=== PATIENT | female | born 1945 ===

== ENCOUNTER 2020-05-14 09:07 | Outpatient (REF) | payer MEDICARE, SELFPAY ==
[2020-05-14 10:53] LABS: Alanine Aminotransferase 14 U/L (0-31); Alkaline Phosphatase 116 U/L (39-117); Anion Gap 12 (12-20); Aspartate Amino Transferase 17 U/L (5-31); Bilirubin Total 0.4 mg/dL (0.0-1.0); Blood Urea Nitrogen 10 mg/dL (9-16); Calcium 8.3 mg/dL (8.4-10.2); Carbon Dioxide 29 mmol/L (22-29); Chloride 104 mmol/L (96-108); Cholesterol 207 mg/dL; Estimated Glomerular Filt Rate > 60; Glucose Fasting 106 mg/dL (60-99); HDL Cholesterol 37 mg/dL; LDL Cholesterol Calculated 133 mg/dl; Potassium 4.2 mmol/l (3.3-5.1); Sodium 141 mmol/L (135-145); Total Protein 6.7 g/dL (6.5-8.0); Triglycerides 185 mg/dL
[2020-05-14 11:14] LABS: Vitamin D 25-OH Total 38.9 ng/mL (>30)
== END 2020-05-14 09:08 | disposition home or self-care (01) ==
LOC: HO.10HDL 09:07
PROVIDERS: Visit Provider Internal Medicine
DX: E78.00 Pure hypercholesterolemia, unspecified (principal); E55.9 Vitamin D deficiency, unspecified
CPT/HCPCS: 80053; 80061; 82306

== ENCOUNTER 2020-08-12 08:17 | Outpatient (REF) | payer MEDICARE, MEDICAID, OTHER, SELFPAY ==
--- NOTE | 2020-08-12 08:40 | ECG_ITS ---
Test Reason : HYPERLIPIDEMIA Blood Pressure : / mmHG Vent. Rate : 069 BPM Atrial Rate : 069 BPM P-R Int : 144 ms QRS Dur : 070 ms QT Int : 394 ms P-R-T Axes : 046 038 056 degrees QTc Int : 422 ms Sinus rhythm with Premature atrial complexes Otherwise normal ECG When compared with ECG of 22-MAR-2020 04:28, Premature atrial complexes are now Present Referred By: Angi Bartlett Electronically Signed By:RIDGE MOYA
[2020-08-12 08:54] LABS: MANUAL DIFF FLAG NO
[2020-08-12 08:59] LABS: Basophils Absolute Auto 0.1 X10*3/uL (0.0-0.2); Eosinophils Absolute Auto 0.1 X10*3/uL (0.0-0.4); Eosinophils Percent Auto 1.8 % (0-4); Hematocrit 42.9 % (37-47); Hemoglobin 14.3 g/dl (12.0-16.0); Imm Gran Abs Auto 0.01 X10*3/uL (0.00-0.03); Imm Gran Pct Auto 0.2 % (0.0-0.4); Lymphocytes Absolute Auto 1.9 X10*3/uL (1.2-4.9); Lymphocytes Percent Auto 30.8 % (20-40); Mean Corpuscular HGB Conc 33.3 g/dl (31.0-35.0); Mean Corpuscular Hemoglobin 30.6 pg (27.0-33.0); Mean Corpuscular Volume 91.9 fL (80-98); Mean Platelet Volume 11.8 fL (9.4-12.3); Monocytes Absolute Auto 0.4 X10*3/uL (0.1-1.2); Monocytes Percent Auto 7.1 % (2-11); Neutrophils Absolute Auto 3.6 X10*3/uL (2.0-8.3); Neutrophils Percent Auto 59.1 % (45-73); Platelet Count 261 X10*3/uL (160-400); Red Blood Count 4.67 X10*6/uL (4.20-5.50); Red Cell Distribution Width 13.2 % (11.0-16.0); White Blood Count 6.1 X10*3/uL (4.8-10.8)
[2020-08-12 09:19] LABS: Alanine Aminotransferase 12 U/L (0-31); Albumin Level 4.2 g/dL (3.5-5.0); Alkaline Phosphatase 124 U/L (39-117); Anion Gap 10 (12-20); Aspartate Amino Transferase 14 U/L (5-31); Bilirubin Total 0.7 mg/dL (0.0-1.0); Blood Urea Nitrogen 13 mg/dL (9-16); Calcium 9.2 mg/dL (8.4-10.2); Carbon Dioxide 30 mmol/L (22-29); Chloride 104 mmol/L (96-108); Cholesterol 225 mg/dL; Estimated Glomerular Filt Rate 58; Glucose Fasting 107 mg/dL (60-99); HDL Cholesterol 40 mg/dL; LDL Cholesterol Calculated 156 mg/dl; Potassium 4.4 mmol/L (3.3-5.1); Sodium 140 mmol/L (135-145); Total Protein 7.2 g/dL (6.5-8.0); Triglycerides 148 mg/dL
[2020-08-12 09:39] LABS: TSH reflex Free T4 4.28 uIU/mL (0.32-4.0)
[2020-08-12 10:47] LABS: Folate 9.8 ng/mL (> or = 4.0); Vitamin B12 157 pg/mL (200-900)
[2020-08-12 10:50] LABS: Free T4 (Free Thyroxine) 0.93 ng/dL (0.71-1.85)
[2020-08-16 15:02] LABS: Vitamin D 25-OH, D2 9 ng/mL; Vitamin D 25-OH, D3 39 ng/mL; Vitamin D 25-OH, Total 48 ng/mL (30-100)
== END 2020-08-12 08:18 | disposition home or self-care (01) ==
LOC: HO.LAB 08:17
PROVIDERS: Visit Provider Internal Medicine
DX: E78.5 Hyperlipidemia, unspecified (principal); E03.9 Hypothyroidism, unspecified; R53.82 Chronic fatigue, unspecified
CPT/HCPCS: 36415; 80053; 80061; 82306; 82607; 82746; 84439; 84443; 85025; 93005

== ENCOUNTER 2020-09-04 14:47 | Emergency (ER) | payer MEDICARE, OTHER, SELFPAY ==
--- NOTE | ~2020-09-04 | US_ITS ---
EXAMINATION: US VENOUS ULTRASOUND WITH DOPPLER LOWER EXTREMITY, LEFT CLINICAL INFORMATION: Pain COMPARISON: None TECHNIQUE: Ultrasound of the deep veins is performed from the hip to the calf with compression sonography and color and pulse Doppler assessment. Spectral analysis with color-flow imaging is performed. FINDINGS: There is normal venous compression and respiratory variation and augmented flow. The visualized common femoral vein, superficial femoral vein, profunda femoral vein, popliteal vein, and the trifurcation region shows no evidence of deep venous thrombosis. There is no significant popliteal fossa cyst. There is a small joint effusion evident along the posterior joint line. If the patient's symptoms persist, followup ultrasound in 5 days 7 days might be of value to exclude proximal propagation from a non-visualized calf vein. US/US venous duplex LE LT IMPRESSION: No DVT demonstrated in the left lower extremity. Knee joint effusion suspected.
--- NOTE | ~2020-09-04 | XR_ITS ---
EXAMINATION: XR KNEE, LEFT CLINICAL INFORMATION: Pain COMPARISON: 08/31/2017 TECHNIQUE: Four views of the left knee. FINDINGS: No acute fracture or dislocation. Small marginal osteophytes along the patellofemoral joint. Joint spaces and articular surfaces are otherwise maintained. Moderate joint effusion. XR/XR knee LT 3V IMPRESSION: No acute fracture or dislocation. Moderate joint effusion.
[2020-09-04 15:06] VITALS: BP 138/64; PULSE 69; RESP 18; TEMP 36.5; O2SAT 96; BMI 22.3
[2020-09-04 17:21] VITALS: BP 141/62; PULSE 66; RESP 18; TEMP 36.8; O2SAT 98
--- NOTE | 2020-09-04 18:06 | ED_ITS ---
HPI - Extremity Injury (Lower) General Chief Complaint: Extremity Injury, Lower Stated Complaint: leg, knee, neck pain Time Seen by Provider: 09/04/20 16:22 History of Present Illness HPI Narrative: Patient complains of pain in the left knee and the left posterior thigh and left posterior knee over the last several days without injury, she denies any redness, denies swelling denies numbness weakness or tingling, no fever no chills, pain is moderate Related Data Home Medications Medication Instructions Recorded Confirmed ezetimibe 10 mg tablet 10 mg PO DAILY 05/03/20 07/19/20 pantoprazole 40 mg tablet,delayed 40 mg PO BEDTIME 05/03/20 07/19/20 release Previous Rx's Medication Instructions Recorded acetaminophen 650 mg 650 mg PO Q12H PRN 15 Days #30 tab 06/07/20 tablet,extended release amitriptyline 10 mg tablet 10 mg PO BEDTIME 30 Days #30 tab 07/19/20 cane #1 ea 09/04/20 Allergies Allergy/AdvReac Type Severity Reaction Status Date / Time ibuprofen Allergy Mild anaphylaxis, Verified 09/04/20 15:05 hives metronidazole Allergy Mild rash Verified 09/04/20 15:05 naproxen [Aleve] Allergy Mild anaphylaxis, Verified 09/04/20 15:05 hives pravastatin Allergy Mild anaphylaxis Verified 09/04/20 15:05 simvastatin Allergy Mild cramps Verified 09/04/20 15:05 oxycodone [OXYCODONE] AdvReac Mild GI UPSET Verified 09/04/20 15:05 aspirin Allergy Mild swelling Uncoded 09/04/20 15:05 Review of Systems Review of Systems: Positive for left knee pain and posterior leg pain Negatives are no fever no chills no dizziness no weakness no other joints hurting no chest pain no shortness of breath no rash no numbness weakness or tin gling Yes all other systems are reviewed and are negative PMFSH Past Medical History Source: nursing notes reviewed Medical History Chronic fatigue Dyslipidemia GERD (gastroesophageal reflux disease) Insomnia Neck pain on right side Ophthalmoplegic migraine headache Sore throat, chronic Surgical History History of laparoscopic cholecystectomy History of total abdominal hysterectomy and bilateral salpingo-oophorectomy Family History Family History (Updated 05/03/20 @ 16:50 by TOBY Corral) Mother CVD (cardiovascular disease) Father Lung cancer Son Cancer Sister Lung cancer Brother Colon cancer Social History Social History Smoking Status: Never smoker Smoked in Last 30 Days: No Use of substances other than those prescribed or required for medical reasons: No Advance Directives: No Advance Directives Information Provided: No Physical Exam Vital Signs: Vital Signs: Last Vital Signs Temp 98.3 F 09/04/20 17:21 Pulse 66 09/04/20 17:21 Resp 18 09/04/20 17:21 BP 141/62 H 09/04/20 17: Pulse Ox 98 09/04/20 17:21 Body Mass Index 22.3 General appearance is no acute distress, cooperative and O x3 Head is normocephalic atraumatic Neck is supple The chest is clear to auscultation bilaterally The abdomen is soft nontender The extremities the left knee has anterior tenderness no obvious swelling or effusion, it extends to 180 and flexes past 90, she can bear weight with a limp, there is also tenderness in the posterior knee and the posterior thigh, skin is normal in appearance with no rash no redness no warmth Neuro no focal deficit Course Course Course Narrative: X-ray of the knee showed a small effusion, as well as some evidence of osteoarthritis Ultrasound was negative for blood clot and patient was discharged and ambulated comfortably without assistance with a minor limp and will follow with orthopedi st Discharge Plan Discharge Clinical Impression: Osteoarthritis of left knee, Effusion of left knee Patient Disposition: Home, Self-Care Additional Instructions: Ultrasound of her leg did not show any blood clot X-ray did show some arthritis and some fluid on the knee which usually gets absorbed on its own in a few days Follow with orthopedist for further evaluation if pain continues Return to ER any time any worse condition or concerns You could use extra-strength Tylenol as needed for pain Prescriptions: New (DME) cane Device See Rx Instructions .ROUTE .MEDSUPPLY Qty: 1 RF: 0 No Action amitriptyline 10 mg tablet 10 mg PO BEDTIME 30 Days Qty: 30 RF: 0 acetaminophen [Arthritis Pain Relief (acetam)] 650 mg tablet extended release 650 mg PO Q12H PRN (Reason: pain) 15 Days Qty: 30 RF: 0 ezetimibe 10 mg tablet 10 mg PO DAILY RF: 0 pantoprazole 40 mg tablet,delayed release (DR/EC) 40 mg PO BEDTIME RF: 0 Referrals: Leyda Gibson MD [Physician] - 1 week (Left knee pain, osteoarthritis and effusion) Interventions: ED Discharge Assessment Last Done: 09/04/20 18:55 Discharge Date/Time: 09/04/20 18:20
== END 2020-09-04 18:20 | disposition home or self-care (01) ==
PROVIDERS: Emergency Provider Emergency Medicine Emergency Medical Services; PCP Internal Medicine
DX: M17.12 Unilateral primary osteoarthritis, left knee (principal); M25.462 Effusion, left knee; M79.605 Pain in left leg
CPT/HCPCS: 73562; 93971; 99284

== ENCOUNTER 2020-09-14 10:23 | Emergency (ER) | payer MEDICARE, OTHER, SELFPAY ==
--- NOTE | ~2020-09-14 | US_ITS ---
EXAMINATION: US VENOUS ULTRASOUND WITH DOPPLER LOWER EXTREMITY, LEFT CLINICAL INFORMATION: Left leg pain. COMPARISON: None TECHNIQUE: Ultrasound of the deep veins is performed from the hip to the calf with compression sonography and color and pulse Doppler assessment. Spectral analysis with color-flow imaging is performed. FINDINGS: There is normal venous compression and respiratory variation and augmented flow. The visualized common femoral vein, superficial femoral vein, profunda femoral vein, popliteal vein, and the trifurcation region shows no evidence of deep venous thrombosis. There is a small popliteal fossa cyst. US/US venous duplex LE LT IMPRESSION: No DVT demonstrated in the left lower extremity.
[2020-09-14 10:41] VITALS: BP 155/51; PULSE 66; RESP 16; TEMP 36.7; O2SAT 97; BMI 23.1
--- NOTE | 2020-09-14 10:46 | ED.LOWEXIN ---
HPI - Extremity Injury (Lower) General Chief Complaint: Extremity Injury, Lower Stated Complaint: lt knee pain, swelling Time Seen by Provider: 09/14/20 10:46 History of Present Illness HPI Narrative: Patient complains of left knee pain and swelling as well as left posterior leg pain for several weeks, patient was seen before 10 days ago but has not yet diagnosed orthopedic appointment, she had ultrasound which was negative and an x-ray which showed some arthritis in the knee with a small effusion, as she has no chest pain or shortness of breath no calf swelling no leg swelling Related Data Home Medications Medication Instructions Recorded Confirmed ezetimibe 10 mg tablet 10 mg PO DAILY 05/03/20 09/07/20 pantoprazole 40 mg tablet,delayed 40 mg PO BEDTIME 05/03/20 09/07/20 release Previous Rx's Medication Instructions Recorded amitriptyline 10 mg tablet 10 mg PO BEDTIME 30 Days #30 tab 07/19/20 acetaminophen 650 mg 650 mg PO Q12H PRN 30 Days #60 tab 09/06/20 tablet,extended release cyanocobalamin (vitamin B-12) 1,000 mcg IM .once a month 30 Days 09/07/20 1,000 mcg/mL injection solution #1 ml syringe with needle, safety 3 mL #1 ea 09/07/20 gauge x 1 07/10 acetaminophen 300 mg-codeine 15 mg 1 tab PO BID PRN 7 Days #14 tab 09/08/20 tablet cane #1 ea 09/14/20 walker #1 ea 09/15/20 Allergies Allergy/AdvReac Type Severity Reaction Status Date / Time ibuprofen Allergy Mild anaphylaxis, Verified 09/17/20 10:16 hives metronidazole Allergy Mild rash Verified 09/17/20 10:16 naproxen [Aleve] Allergy Mild anaphylaxis, Verified 09/17/20 10:16 hives pravastatin Allergy Mild anaphylaxis Verified 09/17/20 10:16 simvastatin Allergy Mild cramps Verified 09/17/20 10:16 oxycodone [OXYCODONE] AdvReac Mild GI UPSET Verified 09/17/20 10:16 aspirin Allergy Mild swelling Uncoded 09/07/20 14:50 Review of Systems Review of Systems: Positive for left leg and knee pain, negatives are fever chills dizziness weakness confusion no shortness of breath no chest pain no pain with deep breath, no nausea no vomiting no leg swelling no calf pain or swelling no rash no numbness or weakness PMFSH Past Medical History Source: nursing notes reviewed Medical History B12 deficiency Chronic fatigue Dyslipidemia Effusion, left knee GERD (gastroesophageal reflux disease) Insomnia Neck pain on right side Ophthalmoplegic migraine headache Sore throat, chronic Surgical History History of laparoscopic cholecystectomy History of total abdominal hysterectomy and bilateral salpingo-oophorectomy Family History Family History Mother CVD (cardiovascular disease) Father Lung cancer Son Cancer Sister Lung cancer Brother Colon cancer Social History Social History Smoking Status: Never smoker Physical Exam Vital Signs: Vital Signs: Last Vital Signs Temp 98.0 F 09/14/20 10:41 Pulse 66 09/14/20 10:41 Resp 16 09/14/20 10:41 BP 155/51 H 09/14/20 10:41 Pulse Ox 97 09/14/20 10:41 Body Mass Index 23.1 General appearance no acute distress, cooperative come in O x3 The head is normocephalic atraumatic The neck is supple The chest is clear to auscultation bilaterally, no pain with a deep breath Abdomen soft nontender extremities the left knee has some tenderness extends to 180, it is not obvious swollen there is no obvious a flu effusion there is no ligamentous laxity, skin color is normal there is no rash There is also some tenderness to the posterior thigh and the posterior knee, there is no calf swelling or calf tenderness Skin no rash Neuro no focal deficits, no focal weakness, sensation is intact and symmetrical Course Course Course Narrative: Patient said she has had trouble making a follow-up orthopedic appointment, the called the office and say there is many appointments available and if she calls she will get an appointment, and the patient says if she is confused about the call she can ask her niece to make the call Ultrasound was negative and did not show any clot or any acute pathology Discharge Plan Discharge Clinical Impression: Arthralgia of left knee Patient Disposition: Home, Self-Care Additional Instructions: Ultrasound did not show any blood clot X-ray from previous visits showed some arthritis and water on the knee You may benefit from a steroid shot from the orthopedist so make an appointment for the orthopedist who will evaluate best possible treatment Return any concerns Prescriptions: No Action acetaminophen [Arthritis Pain Relief (acetam)] 650 mg tablet extended release 650 mg PO Q12H PRN (Reason: pain) 30 Days Qty: 60 RF: 3 acetaminophen-codeine 300-15 mg tablet 1 tab PO BID PRN (Reason: pain) 7 Days Qty: 14 RF: 0 (DME) cane Device See Rx Instructions .ROUTE .MEDSUPPLY Qty: 1 RF: 0 (DME) walker Misc See Rx Instructions .ROUTE .MEDSUPPLY Qty: 1 RF: 0 amitriptyline 10 mg tablet 10 mg PO BEDTIME 30 Days Qty: 30 RF: 0 cyanocobalamin (vitamin B-12) 1,000 mcg/mL solution 1,000 mcg IM .once a month 30 Days Qty: 1 RF: 2 (DME) Easy Touch SheathLock Syrg-Ndl 3 mL 21 gauge x 1 1/2 syringe See Rx Instructions .ROUTE .MEDSUPPLY Qty: 1 RF: 2 ezetimibe 10 mg tablet 10 mg PO DAILY RF: 0 pantoprazole 40 mg tablet,delayed release (DR/EC) 40 mg PO BEDTIME RF: 0 Referrals: Casper Jauregui MD [Physician] - 2 days (Knee pain possible candidate for steroid injection) Interventions: ED Discharge Assessment Last Done: 09/14/20 12:45 Discharge Date/Time: 09/14/20 12:35
== END 2020-09-14 12:35 | disposition home or self-care (01) ==
PROVIDERS: Emergency Provider Emergency Medicine Emergency Medical Services; PCP Internal Medicine
DX: M25.562 Pain in left knee (principal); M79.605 Pain in left leg
CPT/HCPCS: 93971; 99283; 99284

== ENCOUNTER 2020-09-17 07:35 | Outpatient (REF) | payer MEDICARE, MEDICAID, SELFPAY ==
--- NOTE | ~2020-09-17 | XR_ITS ---
EXAMINATION: XR KNEE, LEFT XR KNEE STANDING, BILATERAL CLINICAL INFORMATION: Diffuse left knee. COMPARISON: X-ray of the left knee 09/04/2020 TECHNIQUE: AP upright of both knees and patellar view of left knee. FINDINGS: Left knee: Small marginal osteophytes about the medial compartment and patellofemoral compartment without joint space narrowing indicative of mild osteoarthritis. Lateral compartment normal. Right knee limited AP upright: The medial and lateral compartments are normal. The surrounding bone and soft tissues are normal. XR/XR knee LT 2V IMPRESSION: Mild osteoarthritis of the left knee. Limited right knee: Normal.
--- NOTE | ~2020-09-17 | XR_ITS ---
EXAMINATION: XR KNEE, LEFT XR KNEE STANDING, BILATERAL CLINICAL INFORMATION: Diffuse left knee. COMPARISON: X-ray of the left knee 09/04/2020 TECHNIQUE: AP upright of both knees and patellar view of left knee. FINDINGS: Left knee: Small marginal osteophytes about the medial compartment and patellofemoral compartment without joint space narrowing indicative of mild osteoarthritis. Lateral compartment normal. Right knee limited AP upright: The medial and lateral compartments are normal. The surrounding bone and soft tissues are normal. XR/XR knee standing BI IMPRESSION: Mild osteoarthritis of the left knee. Limited right knee: Normal.
== END 2020-09-17 07:36 | disposition home or self-care (01) ==
LOC: HO.HOSX 07:35
PROVIDERS: Visit Provider Physician Assistant
DX: M17.12 Unilateral primary osteoarthritis, left knee (principal)
CPT/HCPCS: 20610; 73560; 73565; 99202; J1040

== ENCOUNTER → 2020-12-03 11:02 | Outpatient (BNVA) | payer MEDICARE, MEDICAID, OTHER, SELFPAY | PROVIDERS: PCP Internal Medicine; Visit Provider Physician Assistant | DX: M17.12 Unilateral primary osteoarthritis, left knee (principal) | CPT/HCPCS: 99212 ==

== ENCOUNTER → 2020-12-29 08:55 | Outpatient (BNVA) | payer MEDICARE, OTHER, SELFPAY | PROVIDERS: PCP Internal Medicine; Visit Provider Physician Assistant | DX: M17.12 Unilateral primary osteoarthritis, left knee (principal) | CPT/HCPCS: 20610; 99212; J1040 ==

== ENCOUNTER 2021-02-10 20:32 | Emergency (ER) | payer MEDICARE, OTHER, SELFPAY ==
[2021-02-10 21:02] VITALS: BP 156/57; PULSE 72; RESP 18; TEMP 36.8; O2SAT 97; BMI 22.3
[2021-02-10 21:30] LABS: IDNOW Serial# 9DD0AD1C; Strep A Nucleic Acid Negative (Negative)
[2021-02-10 22:02] LABS: Influenza A PCR NEGATIVE (Negative); Influenza B PCR NEGATIVE (Negative); Resp Syncy Virus RNA Qual PCR NEGATIVE (Negative); SARS COV2 PCR INHOUSE NEGATIVE (Negative)
--- NOTE | 2021-02-10 22:23 | ED.GENADULT ---
HPI - General Adult General Chief complaint: General Medical Stated complaint: sore throat Time Seen by Provider: 02/10/21 22:20 Source: patient Mode of arrival: ambulatory Limitations: no limitations History of Present Illness HPI narrative: This is a 75 years old of female who presented to the ED with a chief complaint of a sore throat cough dry, denies any fever chills vomiting Onset (ago): day(s) (2) Severity: moderate Exacerbating factors: none Treatments prior to arrival: none Related Data Home Medications Medication Instructions Recorded Confirmed ezetimibe 10 mg tablet 10 mg PO DAILY 05/03/20 09/07/20 pantoprazole 40 mg tablet,delayed 40 mg PO BEDTIME 05/03/20 09/07/20 release Previous Rx's Medication Instructions Recorded amitriptyline 10 mg tablet 10 mg PO BEDTIME 30 Days #30 tab 07/19/20 syringe with needle, safety 3 mL #1 ea 09/07/20 21 gauge x 1 1/2 (Easy Touch SheathLock Syringe with Needle) cane #1 ea 09/14/20 acetaminophen 650 mg 650 mg PO Q12H PRN 30 Days #60 tab 10/01/20 tablet,extended release (Arthritis Pain Relief (acetaminophen) ER) walker #1 ea 10/20/20 cyanocobalamin (vitamin B-12) 1,000 mcg IM .once a month 30 Days 11/27/20 1,000 mcg/mL injection solution #1 ml acetaminophen 300 mg-codeine 15 mg 1 tab PO Q8H PRN 30 Days #90 tab 12/14/20 tablet doxycycline monohydrate 100 mg 100 mg PO BID #14 cap 02/10/21 capsule Allergies Allergy/AdvReac Type Severity Reaction Status Date / Time ibuprofen Allergy Mild anaphylaxis, Verified 02/10/21 21:02 hives metronidazole Allergy Mild rash Verified 02/10/21 21:02 naproxen [Aleve] Allergy Mild anaphylaxis, Verified 02/10/21 21:02 hives pravastatin Allergy Mild anaphylaxis Verified 02/10/21 21:02 simvastatin Allergy Mild cramps Verified 02/10/21 21:02 oxycodone [OXYCODONE] AdvReac Mild GI UPSET Verified 02/10/21 21:02 aspirin Allergy Mild swelling Uncoded 09/07/20 14:50 Review of Systems Review of Systems: Yes all other systems are reviewed and are negative Constitutional: Constitutional: Reports no additional constitutional complaints ENT: Comments: Sore throat Respiratory: Comments: Dry cough no productive PMFSH Past Medical History Attestation statement: The following information was validated with the patient. Medical History B12 deficiency Chronic fatigue Dyslipidemia Effusion, left knee GERD (gastroesophageal reflux disease) Insomnia Neck pain on right side Ophthalmoplegic migraine headache Sore throat, chronic Surgical History History of laparoscopic cholecystectomy History of total abdominal hysterectomy and bilateral salpingo-oophorectomy Family History Family History Mother CVD (cardiovascular disease) Father Lung cancer Son Cancer Sister Lung cancer Brother Colon cancer Social History Social History Advance Directives: No Advance Directives Information Provided: No Physical Exam Vital Signs: Vital Signs: Last Vital Signs Temp 98.2 F 02/10/21 21:02 Pulse 72 02/10/21 21:02 Resp 18 02/10/21 21:02 BP 156/57 H 02/10/21 21:02 Pulse Ox 97 02/10/21 21:02 Body Mass Index 22.3 Const: Other: She looks well she is not toxic she is sitting in the chair in not acute distress HENMT: Other: Examination the head and eyes nose mouth throat showed redness of the pharynx without exudates reyes General nose exam: Normal external nose present Neck: Other: Neck is supple Chest: Chest palpation & inspection: normal inspection of the chest Resp: Other: Lungs exam shows clear lung esposito Cardio: Jugular venous distension: no JVD Rate: regular rate GI: Inspection: Yes normal to inspection Skin: General skin exam: no rashes or lesions noted, elasticity normal and turgor normal Neuro: Other: Patient is awake alert oriented x3 no focal deficit Medical Decision Making Lab Data Lab results reviewed: Yes I reviewed the patient's lab results. Labs: Lab Results 02/10/21 02/10/21 Range/Units 21:13 21:13 Coronavirus (PCR) NEGATIVE (Negative) Influenza Type A (PCR) NEGATIVE (Negative) Influenza Type B (PCR) NEGATIVE (Negative) RSV RNA Qual (PCR) NEGATIVE (Negative) S. pyogenes GrpA MADHURI Negative (Negative) Discharge Plan Discharge Clinical Impression: Pharyngitis, Bronchitis Patient Disposition: Home, Self-Care Instructions: Pharyngitis (ED), Acute Bronchitis (ED) Prescriptions: New doxycycline monohydrate 100 mg capsule 100 mg PO BID Qty: 14 RF: 0 No Action (DME) cane Device See Rx Instructions .ROUTE .MEDSUPPLY Qty: 1 RF: 0 acetaminophen [Arthritis Pain Relief (acetam)] 650 mg tablet extended release 650 mg PO Q12H PRN (Reason: pain) 30 Days Qty: 60 RF: 3 (DME) walker Misc See Rx Instructions .ROUTE .MEDSUPPLY Qty: 1 RF: 0 cyanocobalamin (vitamin B-12) 1,000 mcg/mL solution 1,000 mcg IM .once a month 30 Days Qty: 1 RF: 6 acetaminophen-codeine 300-15 mg tablet 1 tab PO Q8H PRN (Reason: pain) 30 Days Qty: 90 RF: 0 amitriptyline 10 mg tablet 10 mg PO BEDTIME 30 Days Qty: 30 RF: 0 (DME) Easy Touch SheathLock Syrg-Ndl 3 mL 21 gauge x 1 1/2 syringe See Rx Instructions .ROUTE .MEDSUPPLY Qty: 1 RF: 2 ezetimibe 10 mg tablet 10 mg PO DAILY RF: 0 pantoprazole 40 mg tablet,delayed release (DR/EC) 40 mg PO BEDTIME RF: 0 Interventions: ED Discharge Assessment Last Done: 02/10/21 22:34 Discharge Date/Time: 02/10/21 22:37
== END 2021-02-10 22:37 | disposition home or self-care (01) ==
PROVIDERS: Emergency Provider Emergency Medicine; PCP Internal Medicine
DX: J02.9 Acute pharyngitis, unspecified (principal); J40 Bronchitis, not specified as acute or chronic; Z20.822 Contact with and (suspected) exposure to COVID-19; Z79.899 Other long term (current) drug therapy
CPT/HCPCS: 0241U; 36415; 87651; 99283

== ENCOUNTER → 2021-02-11 10:48 | Outpatient (BNVA) | payer MEDICARE, OTHER, SELFPAY | PROVIDERS: Visit Provider Physician Assistant | DX: M17.12 Unilateral primary osteoarthritis, left knee (principal) | CPT/HCPCS: 99212 ==

== ENCOUNTER 2021-02-15 13:41 | Outpatient (REF) | payer MEDICARE, OTHER, SELFPAY ==
--- NOTE | ~2021-02-15 | MR_ITS ---
EXAMINATION: MR KNEE WITHOUT CONTRAST, LEFT CLINICAL INFORMATION: Unilateral primary osteoarthritis. COMPARISON: 09/17/2020 TECHNIQUE: MRI of the knee without contrast was performed using routine sequences on a high-field scanner. FINDINGS: MENISCI: Medial Meniscus: There is a flap tear of the posterior horn with a 1.3 cm fragment which is displaced anteriorly/laterally toward the medial tibial spine. There is decreased meniscal tissue at the posterior horn. A small horizontal components of the tear is present at the junction of the posterior horn and body. Lateral Meniscus: Intact LIGAMENTS: Cruciate: Intact Collateral: Intact EXTENSOR MECHANISM: Mild enthesopathic spurring at the quadriceps tendon insertion and patellar tendon origin. No tendon tears or tendinosis. ARTICULAR CARTILAGE/BONE: Patellofemoral Compartment: There is mild nonuniform chondral thinning in the trochlea. Tiny marginal osteophytes are present at the patella. Trochlear morphology is normal. Medial Compartment: There is mild nonuniform chondral thinning in the medial femoral condyle and medial tibial plateau with small marginal osteophytes. No significant subchondral marrow signal abnormalities. Lateral Compartment: Normal JOINT FLUID AND BURSAE: Trace joint effusion. No Mena's cyst. MR/MR knee LT wo con IMPRESSION: 1. A displaced flap tear at the posterior horn of the medial meniscus. 2. Mild medial and minimal patellofemoral compartment osteoarthritis. 3. Trace joint effusion
== END 2021-02-15 13:42 | disposition home or self-care (01) ==
LOC: HO.MRI 13:41
PROVIDERS: Visit Provider Physician Assistant
DX: M17.12 Unilateral primary osteoarthritis, left knee (principal)
CPT/HCPCS: 73721

== ENCOUNTER 2021-02-18 07:25 | Outpatient (REF) | payer MEDICARE, OTHER, SELFPAY ==
[2021-02-18 08:35] LABS: MANUAL DIFF FLAG NO
[2021-02-18 08:43] LABS: Basophils Percent Auto 0.8 % (0-2); Eosinophils Absolute Auto 0.1 X10*3/uL (0.0-0.4); Eosinophils Percent Auto 1.5 % (0-4); Hematocrit 42.9 % (37-47); Hemoglobin 14.2 g/dl (12.0-16.0); Imm Gran Abs Auto 0.02 X10*3/uL (0.00-0.03); Imm Gran Pct Auto 0.4 % (0.0-0.4); Lymphocytes Absolute Auto 1.5 X10*3/uL (1.2-4.9); Lymphocytes Percent Auto 28.8 % (20-40); Mean Corpuscular HGB Conc 33.1 g/dl (31.0-35.0); Mean Corpuscular Hemoglobin 30.8 pg (27.0-33.0); Mean Corpuscular Volume 93.1 fL (80-98); Mean Platelet Volume 12.5 fL (9.4-12.3); Monocytes Absolute Auto 0.4 X10*3/uL (0.1-1.2); Monocytes Percent Auto 7.4 % (2-11); Neutrophils Absolute Auto 3.2 X10*3/uL (2.0-8.3); Neutrophils Percent Auto 61.1 % (45-73); Platelet Count 230 X10*3/uL (160-400); Red Blood Count 4.61 X10*6/uL (4.20-5.50); Red Cell Distribution Width 13.2 % (11.0-16.0); White Blood Count 5.3 X10*3/uL (4.8-10.8)
[2021-02-18 09:14] LABS: Alanine Aminotransferase 12 U/L (0-31); Albumin Level 4.2 g/dL (3.5-5.0); Alkaline Phosphatase 122 U/L (39-117); Anion Gap 13 (12-20); Aspartate Amino Transferase 14 U/L (5-31); Bilirubin Total 0.6 mg/dL (0.0-1.0); Blood Urea Nitrogen 11 mg/dL (9-16); Calcium 9.3 mg/dL (8.4-10.2); Carbon Dioxide 26 mmol/L (22-29); Chloride 108 mmol/L (96-108); Cholesterol 237 mg/dL; Estimated Glomerular Filt Rate 59; Glucose Fasting 112 mg/dL (60-99); HDL Cholesterol 41 mg/dL; LDL Cholesterol Calculated 168 mg/dl; Sodium 143 mmol/L (135-145); Triglycerides 141 mg/dL
[2021-02-18 09:39] LABS: Free T4 (Free Thyroxine) 0.95 ng/dL (0.71-1.85); Thyroid Stimulating Hormone 1.85 uIU/mL (0.32-4.0)
[2021-02-19 14:53] LABS: Folate 17.7 ng/mL (> or = 4.0); Vitamin B12 240 pg/mL (200-900)
[2021-02-21 17:57] LABS: Thyroglobulin Antibodies <1 IU/mL (< or = 1); Thyroid Peroxidase Antibodies 1 IU/mL (<9)
[2021-02-22 21:12] LABS: Intrinsic Factor Antibodies Negative (Negative)
[2021-02-23 16:01] LABS: Vitamin D 25-OH, D2 7 ng/mL; Vitamin D 25-OH, D3 31 ng/mL; Vitamin D 25-OH, Total 38 ng/mL (30-100)
== END 2021-02-18 07:26 | disposition home or self-care (01) ==
LOC: HO.LAB 07:25
PROVIDERS: PCP Internal Medicine; Visit Provider Internal Medicine
DX: E53.8 Deficiency of other specified B group vitamins (principal); E55.9 Vitamin D deficiency, unspecified; D64.9 Anemia, unspecified; J31.2 Chronic pharyngitis; R53.82 Chronic fatigue, unspecified; E78.5 Hyperlipidemia, unspecified
CPT/HCPCS: 36415; 80053; 80061; 82306; 82607; 82746; 83516; 84439; 84443; 85025; 86340; 86376; 86800

== ENCOUNTER → 2021-07-13 13:37 | Outpatient (BNVA) | payer MEDICARE, OTHER, SELFPAY | PROVIDERS: PCP Internal Medicine; Visit Provider Physician Assistant | DX: S83.242D Other tear of medial meniscus, current injury, left knee, subsequent encounter (principal) | CPT/HCPCS: 99212 ==

== ENCOUNTER 2021-07-26 08:09 | Outpatient (REF) | payer MEDICARE, OTHER, SELFPAY ==
--- NOTE | ~2021-07-26 | FL_ITS ---
EXAMINATION: FL UPPER GI AND SMALL BOWEL FOLLOW-THROUGH CLINICAL INFORMATION: Dysphagia. COMPARISON: None TECHNIQUE: Barium swallow and upper GI were performed using thin and thick barium and effervescent granules. Barium tablet was also administered. Fluoroscopy time 1.3 minutes. DAP 7.2 Gonzalez per centimeter squared. 42 images. FINDINGS: The swallowing mechanism is normal. No aspiration or penetration is seen. Esophageal motility is normal. No mass, stricture or evidence of esophagitis is seen. There is a small sliding-type hiatal hernia with Schatzki ring. There is gastroesophageal reflux. The barium tablet passed freely into the stomach. The stomach and duodenum are normal-appearing. No fold thickening, mass, ulcer, or stricture is seen. FL/FL upper GI w Ba Swallow IMPRESSION: Small sliding-type hiatal hernia with Schatzki ring and gastroesophageal reflux.
== END 2021-07-26 08:10 | disposition home or self-care (01) ==
LOC: HO.XRAY 08:09
PROVIDERS: PCP Internal Medicine; Visit Provider Nurse Practitioner Family
DX: R13.10 Dysphagia, unspecified (principal)
CPT/HCPCS: 74240

== ENCOUNTER → 2021-08-08 14:10 | Outpatient (BNVA) | payer MEDICARE, OTHER, SELFPAY | PROVIDERS: PCP Internal Medicine; Visit Provider Orthopaedic Surgery | DX: S83.242A Other tear of medial meniscus, current injury, left knee, initial encounter (principal); M17.12 Unilateral primary osteoarthritis, left knee | CPT/HCPCS: 99212 ==

== ENCOUNTER 2021-08-11 08:34 | Emergency (ER) | payer MEDICARE, OTHER, SELFPAY ==
--- NOTE | ~2021-08-11 | CT_ITS ---
EXAMINATION: CT ABDOMEN AND PELVIS WITHOUT CONTRAST CLINICAL INFORMATION: Lower abdominal pain. COMPARISON: Upper GI/barium swallow. TECHNIQUE: Multidetector volumetric imaging was performed from the superior aspect of the liver through the pubic symphysis. Sagittal and coronal reformatted images were obtained on the technologist's workstation. This CT examination was performed using dose optimization techniques as appropriate, variously including the following: *Automated exposure control *Adjustment of mA and/or kV according to patient size (this includes techniques or standardized protocols for targeted exams where dose is matched to indication/reason for exam; i.e. extremities or head) *Use of iterative reconstruction technique DLP: 449 mGy-cm FINDINGS: LUNG BASES: There is bibasilar platelike atelectasis. Heart size is normal. LIVER, GALLBLADDER, AND BILIARY TREE: The liver is normal in size, shape, and attenuation. No focal hepatic lesion or biliary ductal dilatation is present. The gallbladder has been surgically removed. PANCREAS: Unremarkable. SPLEEN: The spleen is unremarkable. There is a wandering staple along inferior tip of spleen. ADRENAL GLANDS: Unremarkable. KIDNEYS AND URETERS: The kidneys are normal in size, shape, and attenuation. There is a 7 mm radiopaque calculi upper pole calyx right kidney.. There is large 9.3 cm cyst lower pole right kidney. There are 2 partially exophytic cyst measuring 1.6 cm midpole left kidney. No caliectasis or hydronephrosis seen. BLADDER: Unremarkable. GASTROINTESTINAL TRACT: There is scattered stool and gas seen throughout the colon without any significant distention. There is residual barium with within the diverticular ascending and sigmoid colon. Few scattered diverticula are seen throughout the colon. Mild mural thickening involving the sigmoid colon with mild pericolic fat stranding is seen. There is retained barium seen within the descending colon. No bowel obstruction, free air or free fluid ABDOMINAL WALL: A small umbilical hernia containing fat is noted. LYMPH NODES: Normal. VASCULAR: Unremarkable. PELVIC VISCERA: Unremarkable. OSSEOUS STRUCTURES: Unremarkable. CT/CT abdomen pelvis wo con IMPRESSION: Bibasilar platelike atelectasis. Gallbladder has been surgically removed. There are bilateral renal cysts and nonobstructive radiopaque calculi upper pole right kidney. There is diffuse scattered colonic sclerosis with retained barium in diverticula of ascending colon. There is nonspecific mild mural thickening of sigmoid colon with retained barium within and mild fat stranding. QUESTION EARLY DIVERTICULITIS. Fleischner guidelines were followed.
[2021-08-11 08:46] VITALS: BP 131/55; PULSE 80; RESP 16; TEMP 36.8; O2SAT 99; BMI 22.3
--- NOTE | 2021-08-11 08:55 | ED_ITS ---
HPI - Abdominal Pain General Chief Complaint: Abdominal Pain Stated Complaint: Lower abd pain Time Seen by Provider: 08/11/21 08:52 Source: patient and vp public relations Mode of arrival: ambulatory Limitations: no limitations History of Present Illness MD elicited complaint: abdominal pain Pertinent past history: diverticulitis Onset (ago): day(s) (2) Pain Consistency: constant Location: RLQ and suprapubic Severity: moderate Quality: aching Radiation: none Migration to: no migration Exacerbating factors: movement Relieving factors: nothing Associated symptoms: nausea and chills Related Data Previous Rx's Medication Instructions Recorded syringe with needle, safety 3 mL #1 ea 09/07/20 21 gauge x 1 /2 (Easy Touch SheathLock Syringe with Needle) cane #1 ea 09/14/20 walker #1 ea 10/20/20 cyanocobalamin (vitamin B-12) 1,000 mcg IM .once a month 30 11/27/20 Days 1,000 mcg/mL injection solution #1 ml ezetimibe 10 mg tablet 10 mg PO DAILY 90 Days #90 tab 02/16/21 pantoprazole 40 mg tablet,delayed 40 mg PO BEDTIME 90 Days #90 tab 02/16/21 release hyaluronate sodium, stabilized 60 60 mg (3 mL) INTRA-ARTICULAR ONCE 03/01/21 mg/3 mL intra-articular syringe 1 Days #3 ml (Durolane) amitriptyline 10 mg tablet 10 mg PO BEDTIME 30 Days #30 tab 04/20/21 acetaminophen 650 mg 650 mg PO Q8H 30 Days #90 tab 06/17/21 tablet,extended release (Tylenol Arthritis Pain) lidocaine 4 % topical spray 2 spray TOPICAL QID PRN #113 g 06/17/21 (Aspercreme (lidocaine)) acetaminophen 300 mg-codeine 30 mg 1 tab PO Q8H PRN 30 Days #90 tab 06/20/21 tablet amoxicillin 875 mg-potassium 1 tab PO BID #14 tab 08/11/21 clavulanate 125 mg tablet (Augmentin) morphine 15 mg immediate release 15 mg PO Q6H PRN 3 Days #12 tab 08/11/21 tablet ondansetron 4 mg disintegrating 4 mg PO Q8H PRN #20 tab 08/11/21 tablet Allergies Allergy/AdvReac Type Severity Reaction Status Date / Time ibuprofen Allergy Mild anaphylaxis, Verified 08/08/21 14:42 hives metronidazole Allergy Mild rash Verified 08/08/21 14:42 naproxen [Aleve] Allergy Mild anaphylaxis, Verified 08/08/21 14:42 hives pravastatin Allergy Mild anaphylaxis Verified 08/08/21 14:42 simvastatin Allergy Mild cramps Verified 08/08/21 14:42 oxycodone [OXYCODONE] AdvReac Mild GI UPSET Verified 08/08/21 14:42 aspirin Allergy Mild swelling Uncoded 06/17/21 11:59 Review of Systems Review of Systems Constitutional : No Weight loss, No Fever, pos Chills ENT/Mouth : No sore throat, No Rhinorrhea Eyes: No Swelling, No Redness Cardiovascular : No Chest Pain, No SOB, NoEdema Respiratory : No Cough, No Sputum, No Wheezing Gastrointestinal : Positive Nausea, no Vomiting, no Diarrhea, positive abdominal Pain, No Hematochezia, No Melena Genitourinary : No Dysuria, No Urinary Frequency, No Hematuria, No Urgency Musculoskeletal : No joint pain, No Myalgias, No Joint Swelling Skin : No Skin Lesions, No rash Neuro : No Weakness, No Numbness, No Dizziness, No Headache Psych : No Anxiety/Panic, No Depression Heme/Lymph: No Bruising, No Lymphadenopathy Endocrine : No Polyuria, No Polydipsia All other systems reviewed and are negative. Physical Exam Verdana 4l Vital Signs: Verdana 4d Verdana 4d Vital Signs: Verdana 4d Verdana 4Bd Last Vital Signs Verdana 4d Telephoner New 4d Telephoner New 4d Temp 98.3 F 08/11/21 08:46 Telephoner New 4d Pulse 68 08/11/21 11:57 Telephoner New 4d Resp 16 08/11/21 11:57 BP 133/48 L 08/11/21 11:57 Pulse Ox 97 08/11/21 11:57 BMI result Body Mass Index 22.3 Appearance: Alert. Oriented X3. No acute distress. Eyes: Pupils equal, round and reactive to light. ENT: Pharynx normal. Neck: Normal inspection. Neck supple. CVS: Normal heart rate and rhythm. Pulses normal. Respiratory: No respiratory distress. Breath sounds normal. Abdomen: Soft and moderate lower abdominal ttp suprapubic and RLQ no rebound no gurading Skin: Skin warm and dry. Normal skin color. Normal skin turgor. Extremities: No lower extremity edema. No calf ttp Neuro: Oriented X 3. No motor deficit. No sensory deficit. Course Course Course Narrative: VS stable, mild elevation in WBC count, negative lactic acid, elevated CRP, no abscess, can tolerate PO, CT scan mild early diverticulitis will start on PO pain medications at home and augmentin, appropriate for outpatient therapy, first dose of antibiotics here MDM - Abdominal Pain MDM Narrative Medical decision making narrative: 76 yo female with PMH of HLD, migraines, diverticulitis here with c/o 2 days of lower abdominal pain reports chills at this time will obtain labs, COVID swab, UA, CT scan for diverticulitis, IV morphine for pain, dispo per results and findings. Differential Diagnosis Differential diagnosis: Likely abdominal pain, constipation, diverticulitis, renal colic and small bowel obstruction Lab Data Result diagrams: 08/11/21 09:14 08/11/21 09:14 Labs: Lab Results 08/11/21 08/11/21 08/11/21 Range/Units 08:50 09:14 09:14 WBC 11.8 H (4.8-10.8) X10*3/uL RBC 4.79 (4.20-5.50) X10*6/uL Hgb 14.6 (12.0-16.0) g/dl Hct 43.6 (37.0-47.0) % MCV 91.0 (80.0-98.0) fL MCH 30.5 (27.0-33.0) pg MCHC 33.5 (31.0-35.0) g/dl RDW 13.2 (11.0-16.0) % Plt Count 231 (160-400) X10*3/uL MPV 12.5 H (9.4-12.3) fL Immature Gran % (Auto) 0.3 (0.0-0.4) % Neut % (Auto) 78.7 H (45-73) % Lymph % (Auto) 12.6 L (20-40) % [place] % (Auto) 8.0 (2-11) % Eos % (Auto) 0.1 (0-4) % Baso % (Auto) 0.3 (0-2) % Lymph # (Auto) 1.5 (1.2-4.9) X10*3/uL [place] # (Auto) 0.9 (0.1-1.2) X10*3/uL Eos # (Auto) 0.0 (0.0-0.4) X10*3/uL Baso # (Auto) 0.0 (0.0-0.2) X10*3/uL Abs Immat Gran (auto) 0.03 (0.00-0.03) X10*3/uL Absolute Neuts (auto) 9.3 H (2.0-8.3) x10*3/uL Absolute Nucleated RBC 0.000 (0.0-0.012) X10*3/uL Nucleated RBC % (auto) 0.0 (0.0-0.2) /100WBC Sodium 141 (135-145) mmol/L Potassium 3.9 (3.3-5.1) mmol/L Chloride 104 (96-108) mmol/L Carbon Dioxide 28 (22-29) mmol/L Anion Gap 13 (12-20) BUN 8 L (9-16) mg/dL Creatinine 0.89 (0.5-1.4) mg/dL Estim Creat Clear Calc 47.1 Estimated GFR > 60 Random Glucose 105 (60-115) mg/dL Lactic Acid (0.5-2.0) mmol/L Calcium 9.6 (8.4-10.2) mg/dL Magnesium 2.2 (1.6-2.6) mg/dL Total Bilirubin 1.8 H (0.0-1.0) mg/dL Direct Bilirubin 0.6 H (0.0-0.5) mg/dL AST 25 D (5-31) U/L ALT 20 (0-31) U/L Alkaline Phosphatase 120 H (39-117) U/L C-Reactive Protein 12.66 H (< or = 0.50) mg/dL Total Protein 7.3 (6.5-8.0) g/dL Albumin 4.2 (3.5-5.0) g/dL Lipase 6 L (8-78) U/L Urine Color Urine Appearance Urine pH (5.0-8.0) Ur Specific Warren (1.005-1.025) Urine Protein (NEG-TRACE) MG/DL Urine Glucose (UA) (NEG) MG/DL Urine Ketones (NEG) MG/DL Urine Blood (NEG) Urine Nitrite (NEG) Ur Leukocyte Esterase (NEG) Urine RBC (0) /HPF Urine WBC (0-4) /HPF Ur Squamous Epith Cells /LPF Urine Bacteria /LPF Urine Mucus /LPF COVID-19 (ANDRA) Negative (Negative) COVID-19 Clin Com See Note 08/11/21 08/11/21 Range/Units 09:14 09:24 WBC (4.8-10.8) X10*3/uL RBC (4.20-5.50) X10*6/uL Hgb (12.0-16.0) g/dl Hct (37.0-47.0) % MCV (80.0-98.0) fL MCH (27.0-33.0) pg MCHC (31.0-35.0) g/dl RDW (11.0-16.0) % Plt Count (160-400) X10*3/uL MPV (9.4-12.3) fL Immature Gran % (Auto) (0.0-0.4) % Neut % (Auto) (45-73) % Lymph % (Auto) (20-40) % [place] % (Auto) (2-11) % Eos % (Auto) (0-4) % Baso % (Auto) (0-2) % Lymph # (Auto) (1.2-4.9) X10*3/uL [place] # (Auto) (0.1-1.2) X10*3/uL Eos # (Auto) (0.0-0.4) X10*3/uL Baso # (Auto) (0.0-0.2) X10*3/uL Abs Immat Gran (auto) (0.00-0.03) X10*3/uL Absolute Neuts (auto) (2.0-8.3) x10*3/uL Absolute Nucleated RBC (0.0-0.012) X10*3/uL Nucleated RBC % (auto) (0.0-0.2) /100WBC Sodium (135-145) mmol/L Potassium (3.3-5.1) mmol/L Chloride (96-108) mmol/L Carbon Dioxide (22-29) mmol/L Anion Gap (12-20) BUN (9-16) mg/dL Creatinine (0.5-1.4) mg/dL Estim Creat Clear Calc Estimated GFR Random Glucose (60-115) mg/dL Lactic Acid 0.8 (0.5-2.0) mmol/L Calcium (8.4-10.2) mg/dL Magnesium (1.6-2.6) mg/dL Total Bilirubin (0.0-1.0) mg/dL Direct Bilirubin (0.0-0.5) mg/dL AST (5-31) U/L ALT (0-31) U/L Alkaline Phosphatase (39-117) U/L C-Reactive Protein (< or = 0.50) mg/dL Total Protein (6.5-8.0) g/dL Albumin (3.5-5.0) g/dL Lipase (8-78) U/L Urine Color YELLOW Urine Appearance CLEAR Urine pH 6.0 (5.0-8.0) Ur Specific [place] 1.015 (1.005-1.025) Urine Protein NEG (NEG-TRACE) MG/DL Urine Glucose (UA) NEG (NEG) MG/DL Urine Ketones 15 (NEG) MG/DL Urine Blood TRACE (NEG) Urine Nitrite NEG (NEG) Ur Leukocyte Esterase 1+ H (NEG) Urine RBC 1-4 (0) /HPF Urine WBC 5-9 H (0-4) /HPF Ur Squamous Epith Cells 4+ /LPF Urine Bacteria TRACE /LPF Urine Mucus TRACE /LPF COVID-19 (ANDRA) (Negative) COVID-19 Clin Com ECG Data Attestation: I personally reviewed and interpreted this ECG as follows: ECG interpretation date: 08/11/21 ECG interpretation time: 09:11 Interpretation: Rate: 76 Rhythm: NSR Mohawk: normal Normal P waves. Normal LILLIAN. Normal QRS complex. ST T wave : no VEENA, nonspecific, artifact noted qTC: normal prior studies: no acute ischemia The study has been interpreted contemporaneously by me. . Discharge Plan Discharge Clinical Impression: Diverticulitis Abdominal pain Qualifiers: Abdominal location: lower abdomen, unspecified Qualified Code(s): R10.30 - Lower abdominal pain, unspecified Patient Disposition: Home, Self-Care Instructions: Diverticulitis (ED), Abdominal Pain (ED) Additional Instructions: return to ED for any worsening symptoms or concerns Prescriptions: New morphine 15 mg tablet 15 mg PO Q6H PRN (Reason: pain) 3 Days Qty: 12 0RF ondansetron 4 mg tablet,disintegrating 4 mg PO Q8H PRN (Reason: nausea and vomiting) Qty: 20 0RF amoxicillin-pot clavulanate [Augmentin] 875-125 mg tablet 1 tab PO BID Qty: 14 0RF No Action (DME) cane Device See Rx Instructions .ROUTE .MEDSUPPLY Qty: 1 0RF Rx Instructions: As directed (DME) joselito Newellc See Rx Instructions .ROUTE .MEDSUPPLY Qty: 1 0RF Rx Instructions: As directed cyanocobalamin (vitamin B-12) 1,000 mcg/mL solution 1,000 mcg IM .once a month 30 Days Qty: 1 6RF Durolane 60 mg/3 mL syringe 60 mg intra-articular ONCE 1 Days Qty: 3 0RF Rx Instructions: Inject 1 Durolane 60mg/3ml syringe into left knee once acetaminophen [Tylenol Arthritis Pain] 650 mg tablet extended release 650 mg PO Q8H 30 Days Qty: 90 0RF acetaminophen-codeine 300-30 mg tablet 1 tab PO Q8H PRN (Reason: pain) 30 Days Qty: 90 0RF (DME) Easy Touch SheathLock Syrg-Ndl 3 mL 21 gauge x 1 1/2 syringe See Rx Instructions .ROUTE .MEDSUPPLY Qty: 1 2RF Rx Instructions: As directed pantoprazole 40 mg tablet,delayed release (DR/EC) 40 mg PO BEDTIME 90 Days Qty: 90 1RF ezetimibe 10 mg tablet 10 mg PO DAILY 90 Days Qty: 90 1RF amitriptyline 10 mg tablet 10 mg PO BEDTIME 30 Days Qty: 30 2RF Aspercreme (lidocaine) 4 % aerosol,spray 2 spray topical QID PRN (Reason: pain) Qty: 113 1RF Referrals: Angi Velazquez MD [Primary Care Provider] - 08/15/21 Print Language: Bengali [facility] Past Medical History Attestation statement: The following information was validated with the patient. Medical History B12 deficiency Chronic fatigue Dyslipidemia Effusion, left knee GERD (gastroesophageal reflux disease) HLA B27 (HLA B27 positive) Insomnia Mild major depression, single episode Neck pain on right side Ophthalmoplegic migraine headache Sore throat, chronic Surgical History History of laparoscopic cholecystectomy History of total abdominal hysterectomy and bilateral salpingo-oophorectomy Family History Family History Mother CVD (cardiovascular disease) Father Lung cancer Son Cancer Sister Lung cancer Brother Colon cancer Social History Social History Housing: Apartment Alcohol intake: never Patient Tobacco Use Status: Never used Tobacco Smoked in Last 30 Days: No e-Cigarette/Vaping Use: Never Used Second Hand Smoke Exposure: No Use of substances other than those prescribed or required for medical reasons: No Advance Directives: No Advance Directives Information Provided: No service: No Current occupational status: retired Current occupation: rt handed
--- NOTE | 2021-08-11 09:01 | ECG_ITS ---
Test Reason : ABD PAIN Blood Pressure : / mmHG Vent. Rate : 076 BPM Atrial Rate : 076 BPM P-R Int : 142 ms QRS Dur : 066 ms QT Int : 354 ms P-R-T Axes : 047 010 047 degrees QTc Int : 398 ms Artifact in tracing Normal sinus rhythm Nonspecific ST and T wave abnormality Abnormal ECG When compared with ECG of 12-AUG-2020 08:47, Premature atrial complexes are no longer Present Referred By: Flora Nunes Electronically Signed By:RIDGE MOYA
[2021-08-11 09:09] LABS: COVID-19 Test Negative (Negative)
[2021-08-11 09:23] LABS: MANUAL DIFF FLAG NO
[2021-08-11 09:25] LABS: Basophils Percent Auto 0.3 % (0-2); Eosinophils Percent Auto 0.1 % (0-4); Hematocrit 43.6 % (37.0-47.0); Hemoglobin 14.6 g/dl (12.0-16.0); Imm Gran Abs Auto 0.03 X10*3/uL (0.00-0.03); Imm Gran Pct Auto 0.3 % (0.0-0.4); Lymphocytes Absolute Auto 1.5 X10*3/uL (1.2-4.9); Lymphocytes Percent Auto 12.6 % (20-40); Mean Corpuscular HGB Conc 33.5 g/dl (31.0-35.0); Mean Corpuscular Hemoglobin 30.5 pg (27.0-33.0); Mean Platelet Volume 12.5 fL (9.4-12.3); Monocytes Absolute Auto 0.9 X10*3/uL (0.1-1.2); Neutrophils Absolute Auto 9.3 x10*3/uL (2.0-8.3); Neutrophils Percent Auto 78.7 % (45-73); Platelet Count 231 X10*3/uL (160-400); Red Blood Count 4.79 X10*6/uL (4.20-5.50); Red Cell Distribution Width 13.2 % (11.0-16.0); White Blood Count 11.8 X10*3/uL (4.8-10.8)
[2021-08-11 09:31] LABS: Appearance Urine CLEAR; Color Urine YELLOW; Glucose Urine UA NEG (NEG); Leukocyte Esterase Urine 1+ (NEG); Nitrite Urine NEG (NEG); Specific Gravity - Urine 1.015 (1.005-1.025); UACC Culture Trigger YES; Urine Blood TRACE (NEG); Urine Ketones 15 MG/DL (NEG); Urine Protein NEG (NEG-TRACE)
[2021-08-11] MEDS: ondansetron HCL 4 MG/2 ML VIAL IVPUSH (09:31)
[2021-08-11] MEDS: 0.9 % Sodium Chloride 1,000 ML 999 ML IVCONT (09:31)
[2021-08-11] MEDS: Morphine Sulfate 2 MG/ML CARTRIDGE IVPUSH (09:32)
[2021-08-11 09:34] VITALS: BP 139/44; PULSE 74; RESP 18; O2SAT 95
[2021-08-11 09:35] LABS: Lactic Acid 0.8 mmol/L (0.5-2.0)
[2021-08-11 09:45] LABS: Bacteria Urine TRACE /LPF; Mucus Urine TRACE /LPF; Squamous Epithelial Cell Urine 4+ /LPF
[2021-08-11 09:45] LABS: Alanine Aminotransferase 20 U/L (0-31); Albumin Level 4.2 g/dL (3.5-5.0); Alkaline Phosphatase 120 U/L (39-117); Anion Gap 13 (12-20); Aspartate Amino Transferase 25 U/L (5-31); Bilirubin Direct 0.6 mg/dL (0.0-0.5); Bilirubin Total 1.8 mg/dL (0.0-1.0); Blood Urea Nitrogen 8 mg/dL (9-16); C Reactive Protein 12.66 mg/dL (< or = 0.50); Calcium 9.6 mg/dL (8.4-10.2); Carbon Dioxide 28 mmol/L (22-29); Chloride 104 mmol/L (96-108); Creatinine Clr Calc Pharmacy 47.1; Estimated Glomerular Filt Rate > 60; Glucose Random 105 mg/dL (60-115); Lipase 6 U/L (8-78); Magnesium 2.2 mg/dL (1.6-2.6); Potassium 3.9 mmol/L (3.3-5.1); Sodium 141 mmol/L (135-145); Total Protein 7.3 g/dL (6.5-8.0)
[2021-08-11] MEDS: HYDROmorphone HCl 0.5 MG/0.5 ML SYRINGE IVPUSH (11:42)
[2021-08-11 11:44] VITALS: BP 115/30; PULSE 71; RESP 18; O2SAT 96
[2021-08-11 11:57] VITALS: BP 133/48; PULSE 68; RESP 16; O2SAT 97
[2021-08-11] MEDS: Piperacillin Sodium/Tazobactam 3.375 GM in 0.9 % Sodium Chloride 50 ML IV (13:19)
--- NOTE | 2021-08-11 13:30 | PC.NURSE ---
Tolerating PO at this time, granddaughter updated on plan
== END 2021-08-11 13:39 | disposition home or self-care (01) ==
PROVIDERS: Emergency Provider Emergency Medicine; PCP Internal Medicine
DX: K57.92 Diverticulitis of intestine, part unspecified, without perforation or abscess without bleeding (principal); R10.30 Lower abdominal pain, unspecified; Z20.822 Contact with and (suspected) exposure to COVID-19
CPT/HCPCS: 36415; 74176; 80048; 80076; 81001; 83605; 83690; 83735; 85025; 86140; 87040; 87086; 87635; 93005; 96361; 96365; 96375; 99284; 99285; J1170; J2270; J2405; J2543

== ENCOUNTER 2021-12-02 09:57 | Day surgery (SDC) | payer MEDICARE, OTHER, SELFPAY ==
--- NOTE | 2021-12-02 09:42 | HO.ANESPROP2 ---
[facility] Active Problems Active Problems: All Active Problems (Updated 11/28/21 @ 16:27 by Yoli Salvador RN) Depression (Acute) Osteoarthritis of left knee (Acute) Osteoarthritis of left knee (Acute) Muscle cramps (Acute) Leg edema (Acute) Difficulty swallowing (Acute) Acute medial meniscus tear of left knee (Acute) Screening for hypothyroidism (Acute) Schatzki's ring (Acute) Constipation (Acute) Diverticulitis (Acute) Mild major depression, single episode (Acute) HLA B27 (HLA B27 positive) (Acute) Effusion, left knee (Acute) B12 deficiency (Acute) Chronic fatigue (Acute) Sore throat, chronic (Acute) Dyslipidemia (Acute) Ophthalmoplegic migraine headache (Acute) Neck pain on right side (Acute) Insomnia (Acute) GERD (gastroesophageal reflux disease) (Acute) Past Medical History Medical History B12 deficiency Chronic fatigue Depression Dyslipidemia Effusion, left knee GERD (gastroesophageal reflux disease) HLA B27 (HLA B27 positive) Insomnia Mild major depression, single episode Neck pain on right side Ophthalmoplegic migraine headache Sore throat, chronic Uterine cancer Family History Family History Mother CVD (cardiovascular disease) Father Lung cancer Son Cancer Sister Lung cancer Brother Colon cancer Surgical History Surgical History History of laparoscopic cholecystectomy History of total abdominal hysterectomy and bilateral salpingo-oophorectomy History of Problems with Anesthesia: No Social History Social History Housing: Apartment Alcohol intake: never Patient Tobacco Use Status: Never used Tobacco e-Cigarette/Vaping Use: Never Used Second Hand Smoke Exposure: No Are you DNR?: No Advance Directives: No Advance Directives Information Provided: Yes service: No Current occupational status: retired Current occupation: rt handed Meds Allergies Allergy/AdvReac Type Severity Reaction Status Date / Time ibuprofen Allergy Mild anaphylaxis, Verified 11/28/21 14:30 hives metronidazole Allergy Mild rash Verified 11/28/21 14:30 naproxen [Aleve] Allergy Mild anaphylaxis, Verified 11/28/21 14:30 hives pravastatin Allergy Mild anaphylaxis Verified 11/28/21 14:30 simvastatin Allergy Mild cramps Verified 11/28/21 14:30 oxycodone [OXYCODONE] AdvReac Mild GI UPSET Verified 11/28/21 14:30 aspirin Allergy Mild swelling Uncoded 11/28/21 14:30 Active Medications: Current Medications Lactated Ringer's (Lr) 1,000 mls @ 50 mls/hr IVCONT .Q20H YANG Home Medications Medication Instructions Recorded Confirmed Last Taken Type cholecalciferol (vitamin D3) 50 50 mcg PO DAILY 11/28/21 11/28/21 Unknown History mcg (2,000 unit) capsule (Vitamin D3) thiamine HCl (vitamin B1) 100 mg 1 tab PO DAILY 11/28/21 11/28/21 Unknown History tablet Exam Exam Date and Time: December 02, 2021 0942 Airway Mallampati Class: II TM Dist: >3cm Neck ROM: Full Loose/Missing/Broken Teeth: No Heart: RRR Lungs: CTA Assessment and Plan Assessment Anesthesia Assessment: Anesthesia Plan Discussed and Chart Reviewed Final Anesthetic Review History of Problems with Anesthesia: No NPO: Yes ASA Class: II Final Preanesthetic Review: Meds/Allgs Chart Reviewed and Anes Risks/Benef Reviewed Patient Risk: Low Procedure Risk: Intermediate Anesthetic Plan Anesthetic Plan: MAC: Disposition: Standard PACU
[2021-12-02 09:59] VITALS: BMI 21.4
[2021-12-02 10:14] VITALS: BP 157/63; PULSE 81; RESP 17; TEMP 36.8; O2SAT 96
--- NOTE | 2021-12-02 10:25 | P.CONAN_ITS ---
[facility] Active Problems Active Problems: All Active Problems (Updated 11/28/21 @ 16:27 by Yoli Salvador RN) Depression (Acute) Osteoarthritis of left knee (Acute) Osteoarthritis of left knee (Acute) Muscle cramps (Acute) Leg edema (Acute) Difficulty swallowing (Acute) Acute medial meniscus tear of left knee (Acute) Screening for hypothyroidism (Acute) Schatzki's ring (Acute) Constipation (Acute) Diverticulitis (Acute) Mild major depression, single episode (Acute) HLA B27 (HLA B27 positive) (Acute) Effusion, left knee (Acute) B12 deficiency (Acute) Chronic fatigue (Acute) Sore throat, chronic (Acute) Dyslipidemia (Acute) Ophthalmoplegic migraine headache (Acute) Neck pain on right side (Acute) Insomnia (Acute) GERD (gastroesophageal reflux disease) (Acute) Past Medical History Medical History B12 deficiency Chronic fatigue Depression Dyslipidemia Effusion, left knee GERD (gastroesophageal reflux disease) HLA B27 (HLA B27 positive) Insomnia Mild major depression, single episode Neck pain on right side Ophthalmoplegic migraine headache Sore throat, chronic Uterine cancer Family History Family History Mother CVD (cardiovascular disease) Father Lung cancer Son Cancer Sister Lung cancer Brother Colon cancer Surgical History Surgical History History of laparoscopic cholecystectomy History of total abdominal hysterectomy and bilateral salpingo-oophorectomy History of Problems with Anesthesia: No Social History Social History Housing: Apartment Alcohol intake: never Patient Tobacco Use Status: Never used Tobacco e-Cigarette/Vaping Use: Never Used Second Hand Smoke Exposure: No Are you DNR?: No Advance Directives: No Advance Directives Information Provided: Yes service: No Current occupational status: retired Current occupation: rt handed Meds Allergies Allergy/AdvReac Type Severity Reaction Status Date / Time ibuprofen Allergy Mild anaphylaxis, Verified 11/28/21 14:30 hives metronidazole Allergy Mild rash Verified 11/28/21 14:30 naproxen [Aleve] Allergy Mild anaphylaxis, Verified 11/28/21 14:30 hives pravastatin Allergy Mild anaphylaxis Verified 11/28/21 14:30 simvastatin Allergy Mild cramps Verified 11/28/21 14:30 oxycodone [OXYCODONE] AdvReac Mild GI UPSET Verified 11/28/21 14:30 aspirin Allergy Mild swelling Uncoded 11/28/21 14:30 Active Medications: Current Medications Lactated Ringer's (Lr) 1,000 mls @ 50 mls/hr IVCONT .Q20H YANG Home Medications Medication Instructions Recorded Confirmed Last Taken Type cholecalciferol (vitamin D3) 50 50 mcg PO DAILY 11/28/21 11/28/21 Unknown History mcg (2,000 unit) capsule (Vitamin D3) thiamine HCl (vitamin B1) 100 mg 1 tab PO DAILY 11/28/21 11/28/21 Unknown His tory tablet Exam Exam Date and Time: December 02, 2021 1025 Height,Weight and Vital Signs: Height 5 ft 4 in Weight 56.699 kg Last Vital Signs Temp 98.3 F 12/02/21 10:14 Pulse 81 12/02/21 10:14 Resp 17 12/02/21 10:14 BP 157/63 H 12/02/21 10:14 Pulse Ox 96 12/02/21 10:14 Airway Mallampati Class: II TM Dist: >3cm Neck ROM: Full Loose/Missing/Broken Teeth: No Heart: RRR Lungs: CTA Assessment and Plan Assessment Anesthesia Assessment: Anesthesia Plan Discussed Final Anesthetic Review History of Problems with Anesthesia: No ASA Class: II Final Preanesthetic Review: Meds/Allgs Chart Reviewed, Consent Obtained/Reviewed and Anes Risks/Benef Reviewed Patient Risk: Low Procedure Risk: Intermediate Anesthetic Plan Anesthetic Plan: MAC: Disposition: Standard PACU
[2021-12-02] MEDS: Lactated Ringers 1,000 ML 50 ML IVCONT (10:26)
--- NOTE | 2021-12-02 11:14 | P.BOP_ITS ---
Brief Operative Note Date of Service: 12/02/21 Pre-op diagnosis: gerd, diverticulitis Post-op diagnosis: same Procedure: egd colon Surgeon: Liang Avelar Anesthesia: MAC Was an Rehabilitation Counsellor used for this Procedure?: No Estimated blood loss (mL): 2 Pathology: other (antral bxs, egj bxs, sigmoid bxs)
--- NOTE | 2021-12-02 11:16 | MHC.SHP ---
Pre-Procedural Eval Section A Date of Service: 12/02/21 The patient is an INPATIENT: No Changes since office visit: No Cold of Flu in the past 2 weeks, No New Medical Problems, No Changes in Medication and No Patient answered all questions The History & Physical has been completed within 30 days and I have reviewed it.: Yes Section B Chief Complaint: Diverticulitis of large intestine,reflux disease Allergies: Allergies Allergy/AdvReac Type Severity Reaction Status Date / Time ibuprofen Allergy Mild anaphylaxis, Verified 11/28/21 14:30 hives metronidazole Allergy Mild rash Verified 11/28/21 14:30 naproxen [Aleve] Allergy Mild anaphylaxis, Verified 11/28/21 14:30 hives pravastatin Allergy Mild anaphylaxis Verified 11/28/21 14:30 simvastatin Allergy Mild cramps Verified 11/28/21 14:30 oxycodone [OXYCODONE] AdvReac Mild GI UPSET Verified 11/28/21 14:30 aspirin Allergy Mild swelling Uncoded 11/28/21 14:30 Plan I have reviewed the history and physical and performed a pertinent physical examination on my patient. No changes have occurred unless specified.
[2021-12-02 11:18] VITALS: BP 109/84; PULSE 72; RESP 12; TEMP 36.3; O2SAT 99
[2021-12-02 11:33] VITALS: BP 120/68; PULSE 74; RESP 17; TEMP 36.1; O2SAT 98
--- NOTE | 2021-12-02 21:14 | OP_ITS ---
SURGEON: Liang Avelar MD INDICATIONS: 1. Gastroesophageal reflux disease. 2. Diverticulitis. PREOPERATIVE DIAGNOSIS: POSTOPERATIVE DIAGNOSIS: PROCEDURE PERFORMED: ESTIMATED BLOOD LOSS: COMPLICATIONS: ANESTHESIA: ASSISTANTS: SPECIMENS: PROCEDURE: Upper endoscopy with biopsy, colonoscopy to the terminal ileum with biopsy. MEDICATIONS: Monitored anesthesia care. DESCRIPTION OF PROCEDURE: History and physical performed. The risks and benefits of the procedure were explained to the patient. Informed consent was obtained. The patient was placed in the left lateral decubitus position. The Olympus video gastroscope was introduced into the esophagus, stomach, and duodenum. Examination was performed. The scope was removed. She was repositioned for colonoscopy. Digital rectal exam was performed and was found to be normal. The Olympus pediatric video colonoscope was introduced into the rectum and advanced to the cecum without difficulty. The cecum was identified by transillumination, palpation, and identification of ileocecal valve. Examination was performed. The scope was removed. She tolerated both procedures well, returned to recovery area in stable condition. FINDINGS: Upper endoscopy: 1. Esophagus: The esophagus was normal. Biopsies were obtained from the EG junction. There was no esophagitis. 2. Stomach: The stomach showed no evidence of masses, ulcers, or polyps. Antral biopsies were obtained to rule out Helicobacter pylori. 3. Duodenum: The bulb and second portion were normal. COLONOSCOPY: The terminal ileum was normal. There was moderate sigmoid diverticulosis with some narrowing of the sigmoid. There was no evidence of diverticulitis. No polyps were seen. The quality of the prep was good. Retroflexed examination was normal. Biopsies were obtained from the sigmoid. IMPRESSION: 1. Gastroesophageal reflux disease. 2. Diverticulosis. RECOMMENDATIONS: 1. Follow up the biopsy results. 2. Further screening colonoscopy is not recommended based on age. MD MEENU Mcgill/VINCENZOL / [id number]
== END 2021-12-02 11:57 | disposition home or self-care (01) ==
PROVIDERS: PCP Internal Medicine; Visit Provider Internal Medicine Gastroenterology
PROC: (CPT 45380; principal; 2021-12-02 11:00)
DX: K57.30 Diverticulosis of large intestine without perforation or abscess without bleeding (principal); Z80.0 Family history of malignant neoplasm of digestive organs; K21.9 Gastro-esophageal reflux disease without esophagitis; K29.50 Unspecified chronic gastritis without bleeding; E78.00 Pure hypercholesterolemia, unspecified; E53.8 Deficiency of other specified B group vitamins; F32.A Depression, unspecified; Z79.1 Long term (current) use of non-steroidal anti-inflammatories (NSAID); Z79.82 Long term (current) use of aspirin; Z88.8 Allergy status to other drugs, medicaments and biological substances; Z79.899 Other long term (current) drug therapy; Z85.42 Personal history of malignant neoplasm of other parts of uterus; Z90.49 Acquired absence of other specified parts of digestive tract
CPT/HCPCS: 45380; 43239; 88305; 88342; J3010

== ENCOUNTER 2022-09-29 10:40 | Outpatient (REF) | payer OTHER, SELFPAY ==
--- NOTE | ~2022-09-29 | XR_ITS ---
EXAMINATION: XR SINUSES CLINICAL INFORMATION: Chronic sinusitis COMPARISON: None available. TECHNIQUE: 3 views of the sinuses were obtained. FINDINGS: Paranasal sinuses appear clear without air-fluid levels. No fractures are identified. No radiodense foreign bodies. XR/XR sinus min 3V IMPRESSION: Unremarkable sinus examination.
[2022-09-29 10:58] LABS: MANUAL DIFF FLAG NO
[2022-09-29 11:48] LABS: Basophils Percent Auto 0.7 % (0-2); Eosinophils Absolute Auto 0.1 X10*3/uL (0.0-0.4); Eosinophils Percent Auto 1.8 % (0-4); Hematocrit 43.1 % (37.0-47.0); Hemoglobin 14.2 g/dl (12.0-16.0); Imm Gran Abs Auto 0.02 X10*3/uL (0.00-0.03); Imm Gran Pct Auto 0.4 % (0.0-0.4); Lymphocytes Absolute Auto 1.8 X10*3/uL (1.2-4.9); Lymphocytes Percent Auto 32.3 % (20-40); Mean Corpuscular HGB Conc 32.9 g/dl (31.0-35.0); Mean Corpuscular Hemoglobin 30.5 pg (27.0-33.0); Mean Corpuscular Volume 92.7 fL (80.0-98.0); Mean Platelet Volume 12.8 fL (9.4-12.3); Monocytes Absolute Auto 0.4 X10*3/uL (0.1-1.2); Monocytes Percent Auto 6.9 % (2-11); Neutrophils Absolute Auto 3.2 x10*3/uL (2.0-8.3); Neutrophils Percent Auto 57.9 % (45-73); Platelet Count 226 X10*3/uL (160-400); Red Blood Count 4.65 X10*6/uL (4.20-5.50); Red Cell Distribution Width 13.2 % (11.0-16.0); White Blood Count 5.5 X10*3/uL (4.8-10.8)
[2022-09-29 12:24] LABS: Alanine Aminotransferase 7 U/L (0-31); Albumin Level 3.9 g/dL (3.5-5.0); Alkaline Phosphatase 119 U/L (39-117); Anion Gap 9 (12-20); Aspartate Amino Transferase 13 U/L (5-31); Blood Urea Nitrogen 9 mg/dL (9-16); Calcium 8.8 mg/dL (8.4-10.2); Carbon Dioxide 32 mmol/L (22-29); Chloride 107 mmol/L (96-108); Cholesterol 215 mg/dL; Estimated Glomerular Filt Rate > 60; Glucose Fasting 87 mg/dL (60-99); Glucose Random 87 mg/dL (60-115); HDL Cholesterol 39 mg/dL; Iron 70 mcg/dL (30-160); LDL Cholesterol Calculated 155 mg/dl; Percent Iron Saturation 30 % (15-50); Sodium 144 mmol/L (135-145); Total Iron Binding Capacity 233 mcg/dL (228-428); Total Protein 6.3 g/dL (6.5-8.0); Triglycerides 109 mg/dL; Unsaturated Iron Binding 163 ug/dL
[2022-09-29 12:38] LABS: Folate 16.3 ng/mL (> or = 4.0); Thyroid Stimulating Hormone 0.85 uIU/mL (0.32-4.0); Vitamin B12 208 pg/mL (200-900); Vitamin D 25-OH Total 34.5 ng/mL (>30)
[2022-09-30 03:38] LABS: Ferritin 128 ng/mL (10-250); Free T4 (Free Thyroxine) 0.88 ng/dL (0.71-1.85)
[2022-09-30 07:30] LABS: Estimated Average Glucose 108 mg/dL; Hemoglobin A1C 125.3871 umol/L; Hemoglobin A1c % 5.4 %
[2022-10-05 06:08] LABS: Vitamin B1 16 nmol/L (8-30)
== END 2022-09-29 10:41 | disposition home or self-care (01) ==
LOC: HO.LAB 10:40
PROVIDERS: Internal Medicine; PCP Internal Medicine; Visit Provider Internal Medicine
DX: E53.8 Deficiency of other specified B group vitamins (principal); D64.9 Anemia, unspecified; R53.82 Chronic fatigue, unspecified; E51.9 Thiamine deficiency, unspecified; E55.9 Vitamin D deficiency, unspecified; E78.5 Hyperlipidemia, unspecified; N20.0 Calculus of kidney
CPT/HCPCS: 36415; 70220; 80053; 80061; 82306; 82607; 82728; 82746; 83036; 83540; 84425; 84439; 84443; 85025

== ENCOUNTER 2022-10-02 15:06 | Emergency (ER) | payer OTHER, SELFPAY ==
[2022-10-02 15:26] VITALS: BP 151/53; PULSE 64; RESP 18; TEMP 36.8; O2SAT 96
--- NOTE | 2022-10-02 15:34 | ED.GENADULT ---
HPI - General Adult General Chief complaint: Upper Respiratory Symptoms <LATASHA Gonzalez - Last Filed: 10/15/22 12:06> Stated complaint: nasal congestion <LATASHA Gonzalez - Last Filed: 10/15/22 12:06> Time Seen by Provider: 10/02/22 16:17 <LATASHA Gonzalez - Last Filed: 10/15/22 12:06> Source: patient, family (daughter) and life science technical officer <LATASHA Sanchez - Last Filed: 10/02/22 18:22> Mode of arrival: ambulatory <LATASHA Sanchez - Last Filed: 10/02/22 18:22> Limitations: language barrier <LATASHA Sanchez Last Filed: 10/02/22 18:22> History of Present Illness HPI narrative: Patient is a 77 year old assigned female at with a history of chronic sinusitis presenting to the emergency department today with worsening nasal congestion. Patient states that she has chronic congestion and she sees a [facility] ENT but hasn't in awhile. Patient and her daughter state that they would like something to do about the congestion now as it has been going on for 3 months. Patient denies any dizziness, lightheadedness, abdominal pain, nausea, vomiting, fever, chills, blurry vision, double vision, loss of vision, chest pain, difficulty breathing, shortness of breath, back pain, night sweats, pain with urination, increased urinary frequency, increased urinary urgency, blood in her urine or stool, syncope or a near syncopal episode, recent trauma or falls, bowel incontinence, bladder incontinence, bowel retention, bladder retention, or any other complaints at this time. <LATASHA Sanchez - Last Filed: 10/02/22 18:22> Onset (ago): month(s) (3) <LATASHA Sanchez - Last Filed: 10/02/22 18:22> Severity: mild <LATASHA Sanchez Last Filed: 10/02/22 18:22> Severity scale (1-10): 3 <LATASHA Sanchez Last Filed: 10/02/22 18:22> Relieving factors: none <LATASHA Sanchez Last Filed: 10/02/22 18:22> Exacerbating factors: none <LATASHA Sanchez - Last Filed: 10/02/22 18:22> Associated symptoms: denies other symptoms <LATASHA Sanchez - Last Filed: 10/02/22 18:22> Treatments prior to arrival: none <LATASHA Sanchez - Last Filed: 10/02/22 18:22> Related Data Home medications: Home Medications Medication Instructions Recorded Confirmed cholecalciferol (vitamin D3) 50 50 mcg PO DAILY 11/28/21 09/28/22 mcg (2,000 unit) capsule (Vitamin D3) thiamine HCl (vitamin B1) 100 mg 1 tab PO DAILY 11/28/21 09/28/22 tablet Previous Rx's Medication Instructions Recorded syringe with needle, safety 3 mL #1 ea 09/07/20 21 gauge x 1 1/2 (Easy Touch SheathLock Syringe with Needle) cane #1 ea 09/14/20 walker #1 ea 10/20/20 cyanocobalamin (vitamin B-12) 1,000 mcg IM .once a month 30 days 11/27/20 1,000 mcg/mL injection solution #1 mL ezetimibe 10 mg tablet 10 mg PO DAILY 90 days #90 tabs 02/16/21 acetaminophen 650 mg 650 mg PO Q8H pain 30 days #90 tabs 06/17/21 tablet,extended release (Tylenol Arthritis Pain) lidocaine 4 % topical spray 2 spray topical QID PRN pain #113 06/17/21 (Aspercreme (lidocaine)) grams docusate sodium 100 mg capsule 100 mg PO BID PRN constipation #20 08/16/21 (Colace) caps ondansetron 4 mg disintegrating 4 mg PO Q8H PRN nausea and 08/16/21 tablet vomiting #20 tabs ENSURE Drink 1 can a day #30 ea 12/20/21 doxycycline hyclate 100 mg tablet 100 mg PO BID 5 days #10 tabs 09/28/22 fluticasone propionate 50 1 spray intranasal DAILY 30 days 10/02/22 mcg/actuation nasal #16 grams spray,suspension (Flonase Allergy Relief) mirtazapine 15 mg tablet 15 mg PO BEDTIME 90 days #90 tabs 10/02/22 <LATASHA Gonzalez - Last Filed: 10/15/22 12:06> Allergies/adverse reactions: Allergies Allergy/AdvReac Type Severity Reaction Status Date / Time ibuprofen Allergy Mild anaphylaxis, Verified 09/28/22 13:57 hives metronidazole Allergy Mild rash Verified 09/28/22 13:57 naproxen [Aleve] Allergy Mild anaphylaxis, Verified 09/28/22 13:57 hives pravastatin Allergy Mild anaphylaxis Verified 09/28/22 13:57 simvastatin Allergy Mild cramps Verified 09/28/22 13:57 oxycodone [OXYCODONE] AdvReac Mild GI UPSET Verified 09/28/22 13:57 aspirin Allergy Mild swelling Uncoded 09/28/22 13:57 <LATASHA Gonzalez - Last Filed: 10/15/22 12:06> Review of Systems Constitutional: Constitutional: Reports no additional constitutional complaints, Denies chills, Denies fever(s) and Denies night sweats <LATASHA Sanchez Last Filed: 10/02/22 18:22> Eyes: Eyes: Reports no additional eye complaints, Denies blurry vision, Denies change in vision, Denies diplopia, Denies eye discharge, Denies loss of vision and Denies eye pain <LATASHA Sanchez Last Filed: 10/02/22 18:22> ENT: Denies dizziness and Reports nasal congestion <LATASHA Sanchez Last Filed: 10/02/22 18:22> Cardiovascular: Cardiovascular: Reports no additional cardiovascular complaints, Denies chest pain, Denies lightheadedness, Denies Loss of Consciousness and Denies dyspnea <LATASHA Sanchez Last Filed: 10/02/22 18:22> Respiratory: Respiratory: Reports no additional respiratory complaints and Denies dyspnea <LATASHA Sanchez Last Filed: 10/02/22 18:22> Gastrointestinal: Gastrointestinal: Reports no additional gastrointestinal complaints, Denies abdominal pain, Denies melena, Denies hematochezia, Denies change in bowel habits and Denies change in stool character <LATASHA Sanchez Last Filed: 10/02/22 18:22> Genitourinary: Genitourinary: Denies hematuria, Denies urinary frequency, Denies dysuria, Denies urinary incontinence, Denies urinary hesitancy and Denies urinary urgency <LATASHA Sanchez Last Filed: 10/02/22 18:22> Musculoskeletal: Musculoskeletal: Reports no additional musculoskeletal complaints, Denies numbness and Denies tingling <LATASHA Sanchez - Last Filed: 10/02/22 18:22> Neurologic: Denies dizziness, Denies loss of vision, Denies numbness and Denies tingling <LATASHA Sanchez - Last Filed: 10/02/22 18:22> Psychiatric: Psychiatric: Reports no additional psychiatric complaints <LATASHA Sanchez - Last Filed: 10/02/22 18:22> Endocrine: Endocrine: Reports no additional endocrine complaints <LATASHA Sanchez - Last Filed: 10/02/22 18:22> Hematologic/Lymphatic: Hematologic/Lymphatic: Reports no additional hematologic/lymphatic complaints <LATASHA Sanchez - Last Filed: 10/02/22 18:22> Allergic/Immunologic: Allergic/Immunologic: Reports no additional allergic/immunologic complaints <LATASHA Sanchez - Last Filed: 10/02/22 18:22> [facility] Past Medical History Attestation statement: The following information was validated with the patient. <LATASHA Sanchez - Last Filed: 10/02/22 18:22> Source: old records reviewed and nursing notes reviewed <LATASHA Sanchez - Last Filed: 10/02/22 18:22> Medical History: Medical History B12 deficiency Chronic fatigue Depression Dyslipidemia Effusion, left knee GERD (gastroesophageal reflux disease) HLA B27 (HLA B27 positive) Insomnia Mild major depression, single episode Neck pain on right side Ophthalmoplegic migraine headache Sore throat, chronic Uterine cancer <LATASHA Gonzalez - Last Filed: 10/15/22 12:06> Surgical History: Surgical History History of laparoscopic cholecystectomy History of total abdominal hysterectomy and bilateral salpingo-oophorectomy <LATASHA Gonzalez - Last Filed: 10/15/22 12:06> Family History Family History: Family History Mother CVD (cardiovascular disease) Father Lung cancer Son Cancer Sister Lung cancer Brother Colon cancer <LATASHA Gonzalez - Last Filed: 10/15/22 12:06> Social History Social History: Social History Housing: Apartment Alcohol intake: never Patient Tobacco Use Status: Never used Tobacco e-Cigarette/Vaping Use: Never Used Second Hand Smoke Exposure: No Advance Directives: No Advance Directives Information Provided: No service: No Current occupational status: retired Current occupation: rt handed Cognitive needs: No Hearing needs: No Vision needs: Yes <LATASHA Gonzalez - Last Filed: 10/15/22 12:06> Physical Exam ED Vital Signs: Vital Signs - 24 hr 10/02/22 15:26 Temperature 98.3 F Pulse Rate 64 Respiratory Rate 18 Blood Pressure 151/53 H Pulse Oximetry 96 Oxygen Delivery Method Room Air BMI result Body Mass Index 20.0 <LATASHA Gonzalez - Last Filed: 10/15/22 12:06> Vital Signs - 24 hr 10/02/22 15:26 Temperature 98.3 F Pulse Rate 64 Respiratory Rate 18 Blood Pressure 151/53 H Pulse Oximetry 96 Oxygen Delivery Method Room Air BMI result Body Mass Index 20.0 <LATASHA Sanchez - Last Filed: 10/02/22 18:22> Const General: cooperative, no acute distress, alert and awake <LATASHA Sanchez - Last Filed: 10/02/22 18:22> Nutritional Appearance: well nourished <LATASHA Sanchez - Last Filed: 10/02/22 18:22> Orientation/consciousness: patient oriented x3 <LATASHA Sanchez - Last Filed: 10/02/22 18:22> Limitations: no limitations <LATASHA Sanchez - Last Filed: 10/02/22 18:22> HENMT Head: Yes normal to inspection and Yes atraumatic <LATASHA Sanchez - Last Filed: 10/02/22 18:22> Ears: hearing grossly normal bilaterally and external ears normal <LATASHA Sanchez - Last Filed: 10/02/22 18:22> General nose exam: Normal external nose present, no nasal discharge noted and no epistaxis <LATASHA Sanchez - Last Filed: 10/02/22 18:22> Face and sinus: Yes normal facial exam, No abrasion and No laceration <Bambimelly Howemecca CO - Last Filed: 10/02/22 18:22> Mouth: Normal oral and palatal mucosa present, no drooling and no muffled voice <Bambi Howemecca CO - Last Filed: 10/02/22 18:22> Eyes General: appearance normal, both eyes and all related structures <Bambimelly Howemecca CO - Last Filed: 10/02/22 18:22> Periorbital: periorbital findings normal <Bambi Howemecca CO - Last Filed: 10/02/22 18:22> Eyelids: Yes eyelids normal <Bambimelly Howemecca CO - Last Filed: 10/02/22 18:22> Conjunctivae: conjunctivae normal <Bambimelly Howemecca CO - Last Filed: 10/02/22 18:22> Pupils: Equal, round and reactive pupils present <Bambimelly Howemecca CO - Last Filed: 10/02/22 18:22> EOM: EOMs intact bilaterally <Bambi Jeramy CO - Last Filed: 10/02/22 18:22> Neck Neck: Yes normal visual inspection, Yes full ROM and Yes no lymphadenopathy <Bambimelly Howemecca CO - Last Filed: 10/02/22 18:22> Chest Chest palpation & inspection: normal inspection of the chest <Bambi Jeramy CO - Last Filed: 10/02/22 18:22> Resp Effort & Inspection: normal respiratory effort and able to speak in complete sentences <Bambi Deshpande CO - Last Filed: 10/02/22 18:22> Auscultation: clear to auscultation bilaterally <Bambimelly Howemecca CO - Last Filed: 10/02/22 18:22> Cardio Rate: regular rate <Bambi Deshpande CO - Last Filed: 10/02/22 18:22> Rhythm: regular rhythm <Bambi Jeramy CO - Last Filed: 10/02/22 18:22> GI Inspection: Yes normal to inspection <Bambi Jeramy CO - Last Filed: 10/02/22 18:22> Neuro General: patient oriented x3 and moves all extremities <Bambi Deshpande CO - Last Filed: 10/02/22 18:22> Cranial nerves: Yes Equal, round and reactive pupils present <Bambi DeshpandeLATASHA - Last Filed: 10/02/22 18:22> Cognition (Neuro): normal cognition <Bambi DeshpandeLATASHA - Last Filed: 10/02/22 18:22> Motor exam (neuro): 5/5 motor strength present throughout <Bambi DeshpandeLATASHA - Last Filed: 10/02/22 18:22> Sensory Exam: Normal double simultaneous stimulation for sensation <Bambi DeshpandeLATASHA - Last Filed: 10/02/22 18:22> Coordination: [id number] test normal <Bambi DeshpandeLATASHA - Last Filed: 10/02/22 18:22> Extrem General: Yes normal to inspection, Yes full ROM and Yes capillary refill normal <Bambi DeshpandeLATASHA - Last Filed: 10/02/22 18:22> Psych Appearance: grossly normal <Bambi DeshpandeLATASHA - Last Filed: 10/02/22 18:22> Mental Status: mental status grossly normal <Bambi DeshpandeLATASHA - Last Filed: 10/02/22 18:22> Affect: normal affect <Bambi DeshpandeLATASHA - Last Filed: 10/02/22 18:22> Attitude: cooperative <Bambi DeshpandeLATASHA - Last Filed: 10/02/22 18:22> Thought process: Normal thought process present <Bambi DeshpandeLATASHA - Last Filed: 10/02/22 18:22> Thought content: Normal thought content present <Bambi DeshpandeLATASHA - Last Filed: 10/02/22 18:22> Insight: Good insight present (Psych) <Bambi DeshpandeLATASHA - Last Filed: 10/02/22 18:22> Course Course Course Narrative: RME: 77-year-old female brought to the ED for evaluation for chronic nasal congestion and recurrent nasal bleed as being followed by her primary care provider. Daughter states this has been occurring for months. Last episode of nasal bleed was this morning and resolve on his own. Patient denies any bleeding from the gums, swelling of joints, easy bruising of skin, abdominal pain, rectal bleeding. Physical exam negative for any active bleeding from nares. Patient had imaging done by PCP that will be read by radiologist here. Patient had normal hemoglobin, platelet, and liver enzymes that were done on 09/29 <LATASHA Gonzalez - Last Filed: 10/15/22 12:06> Medical Decision Making Medical Decision Making MDM Narrative: Patient is a 77 year old assigned female at with a history of chronic congestion presenting to the emergency department today with continued chronic congestion. Patient's physical exam was unremarkable. I explained my physical exam findings to the patient and the patient's daughter. I answered all questions asked by the patient and the patient's daughter. I stressed the importance of the patient continuing to take the Doxycycline prescribed last . I stressed the importance of the patient taking her medication as prescribed. I stressed the importance of the patient following up with her primary care provider and an ENT specialist. I stressed the importance of the patient returning to the emergency department immediately if her symptoms were to worsen or if she were to develop any dizziness, shortness of breath, difficulty breathing, chest pain, blurry vision, loss of vision, nausea, vomiting, abdominal pain, fever, chills, back pain, or any other complaints. Patient and the patient's daughter verbalized agreement and understanding with this treatment plan and discharge. <LATASHA Sanchez - Last Filed: 10/02/22 18:22> Differential Diagnosis Differential Diagnoses: The differential diagnosis associated with the presentation includes <LATASHA Sanchez - Last Filed: 10/02/22 18:22> Chronic sinusitis <LATASHA Sanchez - Last Filed: 10/02/22 18:22> Independent Historian Clinical information obtained from an independent historian. History obtained from or confirmed by: Other (patient's daughter) <LATASHA Sanchez - Last Filed: 10/02/22 18:22> Discharge Plan Discharge Clinical Impression: Chronic sinusitis <LATASHA Gonzalez Last Filed: 10/15/22 12:06> Patient Disposition: Home, Self-Care <LATASHA Gonzalez Last Filed: 10/15/22 12:06> Instructions: Sinusitis (ED) <LATASHA Gonzalez Last Filed: 10/15/22 12:06> Additional Instructions: Continue taking your Doxycycline as prescribed. Follow up with your primary care provider and your ENT. Return to the emergency department immediately if your symptoms worsen or if you develop any dizziness, shortness of breath, difficulty breathing, chest pain, blurry vision, loss of vision, nausea, vomiting, abdominal pain, fever, chills, back pain, or any other complaints. Contin?e tomando brown doxiciclina seg?n lo prescrito. Quinn un seguimiento con brown proveedor de atenci?n primaria y brown otorrinolaring?logo. Regrese al departamento de emergencias de inmediato si ricardo s?ntomas empeoran o si presenta mareos, falta de aire, dificultad para respirar, dolor de pecho, visi?n borrosa, p?rdida de la visi?n, n?useas, v?mitos, dolor abdominal, fiebre, escalofr?os, dolor de espalda o cualquier otras quejas. <LATASHA Gonzalez - Last Filed: 10/15/22 12:06> Prescriptions: No Action (DME) cane Device See Rx Instructions .ROUTE .MEDSUPPLY Qty: 1 0RF Rx Instructions: As directed (DME) joselito [facility] [place] See Rx Instructions .ROUTE .MEDSUPPLY Qty: 1 0RF Rx Instructions: As directed cyanocobalamin (vitamin B-12) 1,000 mcg/mL solution 1,000 mcg IM .once a month 30 Days Qty: 1 6RF acetaminophen [Tylenol Arthritis Pain] 650 mg tablet extended release 650 mg PO Q8H 30 Days Qty: 90 0RF ondansetron 4 mg tablet,disintegrating 4 mg PO Q8H PRN (Reason: nausea and vomiting) Qty: 20 0RF fluticasone propionate [Flonase Allergy Relief] 50 mcg/actuation spray,suspension 1 spray intranasal DAILY 30 Days Qty: 16 0RF Rx Instructions: administer into each nostril mirtazapine 15 mg tablet 15 mg PO BEDTIME 90 Days Qty: 90 0RF thiamine HCl (vitamin B1) 100 mg tablet 1 tab PO DAILY cholecalciferol (vitamin D3) [Vitamin D3] 50 mcg (2,000 unit) Capsule 50 mcg PO DAILY (DME) Easy Touch SheathLock Syrg-Ndl 3 mL 21 gauge x 1 1/2 syringe See Rx Instructions .ROUTE .MEDSUPPLY Qty: 1 2RF Rx Instructions: As directed ezetimibe 10 mg tablet 10 mg PO DAILY 90 Days Qty: 90 1RF (DME) ENSURE Drink 1 can a day See Rx Instructions .Route .MEDSUPPLY Qty: 30 5RF Rx Instructions: As directed Aspercreme (lidocaine) 4 % aerosol,spray 2 spray topical QID PRN (Reason: pain) Qty: 113 1RF docusate sodium [Colace] 100 mg capsule 100 mg PO BID PRN (Reason: constipation) Qty: 20 0RF doxycycline hyclate 100 mg tablet 100 mg PO BID 5 Days Qty: 10 0RF <LATASHA Gonzalez - Last Filed: 10/15/22 12:06> Referrals: Angi Velazquez MD [Primary Care Provider] - <LATASHA Gonzalez - Last Filed: 10/15/22 12:06> Interventions: ED Discharge Assessment Last Done: 10/02/22 16:33 <LATASHA Gonzalez - Last Filed: 10/15/22 12:06> Discharge Date/Time: 10/02/22 16:43 <LATASHA Gonzalez - Last Filed: 10/15/22 12:06> Print Language: Colombian <LATASHA Gonzalez - Last Filed: 10/15/22 12:06>
== END 2022-10-02 16:43 | disposition home or self-care (01) ==
LOC: HO.ED 16:43
PROVIDERS: Emergency Provider Emergency Medicine; PCP Internal Medicine
DX: J32.9 Chronic sinusitis, unspecified (principal); Z79.899 Other long term (current) drug therapy
CPT/HCPCS: 99282

== ENCOUNTER 2022-12-17 07:30 | Emergency (ER) | payer OTHER, SELFPAY ==
[2022-12-17 07:31] VITALS: BP 125/52; PULSE 80; RESP 18; TEMP 36.8; O2SAT 99; BMI 19.7
[2022-12-17 07:50] LABS: MANUAL DIFF FLAG NO
[2022-12-17 07:53] LABS: Basophils Percent Auto 0.5 % (0-2); Eosinophils Percent Auto 0.6 % (0-4); Hematocrit 44.5 % (37.0-47.0); Hemoglobin 14.7 g/dl (12.0-16.0); Imm Gran Abs Auto 0.11 X10*3/uL (0.00-0.03); Imm Gran Pct Auto 1.7 % (0.0-0.4); Lymphocytes Absolute Auto 1.3 X10*3/uL (1.2-4.9); Lymphocytes Percent Auto 20.6 % (20-40); Mean Corpuscular Hemoglobin 30.1 pg (27.0-33.0); Mean Corpuscular Volume 91.2 fL (80.0-98.0); Mean Platelet Volume 11.7 fL (9.4-12.3); Monocytes Absolute Auto 0.5 X10*3/uL (0.1-1.2); Monocytes Percent Auto 7.7 % (2-11); Neutrophils Absolute Auto 4.5 x10*3/uL (2.0-8.3); Neutrophils Percent Auto 68.9 % (45-73); Platelet Count 183 X10*3/uL (160-400); Red Blood Count 4.88 X10*6/uL (4.20-5.50); Red Cell Distribution Width 13.5 % (11.0-16.0); White Blood Count 6.5 X10*3/uL (4.8-10.8)
[2022-12-17 08:03] LABS: Alanine Aminotransferase 41 U/L (0-31); Albumin Level 4.2 g/dL (3.5-5.0); Alkaline Phosphatase 139 U/L (39-117); Anion Gap 15 (12-20); Aspartate Amino Transferase 38 U/L (5-31); Bilirubin Total 0.6 mg/dL (0.0-1.0); Blood Urea Nitrogen 13 mg/dL (9-16); Carbon Dioxide 29 mmol/L (22-29); Chloride 104 mmol/L (96-108); Creatinine Clr Calc Pharmacy 46.8; Estimated Glomerular Filt Rate > 60; Glucose Random 110 mg/dL (60-115); Potassium 4.5 mmol/L (3.3-5.1); Sodium 143 mmol/L (135-145); Total Protein 7.1 g/dL (6.5-8.0)
[2022-12-17 08:24] VITALS: BP 128/47; PULSE 74; RESP 16; TEMP 36.7; O2SAT 97
--- NOTE | 2022-12-17 08:30 | PC.NURSE ---
alert and oriented, resp even and unlabored. family at bedside. pt complaining of increased pain s/p biopsy last week. call das within reach.
--- NOTE | 2022-12-17 09:08 | ED_ITS ---
HPI - General Adult General Chief complaint: General Medical Stated complaint: l side pain ca pt Time Seen by Provider: 12/17/22 08:13 Source: patient and family (Daughter) Mode of arrival: ambulatory History of Present Illness HPI narrative: 77-year-old female who most recently was diagnosed with metastatic melanoma and had a recent biopsy of the left hip on , all care is being done through [facility]. Two weeks ago patient was prescribed Percocet, but she states that when she tried to use it after the biopsy she has had significant nausea and vomiting from the medication and is requesting Tylenol 3 at this time. Otherwise, she has no acute complaints. Related Data Home Medications Medication Instructions Recorded Confirmed cholecalciferol (vitamin D3) 50 50 mcg PO DAILY 11/28/21 09/28/22 mcg (2,000 unit) capsule (Vitamin D3) thiamine HCl (vitamin B1) 100 mg 1 tab PO DAILY 11/28/21 09/28/22 tablet Previous Rx's Medication Instructions Recorded syringe with needle, safety 3 mL #1 ea 09/07/20 21 gauge x 1 1/2 (Easy Touch SheathLock Syringe with Needle) cane #1 ea 09/14/20 walker #1 ea 10/20/20 cyanocobalamin (vitamin B-12) 1,000 mcg IM .once a month 30 days 11/27/20 1,000 mcg/mL injection solution #1 mL ezetimibe 10 mg tablet 10 mg PO DAILY 90 days #90 tabs 02/16/21 acetaminophen 650 mg 650 mg PO Q8H pain 30 days #90 tabs 06/17/21 tablet,extended release (Tylenol Arthritis Pain) lidocaine 4 % topical spray 2 spray topical QID PRN pain #113 06/17/21 (Aspercreme (lidocaine)) grams docusate sodium 100 mg capsule 100 mg PO BID PRN constipation #20 08/16/21 (Colace) caps ondansetron 4 mg disintegrating 4 mg PO Q8H PRN nausea and 08/16/21 tablet vomiting #20 tabs ENSURE Drink 1 can a day #30 ea 12/20/21 doxycycline hyclate 100 mg tablet 100 mg PO BID 5 days #10 tabs 09/28/22 fluticasone propionate 50 1 spray intranasal DAILY 30 days 10/02/22 mcg/actuation nasal #16 grams spray,suspension (Flonase Allergy Relief) mirtazapine 15 mg tablet 15 mg PO BEDTIME 90 days #90 tabs 10/02/22 benzonatate 100 mg capsule 100 mg PO BID PRN cough 5 days #10 12/11/22 caps acetaminophen 300 mg-codeine 15 mg 1 tab PO Q8H PRN severe pain 12/17/22 tablet (scale score 7-10) #10 tabs ondansetron HCl 4 mg tablet 4 mg PO Q6H PRN nausea and 12/17/22 vomiting #14 tabs Allergies Allergy/AdvReac Type Severity Reaction Status Date / Time ibuprofen Allergy Mild anaphylaxis, Verified 09/28/22 13:57 hives metronidazole Allergy Mild rash Verified 09/28/22 13:57 naproxen [Aleve] Allergy Mild anaphylaxis, Verified 09/28/22 13:57 hives pravastatin Allergy Mild anaphylaxis Verified 09/28/22 13:57 simvastatin Allergy Mild cramps Verified 09/28/22 13:57 oxycodone [OXYCODONE] AdvReac Mild GI UPSET Verified 09/28/22 13:57 aspirin Allergy Mild swelling Uncoded 09/28/22 13:57 Review of Systems Review of Systems: Pertinent positives and negatives as stated in HPI [facility] Past Medical History Source: nursing notes reviewed Medical History B12 deficiency Chronic fatigue Depression Dyslipidemia Effusion, left knee GERD (gastroesophageal reflux disease) HLA B27 (HLA B27 positive) Insomnia Mild major depression, single episode Neck pain on right side Ophthalmoplegic migraine headache Sore throat, chronic Uterine cancer Surgical History History of laparoscopic cholecystectomy History of total abdominal hysterectomy and bilateral salpingo-oophorectomy Family History Family History Mother CVD (cardiovascular disease) Father Lung cancer Son Cancer Sister Lung cancer Brother Colon cancer Social History Social History Housing: Apartment Alcohol intake: never Patient Tobacco Use Status: Never used Tobacco Smoked in Last 30 Days: No e-Cigarette/Vaping Use: Never Used Second Hand Smoke Exposure: No Use of substances other than those prescribed or required for medical reasons: No Advance Directives: No service: No Current occupational status: retired Current occupation: rt handed Cognitive needs: No Hearing needs: No Vision needs: Yes Physical Exam ED Vital Signs: Vital Signs - 24 hr 12/17/22 07:31 12/17/22 08:24 12/17/22 10:06 Temperature 98.3 F 98.0 F 98.5 F Pulse Rate 80 74 74 Respiratory Rate 18 16 16 Blood Pressure 125/52 L 128/47 L 105/54 L Pulse Oximetry 99 97 93 Oxygen Delivery Method Room Air Room Air Room Air BMI result Body Mass Index 19.7 VITAL SIGNS: Reviewed. GENERAL: Well developed, well nourished, in no acute distress. HEAD: Normocephalic/atraumatic EYES: PERRLA, EOMI LUNGS: Normal breath sounds. No adventitious sounds or accessory muscle use. SpO2<97> CARDIOVASCULAR: Regular rate and rhythm without noted murmurs, no JVD or lower extremity edema. ABDOMEN: Soft, non-tender, non-distended with bowel sounds. Buttocks: I quickly evaluated patient's injection site at the left hip and there is no evidence of erythema/induration/fluctuance MUSCULOSKELETAL: No tenderness, deformities, or effusions noted on gross inspection. EXTREMITIES: No cyanosis, clubbing or edema. SKIN: Inspection of the skin reveals no rashes NEUROLOGIC: Alert and oriented x 4. Strength and sensation to light touch were grossly intact x 4. Medications Administered Discontinued Medications Generic Name Dose Route Start Last Admin Trade Name Freq PRN Reason Stop Dose Admin Acetaminophen/Codeine Phosphate 1 tab 12/17/22 09:01 12/17/22 09:17 Acetaminophen With Codeine # 3 Tablet PO 12/17/22 09:02 1 tab ONCE ONE Administration Ondansetron HCl 4 mg 12/17/22 09:01 12/17/22 09:17 Ondansetron Odt 4 Mg Tab.Rapdis TRANSLINGU 12/17/22 09:02 4 mg ONCE ONE Administration Medical Decision Making Medical Decision Making MDM Narrative: 77-year-old female who is here for pain control, will provide her with Zofran as well as a Tylenol 3 and re-evaluate. I reviewed all investigations and my interpretation is that patient has pain associated with biopsy site, I do notice a small bump in transaminases but there is no evidence to suggest a cholecystitis and patient was sent out with follow- up with her primary care provider. In addition, case management is putting out a referral for additional help at home. Patient also states that her pain is now well controlled. Differential Diagnosis Please see the discussion above Lab Data Please see the discussion above 12/17/22 07:45 12/17/22 07:45 Labs: Lab Results 12/17/22 12/17/22 12/17/22 Range/Units 07:45 07:45 10:18 WBC 6.5 (4.8-10.8) X10*3/uL RBC 4.88 (4.20-5.50) X10*6/uL Hgb 14.7 (12.0-16.0) g/dl Hct 44.5 (37.0-47.0) % MCV 91.2 (80.0-98.0) fL MCH 30.1 (27.0-33.0) pg MCHC 33.0 (31.0-35.0) g/dl RDW 13.5 (11.0-16.0) % Plt Count 183 (160-400) X10*3/uL MPV 11.7 (9.4-12.3) fL Immature Gran % (Auto) 1.7 H (0.0-0.4) % Neut % (Auto) 68.9 (45-73) % Lymph % (Auto) 20.6 (20-40) % [place] % (Auto) 7.7 (2-11) % Eos % (Auto) 0.6 (0-4) % Baso % (Auto) 0.5 (0-2) % Lymph # (Auto) 1.3 (1.2-4.9) X10*3/uL [place] # (Auto) 0.5 (0.1-1.2) X10*3/uL Eos # (Auto) 0.0 (0.0-0.4) X10*3/uL Baso # (Auto) 0.0 (0.0-0.2) X10*3/uL Abs Immat Gran (auto) 0.11 H (0.00-0.03) X10*3/uL Absolute Neuts (auto) 4.5 (2.0-8.3) x10*3/uL Absolute Nucleated RBC 0.000 (0.0-0.012) X10*3/uL Nucleated RBC % (auto) 0.0 (0.0-0.2) /100WBC Sodium 143 (135-145) mmol/L Potassium 4.5 (3.3-5.1) mmol/L Chloride 104 (96-108) mmol/L Carbon Dioxide 29 (22-29) mmol/L Anion Gap 15 (12-20) BUN 13 (9-16) mg/dL Creatinine 0.84 (0.5-1.4) mg/dL Estim Creat Clear Calc 46.8 Estimated GFR > 60 Random Glucose 110 (60-115) mg/dL Calcium 10.0 D (8.4-10.2) mg/dL Total Bilirubin 0.6 (0.0-1.0) mg/dL AST 38 H (5-31) U/L ALT 41 H (0-31) U/L Alkaline Phosphatase 139 H (39-117) U/L Total Protein 7.1 (6.5-8.0) g/dL Albumin 4.2 (3.5-5.0) g/dL Urine Color Yellow Urine Appearance Clear Urine pH 6.0 (5.0-9.0) Ur Specific [place] 1.015 (1.005-1.025) Urine Protein Negative (Neg-Trace) mg/dL Urine Glucose (UA) Negative (Negative) mg/dL Urine Ketones Negative (Negative) mg/dL Urine Blood Negative (Negative) Urine Nitrite Negative (Negative) Ur Leukocyte Esterase Small (1+) H (Negative) Urine RBC 0-2 (0-2) /HPF Urine WBC 0-5 (0-5) /HPF Ur Squamous Epith Cells 0-2 (0-2) /HPF Urine Bacteria None Seen (None Seen) Hyaline Casts 0-2 (0-2) /LPF External Record Review External record reviewed: Prior outpatient labs Discharge Plan Discharge Clinical Impression: Hip pain, left Patient Disposition: Home, Self-Care Instructions: Hip Pain (ED) Additional Instructions: 1. Reanudar todos los medicamentos caseros seg?n lo prescrito. 2. He cambiado brown medicamento a Tylenol 3 a petici?n suya, tambi?n recibir? ashtyn receta para medicamentos contra las n?useas. 3. Quinn un seguimiento con brown proveedor de atenci?n primaria y con brown onc?logo lo antes posible. Regrese a la angelika de emergencias si los s?ntomas empeoran. 1. Resume all home medications as prescribed. 2. I have changed her medication to Tylenol 3 at your request, he will also receive a prescription for antinausea medication. 3. Please follow-up with your primary care provider as well as your oncologist at your earliest convenience. Return to the ER for any worsening symptoms. Prescriptions: New ondansetron HCl 4 mg tablet 4 mg PO Q6H PRN (Reason: nausea and vomiting) Qty: 14 0RF acetaminophen-codeine 300-15 mg tablet 1 tab PO Q8H PRN (Reason: severe pain (scale score 7-10)) Qty: 10 0RF No Action (DME) cane Device See Rx Instructions .ROUTE .MEDSUPPLY Qty: 1 0RF Rx Instructions: As directed (DME) joselito Swartz See Rx Instructions .ROUTE .MEDSUPPLY Qty: 1 0RF Rx Instructions: As directed cyanocobalamin (vitamin B-12) 1,000 mcg/mL solution 1,000 mcg IM .once a month 30 Days Qty: 1 6RF acetaminophen [Tylenol Arthritis Pain] 650 mg tablet extended release 650 mg PO Q8H 30 Days Qty: 90 0RF ondansetron 4 mg tablet,disintegrating 4 mg PO Q8H PRN (Reason: nausea and vomiting) Qty: 20 0RF fluticasone propionate [Flonase Allergy Relief] 50 mcg/actuation spray,suspension 1 spray intranasal DAILY 30 Days Qty: 16 0RF Rx Instructions: administer into each nostril mirtazapine 15 mg tablet 15 mg PO BEDTIME 90 Days Qty: 90 0RF benzonatate 100 mg capsule 100 mg PO BID PRN (Reason: cough) 5 Days Qty: 10 0RF thiamine HCl (vitamin B1) 100 mg tablet 1 tab PO DAILY cholecalciferol (vitamin D3) [Vitamin D3] 50 mcg (2,000 unit) Capsule 50 mcg PO DAILY (DME) Easy Touch SheathLock Syrg-Ndl 3 mL 21 gauge x 1 1/2 syringe See Rx Instructions .ROUTE .MEDSUPPLY Qty: 1 2RF Rx Instructions: As directed ezetimibe 10 mg tablet 10 mg PO DAILY 90 Days Qty: 90 1RF (DME) ENSURE Drink 1 can a day See Rx Instructions .Route .MEDSUPPLY Qty: 30 5RF Rx Instructions: As directed Aspercreme (lidocaine) 4 % aerosol,spray 2 spray topical QID PRN (Reason: pain) Qty: 113 1RF docusate sodium [Colace] 100 mg capsule 100 mg PO BID PRN (Reason: constipation) Qty: 20 0RF doxycycline hyclate 100 mg tablet 100 mg PO BID 5 Days Qty: 10 0RF Referrals: [facility] [Outside] - 1 week (A REFERRAL IS BEING PLACED TO THE ABOVE AGENCY ON YOUR BEHALF. IF YOU DO NOT HEAR FROM THEM WITHIN ONE WEEK, PLEASE CALL THE NUMBER LISTED ABOVE) Print Language: Ukrainian
[2022-12-17] MEDS: Ondansetron ODT 4 MG TAB.RAPDIS TRANSLINGU (09:17)
[2022-12-17 10:06] VITALS: BP 105/54; PULSE 74; RESP 16; TEMP 36.9; O2SAT 93
[2022-12-17 10:40] LABS: Appearance Urine Clear; Color Urine Yellow; Glucose Urine UA Negative (Negative); Leukocyte Esterase Urine Small (1+) (Negative); Nitrite Urine Negative (Negative); Specific Gravity - Urine 1.015 (1.005-1.025); UMIC TRIGGER UACC YES; Urine Blood Negative (Negative); Urine Ketones Negative (Negative); Urine Protein Negative (Neg-Trace)
[2022-12-17 10:55] LABS: Bacteria Urine None Seen (None Seen); Hyaline Casts Urine 0-2 /LPF (0-2); RBC Urine 0-2 /HPF (0-2); Squamous Epithelial Cell Urine 0-2 /HPF (0-2); UACC Culture Trigger YES; WBC Urine 0-5 /HPF (0-5)
--- NOTE | 2022-12-17 11:53 | MHC.CM.PN ---
THIS AUDIT SPECIALIST MET WITH PATIENT AND GRAND DAUGHTER REFERRAL TO BE PLACED TO [facility] FOR ASSESSMENT OF SERVICES IN THE HOME. RN AWARE
== END 2022-12-17 12:26 | disposition home or self-care (01) ==
PROVIDERS: Emergency Provider Student in an Organized Health Care Education/Training Program; PCP Internal Medicine
DX: M25.552 Pain in left hip (principal); Z79.899 Other long term (current) drug therapy
CPT/HCPCS: 36415; 80053; 81001; 85025; 87086; 99283; 99284

== ENCOUNTER 2022-12-21 22:37 | Emergency (ER) | payer OTHER, SELFPAY ==
--- NOTE | ~2022-12-21 | CT_ITS ---
EXAMINATION: CT ABDOMEN AND PELVIS WITHOUT CONTRAST CLINICAL INFORMATION: Left lower quadrant pain. History of diverticulitis. COMPARISON: 08/11/2021 TECHNIQUE: Multidetector volumetric imaging was performed from the superior aspect of the liver through the pubic symphysis. Sagittal and coronal reformatted images were obtained on the technologist's workstation. This CT examination was performed using dose optimization techniques as appropriate, variously including the following: *Automated exposure control *Adjustment of mA and/or kV according to patient size (this includes techniques or standardized protocols for targeted exams where dose is matched to indication/reason for exam; i.e. extremities or head) *Use of iterative reconstruction technique DLP: 338 mGy-cm FINDINGS: LUNG BASES: The visualized lung bases are unremarkable. LIVER, GALLBLADDER, AND BILIARY TREE: The liver is normal in size, shape, and attenuation. No focal hepatic lesion or biliary ductal dilatation is present. Cholecystectomy. PANCREAS: Unremarkable. SPLEEN: Unremarkable. ADRENAL GLANDS: Unremarkable. KIDNEYS AND URETERS: The kidneys are normal in size, shape, and attenuation. No hydronephrosis or hydroureter. Bilateral simple renal cysts redemonstrated. No follow-up imaging recommended. Nonobstructive 4 mm calculus redemonstrated in the upper pole of the right kidney. No perinephric stranding. BLADDER: Unremarkable. GASTROINTESTINAL TRACT: Left colonic diverticulosis. There is short segment wall thickening and pericolic fat stranding centered around an inflamed diverticulum in the distal sigmoid colon. No pericolic fluid collection to suggest abscess formation. Normal appendix. Small sliding-type hiatal hernia. Stomach and small bowel otherwise unremarkable. ABDOMINAL WALL: No significant hernia is appreciated. LYMPH NODES: Normal. VASCULAR: Aorta is atherosclerotic but normal caliber. PELVIC VISCERA: Hysterectomy. No adnexal abnormalities. OSSEOUS STRUCTURES: No acute or suspicious osseous abnormalities. CT/CT abdomen pelvis wo IV con IMPRESSION: Acute uncomplicated sigmoid diverticulitis. While the focally thickened appearance of the distal sigmoid colon is likely related to the inflammation/peristalsis, an underlying mass cannot be excluded. Follow-up CT imaging or colonoscopy is recommended after treatment for the patient's presumptive diverticulitis. Fleischner guidelines were followed.
[2022-12-21 22:39] VITALS: BP 130/59; PULSE 93; RESP 18; TEMP 36.2; O2SAT 100; BMI 24.0
[2022-12-21 23:04] LABS: Basophils Percent Auto 0.3 % (0-2); Eosinophils Percent Auto 0.3 % (0-4); Hematocrit 39.8 % (37.0-47.0); Hemoglobin 13.4 g/dl (12.0-16.0); Imm Gran Abs Auto 0.14 X10*3/uL (0.00-0.03); Imm Gran Pct Auto 1.4 % (0.0-0.4); Lymphocytes Absolute Auto 1.9 X10*3/uL (1.2-4.9); Lymphocytes Percent Auto 19.4 % (20-40); MANUAL DIFF FLAG NO; Mean Corpuscular HGB Conc 33.7 g/dl (31.0-35.0); Mean Corpuscular Hemoglobin 30.3 pg (27.0-33.0); Mean Platelet Volume 11.3 fL (9.4-12.3); Monocytes Absolute Auto 0.9 X10*3/uL (0.1-1.2); Monocytes Percent Auto 8.8 % (2-11); Neutrophils Absolute Auto 6.8 x10*3/uL (2.0-8.3); Neutrophils Percent Auto 69.8 % (45-73); Platelet Count 184 X10*3/uL (160-400); Red Blood Count 4.42 X10*6/uL (4.20-5.50); Red Cell Distribution Width 13.3 % (11.0-16.0); White Blood Count 9.7 X10*3/uL (4.8-10.8)
[2022-12-21 23:19] LABS: Alanine Aminotransferase 230 U/L (0-31); Albumin Level 3.9 g/dL (3.5-5.0); Alkaline Phosphatase 223 U/L (39-117); Anion Gap 16 (12-20); Aspartate Amino Transferase 50 U/L (5-31); Bilirubin Direct 0.2 mg/dL (0.0-0.5); Bilirubin Total 0.9 mg/dL (0.0-1.0); Blood Urea Nitrogen 13 mg/dL (9-16); Calcium 10.3 mg/dL (8.4-10.2); Carbon Dioxide 27 mmol/L (22-29); Chloride 98 mmol/L (96-108); Creatinine Clr Calc Pharmacy 44.9; Estimated Glomerular Filt Rate 59; Glucose Random 90 mg/dL (60-115); Lipase 23 U/L (8-78); Sodium 137 mmol/L (135-145); Total Protein 7.3 g/dL (6.5-8.0)
--- NOTE | 2022-12-21 23:29 | ED.ABDPAIN ---
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 patient does not feel hungry has loose bowel no blood in the stool no abdominal distension no urinary symptoms Related Data Home Medications Medication Instructions Recorded Confirmed cholecalciferol (vitamin D3) 50 50 mcg PO DAILY 11/28/21 09/28/22 mcg (2,000 unit) capsule (Vitamin D3) thiamine HCl (vitamin B1) 100 mg 1 tab PO DAILY 11/28/21 09/28/22 tablet Previous Rx's Medication Instructions Recorded syringe with needle, safety 3 mL #1 ea 09/07/20 21 gauge x 1 1/2 (Easy Touch SheathLock Syringe with Needle) cane #1 ea 09/14/20 walker #1 ea 10/20/20 cyanocobalamin (vitamin B-12) 1,000 mcg IM .once a month 30 days 11/27/20 1,000 mcg/mL injection solution #1 mL ezetimibe 10 mg tablet 10 mg PO DAILY 90 days #90 tabs 02/16/21 acetaminophen 650 mg 650 mg PO Q8H pain 30 days #90 tabs 06/17/21 tablet,extended release (Tylenol Arthritis Pain) lidocaine 4 % topical spray 2 spray topical QID PRN pain #113 06/17/21 (Aspercreme (lidocaine)) grams docusate sodium 100 mg capsule 100 mg PO BID PRN constipation #20 08/16/21 (Colace) caps ondansetron 4 mg disintegrating 4 mg PO Q8H PRN nausea and 08/16/21 tablet vomiting #20 tabs ENSURE Drink 1 can a day #30 ea 12/20/21 doxycycline hyclate 100 mg tablet 100 mg PO BID 5 days #10 tabs 09/28/22 fluticasone propionate 50 1 spray intranasal DAILY 30 days 10/02/22 mcg/actuation nasal #16 grams spray,suspension (Flonase Allergy Relief) mirtazapine 15 mg tablet 15 mg PO BEDTIME 90 days #90 tabs 10/02/22 benzonatate 100 mg capsule 100 mg PO BID PRN cough 5 days #10 12/11/22 caps acetaminophen 300 mg-codeine 15 mg 1 tab PO Q8H PRN severe pain 12/17/22 tablet (scale score 7-10) #10 tabs ondansetron HCl 4 mg tablet 4 mg PO Q6H PRN nausea and 12/17/22 vomiting #14 tabs amoxicillin 875 mg-potassium 1 tab PO BID #20 tabs 12/22/22 clavulanate 125 mg tablet tramadol 50 mg tablet 50 mg PO Q6H PRN pain #20 tabs 12/22/22 Allergies Allergy/AdvReac Type Severity Reaction Status Date / Time ibuprofen Allergy Mild anaphylaxis, Verified 09/28/22 13:57 hives metronidazole Allergy Mild rash Verified 09/28/22 13:57 naproxen [Aleve] Allergy Mild anaphylaxis, Verified 09/28/22 13:57 hives pravastatin Allergy Mild anaphylaxis Verified 09/28/22 13:57 simvastatin Allergy Mild cramps Verified 09/28/22 13:57 oxycodone [OXYCODONE] AdvReac Mild GI UPSET Verified 09/28/22 13:57 aspirin Allergy Mild swelling Uncoded 09/28/22 13:57 Review of Systems Review of Systems Yes all other systems are reviewed and are negative PMFSH Past Medical History Medical History B12 deficiency Chronic fatigue Depression Dyslipidemia Effusion, left knee GERD (gastroesophageal reflux disease) HLA B27 (HLA B27 positive) Insomnia Mild major depression, single episode Neck pain on right side Ophthalmoplegic migraine headache Sore throat, chronic Uterine cancer Surgical History History of laparoscopic cholecystectomy History of total abdominal hysterectomy and bilateral salpingo-oophorectomy Family History Family History Mother CVD (cardiovascular disease) Father Lung cancer Son Cancer Sister Lung cancer Brother Colon cancer Social History Social History Housing: Apartment Alcohol intake: never Patient Tobacco Use Status: Never used Tobacco Smoked in Last 30 Days: No e-Cigarette/Vaping Use: Never Used Second Hand Smoke Exposure: No Use of substances other than those prescribed or required for medical reasons: No Advance Directives: No Advance Directives Information Provided: No service: No Current occupational status: retired Current occupation: rt handed Cognitive needs: No Hearing needs: No Vision needs: Yes Physical Exam ED Vital Signs: Vital Signs - 24 hr 12/21/22 22:39 12/22/22 00:38 12/22/22 01:38 Temperature 97.2 F Pulse Rate 93 94 Respiratory Rate 18 18 14 Blood Pressure 130/59 L 115/45 L Pulse Oximetry 100 94 Oxygen Delivery Method Room Air Room Air 12/22/22 02:03 12/22/22 02:04 Temperature 98.4 F 98.4 F Pulse Rate 77 80 Respiratory Rate 18 18 Blood Pressure 133/80 135/80 Pulse Oximetry 99 Oxygen Delivery Method Room Air BMI result Body Mass Index 24.0 Appearance: Alert. Oriented X3. Mild distress Eyes: No pallor or icterus ENT: Pharynx normal. Oral Mucosa moist Neck: Normal inspection. Neck supple. CVS: Normal heart rate and rhythm. Pulses normal. Respiratory: No respiratory distress. Equal air entry bilateral, no wheezing/rales/rhonchi Abdomen: Soft, tenderness bilateral lower quadrant with guarding no rebound tenderness ,. Bowel sounds are present, no mass palpable, no CVA tenderness Skin: Skin warm and dry. Normal skin color. Normal skin turgor. Extremities: No lower extremity edema. No calf tenderness Neuro: Oriented X 3. No motor deficit. Medical Decision Making Medical Decision Making MDM Narrative: Patient with uncomplicated diverticulitis normal CBC count was given dose of Zosyn in the ER discharge patient home on a patient feeling much better Lab Data [facility] Lab Attestation statement: I reviewed the patient's lab results. 12/21/22 22:58 12/21/22 22:58 Labs: Lab Results 12/21/22 12/21/22 12/22/22 Range/Units 22:58 22:58 01:01 WBC 9.7 (4.8-10.8) X10*3/uL RBC 4.42 (4.20-5.50) X10*6/uL Hgb 13.4 (12.0-16.0) g/dl Hct 39.8 (37.0-47.0) % MCV 90.0 (80.0-98.0) fL MCH 30.3 (27.0-33.0) pg MCHC 33.7 (31.0-35.0) g/dl RDW 13.3 (11.0-16.0) % Plt Count 184 (160-400) X10*3/uL MPV 11.3 (9.4-12.3) fL Immature Gran % (Auto) 1.4 H (0.0-0.4) % Neut % (Auto) 69.8 (45-73) % Lymph % (Auto) 19.4 L (20-40) % [place] % (Auto) 8.8 (2-11) % Eos % (Auto) 0.3 (0-4) % Baso % (Auto) 0.3 (0-2) % Lymph # (Auto) 1.9 (1.2-4.9) X10*3/uL [place] # (Auto) 0.9 (0.1-1.2) X10*3/uL Eos # (Auto) 0.0 (0.0-0.4) X10*3/uL Baso # (Auto) 0.0 (0.0-0.2) X10*3/uL Abs Immat Gran (auto) 0.14 H (0.00-0.03) X10*3/uL Absolute Neuts (auto) 6.8 (2.0-8.3) x10*3/uL Absolute Nucleated RBC 0.000 (0.0-0.012) X10*3/uL Nucleated RBC % (auto) 0.0 (0.0-0.2) /100WBC Sodium 137 (135-145) mmol/L Potassium 4.0 (3.3-5.1) mmol/L Chloride 98 (96-108) mmol/L Carbon Dioxide 27 (22-29) mmol/L Anion Gap 16 (12-20) BUN 13 (9-16) mg/dL Creatinine 0.92 (0.5-1.4) mg/dL Estim Creat Clear Calc 44.9 Estimated GFR 59 Random Glucose 90 (60-115) mg/dL Lactic Acid (0.5-2.0) mmol/L Calcium 10.3 H (8.4-10.2) mg/dL Total Bilirubin 0.9 (0.0-1.0) mg/dL Direct Bilirubin 0.2 (0.0-0.5) mg/dL AST 50 H (5-31) U/L ALT 230 H (0-31) U/L Alkaline Phosphatase 223 H (39-117) U/L Total Protein 7.3 (6.5-8.0) g/dL Albumin 3.9 (3.5-5.0) g/dL Lipase 23 (8-78) U/L Urine Color Yellow Urine Appearance Clear Urine pH 6.0 (5.0-9.0) Ur Specific [place] <= 1.005 (1.005-1.025) Urine Protein Negative (Neg-Trace) mg/dL Urine Glucose (UA) Negative (Negative) mg/dL Urine Ketones Negative (Negative) mg/dL Urine Blood Negative (Negative) Urine Nitrite Negative (Negative) Ur Leukocyte Esterase Small (1+) H (Negative) Urine RBC 0-2 (0-2) /HPF Urine WBC 0-5 (0-5) /HPF Ur Squamous Epith Cells 3-5 (0-2) /HPF Urine Bacteria None Seen (None Seen) Hyaline Casts 0-2 (0-2) /LPF 12/22/22 Range/Units 01:13 WBC (4.8-10.8) X10*3/uL RBC (4.20-5.50) X10*6/uL Hgb (12.0-16.0) g/dl Hct (37.0-47.0) % MCV (80.0-98.0) fL MCH (27.0-33.0) pg MCHC (31.0-35.0) g/dl RDW (11.0-16.0) % Plt Count (160-400) X10*3/uL MPV (9.4-12.3) fL Immature Gran % (Auto) (0.0-0.4) % Neut % (Auto) (45-73) % Lymph % (Auto) (20-40) % [place] % (Auto) (2-11) % Eos % (Auto) (0-4) % Baso % (Auto) (0-2) % Lymph # (Auto) (1.2-4.9) X10*3/uL [place] # (Auto) (0.1-1.2) X10*3/uL Eos # (Auto) (0.0-0.4) X10*3/uL Baso # (Auto) (0.0-0.2) X10*3/uL Abs Immat Gran (auto) (0.00-0.03) X10*3/uL Absolute Neuts (auto) (2.0-8.3) x10*3/uL Absolute Nucleated RBC (0.0-0.012) X10*3/uL Nucleated RBC % (auto) (0.0-0.2) /100WBC Sodium (135-145) mmol/L Potassium (3.3-5.1) mmol/L Chloride (96-108) mmol/L Carbon Dioxide (22-29) mmol/L Anion Gap (12-20) BUN (9-16) mg/dL Creatinine (0.5-1.4) mg/dL Estim Creat Clear Calc Estimated GFR Random Glucose (60-115) mg/dL Lactic Acid 0.7 (0.5-2.0) mmol/L Calcium (8.4-10.2) mg/dL Total Bilirubin (0.0-1.0) mg/dL Direct Bilirubin (0.0-0.5) mg/dL AST (5-31) U/L ALT (0-31) U/L Alkaline Phosphatase (39-117) U/L Total Protein (6.5-8.0) g/dL Albumin (3.5-5.0) g/dL Lipase (8-78) U/L Urine Color Urine Appearance Urine pH (5.0-9.0) Ur Specific [place] (1.005-1.025) Urine Protein (Neg-Trace) mg/dL Urine Glucose (UA) (Negative) mg/dL Urine Ketones (Negative) mg/dL Urine Blood (Negative) Urine Nitrite (Negative) Ur Leukocyte Esterase (Negative) Urine RBC (0-2) /HPF Urine WBC (0-5) /HPF Ur Squamous Epith Cells (0-2) /HPF Urine Bacteria (None Seen) Hyaline Casts (0-2) /LPF Medications Administered Discontinued Medications Generic Name Dose Route Start Last Admin Trade Name Freq PRN Reason Stop Dose Admin Sodium Chloride 1,000 mls @ 999 mls/hr 12/21/22 23:54 12/22/22 02:13 Ns IV 12/22/22 00:54 Infused .Q1H1M ONE Infusion Piperacillin Sod/Tazobactam 50 mls @ 100 mls/hr 12/22/22 04:36 12/22/22 05:27 Sod 3.375 gm/ Sodium Chloride IV 12/22/22 05:05 Infused ONCE ONE Infusion Morphine Sulfate 4 mg 12/21/22 23:54 12/22/22 00:38 Morphine Sulfate 4 Mg/Ml Cartridge IVPUSH 12/21/22 23:55 4 mg ONCE ONE Administration Protocol Ondansetron HCl 4 mg 12/21/22 23:54 12/22/22 00:39 Ondansetron Hcl 4 Mg/2 Ml Vial IVPUSH 12/21/22 23:55 4 mg ONCE ONE Administration Discharge Plan Discharge Clinical Impression: Diverticulitis Patient Disposition: Home, Self-Care Instructions: Diverticulitis (ED) Additional Instructions: Your CT scan showed mild diverticulitis which can be managed by oral antibiotics Clear liquids advanced slowly to regular food Report to ER if worsening of pain/fever/vomiting Follow-up with the PCP Valenzuela tomograf?a computarizada mostr? diverticulitis leve que puede tratarse con antibi?ticos orales L?quidos anant avanzaron lentamente a la comida regular Informar a urgencias si empeora el dolor/fiebre/v?mitos Seguimiento con el PCP Prescriptions: New tramadol 50 mg tablet 50 mg PO Q6H PRN (Reason: pain) Qty: 20 0RF amoxicillin-pot clavulanate 875-125 mg tablet 1 tab PO BID Qty: 20 0RF No Action (DME) cane Device See Rx Instructions .ROUTE .MEDSUPPLY Qty: 1 0RF Rx Instructions: As directed (DME) joselito Misc See Rx Instructions .ROUTE .MEDSUPPLY Qty: 1 0RF Rx Instructions: As directed cyanocobalamin (vitamin B-12) 1,000 mcg/mL solution 1,000 mcg IM .once a month 30 Days Qty: 1 6RF acetaminophen [Tylenol Arthritis Pain] 650 mg tablet extended release 650 mg PO Q8H 30 Days Qty: 90 0RF ondansetron 4 mg tablet,disintegrating 4 mg PO Q8H PRN (Reason: nausea and vomiting) Qty: 20 0RF fluticasone propionate [Flonase Allergy Relief] 50 mcg/actuation spray,suspension 1 spray intranasal DAILY 30 Days Qty: 16 0RF Rx Instructions: administer into each nostril mirtazapine 15 mg tablet 15 mg PO BEDTIME 90 Days Qty: 90 0RF benzonatate 100 mg capsule 100 mg PO BID PRN (Reason: cough) 5 Days Qty: 10 0RF thiamine HCl (vitamin B1) 100 mg tablet 1 tab PO DAILY cholecalciferol (vitamin D3) [Vitamin D3] 50 mcg (2,000 unit) Capsule 50 mcg PO DAILY ondansetron HCl 4 mg tablet 4 mg PO Q6H PRN (Reason: nausea and vomiting) Qty: 14 0RF acetaminophen-codeine 300-15 mg tablet 1 tab PO Q8H PRN (Reason: severe pain (scale score 7-10)) Qty: 10 0RF (DME) Easy Touch SheathLock Syrg-Ndl 3 mL 21 gauge x 1 1/2 syringe See Rx Instructions .ROUTE .MEDSUPPLY Qty: 1 2RF Rx Instructions: As directed ezetimibe 10 mg tablet 10 mg PO DAILY 90 Days Qty: 90 1RF (DME) ENSURE Drink 1 can a day See Rx Instructions .Route .MEDSUPPLY Qty: 30 5RF Rx Instructions: As directed Aspercreme (lidocaine) 4 % aerosol,spray 2 spray topical QID PRN (Reason: pain) Qty: 113 1RF docusate sodium [Colace] 100 mg capsule 100 mg PO BID PRN (Reason: constipation) Qty: 20 0RF doxycycline hyclate 100 mg tablet 100 mg PO BID 5 Days Qty: 10 0RF
[2022-12-22 00:38] VITALS: RESP 18
[2022-12-22] MEDS: Morphine Sulfate 4 MG/ML CARTRIDGE IVPUSH (00:38)
[2022-12-22] MEDS: ondansetron HCL 4 MG/2 ML VIAL IVPUSH (00:39)
[2022-12-22] MEDS: 0.9 % Sodium Chloride 1,000 ML 999 ML IV (00:40)
[2022-12-22 01:07] LABS: Appearance Urine Clear; Color Urine Yellow; Glucose Urine UA Negative (Negative); Leukocyte Esterase Urine Small (1+) (Negative); Nitrite Urine Negative (Negative); Specific Gravity - Urine <= 1.005 (1.005-1.025); UMIC TRIGGER UACC YES; Urine Blood Negative (Negative); Urine Ketones Negative (Negative); Urine Protein Negative (Neg-Trace)
[2022-12-22 01:18] LABS: Bacteria Urine None Seen (None Seen); Hyaline Casts Urine 0-2 /LPF (0-2); RBC Urine 0-2 /HPF (0-2); UACC Culture Trigger YES; WBC Urine 0-5 /HPF (0-5)
[2022-12-22 01:34] LABS: Lactic Acid 0.7 mmol/L (0.5-2.0)
[2022-12-22 01:38] VITALS: BP 115/45; PULSE 94; RESP 14; O2SAT 94
[2022-12-22 02:03] VITALS: BP 133/80; PULSE 77; RESP 18; TEMP 36.9
[2022-12-22 02:04] VITALS: BP 135/80; PULSE 80; RESP 18; TEMP 36.9; O2SAT 99
--- NOTE | 2022-12-22 02:11 | PC.NURSE ---
patient in bed with eyes closed patient showing no distress at this time patient received all medications and all labs were drawn with no issues patient vitals are stable at this time patient family at the bedside patient will continue to be monitored for safety
--- NOTE | 2022-12-22 03:08 | PC.NURSE ---
patient in the bed with no distress at this time patient stated she is in no pain at this time patient will continue to be monitored for safety
[2022-12-22] MEDS: Piperacillin Sodium/Tazobactam 3.375 GM in 0.9 % Sodium Chloride 50 ML IV (04:47)
--- NOTE | 2022-12-22 05:27 | PC.NURSE ---
patient in the process of being discharged patient was able to tolerate and receive all IV antibiotics saline lock was discarded
[2022-12-22 05:32] VITALS: BP 140/74; PULSE 88; RESP 16; TEMP 37.1; O2SAT 99
== END 2022-12-22 06:03 | disposition home or self-care (01) ==
PROVIDERS: Emergency Provider Internal Medicine; PCP Internal Medicine
DX: K57.32 Diverticulitis of large intestine without perforation or abscess without bleeding (principal); R50.9 Fever, unspecified; R10.2 Pelvic and perineal pain; Z79.899 Other long term (current) drug therapy
CPT/HCPCS: 36415; 74176; 80048; 80076; 81001; 83605; 83690; 85025; 87040; 87086; 96361; 96365; 96375; 99284; 99285; J2270; J2405; J2543

== ENCOUNTER 2023-01-21 00:46 | Emergency (ER) | payer MEDICARE, OTHER, SELFPAY ==
[2023-01-21 00:49] VITALS: BP 137/54; PULSE 72; RESP 18; TEMP 36.4; O2SAT 96; BMI 20.7
[2023-01-21 01:17] VITALS: BP 138/82; PULSE 72; RESP 20; TEMP 37.2; O2SAT 98
--- NOTE | 2023-01-21 01:23 | PC.NURSE ---
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 04/17 lower back pain undergoing tx in [place]. Reporting waiting for [place] providers to prescribe for duncan but came due to no changes or medications from [place] team yet.
--- NOTE | 2023-01-21 02:09 | ED_ITS ---
HPI - General Adult General Chief complaint: Back Pain/Injury Stated complaint: Back/Leg Pain Time Seen by Provider: 01/21/23 01:56 Source: patient and family Mode of arrival: wheelchair Limitations: no limitations History of Present Illness HPI narrative: Patient comes to the emergency room complaining of severe pain in the left side of the hip and leg. Patient comes accompanied by her daughter. 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 The patient's daughter states that the patient has history of severe depression, and the family decided that they would be best if the patient does not find out all at once about her prognosis and the metastasis. Patient is aware that she has a mucosal melanoma but is not aware of a metastasis. Patient has an appointment at the beginning of February 2023, and in her next appointment they will disclose more information to the patient about her condition. Patient and daughter deny any history of recent trauma Related Data Home Medications Medication Instructions Recorded Confirmed cholecalciferol (vitamin D3) 50 50 mcg PO DAILY 11/28/21 09/28/22 mcg (2,000 unit) capsule (Vitamin D3) thiamine HCl (vitamin B1) 100 mg 1 tab PO DAILY 11/28/21 09/28/22 tablet Previous Rx's Medication Instructions Recorded syringe with needle, safety 3 mL #1 ea 09/07/20 21 gauge x 1 1/2 (Easy Touch SheathLock Syringe with Needle) cane #1 ea 09/14/20 walker #1 ea 10/20/20 cyanocobalamin (vitamin B-12) 1,000 mcg IM .once a month 30 days 11/27/20 1,000 mcg/mL injection solution #1 mL ezetimibe 10 mg tablet 10 mg PO DAILY 90 days #90 tabs 02/16/21 acetaminophen 650 mg 650 mg PO Q8H pain 30 days #90 tabs 06/17/21 tablet,extended release (Tylenol Arthritis Pain) lidocaine 4 % topical spray 2 spray topical QID PRN pain #113 06/17/21 (Aspercreme (lidocaine)) grams docusate sodium 100 mg capsule 100 mg PO BID PRN constipation #20 08/16/21 (Colace) caps ondansetron 4 mg disintegrating 4 mg PO Q8H PRN nausea and 08/16/21 tablet vomiting #20 tabs ENSURE Drink 1 can a day #30 ea 12/20/21 doxycycline hyclate 100 mg tablet 100 mg PO BID 5 days #10 tabs 09/28/22 fluticasone propionate 50 1 spray intranasal DAILY 30 days 10/02/22 mcg/actuation nasal #16 grams spray,suspension (Flonase Allergy Relief) mirtazapine 15 mg tablet 15 mg PO BEDTIME 90 days #90 tabs 10/02/22 benzonatate 100 mg capsule 100 mg PO BID PRN cough 5 days #10 12/11/22 caps acetaminophen 300 mg-codeine 15 mg 1 tab PO Q8H PRN severe pain 12/17/22 tablet (scale score 7-10) #10 tabs ondansetron HCl 4 mg tablet 4 mg PO Q6H PRN nausea and 12/17/22 vomiting #14 tabs amoxicillin 875 mg-potassium 1 tab PO BID #20 tabs 12/22/22 clavulanate 125 mg tablet tramadol 50 mg tablet 50 mg PO Q6H PRN pain #20 tabs 12/22/22 oxycodone 10 mg tablet,crush 10 mg PO BID #20 tabs 01/21/23 resistant,extended release 12 hr (OxyContin) Allergies Allergy/AdvReac Type Severity Reaction Status Date / Time ibuprofen Allergy Mild anaphylaxis, Verified 01/21/23 01:01 hives metronidazole Allergy Mild rash Verified 01/21/23 01:01 naproxen [Aleve] Allergy Mild anaphylaxis, Verified 01/21/23 01:01 hives pravastatin Allergy Mild anaphylaxis Verified 01/21/23 01:01 simvastatin Allergy Mild cramps Verified 01/21/23 01:01 oxycodone [OXYCODONE] AdvReac Mild GI UPSET Verified 01/21/23 01:01 aspirin Allergy Mild swelling Uncoded 01/21/23 01:01 Review of Systems Review of Systems: Constitutional : No Weight loss, No Fever, No Chills, No Night Sweats, No Fatigue, No Malaise ENT/Mouth : No Hearing loss, No Ear Pain, No Nasal Congestion, No Sinus Pain, No Hoarseness, No sore throat, No Rhinorrhea, No Swallowing Difficulty Eyes: No Eye Pain, No Swelling, No Redness, No Foreign Body, No Discharge, No Vision Changes Cardiovascular : No Chest Pain, No SOB, No Dyspnea on Exertion, No Orthopnea, No Edema, No Palpitations Respiratory : No Cough, No Sputum, No Wheezing, No Smoke Exposure, No Dyspnea Gastrointestinal : No Nausea, No Vomiting, No Diarrhea, No Constipation, No abdominal Pain, No Hematochezia, No Melena Genitourinary : no irregular bleeding, No Dysuria, No Urinary Frequency, No Hematuria, No Urinary Incontinence, No Urgency, No Flank Pain, No Urinary Flow Changes, No Hesitancy Musculoskeletal : Complaining of left hip and left leg pain, No Myalgias, No Joint Swelling Skin : No Skin Lesions, No rash Neuro : No Weakness, No Numbness, No Paresthesias, No Loss of Consciousness, No Dizziness, No Headache Psych : No Anxiety/Panic, No Depression, No SI/HI/AH/VH, No Social Issues, Heme/Lymph: No Bruising, No Bleeding,No Lymphadenopathy Endocrine : No Polyuria, No Polydipsia, No Temperature Intolerance [facility] Past Medical History Medical History (Updated 01/21/23 @ 04:43 by Yina Tang MD) B12 deficiency Chronic fatigue Depression Dyslipidemia Effusion, left knee GERD (gastroesophageal reflux disease) HLA B27 (HLA B27 positive) Insomnia 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 depression, single episode Neck pain on right side Ophthalmoplegic migraine headache Sore throat, chronic Uterine cancer Surgical History History of laparoscopic cholecystectomy History of total abdominal hysterectomy and bilateral salpingo-oophorectomy Family History Family History Mother CVD (cardiovascular disease) Father Lung cancer Son Cancer Sister Lung cancer Brother Colon cancer Social History Social History Housing: Apartment Alcohol intake: never Patient Tobacco Use Status: Never used Tobacco e-Cigarette/Vaping Use: Never Used Second Hand Smoke Exposure: No Advance Directives: No Advance Directives Information Provided: Yes service: No Current occupational status: retired Current occupation: rt handed Cognitive needs: No Hearing needs: No Vision needs: Yes Physical Exam ED Vital Signs: Vital Signs - 24 hr 01/21/23 00:49 01/21/23 01:17 Temperature 97.6 F 99.0 F Pulse Rate 72 72 Respiratory Rate 18 20 Blood Pressure 137/54 L 138/82 Pulse Oximetry 96 98 Oxygen Delivery Method Room Air Room Air BMI result Body Mass Index 20.7 Const Other: Appearance: Alert. Oriented X3. No acute distress. Eyes: Pupils equal, round and reactive to light. ENT: Pharynx normal. Neck: Normal inspection. Neck supple. No lymph nodes noted. No crepitus CVS: Normal heart rate and rhythm. Pulses normal. Normal S1 and S2 Respiratory: No respiratory distress. Breath sounds normal. No Wheezing. No rales Abdomen: Soft and nontender. No rigidity. No distention. Skin: Skin warm and dry. Normal skin color. Normal skin turgor. Extremities: No lower extremity edema. No Lacerations. No Rash. Patient able to move the right leg. Patient unable to move the left leg due to pain. Neuro: Oriented X 3. No motor deficit. No sensory deficit. Moving all extremities. No slurred speech. CN 2 through 12 grossly intact Psych: calm, cooperative, normal affect Medications Administered Discontinued Medications Generic Name Dose Route Start Last Admin Trade Name Taryn PRN Reason Stop Dose Admin Morphine Sulfate 4 mg 01/21/23 02:07 01/21/23 02:16 Morphine Sulfate 4 Mg/Ml Cartridge IVPUSH 01/21/23 02:08 4 mg ONCE ONE Administration Protocol Medical Decision Making Medical Decision Making MDM Narrative: -it is known that patient has melanoma with metastasis to bone. At this time, patient is here for pain control, no further labs to be done at this time. Patient has an appointment pending in a few days in [place] with her specialists. Patient receiving IV morphine. -admission is being considered for pain control -patient overall feeling better but still having significant pain. Patient given p.o. OxyContin. Patient has been using Percocet at home, has used morphine in the past. Patient does have tolerance to narcotics given her recent medications for pain control. -patient has an appointment pending with her specialist in [place] -patient declined admission, declined PT/case management. Patient would like to be discharged home. Differential Diagnosis Differential Diagnoses: The differential diagnosis associated with the presentation includes (Musculoskeletal pain, bone metastasis) Admission/Observation Consideration of admission/observation: Escalation of care including admission/observation considered Discharge Plan Discharge Clinical Impression: Bone pain Patient Disposition: Home, Self-Care Instructions: Musculoskeletal Pain (ED) Additional Instructions: Please follow-up with your primary care physician tomorrow. If you have any worsening or new symptoms, please return to the emergency room or call 911 Prescriptions: New oxycodone [OxyContin] 10 mg tablet,oral only,ext.rel.12 hr 10 mg PO BID Qty: 20 0RF Rx Instructions: Partial Fill upon patient request. No Action (DME) cane Device See Rx Instructions .ROUTE .MEDSUPPLY Qty: 1 0RF Rx Instructions: As directed (DME) joselito Swartz See Rx Instructions .ROUTE .MEDSUPPLY Qty: 1 0RF Rx Instructions: As directed cyanocobalamin (vitamin B-12) 1,000 mcg/mL solution 1,000 mcg IM .once a month 30 Days Qty: 1 6RF acetaminophen [Tylenol Arthritis Pain] 650 mg tablet extended release 650 mg PO Q8H 30 Days Qty: 90 0RF ondansetron 4 mg tablet,disintegrating 4 mg PO Q8H PRN (Reason: nausea and vomiting) Qty: 20 0RF fluticasone propionate [Flonase Allergy Relief] 50 mcg/actuation spray,suspension 1 spray intranasal DAILY 30 Days Qty: 16 0RF Rx Instructions: administer into each nostril mirtazapine 15 mg tablet 15 mg PO BEDTIME 90 Days Qty: 90 0RF benzonatate 100 mg capsule 100 mg PO BID PRN (Reason: cough) 5 Days Qty: 10 0RF thiamine HCl (vitamin B1) 100 mg tablet 1 tab PO DAILY cholecalciferol (vitamin D3) [Vitamin D3] 50 mcg (2,000 unit) Capsule 50 mcg PO DAILY ondansetron HCl 4 mg tablet 4 mg PO Q6H PRN (Reason: nausea and vomiting) Qty: 14 0RF acetaminophen-codeine 300-15 mg tablet 1 tab PO Q8H PRN (Reason: severe pain (scale score 7-10)) Qty: 10 0RF tramadol 50 mg tablet 50 mg PO Q6H PRN (Reason: pain) Qty: 20 0RF amoxicillin-pot clavulanate 875-125 mg tablet 1 tab PO BID Qty: 20 0RF (DME) Easy Touch SheathLock Syrg-Ndl 3 mL 21 gauge x 1 1/2 syringe See Rx Instructions .ROUTE .MEDSUPPLY Qty: 1 2RF Rx Instructions: As directed ezetimibe 10 mg tablet 10 mg PO DAILY 90 Days Qty: 90 1RF (DME) ENSURE Drink 1 can a day See Rx Instructions .Route .MEDSUPPLY Qty: 30 5RF Rx Instructions: As directed Aspercreme (lidocaine) 4 % aerosol,spray 2 spray topical QID PRN (Reason: pain) Qty: 113 1RF docusate sodium [Colace] 100 mg capsule 100 mg PO BID PRN (Reason: constipation) Qty: 20 0RF doxycycline hyclate 100 mg tablet 100 mg PO BID 5 Days Qty: 10 0RF
[2023-01-21] MEDS: Morphine Sulfate 4 MG/ML CARTRIDGE IVPUSH (02:16)
[2023-01-21] MEDS: oxyCODONE HCl ER 10 MG TAB.ER.12H PO (04:56)
[2023-01-21 04:57] VITALS: BP 131/46; PULSE 75; RESP 18; O2SAT 97
== END 2023-01-21 05:03 | disposition home or self-care (01) ==
PROVIDERS: Emergency Provider Emergency Medicine; PCP Internal Medicine
DX: M89.8X8 Other specified disorders of bone, other site (principal); C55 Malignant neoplasm of uterus, part unspecified; C79.51 Secondary malignant neoplasm of bone
CPT/HCPCS: J2270

== ENCOUNTER 2023-01-21 19:50 | Emergency (ER) | payer OTHER, SELFPAY ==
[2023-01-21 20:16] VITALS: BP 120/60; PULSE 84; RESP 18; TEMP 36.9; O2SAT 94; BMI 20.1
--- NOTE | 2023-01-21 20:16 | ED_ITS ---
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 Daughter also offered to pay for the medication out a pocket although the pharmacist apparently told her that this was not an available option. Patient is in severe pain. The patient's daughter states that the patient has history of severe depression, and the family decided that they would be best if the patient does not find out all at once about her prognosis and the metastasis.? Patient is aware that she has a mucosal melanoma but is not aware of a metastasis.? Patient has an appointment at the beginning of February 2023, and in her next appointment they will disclose more information to the patient about her condition.? Patient and daughter deny any history of recent trauma Related Data Home Medications Medication Instructions Recorded Confirmed cholecalciferol (vitamin D3) 50 50 mcg PO DAILY 11/28/21 09/28/22 mcg (2,000 unit) capsule (Vitamin D3) thiamine HCl (vitamin B1) 100 mg 1 tab PO DAILY 11/28/21 09/28/22 tablet Previous Rx's Medication Instructions Recorded syringe with needle, safety 3 mL #1 ea 09/07/20 21 gauge x 1 1/2 (Easy Touch SheathLock Syringe with Needle) cane #1 ea 09/14/20 walker #1 ea 10/20/20 cyanocobalamin (vitamin B-12) 1,000 mcg IM .once a month 30 days 11/27/20 1,000 mcg/mL injection solution #1 mL ezetimibe 10 mg tablet 10 mg PO DAILY 90 days #90 tabs 02/16/21 acetaminophen 650 mg 650 mg PO Q8H pain 30 days #90 tabs 06/17/21 tablet,extended release (Tylenol Arthritis Pain) lidocaine 4 % topical spray 2 spray topical QID PRN pain #113 06/17/21 (Aspercreme (lidocaine)) grams docusate sodium 100 mg capsule 100 mg PO BID PRN constipation #20 08/16/21 (Colace) caps ondansetron 4 mg disintegrating 4 mg PO Q8H PRN nausea and 08/16/21 tablet vomiting #20 tabs ENSURE Drink 1 can a day #30 ea 12/20/21 doxycycline hyclate 100 mg tablet 100 mg PO BID 5 days #10 tabs 09/28/22 fluticasone propionate 50 1 spray intranasal DAILY 30 days 10/02/22 mcg/actuation nasal #16 grams spray,suspension (Flonase Allergy Relief) mirtazapine 15 mg tablet 15 mg PO BEDTIME 90 days #90 tabs 10/02/22 benzonatate 100 mg capsule 100 mg PO BID PRN cough 5 days #10 12/11/22 caps acetaminophen 300 mg-codeine 15 mg 1 tab PO Q8H PRN severe pain 12/17/22 tablet (scale score 7-10) #10 tabs ondansetron HCl 4 mg tablet 4 mg PO Q6H PRN nausea and 12/17/22 vomiting #14 tabs amoxicillin 875 mg-potassium 1 tab PO BID #20 tabs 12/22/22 clavulanate 125 mg tablet tramadol 50 mg tablet 50 mg PO Q6H PRN pain #20 tabs 12/22/22 morphine 15 mg immediate release 15 mg PO BID PRN pain #20 tabs 01/21/23 tablet ondansetron HCl 4 mg tablet 4 mg PO Q8H #20 tabs 01/21/23 oxycodone 10 mg tablet,crush 10 mg PO BID #20 tabs 01/21/23 resistant,extended release 12 hr (OxyContin) Allergies Allergy/AdvReac Type Severity Reaction Status Date / Time ibuprofen Allergy Mild anaphylaxis, Verified 01/21/23 20:16 hives metronidazole Allergy Mild rash Verified 01/21/23 20:16 naproxen [Aleve] Allergy Mild anaphylaxis, Verified 01/21/23 20:16 hives pravastatin Allergy Mild anaphylaxis Verified 01/21/23 20:16 simvastatin Allergy Mild cramps Verified 01/21/23 20:16 oxycodone [OXYCODONE] AdvReac Mild GI UPSET Verified 01/21/23 20:16 aspirin Allergy Mild swelling Uncoded 01/21/23 01:01 Review of Systems Review of Systems: Constitutional : No Weight loss, No Fever, No Chills, No Night Sweats, No Fatigue, No Malaise ENT/Mouth : No Hearing loss, No Ear Pain, No Nasal Congestion, No Sinus Pain, No Hoarseness, No sore throat, No Rhinorrhea, No Swallowing Difficulty Eyes: No Eye Pain, No Swelling, No Redness, No Foreign Body, No Discharge, No Vision Changes Cardiovascular : No Chest Pain, No SOB, No Dyspnea on Exertion, No Orthopnea, No Edema, No Palpitations Respiratory : No Cough, No Sputum, No Wheezing, No Smoke Exposure, No Dyspnea Gastrointestinal : No Nausea, No Vomiting, No Diarrhea, No Constipation, No abdominal Pain, No Hematochezia, No Melena Genitourinary : no irregular bleeding, No Dysuria, No Urinary Frequency, No Hematuria, No Urinary Incontinence, No Urgency, No Flank Pain, No Urinary Flow Changes, No Hesitancy Musculoskeletal : +bone/joint pain, No Myalgias, No Joint Swelling Skin : No Skin Lesions, No rash Neuro : No Weakness, No Numbness, No Paresthesias, No Loss of Consciousness, No Dizziness, No Headache Psych : No Anxiety/Panic, No Depression, No SI/HI/AH/VH, No Social Issues, Heme/Lymph: No Bruising, No Bleeding,No Lymphadenopathy Endocrine : No Polyuria, No Polydipsia, No Temperature Intolerance Yes all other systems are reviewed and are negative [facility] Past Medical History Attestation statement: The following information was validated with the patient. Source: old records reviewed, obtained from family and nursing notes reviewed Medical History B12 deficiency Chronic fatigue Depression Dyslipidemia Effusion, left knee GERD (gastroesophageal reflux disease) HLA B27 (HLA B27 positive) Insomnia 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 depression, single episode Neck pain on right side Ophthalmoplegic migraine headache Sore throat, chronic Uterine cancer Surgical History History of laparoscopic cholecystectomy History of total abdominal hysterectomy and bilateral salpingo-oophorectomy Family History Family History Mother CVD (cardiovascular disease) Father Lung cancer Son Cancer Sister Lung cancer Brother Colon cancer Social History Social History Housing: Apartment Alcohol intake: never Patient Tobacco Use Status: Never used Tobacco e-Cigarette/Vaping Use: Never Used Second Hand Smoke Exposure: No Advance Directives: No Advance Directives Information Provided: Yes service: No Current occupational status: retired Current occupation: rt handed Cognitive needs: No Hearing needs: No Vision needs: Yes Physical Exam Vital Signs: Vital Signs: Last Vital Signs Temp 98.4 F 01/21/23 20:16 Pulse 84 01/21/23 20:16 Resp 18 01/21/23 20:16 BP 120/60 01/21/23 20:16 Pulse Ox 94 01/21/23 20:16 O2 Del Method Room Air 01/21/23 20:16 BMI result Body Mass Index 20.1 Vital signs reviewed. Blood pressure normal. Pulse normal. Respiration normal. Oxygen normal. Temperature normal. Appearance: Alert. Oriented X3. No acute distress. Patient sitting in wheelchair rubbing her leg/bones appears to be in pain. Head: Normal external exam. Normocephalic. Atraumatic. Eyes: PERRLA. EOMI. Conjunctiva and sclera normal. Eyelids normal. ENT: EAC normal. TM's Normal. Pharynx normal. Uvula midline. Moist mucous membranes. No lesions/ulcerations or masses noted on the tongue. Normal voice. No trismus noted. No drooling noted. No muffled voice noted. Neck: Normal inspection. Neck supple. FROM. No adenopathy. Thyroid Normal. No meningeal signs. CVS: Normal heart rate and rhythm. Heart sound normal. Pulses normal throughout. No murmurs/rales/gallops. Respiratory: No respiratory distress. Painless inspiration. Breath sounds normal. No wheezes/rales/rhonchi noted. Chest nontender. No accessory muscle usage noted or decreased air movement noted. Abdomen: Soft and nontender. Back: Full range of motion noted. Nontender. Skin: Skin warm and dry. Normal skin color. Normal skin turgor. No rashes/lesions/lacerations noted. Extremities: Extremities exhibit normal range of motion. . Neuro: Oriented X 3. No motor deficit. No sensory deficit. Reflexes normal. Normal steady gait. No focal neuro deficits noted. CN's II-XII intact bilaterally? Vascular: + radial pulses. Normal cap refill. No cyanosis noted to upper extremity nails Course Course Course Narrative: No labs or imaging indicated at this time. Patient just needs her medication filled. I called the pharmacy and apparently the pharmacy did not have the OxyContin extended release and they reported they did have 15 mg immediate release morphine. Therefore patient will be given 15 mg immediate release morphine for her cancer with bone Mets. Will also give Zofran. Patient was medicated while she was here in the emergency department with IM 4 mg morphine and 4 mg of Zofran. Patient will be discharged with instructions follow-up with PCP and to return if any new or worsening symptoms. Patient with family at bedside understand agree this plan. Medications Administered Discontinued Medications Generic Name Dose Route Start Last Admin Trade Name Freq PRN Reason Stop Dose Admin Morphine Sulfate 4 mg 01/21/23 20:20 01/21/23 20:35 Morphine Sulfate 4 Mg/Ml Cartridge IM 01/21/23 20:21 4 mg ONCE ONE Administration Protocol Ondansetron HCl 4 mg 01/21/23 20:20 01/21/23 20:33 Ondansetron Odt 4 Mg Tab.Rapdis TRANSLINGU 01/21/23 20:21 4 mg ONCE ONE Administration Oxycodone HCl 10 mg 01/21/23 20:17 01/21/23 20:34 Oxycodone Hcl Er 10 Mg Tab.Er.12h PO 01/21/23 20:18 10 mg ONCE ONE Administration Medical Decision Making Independent Historian Clinical information obtained from an independent historian. History obtained from or confirmed by: Other (Family at bedside/daughter) External Record Review External record reviewed: Inpatient record, Office record, Outpatient record, Prior outpatient labs, Prior outpatient radiology, Primary care record and Outside ED record All prior labs/imaging/EKG and notes that are in our system reviewed by myself including patient's visit here earlier today Prescription Management I considered prescription management with: Pain Medication Chronic Conditions Patient?s care impacted by: Cancer Social Determinants Patient?s care significantly limited by Social Determinants of Health including: Other Social Determinant of Health Discharge Plan Discharge Clinical Impression: Bone pain Patient Disposition: Home, Self-Care Prescriptions: New morphine 15 mg tablet 15 mg PO BID PRN (Reason: pain) Qty: 20 0RF Rx Instructions: Partial Fill upon patient request. ondansetron HCl 4 mg tablet 4 mg PO Q8H Qty: 20 0RF No Action (DME) cane Device See Rx Instructions .ROUTE .MEDSUPPLY Qty: 1 0RF Rx Instructions: As directed (DME) joselito Swartz See Rx Instructions .ROUTE .MEDSUPPLY Qty: 1 0RF Rx Instructions: As directed cyanocobalamin (vitamin B-12) 1,000 mcg/mL solution 1,000 mcg IM .once a month 30 Days Qty: 1 6RF acetaminophen [Tylenol Arthritis Pain] 650 mg tablet extended release 650 mg PO Q8H 30 Days Qty: 90 0RF ondansetron 4 mg tablet,disintegrating 4 mg PO Q8H PRN (Reason: nausea and vomiting) Qty: 20 0RF fluticasone propionate [Flonase Allergy Relief] 50 mcg/actuation spray,suspension 1 spray intranasal DAILY 30 Days Qty: 16 0RF Rx Instructions: administer into each nostril mirtazapine 15 mg tablet 15 mg PO BEDTIME 90 Days Qty: 90 0RF benzonatate 100 mg capsule 100 mg PO BID PRN (Reason: cough) 5 Days Qty: 10 0RF thiamine HCl (vitamin B1) 100 mg tablet 1 tab PO DAILY cholecalciferol (vitamin D3) [Vitamin D3] 50 mcg (2,000 unit) Capsule 50 mcg PO DAILY ondansetron HCl 4 mg tablet 4 mg PO Q6H PRN (Reason: nausea and vomiting) Qty: 14 0RF acetaminophen-codeine 300-15 mg tablet 1 tab PO Q8H PRN (Reason: severe pain (scale score 7-10)) Qty: 10 0RF tramadol 50 mg tablet 50 mg PO Q6H PRN (Reason: pain) Qty: 20 0RF amoxicillin-pot clavulanate 875-125 mg tablet 1 tab PO BID Qty: 20 0RF oxycodone [OxyContin] 10 mg tablet,oral only,ext.rel.12 hr 10 mg PO BID Qty: 20 0RF Rx Instructions: Partial Fill upon patient request. (DME) Easy Touch SheathLock Syrg-Ndl 3 mL 21 gauge x 1 1/2 syringe See Rx Instructions .ROUTE .MEDSUPPLY Qty: 1 2RF Rx Instructions: As directed ezetimibe 10 mg tablet 10 mg PO DAILY 90 Days Qty: 90 1RF (DME) ENSURE Drink 1 can a day See Rx Instructions .Route .MEDSUPPLY Qty: 30 5RF Rx Instructions: As directed Aspercreme (lidocaine) 4 % aerosol,spray 2 spray topical QID PRN (Reason: pain) Qty: 113 1RF docusate sodium [Colace] 100 mg capsule 100 mg PO BID PRN (Reason: constipation) Qty: 20 0RF doxycycline hyclate 100 mg tablet 100 mg PO BID 5 Days Qty: 10 0RF Referrals: Addi Tobias MD [Primary Care Provider] - 2 days Print Language: [place]
[2023-01-21] MEDS: Ondansetron ODT 4 MG TAB.RAPDIS TRANSLINGU (20:33)
[2023-01-21] MEDS: oxyCODONE HCl ER 10 MG TAB.ER.12H PO (20:34)
[2023-01-21] MEDS: Morphine Sulfate 4 MG/ML CARTRIDGE IM (20:35)
--- NOTE | 2023-01-21 20:43 | PC.NURSE ---
pt medicated per MAR
== END 2023-01-21 20:58 | disposition home or self-care (01) ==
PROVIDERS: Emergency Provider Emergency Medicine; PCP Internal Medicine
DX: M54.50 Low back pain, unspecified (principal); Z79.899 Other long term (current) drug therapy
CPT/HCPCS: 96372; 99283; 99284; J2270

== ENCOUNTER 2023-02-11 18:43 | Emergency (ER) | payer OTHER, SELFPAY ==
[2023-02-11] VITALS (8 sets, daily range): BP systolic 126–138; BP diastolic 45–49; PULSE 91–102; RESP 16–22; TEMP 37.7–39.6; O2SAT 95–100; BMI 20.1
--- NOTE | ~2023-02-11 | CT_ITS ---
EXAMINATION: CT ABDOMEN AND PELVIS WITHOUT CONTRAST CLINICAL INFORMATION: Fever. Question of diverticulitis. COMPARISON: [facility] dating back to 2014. TECHNIQUE: Multidetector volumetric imaging was performed from the superior aspect of the liver through the pubic symphysis. Sagittal and coronal reformatted images were obtained on the technologist's workstation. This CT examination was performed using dose optimization techniques as appropriate, variously including the following: *Automated exposure control *Adjustment of mA and/or kV according to patient size (this includes techniques or standardized protocols for targeted exams where dose is matched to indication/reason for exam; i.e. extremities or head) *Use of iterative reconstruction technique DLP: 338 mGy-cm FINDINGS: LUNG BASES: Small bilateral pleural effusions and accompanying atelectasis. There are 3 new nodules in the right middle lobe, largest 2 measuring 5 mm and 4.8 mm in mean transaxial diameter. There is also a new 6.4 mm mean diameter nodule along the left major fissure. LIVER, GALLBLADDER, AND BILIARY TREE: The liver is normal in size, shape, and attenuation. No focal hepatic lesion or biliary ductal dilatation is present. Stable prominence of the common bile duct. Cholecystectomy. PANCREAS: Unremarkable. SPLEEN: Unremarkable. ADRENAL GLANDS: Unremarkable. KIDNEYS AND URETERS: The kidneys are normal in size, shape, and attenuation. Unchanged 4 mm nonobstructive calculus in the upper pole of the right kidney. A previous large simple right renal cyst has partially collapsed in the interim. Stable simple cysts in the left kidney. No follow-up imaging recommended. No hydronephrosis or hydroureter. No perinephric stranding. BLADDER: Unremarkable. GASTROINTESTINAL TRACT: Pancolonic diverticulosis. No evidence of diverticulitis on the current exam. Unchanged diverticulum emanating from the second portion of duodenum. Small bowel otherwise unremarkable. Normal appendix. ABDOMINAL WALL: Small fat-containing umbilical hernia. LYMPH NODES: Normal. VASCULAR: Aorta is atherosclerotic but normal caliber. PELVIC VISCERA: Hysterectomy. No adnexal abnormalities. OSSEOUS STRUCTURES: No acute or suspicious osseous abnormalities. CT/CT abdomen pelvis wo IV con IMPRESSION: * Pancolonic diverticulosis without evidence of diverticulitis. * Small bilateral pleural effusions and accompanying atelectasis. * There are 3 new nodules in the right middle lobe, largest measuring 5 mm and 4.8 mm in mean transaxial diameter. There is also a new 6.4 mm mean diameter nodule along the left major fissure. Per Fleischner Society Guidelines, recommend a non-contrast Chest CT at 3-6 months. If patient is high risk for malignancy, recommend an additional non-contrast Chest CT at 18-24 months; if patient is low risk for malignancy a non-contrast Chest CT at 18-24 months is optional.
--- NOTE | ~2023-02-11 | XR_ITS ---
EXAMINATION: XR CHEST CLINICAL INFORMATION: Fever COMPARISON: 05/12/2018 TECHNIQUE: Frontal view of the chest was obtained. FINDINGS: Patchy opacities in left lower lung. Normal heart size and pulmonary vascularity. No pneumothorax. No acute osseous abnormalities. XR/XR chest 1V IMPRESSION: Patchy opacities in left lower lung likely subsegmental atelectasis is seen on the concurrent CT.
--- NOTE | 2023-02-11 18:50 | ED.GENADULT ---
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 who is presenting to the ER with daughter at bedside as she is still having the pain although the word unable to control the pain taking OxyContin and oxycodone and still having the pain also noticed to have fever 103 since yesterday which is usual after immunotherapy and radiation treatment which she received 4 days ago Related Data Home Medications Medication Instructions Recorded Confirmed cholecalciferol (vitamin D3) 50 50 mcg PO DAILY 11/28/21 09/28/22 mcg (2,000 unit) capsule (Vitamin D3) thiamine HCl (vitamin B1) 100 mg 1 tab PO DAILY 11/28/21 09/28/22 tablet Previous Rx's Medication Instructions Recorded syringe with needle, safety 3 mL #1 ea 09/07/20 21 gauge x 1 1/2 (Easy Touch SheathLock Syringe with Needle) cane #1 ea 09/14/20 walker #1 ea 10/20/20 cyanocobalamin (vitamin B-12) 1,000 mcg IM .once a month 30 days 11/27/20 1,000 mcg/mL injection solution #1 mL ezetimibe 10 mg tablet 10 mg PO DAILY 90 days #90 tabs 02/16/21 acetaminophen 650 mg 650 mg PO Q8H pain 30 days #90 tabs 06/17/21 tablet,extended release (Tylenol Arthritis Pain) lidocaine 4 % topical spray 2 spray topical QID PRN pain #113 06/17/21 (Aspercreme (lidocaine)) grams docusate sodium 100 mg capsule 100 mg PO BID PRN constipation #20 08/16/21 (Colace) caps ondansetron 4 mg disintegrating 4 mg PO Q8H PRN nausea and 08/16/21 tablet vomiting #20 tabs ENSURE Drink 1 can a day #30 ea 12/20/21 doxycycline hyclate 100 mg tablet 100 mg PO BID 5 days #10 tabs 09/28/22 fluticasone propionate 50 1 spray intranasal DAILY 30 days 10/02/22 mcg/actuation nasal #16 grams spray,suspension (Flonase Allergy Relief) mirtazapine 15 mg tablet 15 mg PO BEDTIME 90 days #90 tabs 10/02/22 benzonatate 100 mg capsule 100 mg PO BID PRN cough 5 days #10 12/11/22 caps acetaminophen 300 mg-codeine 15 mg 1 tab PO Q8H PRN severe pain 12/17/22 tablet (scale score 7-10) #10 tabs ondansetron HCl 4 mg tablet 4 mg PO Q6H PRN nausea and 12/17/22 vomiting #14 tabs amoxicillin 875 mg-potassium 1 tab PO BID #20 tabs 12/22/22 clavulanate 125 mg tablet tramadol 50 mg tablet 50 mg PO Q6H PRN pain #20 tabs 12/22/22 morphine 15 mg immediate release 15 mg PO BID PRN pain #20 tabs 01/21/23 tablet ondansetron HCl 4 mg tablet 4 mg PO Q8H #20 tabs 01/21/23 oxycodone 10 mg tablet,crush 10 mg PO BID #20 tabs 01/21/23 resistant,extended release 12 hr (OxyContin) morphine 15 mg immediate release 15 mg PO BID PRN pain #20 tabs 02/12/23 tablet Allergies Allergy/AdvReac Type Severity Reaction Status Date / Time ibuprofen Allergy Mild anaphylaxis, Verified 01/21/23 20:16 hives metronidazole Allergy Mild rash Verified 01/21/23 20:16 naproxen [Aleve] Allergy Mild anaphylaxis, Verified 01/21/23 20:16 hives pravastatin Allergy Mild anaphylaxis Verified 01/21/23 20:16 simvastatin Allergy Mild cramps Verified 01/21/23 20:16 aspirin Allergy Mild swelling Uncoded 01/21/23 01:01 Review of Systems Review of Systems: Yes all other systems are reviewed and are negative PMFSH Past Medical History Medical History Acute medial meniscus tear of left knee B12 deficiency Chronic fatigue Depression Dyslipidemia Effusion, left knee GERD (gastroesophageal reflux disease) HLA B27 (HLA B27 positive) Insomnia 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 depression, single episode Neck pain on right side New daily persistent headache Ophthalmoplegic migraine headache Osteoarthritis of left knee Screening for hypothyroidism Sinusitis Sore throat, chronic Uterine cancer UTI (urinary tract infection) Surgical History History of laparoscopic cholecystectomy History of total abdominal hysterectomy and bilateral salpingo-oophorectomy Family History Family History Mother CVD (cardiovascular disease) Father Lung cancer Son Cancer Sister Lung cancer Brother Colon cancer Social History Social History Housing: Apartment Alcohol intake: never Patient Tobacco Use Status: Never used Tobacco Smoked in Last 30 Days: No e-Cigarette/Vaping Use: Never Used Second Hand Smoke Exposure: No Use of substances other than those prescribed or required for medical reasons: No Advance Directives: No Advance Directives Information Provided: No service: No Current occupational status: retired Current occupation: rt handed Cognitive needs: No Hearing needs: No Vision needs: Yes Physical Exam ED Vital Signs: Vital Signs - 24 hr 02/11/23 18:51 02/11/23 19:48 02/11/23 20:33 Temperature 102.6 F H 102.5 F H Pulse Rate 102 H 96 Respiratory Rate 18 22 H 16 Blood Pressure 136/45 L 126/48 L Pulse Oximetry 95 100 Oxygen Delivery Method Room Air 02/11/23 20:45 02/11/23 21:17 02/11/23 22:01 Temperature 103.3 F H 101 F H 101.4 F H Pulse Rate 91 Respiratory Rate 20 Blood Pressure 129/46 L Pulse Oximetry 100 Oxygen Delivery Method Room Air 02/11/23 22:15 02/11/23 23:18 Temperature 99.8 F Pulse Rate 91 Respiratory Rate 19 20 Blood Pressure 138/49 L Pulse Oximetry 100 Oxygen Delivery Method Room Air BMI result Body Mass Index 20.1 Appearance: Alert. Oriented X3. No acute distress. Eyes: PERRLA, No Nystagmus ENT: Pharynx normal. Oral Mucosa moist Neck: Normal inspection. Neck supple. CVS: Normal heart rate and rhythm. Pulses normal. Respiratory: No respiratory distress. Equal air entry bilateral, no wheezing/rales/rhonchi Abdomen: Soft and nontender. Bowel sounds are present, no mass palpable, no CVA tenderness Skin: Skin warm and dry. Normal skin color. Normal skin turgor. Extremities: No lower extremity edema. No calf tenderness tender to touch all over the body Neuro: Oriented X 3. No motor deficit. No sensory deficit.No cerebellar signs , cranial nerves II-XII intact Course Course Course Narrative: RME performed by Bambi Deshpande PA-C. Patient is a 77 year old assigned female at presenting to the emergency department with bone pain and body aches. Patient just had an immunosuppressant treatment 1 week ago. Labs and swabs ordered. Patient placed back in the waiting room pending room availability and results. Medications Administered Discontinued Medications Generic Name Dose Route Start Last Admin Trade Name Taryn PRN Reason Stop Dose Admin Acetaminophen 650 mg 02/11/23 20:17 02/11/23 20:30 Acetaminophen 325 Mg Tablet PO 02/11/23 20:18 650 mg ONCE ONE Administration Hydromorphone HCl 1 mg 02/11/23 23:10 02/11/23 23:18 Hydromorphone Hcl 1 Mg/Ml Syringe IVPUSH 02/11/23 23:11 1 mg ONCE ONE Administration Protocol Sodium Chloride 1,000 mls @ 999 mls/hr 02/11/23 20:21 02/11/23 22:03 Ns IV 02/11/23 21:21 Infused .Q1H1M ONE Infusion Sodium Chloride 1,000 mls @ 999 mls/hr 02/11/23 23:11 02/12/23 00:52 Ns IV 02/12/23 00:11 Infused .Q1H1M ONE Infusion Morphine Sulfate 4 mg 02/11/23 20:17 02/11/23 20:33 Morphine Sulfate 4 Mg/Ml Cartridge IVPUSH 02/11/23 20:18 4 mg ONCE ONE Administration Protocol Ondansetron HCl 4 mg 02/11/23 20:19 02/11/23 20:33 Ondansetron Hcl 4 Mg/2 Ml Vial IVPUSH 02/11/23 20:20 4 mg ONCE ONE Administration Medical Decision Making Medical Decision Making MDM Narrative: Patient with tumor fever/immunotherapy induced fever with body pain responded to morphine would like to go home follow up with hospice care tomorrow will discharge patient home on morphine no signs of sepsis noted normal lactic acid level Differential Diagnosis Differential Diagnoses: The differential diagnosis associated with the presentation includes Bacteremia/diverticulitis/pneumonia/tumor fever Lab Data MDM Lab Attestation statement: I reviewed the patient's lab results. 02/11/23 19:38 02/11/23 19:38 Labs: Lab Results 02/11/23 02/11/23 02/11/23 Range/Units 19:38 19:38 19:38 WBC 7.3 (4.8-10.8) X10*3/uL RBC 3.49 L D (4.20-5.50) X10*6/uL Hgb 10.7 L D (12.0-16.0) g/dl Hct 32.0 L (37.0-47.0) % MCV 91.7 (80.0-98.0) fL MCH 30.7 (27.0-33.0) pg MCHC 33.4 (31.0-35.0) g/dl RDW 14.6 (11.0-16.0) % Plt Count 191 (160-400) X10*3/uL MPV 11.2 (9.4-12.3) fL Immature Gran % (Auto) 2.5 H (0.0-0.4) % Neut % (Auto) 70.0 (45-73) % Lymph % (Auto) 15.6 L (20-40) % [place] % (Auto) 11.1 H (2-11) % Eos % (Auto) 0.3 (0-4) % Baso % (Auto) 0.5 (0-2) % Lymph # (Auto) 1.1 L (1.2-4.9) X10*3/uL [place] # (Auto) 0.8 (0.1-1.2) X10*3/uL Eos # (Auto) 0.0 (0.0-0.4) X10*3/uL Baso # (Auto) 0.0 (0.0-0.2) X10*3/uL Abs Immat Gran (auto) 0.18 H (0.00-0.03) X10*3/uL Absolute Neuts (auto) 5.1 (2.0-8.3) x10*3/uL Absolute Nucleated RBC 0.030 H (0.0-0.012) X10*3/uL Nucleated RBC % (auto) 0.4 H (0.0-0.2) /100WBC Sodium 135 (135-145) mmol/L Potassium 4.3 (3.3-5.1) mmol/L Chloride 99 (96-108) mmol/L Carbon Dioxide 23 (22-29) mmol/L Anion Gap 17 (12-20) BUN 15 (9-16) mg/dL Creatinine 0.80 (0.5-1.4) mg/dL Estim Creat Clear Calc 50.1 Estimated GFR > 60 Random Glucose 110 (60-115) mg/dL Lactic Acid 0.9 (0.5-2.0) mmol/L Calcium 9.9 (8.4-10.2) mg/dL Magnesium 2.1 (1.6-2.6) mg/dL Total Bilirubin 0.9 (0.0-1.0) mg/dL AST 41 H (5-31) U/L ALT 21 (0-31) U/L Alkaline Phosphatase 146 H (39-117) U/L Total Protein 7.8 (6.5-8.0) g/dL Albumin 3.9 (3.5-5.0) g/dL Urine Color Urine Appearance Urine pH (5.0-9.0) Ur Specific [place] (1.005-1.025) Urine Protein (Neg-Trace) mg/dL Urine Glucose (UA) (Negative) mg/dL Urine Ketones (Negative) mg/dL Urine Blood (Negative) Urine Nitrite (Negative) Ur Leukocyte Esterase (Negative) Urine RBC (0-2) /HPF Urine WBC (0-5) /HPF Ur Squamous Epith Cells (0-2) /HPF Urine Bacteria (None Seen) Hyaline Casts (0-2) /LPF COVID-19 (ANDRA) (Negative) COVID-19 Clin Com Influenza Type A (MADHURI) (Negative) Influenza Type B (MADHURI) (Negative) Influenza A & B Note 02/11/23 02/11/23 02/11/23 Range/Units 19:40 19:40 22:41 WBC (4.8-10.8) X10*3/uL RBC (4.20-5.50) X10*6/uL Hgb (12.0-16.0) g/dl Hct (37.0-47.0) % MCV (80.0-98.0) fL MCH (27.0-33.0) pg MCHC (31.0-35.0) g/dl RDW (11.0-16.0) % Plt Count (160-400) X10*3/uL MPV (9.4-12.3) fL Immature Gran % (Auto) (0.0-0.4) % Neut % (Auto) (45-73) % Lymph % (Auto) (20-40) % [place] % (Auto) (2-11) % Eos % (Auto) (0-4) % Baso % (Auto) (0-2) % Lymph # (Auto) (1.2-4.9) X10*3/uL [place] # (Auto) (0.1-1.2) X10*3/uL Eos # (Auto) (0.0-0.4) X10*3/uL Baso # (Auto) (0.0-0.2) X10*3/uL Abs Immat Gran (auto) (0.00-0.03) X10*3/uL Absolute Neuts (auto) (2.0-8.3) x10*3/uL Absolute Nucleated RBC (0.0-0.012) X10*3/uL Nucleated RBC % (auto) (0.0-0.2) /100WBC Sodium (135-145) mmol/L Potassium (3.3-5.1) mmol/L Chloride (96-108) mmol/L Carbon Dioxide (22-29) mmol/L Anion Gap (12-20) BUN (9-16) mg/dL Creatinine (0.5-1.4) mg/dL Estim Creat Clear Calc Estimated GFR Random Glucose (60-115) mg/dL Lactic Acid (0.5-2.0) mmol/L Calcium (8.4-10.2) mg/dL Magnesium (1.6-2.6) mg/dL Total Bilirubin (0.0-1.0) mg/dL AST (5-31) U/L ALT (0-31) U/L Alkaline Phosphatase (39-117) U/L Total Protein (6.5-8.0) g/dL Albumin (3.5-5.0) g/dL Urine Color Yellow Urine Appearance Clear Urine pH 5.5 (5.0-9.0) Ur Specific [place] 1.010 (1.005-1.025) Urine Protein Negative (Neg-Trace) mg/dL Urine Glucose (UA) Negative (Negative) mg/dL Urine Ketones Negative (Negative) mg/dL Urine Blood Negative (Negative) Urine Nitrite Negative (Negative) Ur Leukocyte Esterase Small (1+) H (Negative) Urine RBC 0-2 (0-2) /HPF Urine WBC 6-10 H (0-5) /HPF Ur Squamous Epith Cells 3-5 (0-2) /HPF Urine Bacteria None Seen (None Seen) Hyaline Casts 0-2 (0-2) /LPF COVID-19 (ANDRA) Negative (Negative) COVID-19 Clin Com See Note Influenza Type A (MADHURI) Negative (Negative) Influenza Type B (MADHURI) Negative (Negative) Influenza A & B Note See Note Discharge Plan Discharge Clinical Impression: 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 No Action (DME) cane Device See Rx Instructions .ROUTE .MEDSUPPLY Qty: 1 0RF Rx Instructions: As directed (DME) [place] [place] Rx Instructions .ROUTE .MEDSUPPLY Qty: 1 0RF Rx Instructions: As directed cyanocobalamin (vitamin B-12) 1,000 mcg/mL solution 1,000 mcg IM .once a month 30 Days Qty: 1 6RF acetaminophen [Tylenol Arthritis Pain] 650 mg tablet extended release 650 mg PO Q8H 30 Days Qty: 90 0RF ondansetron 4 mg tablet,disintegrating 4 mg PO Q8H PRN (Reason: nausea and vomiting) Qty: 20 0RF fluticasone propionate [Flonase Allergy Relief] 50 mcg/actuation spray,suspension 1 spray intranasal DAILY 30 Days Qty: 16 0RF Rx Instructions: administer into each nostril mirtazapine 15 mg tablet 15 mg PO BEDTIME 90 Days Qty: 90 0RF benzonatate 100 mg capsule 100 mg PO BID PRN (Reason: cough) 5 Days Qty: 10 0RF thiamine HCl (vitamin B1) 100 mg tablet 1 tab PO DAILY cholecalciferol (vitamin D3) [Vitamin D3] 50 mcg (2,000 unit) Capsule 50 mcg PO DAILY ondansetron HCl 4 mg tablet 4 mg PO Q6H PRN (Reason: nausea and vomiting) Qty: 14 0RF acetaminophen-codeine 300-15 mg tablet 1 tab PO Q8H PRN (Reason: severe pain (scale score 7-10)) Qty: 10 0RF tramadol 50 mg tablet 50 mg PO Q6H PRN (Reason: pain) Qty: 20 0RF amoxicillin-pot clavulanate 875-125 mg tablet 1 tab PO BID Qty: 20 0RF oxycodone [OxyContin] 10 mg tablet,oral only,ext.rel.12 hr 10 mg PO BID Qty: 20 0RF Rx Instructions: Partial Fill upon patient request. morphine 15 mg tablet 15 mg PO BID PRN (Reason: pain) Qty: 20 0RF Rx Instructions: Partial Fill upon patient request. ondansetron HCl 4 mg tablet 4 mg PO Q8H Qty: 20 0RF (DME) Easy Touch SheathLock Syrg-Ndl 3 mL 21 gauge x 1 1/2 syringe See Rx Instructions .ROUTE .MEDSUPPLY Qty: 1 2RF Rx Instructions: As directed ezetimibe 10 mg tablet 10 mg PO DAILY 90 Days Qty: 90 1RF (DME) ENSURE Drink 1 can a day See Rx Instructions .Route .MEDSUPPLY Qty: 30 5RF Rx Instructions: As directed Aspercreme (lidocaine) 4 % aerosol,spray 2 spray topical QID PRN (Reason: pain) Qty: 113 1RF docusate sodium [Colace] 100 mg capsule 100 mg PO BID PRN (Reason: constipation) Qty: 20 0RF doxycycline hyclate 100 mg tablet 100 mg PO BID 5 Days Qty: 10 0RF Interventions: ED Discharge Assessment Last Done: 02/12/23 01:10
[2023-02-11 20:01] LABS: Lactic Acid 0.9 mmol/L (0.5-2.0)
[2023-02-11 20:07] LABS: COVID-19 Test Negative (Negative); IDNOW Serial# 08D9AD1C
[2023-02-11 20:08] LABS: IDNOW Serial# BCCEAD1C; Influenza A Negative (Negative); Influenza B2 Negative (Negative)
[2023-02-11] MEDS: Acetaminophen 325 MG TABLET 650 MG PO (20:30)
[2023-02-11] MEDS: ondansetron HCL 4 MG/2 ML VIAL IVPUSH (20:33)
[2023-02-11] MEDS: Morphine Sulfate 4 MG/ML CARTRIDGE IVPUSH (20:33)
[2023-02-11] MEDS: 0.9 % Sodium Chloride 1,000 ML 999 ML IV ×2 (20:35→23:23)
[2023-02-11 21:02] LABS: MANUAL DIFF FLAG NO
[2023-02-11 21:04] LABS: Basophils Percent Auto 0.5 % (0-2); Eosinophils Percent Auto 0.3 % (0-4); Hemoglobin 10.7 g/dl (12.0-16.0); Imm Gran Abs Auto 0.18 X10*3/uL (0.00-0.03); Imm Gran Pct Auto 2.5 % (0.0-0.4); Lymphocytes Absolute Auto 1.1 X10*3/uL (1.2-4.9); Lymphocytes Percent Auto 15.6 % (20-40); Mean Corpuscular HGB Conc 33.4 g/dl (31.0-35.0); Mean Corpuscular Hemoglobin 30.7 pg (27.0-33.0); Mean Corpuscular Volume 91.7 fL (80.0-98.0); Mean Platelet Volume 11.2 fL (9.4-12.3); Monocytes Absolute Auto 0.8 X10*3/uL (0.1-1.2); Monocytes Percent Auto 11.1 % (2-11); NRBC Pct Auto 0.4 /100WBC (0.0-0.2); Neutrophils Absolute Auto 5.1 x10*3/uL (2.0-8.3); Platelet Count 191 X10*3/uL (160-400); Red Blood Count 3.49 X10*6/uL (4.20-5.50); Red Cell Distribution Width 14.6 % (11.0-16.0); White Blood Count 7.3 X10*3/uL (4.8-10.8)
[2023-02-11 21:27] LABS: Alanine Aminotransferase 21 U/L (0-31); Albumin Level 3.9 g/dL (3.5-5.0); Alkaline Phosphatase 146 U/L (39-117); Anion Gap 17 (12-20); Aspartate Amino Transferase 41 U/L (5-31); Bilirubin Total 0.9 mg/dL (0.0-1.0); Blood Urea Nitrogen 15 mg/dL (9-16); Calcium 9.9 mg/dL (8.4-10.2); Carbon Dioxide 23 mmol/L (22-29); Chloride 99 mmol/L (96-108); Creatinine Clr Calc Pharmacy 50.1; Estimated Glomerular Filt Rate > 60; Glucose Random 110 mg/dL (60-115); Magnesium 2.1 mg/dL (1.6-2.6); Potassium 4.3 mmol/L (3.3-5.1); Sodium 135 mmol/L (135-145); Total Protein 7.8 g/dL (6.5-8.0)
[2023-02-11 22:50] LABS: Appearance Urine Clear; Color Urine Yellow; Glucose Urine UA Negative (Negative); Leukocyte Esterase Urine Small (1+) (Negative); Nitrite Urine Negative (Negative); PH 5.5 (5.0-9.0); UMIC TRIGGER UACC YES; Urine Blood Negative (Negative); Urine Ketones Negative (Negative); Urine Protein Negative (Neg-Trace)
[2023-02-11] MEDS: HYDROmorphone HCl 1 MG/ML SYRINGE IVPUSH (23:18)
[2023-02-12 01:10] LABS: Bacteria Urine None Seen (None Seen); Hyaline Casts Urine 0-2 /LPF (0-2); RBC Urine 0-2 /HPF (0-2); UACC Culture Trigger YES
[2023-02-12 01:21] VITALS: BP 111/45; PULSE 88; RESP 20; TEMP 36.8; O2SAT 100
== END 2023-02-12 01:34 | disposition home or self-care (01) ==
PROVIDERS: Physician Assistant Medical; Emergency Provider Internal Medicine; PCP Internal Medicine
DX: R50.9 Fever, unspecified (principal); R10.2 Pelvic and perineal pain; R07.89 Other chest pain; C79.51 Secondary malignant neoplasm of bone; Z20.822 Contact with and (suspected) exposure to COVID-19; Z20.828 Contact with and (suspected) exposure to other viral communicable diseases; Z79.899 Other long term (current) drug therapy
CPT/HCPCS: 71045; 74176; 80053; 81001; 81003; 83605; 83735; 85025; 87040; 87086; 87502; 87635; 96365; 96375; 96376; 99284; J1170; J2270; J2405

== ENCOUNTER 2023-02-12 17:11 | Outpatient (AMB) | payer OTHER, SELFPAY ==
[2023-02-12 17:15] VITALS: BP 132/76; PULSE 81; O2SAT 97; BMI 19.7
--- NOTE | 2023-02-12 17:15 | MHC.PC.OV ---
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 Wine Required: No Accompanied by: Self / Same As Patient Allergies ibuprofen Allergy (Mild, Verified 02/12/23 17:29) anaphylaxis, hives metronidazole Allergy (Mild, Verified 02/12/23 17:29) rash naproxen [Aleve] Allergy (Mild, Verified 02/12/23 17:29) anaphylaxis, hives pravastatin Allergy (Mild, Verified 02/12/23 17:29) anaphylaxis simvastatin Allergy (Mild, Verified 02/12/23 17:29) cramps aspirin Allergy (Mild, Uncoded 02/12/23 17:29) swelling Medication List - Last Reconciled 02/12/23 by Angi Bartlett MD acetaminophen ER (Tylenol Arthritis Pain) 650 mg PO Q8H 30 days cane As directed cholecalciferol (vitamin D3) (Vitamin D3) 50 mcg PO DAILY cyanocobalamin (vitamin B-12) 1,000 mcg IM .once a month 30 days docusate sodium (Colace) 100 mg PO BID PRN [ENSURE Drink 1 can a day As directed] escitalopram oxalate 10 mg PO DAILY ezetimibe 10 mg PO DAILY 90 days fluticasone propionate 50 mcg/actuation (Flonase Allergy Relief) 1 spray intranasal DAILY 30 days lidocaine 4% (Aspercreme (lidocaine)) 2 sprays topical QID PRN lorazepam 0.5 mg PO DAILY PRN mirtazapine 15 mg PO BEDTIME 90 days ondansetron HCl 4 mg PO Q8H oxycodone 5 mg PO .every 4 hours PRN oxycodone ER (OxyContin) 10 mg PO BID polyethylene glycol 3350 (Miralax) 17 grams PO DAILY sennosides (senna) 8.6 mg PO BEDTIME syringe with needle, safety (Easy Touch SheathLock Syringe with Needle) As directed thiamine HCl (vitamin B1) 1 tab PO DAILY walker As directed Tobacco use date assessed: 09/28/22 Fall risk assessment: No Falls in past year Last assessed Fall Risk: 02/12/23 Dental Screening Dental Screen Date: 02/12/23 Did you have a dental visit in the last 12 months?: No Did you have a dental problem in the last 6 months where you did not have access to dental care?: No Was dental information given to patient?: No HPI HPI Comments History of Present Illness Details This is a 77 year old female with mild recurrent major depression and 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 Currently in a wheelchair. Has decrease appetite and weight loss due to cancer and will benefit from Ensure. Was suggested high fiber diet for constipation as well as medications. Depression stable with medications. [facility] Medical History (Updated 02/12/23 @ 17:52 by Angi Bartlett MD) Acute medial meniscus tear of left knee B12 deficiency Chronic fatigue Depression Dyslipidemia Effusion, left knee GERD (gastroesophageal reflux disease) HLA B27 (HLA B27 positive) Insomnia 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 depression, single episode Neck pain on right side New daily persistent headache Ophthalmoplegic migraine headache Osteoarthritis of left knee Screening for hypothyroidism Sinusitis Sore throat, chronic Uterine cancer UTI (urinary tract infection) Surgical History History of laparoscopic cholecystectomy History of total abdominal hysterectomy and bilateral salpingo-oophorectomy Family History Mother CVD (cardiovascular disease) Father Lung cancer Son Cancer Sister Lung cancer Brother Colon cancer Social History Housing: Apartment Alcohol intake: never Patient Tobacco Use Status: Never used Tobacco e-Cigarette/Vaping Use: Never Used Second Hand Smoke Exposure: No service: No Current occupational status: retired Current occupation: rt handed Cognitive needs: No Hearing needs: No Vision needs: Yes Questionnaire PHQ-9 Over the last 2 weeks, how often have you been bothered by any of the following problems? 1. Little interest or pleasure in doing things: more than half the days 2. Feeling down, depressed, or hopeless: more than half the days 3. Trouble falling or staying asleep, or sleeping too much: nearly every day 4. Feeling tired or having little energy: nearly every day 5. Poor appetite or overeating: nearly every day 6. Feeling bad about yourself - or that you are a failure or have let yourself or your family down: not at all 7. Trouble concentrating on things, such as reading the newspaper or watching television: several days 8. Moving or speaking so slowly that other people could have noticed. Or the opposite - being so fidgety or restless that you have been moving around a lot more than usual: not at all 9. Thoughts that you would be better off or of hurting yourself in some way: not at all Total score: 14 Depression Screening Interpretation: Positive Depression Screening Follow-up: Existing condition and New Medication prescribed 22463 - PHQ-9 Billing: Yes Source: Developed by Drs. Nikunj Grant, Zee Stokes, Chris Mae and colleagues, with an educational ronn from [employer] Thrive Questionnaire Date Thrive assessed: 09/28/22 AUDIT C Alcohol Use Questionnaire (AUDIT-C) 1. How often do you have a drink containing alcohol?: Never Total Score: 0 ADELITA-7 AMB Questionnaire ADELITA-7 Date ADELITA - 7 assessed: 09/28/22 Source: Developed by Drs. Nikunj Grant, Zee Stokes, Chris Mae and colleagues, with an educational ronn from [employer] Review of Systems Const All systems reviewed & are unremarkable except as noted in HPI and below Eyes Reports no additional complaints, Denies change in vision and Denies other visual disturbances Card Denies chest pain at rest, Denies chest pain with activity, Denies edema, Denies irregular heart rhythm, Denies claudication, Denies dyspnea, Denies dyspnea on exertion, Denies orthopnea, Denies paroxysmal nocturnal dyspnea and Denies slow heart rate Resp Denies cough, Denies dyspnea and Denies dyspnea on exertion GI Denies abdominal pain, Denies change in bowel habits, Denies excessive flatus, Denies nausea and Denies vomiting Denies urinary incontinence, Denies urinary hesitancy and Denies urinary urgency Musc Denies abnormal gait, Denies atrophy, Denies deformity and Denies limited range of motion Skin/Breast Denies bleeding lesions, Denies changing lesions and Denies rash Neuro Denies abnormal gait and Denies lack of coordination Physical exam (Primary Care) Vital Signs: Last Vital Signs Pulse 81 08/07/23 17:15 BP 132/76 02/12/23 17:15 Pulse Ox 97 02/12/23 17:15 Oxygen Delivery Method Room Air 02/12/23 17:15 BMI result Body Mass Index 19.7 Tobacco/Smoking Status: Tobacco use Status Tobacco use date assessed 09/28/22 02/12/23 17:17 Patient Tobacco Use Status Never used Tobacco 02/12/23 17:17 e-Cigarette/Vaping Use Never Used 02/12/23 17:17 PHQ-9: PHQ-9 Score PHQ-9: Total score 14 02/12/23 17:39 Depression Screening Interpretation: Positive Depression Screening Follow-up: Existing condition and New Medication prescribed Thrive Assessment: Date of Thrive Assessment Date Thrive assessed 09/28/22 02/12/23 17:17 Const Limitations: wheelchair Eyes General: appearance normal, both eyes and all related structures Eyelids: Yes eyelids normal Conjunctivae: conjunctivae normal Neck Neck: Yes normal visual inspection and Yes supple Resp Effort & Inspection: normal respiratory effort Auscultation: clear to auscultation bilaterally Cardio Jugular venous distension: no JVD Rate: regular rate Rhythm: regular rhythm Heart sounds: S1 normal heart sound present and S2 normal heart sound present Extrem General: Yes full ROM Assessment and Plan Assessment & Plan (1) 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: Comment: Dr. Lizet Marin Hematology/oncology at [facility] Code(s): C79.51 - Secondary malignant neoplasm of bone Plan: Follow up with hematology/oncology at [facility]. Continue opiates as needed. (2) Loss of balance: Code(s): R26.89 - Other abnormalities of gait and mobility Plan: Start physical therapy. (3) Mild major depression, single episode: Code(s): F32.0 - Major depressive disorder, single episode, mild Plan: Continue escitalopram. (4) Constipation: Code(s): K59.00 - Constipation, unspecified Plan: Continue Miralax. Start high fiber diet. Orders: Orders Vitamin B12 and Folate Today E53.8 - Deficiency of other specified B group vitamins Vitamin B1 Today E51.9 - Thiamine deficiency, unspecified Vitamin D 25-OH Total Today E55.9 - Vitamin D deficiency, unspecified PT Evaluation and Treatment Today R26.89 - Other abnormalities of gait and mobility Medications: Changed From cholecalciferol (vitamin D3) (Vitamin D3) 50 mcg PO DAILY To cholecalciferol (vitamin D3) (Vitamin D3) 50 mcg PO DAILY 90 days 90 caps 1RF From thiamine HCl (vitamin B1) 1 tab PO DAILY To thiamine HCl (vitamin B1) 100 mg PO DAILY 30 days 30 tabs 0RF Refilled ezetimibe 10 mg PO DAILY 90 days 90 tabs 1RF cyanocobalamin (vitamin B-12) 1,000 mcg IM .once a month 30 days 1 mL 6RF E53.8 - Deficiency of other specified B group vitamins syringe with needle, safety (Easy Touch SheathLock Syringe with Needle) As directed 1 ea 2RF E53.8 - Deficiency of other specified B group vitamins [ENSURE Drink 1 can a day] As directed 30 ea 5RF C79.51 - Secondary malignant neoplasm of bone, R53.1 - Weakness Coding Level of Care Code Est Pt Level 4 (91217) Diagnoses 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 C79.51 Loss of balance R26.89 Mild major depression, single episode F32.0 Constipation K59.00 Time Spent (min) 22
== END 2023-02-12 18:07 | disposition home or self-care (01) ==
PROVIDERS: Visit Provider Internal Medicine
DX: C79.51 Secondary malignant neoplasm of bone (principal); R26.89 Other abnormalities of gait and mobility; F32.0 Major depressive disorder, single episode, mild; K59.00 Constipation, unspecified
CPT/HCPCS: 99214

== ENCOUNTER 2023-02-17 20:33 | Inpatient (IN) | payer OTHER, SELFPAY ==
--- NOTE | ~2023-02-17 | XR_ITS ---
EXAMINATION: XR CHEST CLINICAL INFORMATION: Weakness. COMPARISON: Chest radiograph dated 12/26/2022. CT abdomen/pelvis 02/11/2023. TECHNIQUE: Frontal view of the chest was obtained. FINDINGS: Stable appearance of the cardiomediastinal silhouette. New retrocardiac and left lower lobe opacities with a small left-sided pleural effusion. No pneumothorax. Previously described pulmonary nodules on CT from 02/11/2023 are too small to characterize by radiographs. No acute osseous findings. Right upper quadrant surgical clips are seen. XR/XR chest 1V IMPRESSION: New retrocardiac and left lower lobe airspace opacities with a small left-sided pleural effusion concerning for pneumonia. A follow-up chest CT after treatment is recommended to ensure resolution. Pulmonary nodules described on the prior CT are too small to characterize by radiograph; attention on follow-up with the above recommended chest CT is recommended to rule out malignancy.
--- NOTE | 2023-02-17 20:42 | ECG_ITS ---
Test Reason : TACHYCARDIA Blood Pressure : / mmHG Vent. Rate : 109 BPM Atrial Rate : 109 BPM P-R Int : 126 ms QRS Dur : 064 ms QT Int : 282 ms P-R-T Axes : 023 -09 007 degrees QTc Int : 379 ms Sinus tachycardia Nonspecific T wave abnormality Abnormal ECG When compared with ECG of 11-AUG-2021 09:06, Inverted T waves have replaced nonspecific T wave abnormality in Inferior leads Nonspecific T wave abnormality has replaced inverted T waves in Lateral leads Referred By: Ezio Aponte Electronically Signed By:Naresh Singh
[2023-02-17 20:43] VITALS: BP 150/52; PULSE 115; RESP 17; TEMP 38; O2SAT 93; BMI 19.7
--- NOTE | 2023-02-17 20:45 | ED_ITS ---
HPI - General Adult General Chief complaint: Fever Stated complaint: pain in bones Time Seen by Provider: 02/17/23 23:00 Related Data Home Medications Medication Instructions Recorded Confirmed escitalopram oxalate 10 mg tablet 10 mg PO DAILY 02/12/23 02/12/23 lorazepam 0.5 mg tablet 0.5 mg PO DAILY PRN 02/12/23 02/12/23 oxycodone 5 mg tablet 5 mg PO .every 4 hours PRN 02/12/23 02/12/23 polyethylene glycol 3350 17 17 g PO DAILY 02/12/23 02/12/23 gram/dose oral powder (Miralax) sennosides 8.6 mg tablet (senna) 8.6 mg PO BEDTIME 02/12/23 02/12/23 Previous Rx's Medication Instructions Recorded cane #1 ea 09/14/20 walker #1 ea 10/20/20 acetaminophen 650 mg 650 mg PO Q8H pain 30 days #90 tabs 06/17/21 tablet,extended release (Tylenol Arthritis Pain) lidocaine 4 % topical spray 2 spray topical QID PRN pain #113 06/17/21 (Aspercreme (lidocaine)) grams docusate sodium 100 mg capsule 100 mg PO BID PRN constipation #20 08/16/21 (Colace) caps fluticasone propionate 50 1 spray intranasal DAILY 30 days 10/02/22 mcg/actuation nasal #16 grams spray,suspension (Flonase Allergy Relief) mirtazapine 15 mg tablet 15 mg PO BEDTIME 90 days #90 tabs 10/02/22 ondansetron HCl 4 mg tablet 4 mg PO Q8H #20 tabs 01/21/23 oxycodone 10 mg tablet,crush 10 mg PO BID #20 tabs 01/21/23 resistant,extended release 12 hr (OxyContin) ENSURE Drink 1 can a day #30 ea 02/12/23 cholecalciferol (vitamin D3) 50 50 mcg PO DAILY 90 days #90 caps 02/12/23 mcg (2,000 unit) capsule (Vitamin D3) commode (bedside commode) #1 ea 02/12/23 cyanocobalamin (vitamin B-12) 1,000 mcg IM .once a month 30 days 02/12/23 1,000 mcg/mL injection solution #1 mL ezetimibe 10 mg tablet 10 mg PO DAILY 90 days #90 tabs 02/12/23 syringe with needle, safety 3 mL #1 ea 02/12/23 21 gauge x 1 1/2 (Easy Touch SheathLock Syringe with Needle) thiamine HCl (vitamin B1) 100 mg 100 mg PO DAILY 30 days #30 tabs 02/12/23 tablet Allergies Allergy/AdvReac Type Severity Reaction Status Date / Time ibuprofen Allergy Mild anaphylaxis, Verified 02/17/23 20:42 hives metronidazole Allergy Mild rash Verified 02/17/23 20:42 naproxen [Aleve] Allergy Mild anaphylaxis, Verified 02/17/23 20:42 hives pravastatin Allergy Mild anaphylaxis Verified 02/17/23 20:42 simvastatin Allergy Mild cramps Verified 02/17/23 20:42 aspirin Allergy Mild swelling Uncoded 02/17/23 20:42 PMFSH Past Medical History Medical History Acute medial meniscus tear of left knee B12 deficiency Chronic fatigue Depression Dyslipidemia Effusion, left knee GERD (gastroesophageal reflux disease) HLA B27 (HLA B27 positive) Insomnia Malnutrition 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 depression, single episode Neck pain on right side New daily persistent headache Ophthalmoplegic migraine headache Osteoarthritis of left knee Screening for hypothyroidism Sinusitis Sore throat, chronic Uterine cancer UTI (urinary tract infection) Surgical History History of laparoscopic cholecystectomy History of total abdominal hysterectomy and bilateral salpingo-oophorectomy Family History Family History Mother CVD (cardiovascular disease) Father Lung cancer Son Cancer Sister Lung cancer Brother Colon cancer Social History Social History Housing: Apartment Alcohol intake: never Patient Tobacco Use Status: Never used Tobacco e-Cigarette/Vaping Use: Never Used Second Hand Smoke Exposure: No Advance Directives: No Advance Directives Information Provided: No service: No Current occupational status: retired Current occupation: rt handed Cognitive needs: No Hearing needs: No Vision needs: Yes Physical Exam ED Vital Signs: Vital Signs - 24 hr 02/17/23 20:43 02/17/23 22:40 Temperature 100.4 F 986 F H Pulse Rate 115 H 101 H Respiratory Rate 17 21 H Blood Pressure 150/52 H 118/43 L Pulse Oximetry 93 94 Oxygen Delivery Method Room Air Room Air BMI result Body Mass Index 19.7 Course Course Course Narrative: 77-year-old female with past medical history significant for melanoma with metastasis to the bone being treated with chemotherapy primary oncology in [place] presents for evaluation of fever or body aches. Patient was given Tylenol 1 hour prior to arrival. Plan for labs, blood cultures lactic acid, chest x-ray, UA. Patient will be brought back to a room immediately after triage Medications Administered Generic Name Dose Route Start Last Admin Trade Name Freq PRN Reason Stop Dose Admin Ondansetron HCl 4 mg 02/18/23 01:55 02/18/23 02:09 Ondansetron Hcl 4 Mg/2 Ml Vial IVPUSH 4 mg Q8H PRN Administration Nausea and Vomiting Discontinued Medications Generic Name Dose Route Start Last Admin Trade Name Freq PRN Reason Stop Dose Admin Cefepime HCl 2 gm/ Sodium 50 mls @ 100 mls/hr 02/17/23 23:20 02/18/23 00:50 Chloride IV 02/17/23 23:49 100 mls/hr ONCE ONE Administration Sodium Chloride 1,564.89 mls @ 1,564.89 mls/hr 02/17/23 23:20 02/18/23 00:49 Ns 30 ml/kg infuse over 1 hr (1564.89 ml) 02/18/23 00:19 1,564.89 mls/hr IV Administration .Q1H STA Medical Decision Making Lab Data 02/17/23 21:12 02/17/23 21:12 Labs: Lab Results 02/17/23 02/17/23 02/17/23 Range/Units 21:10 21:12 21:12 WBC 6.0 (4.8-10.8) X10*3/uL RBC 3.08 L (4.20-5.50) X10*6/uL Hgb 9.3 L (12.0-16.0) g/dl Hct 27.5 L (37.0-47.0) % MCV 89.3 (80.0-98.0) fL MCH 30.2 (27.0-33.0) pg MCHC 33.8 (31.0-35.0) g/dl RDW 14.9 (11.0-16.0) % Plt Count 241 D (160-400) X10*3/uL MPV 10.3 (9.4-12.3) fL Immature Gran % (Auto) Cancelled Neut % (Auto) Cancelled Lymph % (Auto) Cancelled Metcalfe % (Auto) Cancelled Eos % (Auto) Cancelled Baso % (Auto) Cancelled Lymph # (Auto) Cancelled Metcalfe # (Auto) Cancelled Eos # (Auto) Cancelled Baso # (Auto) Cancelled Abs Immat Gran (auto) Cancelled Absolute Neuts (auto) Cancelled Absolute Nucleated RBC 0.040 H (0.0-0.012) X10*3/uL Nucleated RBC % (auto) 0.7 H (0.0-0.2) /100WBC Neutrophils % (Manual) 63 (45-73) % Band Neutrophils % 6 H (3-5) % Lymphocytes % (Manual) 26 (20-40) % Monocytes % (Manual) 3 (2-11) % Eosinophils % (Manual) 1 (0-4) % Basophils % (Manual) 1 (0-2) % Abs Neuts (Manual) 4.1 (2.0-8.3) X10*3/uL Lymphocytes # (Manual) 1.6 (1.2-4.9) X10*3/uL Monocytes # (Manual) 0.2 (0.1-1.2) X10*3/uL Eosinophils # (Manual) 0.1 (0.0-0.4) X10*3/uL Basophils # (Manual) 0.1 (0.0-0.2) X10*3/uL Platelet Estimate NORMAL (NORMAL) Plt Morphology Comment NORMAL RBC Morphology NORMAL PT (11.1-13.3) SEC INR (0.9-1.1) APTT (26.0-36.4) SEC Sodium 131 L (135-145) mmol/L Potassium 5.2 H D (3.3-5.1) mmol/L Chloride 95 L (96-108) mmol/L Carbon Dioxide 26 (22-29) mmol/L Anion Gap 15 (12-20) BUN 13 (9-16) mg/dL Creatinine 0.80 (0.5-1.4) mg/dL Estim Creat Clear Calc 49.2 Estimated GFR > 60 Random Glucose 124 H (60-115) mg/dL Lactic Acid (0.5-2.0) mmol/L Calcium 9.9 (8.4-10.2) mg/dL Total Bilirubin 0.7 (0.0-1.0) mg/dL AST 68 H (5-31) U/L ALT 20 (0-31) U/L Alkaline Phosphatase 128 H (39-117) U/L Troponin I High Sens (<3.5-17.0) ng/L Total Protein 7.9 (6.5-8.0) g/dL Albumin 3.4 L (3.5-5.0) g/dL Lipase 8 (8-78) U/L Urine Color Urine Appearance Urine pH (5.0-9.0) Ur Specific Dwarf (1.005-1.025) Urine Protein (Neg-Trace) mg/dL Urine Glucose (UA) (Negative) mg/dL Urine Ketones (Negative) mg/dL Urine Blood (Negative) Urine Nitrite (Negative) Ur Leukocyte Esterase (Negative) Urine RBC (0-2) /HPF Urine WBC (0-5) /HPF Ur Squamous Epith Cells (0-2) /HPF Urine Bacteria (None Seen) Hyaline Casts (0-2) /LPF Influenza Type A (PCR) NEGATIVE (Negative) Influenza Type B (PCR) NEGATIVE (Negative) RSV RNA Qual (PCR) NEGATIVE (Negative) SARS-CoV-2 RNA (RT-PCR) NEGATIVE (Negative) 02/17/23 02/17/23 02/17/23 Range/Units 21:12 21:12 21:12 WBC (4.8-10.8) X10*3/uL RBC (4.20-5.50) X10*6/uL Hgb (12.0-16.0) g/dl Hct (37.0-47.0) % MCV (80.0-98.0) fL MCH (27.0-33.0) pg MCHC (31.0-35.0) g/dl RDW (11.0-16.0) % Plt Count (160-400) X10*3/uL MPV (9.4-12.3) fL Immature Gran % (Auto) Neut % (Auto) Lymph % (Auto) Metcalfe % (Auto) Eos % (Auto) Baso % (Auto) Lymph # (Auto) Metcalfe # (Auto) Eos # (Auto) Baso # (Auto) Abs Immat Gran (auto) Absolute Neuts (auto) Absolute Nucleated RBC (0.0-0.012) X10*3/uL Nucleated RBC % (auto) (0.0-0.2) /100WBC Neutrophils % (Manual) (45-73) % Band Neutrophils % (3-5) % Lymphocytes % (Manual) (20-40) % Monocytes % (Manual) (2-11) % Eosinophils % (Manual) (0-4) % Basophils % (Manual) (0-2) % Abs Neuts (Manual) (2.0-8.3) X10*3/uL Lymphocytes # (Manual) (1.2-4.9) X10*3/uL Monocytes # (Manual) (0.1-1.2) X10*3/uL Eosinophils # (Manual) (0.0-0.4) X10*3/uL Basophils # (Manual) (0.0-0.2) X10*3/uL Platelet Estimate (NORMAL) Plt Morphology Comment RBC Morphology PT 14.4 H (11.1-13.3) SEC INR 1.2 H (0.9-1.1) APTT 23.4 L (26.0-36.4) SEC Sodium (135-145) mmol/L Potassium (3.3-5.1) mmol/L Chloride (96-108) mmol/L Carbon Dioxide (22-29) mmol/L Anion Gap (12-20) BUN (9-16) mg/dL Creatinine (0.5-1.4) mg/dL Estim Creat Clear Calc Estimated GFR Random Glucose (60-115) mg/dL Lactic Acid 0.9 (0.5-2.0) mmol/L Calcium (8.4-10.2) mg/dL Total Bilirubin (0.0-1.0) mg/dL AST (5-31) U/L ALT (0-31) U/L Alkaline Phosphatase (39-117) U/L Troponin I High Sens 8.7 (<3.5-17.0) ng/L Total Protein (6.5-8.0) g/dL Albumin (3.5-5.0) g/dL Lipase (8-78) U/L Urine Color Urine Appearance Urine pH (5.0-9.0) Ur Specific Dwarf (1.005-1.025) Urine Protein (Neg-Trace) mg/dL Urine Glucose (UA) (Negative) mg/dL Urine Ketones (Negative) mg/dL Urine Blood (Negative) Urine Nitrite (Negative) Ur Leukocyte Esterase (Negative) Urine RBC (0-2) /HPF Urine WBC (0-5) /HPF Ur Squamous Epith Cells (0-2) /HPF Urine Bacteria (None Seen) Hyaline Casts (0-2) /LPF Influenza Type A (PCR) (Negative) Influenza Type B (PCR) (Negative) RSV RNA Qual (PCR) (Negative) SARS-CoV-2 RNA (RT-PCR) (Negative) 02/17/23 Range/Units 23:53 WBC (4.8-10.8) X10*3/uL RBC (4.20-5.50) X10*6/uL Hgb (12.0-16.0) g/dl Hct (37.0-47.0) % MCV (80.0-98.0) fL MCH (27.0-33.0) pg MCHC (31.0-35.0) g/dl RDW (11.0-16.0) % Plt Count (160-400) X10*3/uL MPV (9.4-12.3) fL Immature Gran % (Auto) Neut % (Auto) Lymph % (Auto) Metcalfe % (Auto) Eos % (Auto) Baso % (Auto) Lymph # (Auto) Metcalfe # (Auto) Eos # (Auto) Baso # (Auto) Abs Immat Gran (auto) Absolute Neuts (auto) Absolute Nucleated RBC (0.0-0.012) X10*3/uL Nucleated RBC % (auto) (0.0-0.2) /100WBC Neutrophils % (Manual) (45-73) % Band Neutrophils % (3-5) % Lymphocytes % (Manual) (20-40) % Monocytes % (Manual) (2-11) % Eosinophils % (Manual) (0-4) % Basophils % (Manual) (0-2) % Abs Neuts (Manual) (2.0-8.3) X10*3/uL Lymphocytes # (Manual) (1.2-4.9) X10*3/uL Monocytes # (Manual) (0.1-1.2) X10*3/uL Eosinophils # (Manual) (0.0-0.4) X10*3/uL Basophils # (Manual) (0.0-0.2) X10*3/uL Platelet Estimate (NORMAL) Plt Morphology Comment RBC Morphology PT (11.1-13.3) SEC INR (0.9-1.1) APTT (26.0-36.4) SEC Sodium (135-145) mmol/L Potassium (3.3-5.1) mmol/L Chloride (96-108) mmol/L Carbon Dioxide (22-29) mmol/L Anion Gap (12-20) BUN (9-16) mg/dL Creatinine (0.5-1.4) mg/dL Estim Creat Clear Calc Estimated GFR Random Glucose (60-115) mg/dL Lactic Acid (0.5-2.0) mmol/L Calcium (8.4-10.2) mg/dL Total Bilirubin (0.0-1.0) mg/dL AST (5-31) U/L ALT (0-31) U/L Alkaline Phosphatase (39-117) U/L Troponin I High Sens (<3.5-17.0) ng/L Total Protein (6.5-8.0) g/dL Albumin (3.5-5.0) g/dL Lipase (8-78) U/L Urine Color Yellow Urine Appearance Clear Urine pH 5.5 (5.0-9.0) Ur Specific Dwarf <= 1.005 (1.005-1.025) Urine Protein Negative (Neg-Trace) mg/dL Urine Glucose (UA) Negative (Negative) mg/dL Urine Ketones Negative (Negative) mg/dL Urine Blood Negative (Negative) Urine Nitrite Negative (Negative) Ur Leukocyte Esterase Small (1+) H (Negative) Urine RBC 0-2 (0-2) /HPF Urine WBC 0-5 (0-5) /HPF Ur Squamous Epith Cells 3-5 (0-2) /HPF Urine Bacteria None Seen (None Seen) Hyaline Casts 0-2 (0-2) /LPF Influenza Type A (PCR) (Negative) Influenza Type B (PCR) (Negative) RSV RNA Qual (PCR) (Negative) SARS-CoV-2 RNA (RT-PCR) (Negative) Discharge Plan Discharge Prescriptions: No Action (DME) cane Device See Rx Instructions .ROUTE .MEDSUPPLY Qty: 1 0RF Rx Instructions: As directed (DME) [facility]oselito [facility] [place] See Rx Instructions .ROUTE .MEDSUPPLY Qty: 1 0RF Rx Instructions: As directed acetaminophen [Tylenol Arthritis Pain] 650 mg tablet extended release 650 mg PO Q8H 30 Days Qty: 90 0RF fluticasone propionate [Flonase Allergy Relief] 50 mcg/actuation spray,suspension 1 spray intranasal DAILY 30 Days Qty: 16 0RF Rx Instructions: administer into each nostril mirtazapine 15 mg tablet 15 mg PO BEDTIME 90 Days Qty: 90 0RF oxycodone [OxyContin] 10 mg tablet,oral only,ext.rel.12 hr 10 mg PO BID Qty: 20 0RF Rx Instructions: Partial Fill upon patient request. ondansetron HCl 4 mg tablet 4 mg PO Q8H Qty: 20 0RF escitalopram oxalate 10 mg tablet 10 mg PO DAILY sennosides [senna] 8.6 mg tablet 8.6 mg PO BEDTIME polyethylene glycol 3350 [Miralax] 17 gram/dose powder 17 g PO DAILY oxycodone 5 mg tablet 5 mg PO .every 4 hours PRN lorazepam 0.5 mg tablet 0.5 mg PO DAILY PRN cholecalciferol (vitamin D3) [Vitamin D3] 50 mcg (2,000 unit) capsule 50 mcg PO DAILY 90 Days Qty: 90 1RF thiamine HCl (vitamin B1) 100 mg tablet 100 mg PO DAILY 30 Days Qty: 30 0RF ezetimibe 10 mg tablet 10 mg PO DAILY 90 Days Qty: 90 1RF cyanocobalamin (vitamin B-12) 1,000 mcg/mL solution 1,000 mcg IM .once a month 30 Days Qty: 1 6RF (DME) Easy Touch SheathLock Syrg-Ndl 3 mL 21 gauge x 1 1/2 syringe See Rx Instructions .ROUTE .MEDSUPPLY Qty: 1 2RF Rx Instructions: As directed (DME) bedside commode Kit See Rx Instructions .Route Qty: 1 0RF Rx Instructions: As directed (DME) ENSURE Drink 1 can a day See Rx Instructions .Route .MEDSUPPLY Qty: 30 5RF Rx Instructions: As directed Aspercreme (lidocaine) 4 % aerosol,spray 2 spray topical QID PRN (Reason: pain) Qty: 113 1RF docusate sodium [Colace] 100 mg capsule 100 mg PO BID PRN (Reason: constipation) Qty: 20 0RF
[2023-02-17 21:20] LABS: Hematocrit 27.5 % (37.0-47.0); Hemoglobin 9.3 g/dl (12.0-16.0); Mean Corpuscular HGB Conc 33.8 g/dl (31.0-35.0); Mean Corpuscular Hemoglobin 30.2 pg (27.0-33.0); Mean Corpuscular Volume 89.3 fL (80.0-98.0); Mean Platelet Volume 10.3 fL (9.4-12.3); NRBC Pct Auto 0.7 /100WBC (0.0-0.2); Platelet Count 241 X10*3/uL (160-400); Red Blood Count 3.08 X10*6/uL (4.20-5.50); Red Cell Distribution Width 14.9 % (11.0-16.0)
[2023-02-17 21:27] LABS: INTERNATIONAL NORM RATIO 1.2 (0.9-1.1); Prothrombin Time 14.4 SEC (11.1-13.3)
[2023-02-17 21:30] LABS: Lactic Acid 0.9 mmol/L (0.5-2.0)
[2023-02-17 21:33] LABS: Partial Thromboplastin Time 23.4 SEC (26.0-36.4)
[2023-02-17 21:44] LABS: Troponin-I High Sensitivity 8.7 ng/L (<3.5-17.0)
[2023-02-17 21:55] LABS: Alanine Aminotransferase 20 U/L (0-31); Albumin Level 3.4 g/dL (3.5-5.0); Alkaline Phosphatase 128 U/L (39-117); Anion Gap 15 (12-20); Aspartate Amino Transferase 68 U/L (5-31); Bilirubin Total 0.7 mg/dL (0.0-1.0); Blood Urea Nitrogen 13 mg/dL (9-16); Calcium 9.9 mg/dL (8.4-10.2); Carbon Dioxide 26 mmol/L (22-29); Chloride 95 mmol/L (96-108); Creatinine Clr Calc Pharmacy 49.2; Estimated Glomerular Filt Rate > 60; Glucose Random 124 mg/dL (60-115); Lipase 8 U/L (8-78); Potassium 5.2 mmol/L (3.3-5.1); Sodium 131 mmol/L (135-145); Total Protein 7.9 g/dL (6.5-8.0)
[2023-02-17 21:56] LABS: Influenza A PCR NEGATIVE (Negative); Influenza B PCR NEGATIVE (Negative); Resp Syncy Virus RNA Qual PCR NEGATIVE (Negative); SARS COV2 PCR INHOUSE NEGATIVE (Negative)
[2023-02-17 22:07] LABS: Band Neutrophils Percent 6 % (3-5); Basophils Abs Manual 0.1 X10*3/uL (0.0-0.2); Basophils Percent Manual 1 % (0-2); Eosinophils Absolute Manual 0.1 X10*3/uL (0.0-0.4); Eosinophils Percent Manual 1 % (0-4); Lymphocytes Absolute Manual 1.6 X10*3/uL (1.2-4.9); Lymphocytes Percent Manual 26 % (20-40); Monocytes Absolute Manual 0.2 X10*3/uL (0.1-1.2); Monocytes Percent Manual 3 % (2-11); Neutrophils Absolute Manual 4.1 X10*3/uL (2.0-8.3); Neutrophils Percent Manual 63 % (45-73)
[2023-02-17 22:08] LABS: Platelet Estimate NORMAL (NORMAL); Platelet Morphology Comment NORMAL; RBC Morphology NORMAL
[2023-02-17 22:40] VITALS: BP 118/43; PULSE 101; RESP 21; TEMP 530; TEMP 986; O2SAT 94
--- NOTE | 2023-02-17 23:25 | ED.FEVER ---
HPI - Fever General Chief Complaint: Fever Stated Complaint: pain in bones Time Seen by Provider: 02/17/23 23:00 Source: patient and family Mode of arrival: EMS Limitations: no limitations History of Present Illness HPI Narrative: Patient comes to the emergency room complaining of fever and diffuse bone pain. Patient has been evaluated multiple times in the emergency room for pain. Patient is known to have mucosal melanoma with bone metastasis. Also, patient had a blood pressure of 103.8 at home. 3-1/2 hours ago patient had full dose of Tylenol, when patient arrived, patient's oral temperature 100.4 degrees. Patient was seen here approximately a week ago, patient had a fever of 103.3. Patient's daughter is at bedside who is healthcare proxy and considers that her mother would not do well if she would to find out how extensive her cancer diagnosis is. Therefore, patient has her care proxy thinks that in the patient best interest, it would be best for her not to know. Patient does know that she has cancer and is on immunotherapy. Despite patient's poor prognosis, the patient's daughter states that the patient is to continue taking the full rotations/chemo treatment as needed and also is a full code Related Data Home Medications Medication Instructions Recorded Confirmed escitalopram oxalate 10 mg tablet 10 mg PO DAILY 02/12/23 02/12/23 lorazepam 0.5 mg tablet 0.5 mg PO DAILY PRN 02/12/23 02/12/23 oxycodone 5 mg tablet 5 mg PO .every 4 hours PRN 02/12/23 02/12/23 polyethylene glycol 3350 17 17 g PO DAILY 02/12/23 02/12/23 gram/dose oral powder (Miralax) sennosides 8.6 mg tablet (senna) 8.6 mg PO BEDTIME 02/12/23 02/12/23 Previous Rx's Medication Instructions Recorded cane #1 ea 09/14/20 walker #1 ea 10/20/20 acetaminophen 650 mg 650 mg PO Q8H pain 30 days #90 tabs 06/17/21 tablet,extended release (Tylenol Arthritis Pain) lidocaine 4 % topical spray 2 spray topical QID PRN pain #113 06/17/21 (Aspercreme (lidocaine)) grams docusate sodium 100 mg capsule 100 mg PO BID PRN constipation #20 08/16/21 (Colace) caps fluticasone propionate 50 1 spray intranasal DAILY 30 days 10/02/22 mcg/actuation nasal #16 grams spray,suspension (Flonase Allergy Relief) mirtazapine 15 mg tablet 15 mg PO BEDTIME 90 days #90 tabs 10/02/22 ondansetron HCl 4 mg tablet 4 mg PO Q8H #20 tabs 01/21/23 oxycodone 10 mg tablet,crush 10 mg PO BID #20 tabs 01/21/23 resistant,extended release 12 hr (OxyContin) ENSURE Drink 1 can a day #30 ea 02/12/23 cholecalciferol (vitamin D3) 50 50 mcg PO DAILY 90 days #90 caps 02/12/23 mcg (2,000 unit) capsule (Vitamin D3) commode (bedside commode) #1 ea 02/12/23 cyanocobalamin (vitamin B-12) 1,000 mcg IM .once a month 30 days 02/12/23 1,000 mcg/mL injection solution #1 mL ezetimibe 10 mg tablet 10 mg PO DAILY 90 days #90 tabs 02/12/23 syringe with needle, safety 3 mL #1 ea 02/12/23 21 gauge x 1 1/2 (Easy Touch SheathLock Syringe with Needle) thiamine HCl (vitamin B1) 100 mg 100 mg PO DAILY 30 days #30 tabs 02/12/23 tablet Allergies Allergy/AdvReac Type Severity Reaction Status Date / Time ibuprofen Allergy Mild anaphylaxis, Verified 02/17/23 20:42 hives metronidazole Allergy Mild rash Verified 02/17/23 20:42 naproxen [Aleve] Allergy Mild anaphylaxis, Verified 02/17/23 20:42 hives pravastatin Allergy Mild anaphylaxis Verified 02/17/23 20:42 simvastatin Allergy Mild cramps Verified 02/17/23 20:42 aspirin Allergy Mild swelling Uncoded 02/17/23 20:42 Review of Systems Review of Systems: Constitutional : No Weight loss, reporting high fever of 103.8, No Chills, No Night Sweats, No Fatigue, No Malaise ENT/Mouth : No Hearing loss, No Ear Pain, No Nasal Congestion, No Sinus Pain, No Hoarseness, No sore throat, No Rhinorrhea, No Swallowing Difficulty Eyes: No Eye Pain, No Swelling, No Redness, No Foreign Body, No Discharge, No Vision Changes Cardiovascular : No Chest Pain, No SOB, No Dyspnea on Exertion, No Orthopnea, No Edema, No Palpitations Respiratory : No Cough, No Sputum, No Wheezing, No Smoke Exposure, No Dyspnea Gastrointestinal : No Nausea, No Vomiting, No Diarrhea, No Constipation, No abdominal Pain, No Hematochezia, No Melena Genitourinary : no irregular bleeding, No Dysuria, No Urinary Frequency, No Hematuria, No Urinary Incontinence, No Urgency, No Flank Pain, No Urinary Flow Changes, No Hesitancy Musculoskeletal : Complaining of diffuse bone pain Skin : No Skin Lesions, No rash Neuro : No Weakness, No Numbness, No Paresthesias, No Loss of Consciousness, No Dizziness, No Headache Psych : No Anxiety/Panic, No Depression, No SI/HI/AH/VH, No Social Issues, Heme/Lymph: No Bruising, No Bleeding,No Lymphadenopathy Endocrine : No Polyuria, No Polydipsia, No Temperature Intolerance PMFSH Past Medical History Medical History Acute medial meniscus tear of left knee B12 deficiency Chronic fatigue Depression Dyslipidemia Effusion, left knee GERD (gastroesophageal reflux disease) HLA B27 (HLA B27 positive) Insomnia Malnutrition 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 depression, single episode Neck pain on right side New daily persistent headache Ophthalmoplegic migraine headache Osteoarthritis of left knee Screening for hypothyroidism Sinusitis Sore throat, chronic Uterine cancer UTI (urinary tract infection) Surgical History History of laparoscopic cholecystectomy History of total abdominal hysterectomy and bilateral salpingo-oophorectomy Family History Family History Mother CVD (cardiovascular disease) Father Lung cancer Son Cancer Sister Lung cancer Brother Colon cancer Social History Social History Housing: Apartment Alcohol intake: never Patient Tobacco Use Status: Never used Tobacco e-Cigarette/Vaping Use: Never Used Second Hand Smoke Exposure: No Advance Directives: No Advance Directives Information Provided: No service: No Current occupational status: retired Current occupation: rt handed Cognitive needs: No Hearing needs: No Vision needs: Yes Physical Exam Vital Signs: Vital Signs: Last Vital Signs Temp 986 F H 02/17/23 22:40 Pulse 101 H 02/17/23 22:40 Resp 21 H 02/17/23 22:40 BP 118/43 L 02/17/23 22:40 Pulse Ox 94 02/17/23 22:40 O2 Del Method Room Air 02/17/23 22:40 BMI result Body Mass Index 19.7 Const: Other: Appearance: Alert. Oriented X3. No acute distress the patient does look uncomfortable Eyes: Pupils equal, round and reactive to light. ENT: Pharynx normal. Neck: Normal inspection. Neck supple. No lymph nodes noted. No crepitus CVS: Normal heart rate and rhythm. Pulses normal. Normal S1 and S2 Respiratory: No respiratory distress. Breath sounds normal. No Wheezing. No rales Abdomen: Soft and nontender. No rigidity. No distention. Skin: Skin warm and dry. Normal skin color. Normal skin turgor. Extremities: No lower extremity edema. No Lacerations. No Rash Neuro: Oriented X 3. No motor deficit. No sensory deficit. Moving all extremities. No slurred speech. CN 2 through 12 grossly intact Psych: calm, cooperative, normal affect Course Course Course Narrative: Patient's white blood cell count 6.0, patient does not seem to be neutropenic -patient was given IV fluids and 2 g of cefepime empirically Medications Administered Generic Name Dose Route Start Last Admin Trade Name Freq PRN Reason Stop Dose Admin Ondansetron HCl 4 mg 02/18/23 01:55 02/18/23 02:09 Ondansetron Hcl 4 Mg/2 Ml Vial IVPUSH 4 mg Q8H PRN Administration Nausea and Vomiting Discontinued Medications Generic Name Dose Route Start Last Admin Trade Name Freq PRN Reason Stop Dose Admin Cefepime HCl 2 gm/ Sodium 50 mls @ 100 mls/hr 02/17/23 23:20 02/18/23 00:50 Chloride IV 02/17/23 23:49 100 mls/hr ONCE ONE Administration Sodium Chloride 1,564.89 mls @ 1,564.89 mls/hr 02/17/23 23:20 02/18/23 00:49 Ns 30 ml/kg infuse over 1 hr (1564.89 ml) 02/18/23 00:19 1,564.89 mls/hr IV Administration .Q1H STA Medical Decision Making Medical Decision Making MDM Narrative: -my interpretation of labs: Patient's sodium 131, new for the patient. White blood cell count 6.0, patient is not neutropenic -we will obtain urine -chest x-ray of today shows a new retrocardiac left lower lobe airspace opacity, concerning for pneumonia. -patient was started on a [employer] pump -patient already covered with antibiotics -discussed the patient with Dr. Gipson, pt being admitted Differential Diagnosis Differential Diagnoses: The differential diagnosis associated with the presentation includes Admission/Observation Consideration of admission/observation: Escalation of care including admission/observation considered Consult Healthcare Provider Management of the patient was discussed with: Hospitalist Lab Data [facility] Lab Attestation statement: I reviewed the patient's lab results. 02/17/23 21:12 02/17/23 21:12 Labs: Lab Results 02/17/23 02/17/23 02/17/23 Range/Units 21:10 21:12 21:12 WBC 6.0 (4.8-10.8) X10*3/uL RBC 3.08 L (4.20-5.50) X10*6/uL Hgb 9.3 L (12.0-16.0) g/dl Hct 27.5 L (37.0-47.0) % MCV 89.3 (80.0-98.0) fL MCH 30.2 (27.0-33.0) pg MCHC 33.8 (31.0-35.0) g/dl RDW 14.9 (11.0-16.0) % Plt Count 241 D (160-400) X10*3/uL MPV 10.3 (9.4-12.3) fL Immature Gran % (Auto) Cancelled Neut % (Auto) Cancelled Lymph % (Auto) Cancelled Ritchie % (Auto) Cancelled Eos % (Auto) Cancelled Baso % (Auto) Cancelled Lymph # (Auto) Cancelled Ritchie # (Auto) Cancelled Eos # (Auto) Cancelled Baso # (Auto) Cancelled Abs Immat Gran (auto) Cancelled Absolute Neuts (auto) Cancelled Absolute Nucleated RBC 0.040 H (0.0-0.012) X10*3/uL Nucleated RBC % (auto) 0.7 H (0.0-0.2) /100WBC Neutrophils % (Manual) 63 (45-73) % Band Neutrophils % 6 H (3-5) % Lymphocytes % (Manual) 26 (20-40) % Monocytes % (Manual) 3 (2-11) % Eosinophils % (Manual) 1 (0-4) % Basophils % (Manual) 1 (0-2) % Abs Neuts (Manual) 4.1 (2.0-8.3) X10*3/uL Lymphocytes # (Manual) 1.6 (1.2-4.9) X10*3/uL Monocytes # (Manual) 0.2 (0.1-1.2) X10*3/uL Eosinophils # (Manual) 0.1 (0.0-0.4) X10*3/uL Basophils # (Manual) 0.1 (0.0-0.2) X10*3/uL Platelet Estimate NORMAL (NORMAL) Plt Morphology Comment NORMAL RBC Morphology NORMAL PT (11.1-13.3) SEC INR (0.9-1.1) APTT (26.0-36.4) SEC Sodium 131 L (135-145) mmol/L Potassium 5.2 H D (3.3-5.1) mmol/L Chloride 95 L (96-108) mmol/L Carbon Dioxide 26 (22-29) mmol/L Anion Gap 15 (12-20) BUN 13 (9-16) mg/dL Creatinine 0.80 (0.5-1.4) mg/dL Estim Creat Clear Calc 49.2 Estimated GFR > 60 Random Glucose 124 H (60-115) mg/dL Lactic Acid (0.5-2.0) mmol/L Calcium 9.9 (8.4-10.2) mg/dL Total Bilirubin 0.7 (0.0-1.0) mg/dL AST 68 H (5-31) U/L ALT 20 (0-31) U/L Alkaline Phosphatase 128 H (39-117) U/L Troponin I High Sens (<3.5-17.0) ng/L Total Protein 7.9 (6.5-8.0) g/dL Albumin 3.4 L (3.5-5.0) g/dL Lipase 8 (8-78) U/L Urine Color Urine Appearance Urine pH (5.0-9.0) Ur Specific Minerva (1.005-1.025) Urine Protein (Neg-Trace) mg/dL Urine Glucose (UA) (Negative) mg/dL Urine Ketones (Negative) mg/dL Urine Blood (Negative) Urine Nitrite (Negative) Ur Leukocyte Esterase (Negative) Urine RBC (0-2) /HPF Urine WBC (0-5) /HPF Ur Squamous Epith Cells (0-2) /HPF Urine Bacteria (None Seen) Hyaline Casts (0-2) /LPF Influenza Type A (PCR) NEGATIVE (Negative) Influenza Type B (PCR) NEGATIVE (Negative) RSV RNA Qual (PCR) NEGATIVE (Negative) SARS-CoV-2 RNA (RT-PCR) NEGATIVE (Negative) 02/17/23 02/17/23 02/17/23 Range/Units 21:12 21:12 21:12 WBC (4.8-10.8) X10*3/uL RBC (4.20-5.50) X10*6/uL Hgb (12.0-16.0) g/dl Hct (37.0-47.0) % MCV (80.0-98.0) fL MCH (27.0-33.0) pg MCHC (31.0-35.0) g/dl RDW (11.0-16.0) % Plt Count (160-400) X10*3/uL MPV (9.4-12.3) fL Immature Gran % (Auto) Neut % (Auto) Lymph % (Auto) Ritchie % (Auto) Eos % (Auto) Baso % (Auto) Lymph # (Auto) Ritchie # (Auto) Eos # (Auto) Baso # (Auto) Abs Immat Gran (auto) Absolute Neuts (auto) Absolute Nucleated RBC (0.0-0.012) X10*3/uL Nucleated RBC % (auto) (0.0-0.2) /100WBC Neutrophils % (Manual) (45-73) % Band Neutrophils % (3-5) % Lymphocytes % (Manual) (20-40) % Monocytes % (Manual) (2-11) % Eosinophils % (Manual) (0-4) % Basophils % (Manual) (0-2) % Abs Neuts (Manual) (2.0-8.3) X10*3/uL Lymphocytes # (Manual) (1.2-4.9) X10*3/uL Monocytes # (Manual) (0.1-1.2) X10*3/uL Eosinophils # (Manual) (0.0-0.4) X10*3/uL Basophils # (Manual) (0.0-0.2) X10*3/uL Platelet Estimate (NORMAL) Plt Morphology Comment RBC Morphology PT 14.4 H (11.1-13.3) SEC INR 1.2 H (0.9-1.1) APTT 23.4 L (26.0-36.4) SEC Sodium (135-145) mmol/L Potassium (3.3-5.1) mmol/L Chloride (96-108) mmol/L Carbon Dioxide (22-29) mmol/L Anion Gap (12-20) BUN (9-16) mg/dL Creatinine (0.5-1.4) mg/dL Estim Creat Clear Calc Estimated GFR Random Glucose (60-115) mg/dL Lactic Acid 0.9 (0.5-2.0) mmol/L Calcium (8.4-10.2) mg/dL Total Bilirubin (0.0-1.0) mg/dL AST (5-31) U/L ALT (0-31) U/L Alkaline Phosphatase (39-117) U/L Troponin I High Sens 8.7 (<3.5-17.0) ng/L Total Protein (6.5-8.0) g/dL Albumin (3.5-5.0) g/dL Lipase (8-78) U/L Urine Color Urine Appearance Urine pH (5.0-9.0) Ur Specific Minerva (1.005-1.025) Urine Protein (Neg-Trace) mg/dL Urine Glucose (UA) (Negative) mg/dL Urine Ketones (Negative) mg/dL Urine Blood (Negative) Urine Nitrite (Negative) Ur Leukocyte Esterase (Negative) Urine RBC (0-2) /HPF Urine WBC (0-5) /HPF Ur Squamous Epith Cells (0-2) /HPF Urine Bacteria (None Seen) Hyaline Casts (0-2) /LPF Influenza Type A (PCR) (Negative) Influenza Type B (PCR) (Negative) RSV RNA Qual (PCR) (Negative) SARS-CoV-2 RNA (RT-PCR) (Negative) 02/17/23 Range/Units 23:53 WBC (4.8-10.8) X10*3/uL RBC (4.20-5.50) X10*6/uL Hgb (12.0-16.0) g/dl Hct (37.0-47.0) % MCV (80.0-98.0) fL MCH (27.0-33.0) pg MCHC (31.0-35.0) g/dl RDW (11.0-16.0) % Plt Count (160-400) X10*3/uL MPV (9.4-12.3) fL Immature Gran % (Auto) Neut % (Auto) Lymph % (Auto) Ritchie % (Auto) Eos % (Auto) Baso % (Auto) Lymph # (Auto) Ritchie # (Auto) Eos # (Auto) Baso # (Auto) Abs Immat Gran (auto) Absolute Neuts (auto) Absolute Nucleated RBC (0.0-0.012) X10*3/uL Nucleated RBC % (auto) (0.0-0.2) /100WBC Neutrophils % (Manual) (45-73) % Band Neutrophils % (3-5) % Lymphocytes % (Manual) (20-40) % Monocytes % (Manual) (2-11) % Eosinophils % (Manual) (0-4) % Basophils % (Manual) (0-2) % Abs Neuts (Manual) (2.0-8.3) X10*3/uL Lymphocytes # (Manual) (1.2-4.9) X10*3/uL Monocytes # (Manual) (0.1-1.2) X10*3/uL Eosinophils # (Manual) (0.0-0.4) X10*3/uL Basophils # (Manual) (0.0-0.2) X10*3/uL Platelet Estimate (NORMAL) Plt Morphology Comment RBC Morphology PT (11.1-13.3) SEC INR (0.9-1.1) APTT (26.0-36.4) SEC Sodium (135-145) mmol/L Potassium (3.3-5.1) mmol/L Chloride (96-108) mmol/L Carbon Dioxide (22-29) mmol/L Anion Gap (12-20) BUN (9-16) mg/dL Creatinine (0.5-1.4) mg/dL Estim Creat Clear Calc Estimated GFR Random Glucose (60-115) mg/dL Lactic Acid (0.5-2.0) mmol/L Calcium (8.4-10.2) mg/dL Total Bilirubin (0.0-1.0) mg/dL AST (5-31) U/L ALT (0-31) U/L Alkaline Phosphatase (39-117) U/L Troponin I High Sens (<3.5-17.0) ng/L Total Protein (6.5-8.0) g/dL Albumin (3.5-5.0) g/dL Lipase (8-78) U/L Urine Color Yellow Urine Appearance Clear Urine pH 5.5 (5.0-9.0) Ur Specific Minerva <= 1.005 (1.005-1.025) Urine Protein Negative (Neg-Trace) mg/dL Urine Glucose (UA) Negative (Negative) mg/dL Urine Ketones Negative (Negative) mg/dL Urine Blood Negative (Negative) Urine Nitrite Negative (Negative) Ur Leukocyte Esterase Small (1+) H (Negative) Urine RBC 0-2 (0-2) /HPF Urine WBC 0-5 (0-5) /HPF Ur Squamous Epith Cells 3-5 (0-2) /HPF Urine Bacteria None Seen (None Seen) Hyaline Casts 0-2 (0-2) /LPF Influenza Type A (PCR) (Negative) Influenza Type B (PCR) (Negative) RSV RNA Qual (PCR) (Negative) SARS-CoV-2 RNA (RT-PCR) (Negative) Critical Care Time Critical Care Time Critical Care Time: Yes Total Critical Care Time: 60 Attestation: I have personally provided critical care time. Time includes review of lab data, radiology results, discussion with consultants, and monitoring for potential decompensation. Intervention performed as documented. Discharge Plan Discharge Clinical Impression: Pneumonia, Fever, Pain due to malignant neoplasm metastatic to bone Patient Disposition: Admitted As Inpatient Prescriptions: No Action (DME) cane Device See Rx Instructions .ROUTE .MEDSUPPLY Qty: 1 0RF Rx Instructions: As directed (DME) walker Misc See Rx Instructions .ROUTE .MEDSUPPLY Qty: 1 0RF Rx Instructions: As directed acetaminophen [Tylenol Arthritis Pain] 650 mg tablet extended release 650 mg PO Q8H 30 Days Qty: 90 0RF fluticasone propionate [Flonase Allergy Relief] 50 mcg/actuation spray,suspension 1 spray intranasal DAILY 30 Days Qty: 16 0RF Rx Instructions: administer into each nostril mirtazapine 15 mg tablet 15 mg PO BEDTIME 90 Days Qty: 90 0RF oxycodone [OxyContin] 10 mg tablet,oral only,ext.rel.12 hr 10 mg PO BID Qty: 20 0RF Rx Instructions: Partial Fill upon patient request. ondansetron HCl 4 mg tablet 4 mg PO Q8H Qty: 20 0RF escitalopram oxalate 10 mg tablet 10 mg PO DAILY sennosides [senna] 8.6 mg tablet 8.6 mg PO BEDTIME polyethylene glycol 3350 [Miralax] 17 gram/dose powder 17 g PO DAILY oxycodone 5 mg tablet 5 mg PO .every 4 hours PRN lorazepam 0.5 mg tablet 0.5 mg PO DAILY PRN cholecalciferol (vitamin D3) [Vitamin D3] 50 mcg (2,000 unit) capsule 50 mcg PO DAILY 90 Days Qty: 90 1RF thiamine HCl (vitamin B1) 100 mg tablet 100 mg PO DAILY 30 Days Qty: 30 0RF ezetimibe 10 mg tablet 10 mg PO DAILY 90 Days Qty: 90 1RF cyanocobalamin (vitamin B-12) 1,000 mcg/mL solution 1,000 mcg IM .once a month 30 Days Qty: 1 6RF (DME) Easy Touch SheathLock Syrg-Ndl 3 mL 21 gauge x 1 1/2 syringe See Rx Instructions .ROUTE .MEDSUPPLY Qty: 1 2RF Rx Instructions: As directed (DME) bedside commode Kit See Rx Instructions .Route Qty: 1 0RF Rx Instructions: As directed (DME) ENSURE Drink 1 can a day See Rx Instructions .Route .MEDSUPPLY Qty: 30 5RF Rx Instructions: As directed Aspercreme (lidocaine) 4 % aerosol,spray 2 spray topical QID PRN (Reason: pain) Qty: 113 1RF docusate sodium [Colace] 100 mg capsule 100 mg PO BID PRN (Reason: constipation) Qty: 20 0RF
[2023-02-18 00:03] LABS: Appearance Urine Clear; Color Urine Yellow; Glucose Urine UA Negative (Negative); Leukocyte Esterase Urine Small (1+) (Negative); Nitrite Urine Negative (Negative); PH 5.5 (5.0-9.0); Specific Gravity - Urine <= 1.005 (1.005-1.025); UMIC TRIGGER UACC YES; Urine Blood Negative (Negative); Urine Ketones Negative (Negative); Urine Protein Negative (Neg-Trace)
[2023-02-18 00:26] LABS: Bacteria Urine None Seen (None Seen); Hyaline Casts Urine 0-2 /LPF (0-2); RBC Urine 0-2 /HPF (0-2); UACC Culture Trigger YES; WBC Urine 0-5 /HPF (0-5)
[2023-02-18] MEDS: 0.9 % Sodium Chloride 1,564.89 ML 1564.89 ML IV (00:49)
[2023-02-18] MEDS: cefEPime HCl 2 GM in 0.9 % Sodium Chloride 50 ML IV (00:50)
[2023-02-18] MEDS: ondansetron HCL 4 MG/2 ML VIAL IVPUSH (02:09)
[2023-02-18] MEDS: Morphine Sulfate 2 MG/ML CARTRIDGE 1 MG IVPUSH (03:13)
[2023-02-18] MEDS: cefTRIAXone sodium 1 GM in 0.9 % Sodium Chloride 50 ML IV (03:19)
[2023-02-18] MEDS: Heparin Sodium,Porcine 5,000 UNIT/ML VIAL 5000 UNIT SUBCUT ×2 (03:19→14:44)
[2023-02-18] MEDS: Azithromycin 500 MG in 0.9 % Sodium Chloride 250 ML 125 MG IV (03:20)
[2023-02-18] MEDS: Morphine Sulfate 4 MG/ML CARTRIDGE IVPUSH (04:10)
[2023-02-18 04:27] VITALS: BP 129/48; PULSE 98; RESP 20; TEMP 37; O2SAT 97
--- NOTE | 2023-02-18 04:29 | MHC.EDTECH ---
This tech assumed care of pt at 0300am,hourly rounds completed and vitals were taken. Patient has a pure wick in place that was placed prior to this tech taking over care, patient is clean and dry and belongings list completed. Call das within reach and granddaughter is at bedside.
--- NOTE | 2023-02-18 05:10 | MHC.EDTECH ---
1 assist to commode,patient urinated 600cc,ginger care was giving
[2023-02-18] MEDS: HYDROmorphone HCl 0.5 MG/0.5 ML SYRINGE IVPUSH (06:00)
[2023-02-18 06:28] LABS: Anion Gap 13 (12-20); Blood Urea Nitrogen 10 mg/dL (9-16); Calcium 8.8 mg/dL (8.4-10.2); Carbon Dioxide 26 mmol/L (22-29); Chloride 104 mmol/L (96-108); Creatinine Clr Calc Pharmacy 59.7; Estimated Glomerular Filt Rate > 60; Glucose Random 137 mg/dL (60-115); Potassium 4.5 mmol/L (3.3-5.1); Sodium 138 mmol/L (135-145)
--- NOTE | 2023-02-18 06:40 | PC.NURSE ---
[facility] @ 0500 this morning 02/18. Yoruba speaking only. Fulfillment Specialist utilized. A&Ox4, drowsy but appropriately arousable. Pt's alfreda is present at the pt's bedside to assist pt with making needs known. Continues on 2L nc as pt was recieved, spo2 stable. VSS. Breathing is even and unlabored without distress. Pt reports 8-9/10 pain in her pelvis and lower legs 2/2 melanoma with bone mets. IV Morphine given prior to arrival to [facility]; pt reports little effect, rating pain 8/10. Dr. Gipson notified, orders for 1x 0.5mg Dilaudid, given with +effect. Extremities floated on pillows. Pt offers no other complaints at this time. Given warm blanket. Bed alarm on, safety measures in place.
[2023-02-18 06:44] LABS: Hematocrit 24.3 % (37.0-47.0); Mean Corpuscular HGB Conc 32.9 g/dl (31.0-35.0); Mean Corpuscular Hemoglobin 30.1 pg (27.0-33.0); Mean Corpuscular Volume 91.4 fL (80.0-98.0); Mean Platelet Volume 10.5 fL (9.4-12.3); NRBC Pct Auto 0.4 /100WBC (0.0-0.2); Platelet Count 211 X10*3/uL (160-400); Red Blood Count 2.66 X10*6/uL (4.20-5.50); Red Cell Distribution Width 14.8 % (11.0-16.0); White Blood Count 5.3 X10*3/uL (4.8-10.8)
--- NOTE | 2023-02-18 06:52 | P.HPHOSP_ITS ---
History of Present Illness Date of Service: 02/18/23 Chief Complaint: febrile 77-year-old female with history of melanoma with Mets to the bone GERD, depression, pain as a result of the metastasis comes into the hospital brought in by her daughter with fever. Patient's daughter give me most of the history as patient Georgian-speaking only, and refers to her daughter for information. Daughter reports that patient has been having fever for the past 2 days, patient also reports shortness of breath, denies any chest pain, no abdominal pain nausea vomiting, no diarrhea constipation, no urinary symptoms. Reports temperature at home was found to be 103 On arrival to the ED patient found to have a temperature of 100.4 heart rate of 115, blood pressure stable, satting 93% on room air Labs are significant for WBC count of 6.0, hemoglobin of 9.3, hematocrit 27.5, sodium 131, potassium of 5.2, UA positive for leukocyte Estrace, WBC, no bacteria Chest x-ray shows left lower lobe airspace opacity with a small left-sided pleural effusion concerning for pneumonia Patient started on antibiotics will be admitted for further management Review of Systems Review of Systems: Yes all other systems are reviewed and are negative [facility] Medical History Acute medial meniscus tear of left knee B12 deficiency Chronic fatigue Depression Dyslipidemia Effusion, left knee GERD (gastroesophageal reflux disease) HLA B27 (HLA B27 positive) Insomnia Malnutrition 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 depression, single episode Neck pain on right side New daily persistent headache Ophthalmoplegic migraine headache Osteoarthritis of left knee Screening for hypothyroidism Sinusitis Sore throat, chronic Uterine cancer UTI (urinary tract infection) Family History Mother CVD (cardiovascular disease) Father Lung cancer Son Cancer Sister Lung cancer Brother Colon cancer Surgical History History of laparoscopic cholecystectomy History of total abdominal hysterectomy and bilateral salpingo-oophorectomy Social History Housing: Apartment Alcohol intake: never Patient Tobacco Use Status: Never used Tobacco Smoked in Last 30 Days: No e-Cigarette/Vaping Use: Never Used Second Hand Smoke Exposure: No Use of substances other than those prescribed or required for medical reasons: No Advance Directives: No Advance Directives Information Provided: No service: No Current occupational status: retired Current occupation: rt handed Cognitive needs: No Hearing needs: No Vision needs: Yes Meds Allergies Allergy/AdvReac Type Severity Reaction Status Date / Time ibuprofen Allergy Mild anaphylaxis, Verified 02/17/23 20:42 hives metronidazole Allergy Mild rash Verified 02/17/23 20:42 naproxen [Aleve] Allergy Mild anaphylaxis, Verified 02/17/23 20:42 hives pravastatin Allergy Mild anaphylaxis Verified 02/17/23 20:42 simvastatin Allergy Mild cramps Verified 02/17/23 20:42 aspirin Allergy Mild swelling Uncoded 02/17/23 20:42 Active Medications: Current Medications Acetaminophen (Acetaminophen Supp 650 Mg Supp.Rect) 650 mg [place] Q6H PRN PRN Reason: Pain, Mild (Pain Scale 1-3) Docusate Sodium (Docusate Sodium 100 Mg Capsule) 100 mg PO DAILY PRN PRN Reason: Constipation Heparin Sodium (Porcine) (Heparin Sodium,Porcine 5,000 Unit/Ml Vial) 5,000 unit SUBCUT Q12H [facility] Last Admin: 02/18/23 03:19 Dose: 5,000 unit Ceftriaxone Sodium 1 gm/ (Sodium Chloride) 50 mls @ 100 mls/hr IV Q24H [facility] Last Admin: 02/18/23 03:19 Dose: 100 mls/hr Azithromycin 500 mg/ Sodium (Chloride) 250 mls @ 125 mls/hr IV Q24H [facility] Last Infusion: 02/18/23 05:29 Dose: Infused Morphine Sulfate (Morphine Sulfate 4 Mg/Ml Cartridge) 4 mg IVPUSH Q4H PRN; Protocol PRN Reason: Pain, Severe (Pain Scale 7-10) Last Admin: 02/18/23 04:10 Dose: 4 mg Naloxone HCl (Naloxone Hcl 0.4 Mg/Ml Vial) 0.2 mg IVPUSH Q2M PRN PRN Reason: Excessive sedation or RR < 8 Ondansetron HCl (Ondansetron Hcl 4 Mg/2 Ml Vial) 4 mg IVPUSH Q8H PRN PRN Reason: Nausea and Vomiting Last Admin: 02/18/23 02:09 Dose: 4 mg Pharmacy Consult (Consult Rx Perform Med Rec) 1 each MISCELLANE ONCE PRN PRN Reason: Consult order Sodium Chloride (0.9 % Sodium Chloride Flush 3 Ml Syringe) 3 [facility] Home Medications Medication Instructions Recorded Confirmed Last Taken Type escitalopram oxalate 10 mg tablet 10 mg PO DAILY 02/12/23 02/12/23 Unknown History lorazepam 0.5 mg tablet 0.5 mg PO DAILY PRN 02/12/23 02/12/23 Unknown History oxycodone 5 mg tablet 5 mg PO .every 4 hours PRN 02/12/23 02/12/23 Unknown History polyethylene glycol 3350 17 17 g PO DAILY 02/12/23 02/12/23 Unknown History gram/dose oral powder (Miralax) sennosides 8.6 mg tablet (senna) 8.6 mg PO BEDTIME 02/12/23 02/12/23 Unknown History Physical Exam Vital Signs and Narrative: Vital Signs: Last Vital Signs Temp 98.6 F 02/18/23 04:27 Pulse 98 02/18/23 04:27 Resp 20 02/18/23 04:27 BP 129/48 L 02/18/23 04:27 Pulse Ox 97 02/18/23 04:27 O2 Del Method Nasal Cannula 02/18/23 04:27 O2 Flow Rate 2 02/18/23 04:27 BMI result Body Mass Index 19.7 Const: General: cooperative and no acute distress Orientation/consciousne ss: patient oriented x3 Eyes: General: appearance normal, both eyes and all related structures Resp: Other: Crackles bilaterally Effort & Inspection: normal respiratory effort Cardio: Rate: regular rate Rhythm: regular rhythm GI: Palpation (GI): Soft to palpation Auscultation: normal bowel sounds Skin: General skin exam: no rashes or lesions noted Neuro: General: patient oriented x3 Cognition (Neuro): normal cognition Extrem: General: Yes normal to inspection and Yes no pedal edema Results Labs 02/17/23 21:12 02/18/23 05:48 Labs: Laboratory Results - last 24 hr 02/17/23 02/17/23 02/17/23 21:10 21:12 21:12 MCV 89.3 MCH 30.2 MCHC 33.8 RDW 14.9 Plt Count 241 D MPV 10.3 Immature Gran % (Auto) Cancelled Neut % (Auto) Cancelled Lymph % (Auto) Cancelled [place] % (Auto) Cancelled Eos % (Auto) Cancelled Baso % (Auto) Cancelled Lymph # (Auto) Cancelled [place] # (Auto) Cancelled Eos # (Auto) Cancelled Baso # (Auto) Cancelled Abs Immat Gran (auto) Cancelled Absolute Neuts (auto) Cancelled Absolute Nucleated RBC 0.040 H Nucleated RBC % (auto) 0.7 H Neutrophils % (Manual) 63 Band Neutrophils % 6 H Lymphocytes % (Manual) 26 Monocytes % (Manual) 3 Eosinophils % (Manual) 1 Basophils % (Manual) 1 Abs Neuts (Manual) 4.1 Lymphocytes # (Manual) 1.6 Monocytes # (Manual) 0.2 Eosinophils # (Manual) 0.1 Basophils # (Manual) 0.1 Platelet Estimate NORMAL Plt Morphology Comment NORMAL RBC Morphology NORMAL PT INR APTT Anion Gap 15 Estim Creat Clear Calc 49.2 Estimated GFR > 60 Random Glucose 124 H Lactic Acid Calcium 9.9 Total Bilirubin 0.7 AST 68 H ALT 20 Alkaline Phosphatase 128 H Total Protein 7.9 Albumin 3.4 L Lipase 8 Urine Color Urine Appearance Urine pH Ur Specific [place] Urine Protein Urine Glucose (UA) Urine Ketones Urine Blood Urine Nitrite Ur Leukocyte Esterase Urine RBC Urine WBC Ur Squamous Epith Cells Urine Bacteria Hyaline Casts Influenza Type A (PCR) NEGATIVE Influenza Type B (PCR) NEGATIVE RSV RNA Qual (PCR) NEGATIVE SARS-CoV-2 RNA (RT-PCR) NEGATIVE 02/17/23 02/17/23 02/17/23 21:12 21:12 23:53 MCV MCH MCHC RDW Plt Count MPV Immature Gran % (Auto) Neut % (Auto) Lymph % (Auto) [place] % (Auto) Eos % (Auto) Baso % (Auto) Lymph # (Auto) [place] # (Auto) Eos # (Auto) Baso # (Auto) Abs Immat Gran (auto) Absolute Neuts (auto) Absolute Nucleated RBC Nucleated RBC % (auto) Neutrophils % (Manual) Band Neutrophils % Lymphocytes % (Manual) Monocytes % (Manual) Eosinophils % (Manual) Basophils % (Manual) Abs Neuts (Manual) Lymphocytes # (Manual) Monocytes # (Manual) Eosinophils # (Manual) Basophils # (Manual) Platelet Estimate Plt Morphology Comment RBC Morphology PT 14.4 H INR 1.2 H APTT 23.4 L Anion Gap Estim Creat Clear Calc Estimated GFR Random Glucose Lactic Acid 0.9 Calcium Total Bilirubin AST ALT Alkaline Phosphatase Total Protein Albumin Lipase Urine Color Yellow Urine Appearance Clear Urine pH 5.5 Ur Specific [place] <= 1.005 Urine Protein Negative Urine Glucose (UA) Negative Urine Ketones Negative Urine Blood Negative Urine Nitrite Negative Ur Leukocyte Esterase Small (1+) H Urine RBC 0-2 Urine WBC 0-5 Ur Squamous Epith Cells 3-5 Urine Bacteria None Seen Hyaline Casts 0-2 Influenza Type A (PCR) Influenza Type B (PCR) RSV RNA Qual (PCR) SARS-CoV-2 RNA (RT-PCR) 02/18/23 05:48 MCV MCH MCHC RDW Plt Count MPV Immature Gran % (Auto) Neut % (Auto) Lymph % (Auto) [place] % (Auto) Eos % (Auto) Baso % (Auto) Lymph # (Auto) [place] # (Auto) Eos # (Auto) Baso # (Auto) Abs Immat Gran (auto) Absolute Neuts (auto) Absolute Nucleated RBC Nucleated RBC % (auto) Neutrophils % (Manual) Band Neutrophils % Lymphocytes % (Manual) Monocytes % (Manual) Eosinophils % (Manual) Basophils % (Manual) Abs Neuts (Manual) Lymphocytes # (Manual) Monocytes # (Manual) Eosinophils # (Manual) Basophils # (Manual) Platelet Estimate Plt Morphology Comment RBC Morphology PT INR APTT Anion Gap 13 Estim Creat Clear Calc 59.7 Estimated GFR > 60 Random Glucose 137 H Lactic Acid Calcium 8.8 D Total Bilirubin AST ALT Alkaline Phosphatase Total Protein Albumin Lipase Urine Color Urine Appearance Urine pH Ur Specific [place] Urine Protein Urine Glucose (UA) Urine Ketones Urine Blood Urine Nitrite Ur Leukocyte Esterase Urine RBC Urine WBC Ur Squamous Epith Cells Urine Bacteria Hyaline Casts Influenza Type A (PCR) Influenza Type B (PCR) RSV RNA Qual (PCR) SARS-CoV-2 RNA (RT-PCR) Imaging Radiologist's Impressions: Impressions Chest X-Ray 02/17/23 21:30 IMPRESSION: New retrocardiac and left lower lobe airspace opacities with a small left-sided pleural effusion concerning for pneumonia. A follow-up chest CT after treatment is recommended to ensure resolution. Pulmonary nodules described on the prior CT are too small to characterize by radiograph; attention on follow-up with the above recommended chest CT is recommended to rule out malignancy. Assessment and Plan (1) Community acquired pneumonia: Status: Acute (2) Fever: Status: Acute (3) Pain due to malignant neoplasm metastatic to bone: Status: Acute Plan 77-year-old female past medical history of melanoma with Mets to the bones comes into the hospital with fever found to have pneumonia # acute community-acquired pneumonia - will treat with IV antibiotics - follow cultures # febrile - secondary to above - no neutropenia - Tylenol p.r.n. # worsening pain due to Mets - Dilaudid p.r.n. Continue home medications once reconciled by pharmacy Given patient's need for IV antibiotics for acute pneumonia patient will require minimum 2 nights inpatient hospital for further management and monitoring Time Spent With Patient Time: Total time managing care of this patient today ____ minutes. Quality Stroke Does the patient have a stroke diagnosis?: No VTE Prior VTE?: No VTE Risk Level:: Medical - moderate - high VTE Device Contraindication: Treatment Not Indicated VTE Drug Contraindication: N/A - Med Ordered
--- NOTE | 2023-02-18 07:54 | PHA.MEDREC ---
Pharmacy Consult ? Medication Reconciliation Pharmacy has completed the medication reconciliation. Spoke to patient's granddaughter to confirm meds.
[2023-02-18 09:09] LABS: Band Neutrophils Percent 2 % (3-5); Eosinophils Absolute Manual 0.2 X10*3/uL (0.0-0.4); Eosinophils Percent Manual 3 % (0-4); Lymphocytes Absolute Manual 0.5 X10*3/uL (1.2-4.9); Lymphocytes Percent Manual 9 % (20-40); Monocytes Absolute Manual 0.6 X10*3/uL (0.1-1.2); Monocytes Percent Manual 11 % (2-11); Neutrophils Absolute Manual 4.1 X10*3/uL (2.0-8.3); Neutrophils Percent Manual 75 % (45-73); RBC Morphology NORMAL
[2023-02-18 09:11] LABS: Platelet Estimate NORMAL (NORMAL); Platelet Morphology Comment NORMAL
[2023-02-18] MEDS: polyethylene glycoL 3350 17 GM POWD.PACK PO (09:38)
[2023-02-18] MEDS: oxyCODONE HCl ER 10 MG TAB.ER.12H PO ×2 (09:38→21:13)
[2023-02-18] MEDS: Lidocaine 4 % Patch ADH..PATCH 3 PATCH TRANSDERMA (09:38)
[2023-02-18] MEDS: Docusate Sodium 100 MG CAPSULE PO (09:39)
[2023-02-18] MEDS: 0.9 % Sodium Chloride Flush 3 ML SYRINGE IVFLUSH ×3 (09:39→21:13)
[2023-02-18] MEDS: Escitalopram Oxalate 10 MG TABLET PO (09:39)
[2023-02-18] MEDS: Cholecalciferol (Vitamin D3) 25 MCG TABLET 50 MCG PO (09:39)
[2023-02-18] MEDS: Ezetimibe 10 MG TABLET PO (09:47)
[2023-02-18] MEDS: Cyanocobalamin (Vitamin B-12) 1,000 MCG/ML VIAL 1000 MCG IM (09:47)
[2023-02-18] MEDS: Fluticasone Propionate Nasal 16 GM SPRAY 1 SPRAY NOSTRIL-B (09:59)
[2023-02-18 12:10] VITALS: BP 126/57; PULSE 88; RESP 18; TEMP 36.4; O2SAT 96
--- NOTE | 2023-02-18 12:18 | PM.EVENT ---
Event Note Date of Service: 02/18/23 Event Note: This patient is seen and examined already by hospitalist team this morning, seen and examined again-clinically similar as per H& P. came to hospital for fevers and sob she says her sb seems somewhat improving Physical exam and assessment and plan coordinated in H&P note Agree with the plan in addition: pneumonia -fevers improving,continue iv antibiotics , follow blood cultures. constipation-added home luxatives. d/w staff. Time Spent With Patient Time: Total time managing care of this patient today ____ minutes.
[2023-02-18 16:00] VITALS: BP 126/58; PULSE 100; RESP 18; TEMP 36.6; O2SAT 96
[2023-02-18] MEDS: HYDROmorphone HCl 0.5 MG/0.5 ML SYRINGE IV (18:18)
[2023-02-18 19:36] VITALS: BP 114/57; PULSE 94; RESP 17; TEMP 36.1; O2SAT 98
[2023-02-18] MEDS: Sennosides 8.6 MG TABLET 17.2 MG PO (21:13)
[2023-02-18] MEDS: Mirtazapine 15 MG TABLET PO (21:13)
[2023-02-18] MEDS: LORazepam 0.5 MG TABLET PO (23:11)
[2023-02-19] MEDS: Heparin Sodium,Porcine 5,000 UNIT/ML VIAL 5000 UNIT SUBCUT ×2 (01:16→14:13)
[2023-02-19] MEDS: cefTRIAXone sodium 1 GM in 0.9 % Sodium Chloride 50 ML IV (01:16)
[2023-02-19] MEDS: Azithromycin 500 MG in 0.9 % Sodium Chloride 250 ML 125 MG IV (01:25)
[2023-02-19 03:29] VITALS: BP 122/58; PULSE 110; RESP 17; TEMP 36.9; O2SAT 96
[2023-02-19] MEDS: HYDROmorphone HCl 0.5 MG/0.5 ML SYRINGE IV (03:39)
[2023-02-19] MEDS: Omeprazole 20 MG CAPSULE.DR PO (05:26)
[2023-02-19 07:28] VITALS: BP 133/57; PULSE 111; RESP 18; TEMP 37; O2SAT 95
[2023-02-19] MEDS: Lidocaine 4 % Patch ADH..PATCH 3 PATCH TRANSDERMA (08:02)
[2023-02-19] MEDS: Escitalopram Oxalate 10 MG TABLET PO (08:06)
[2023-02-19] MEDS: Ezetimibe 10 MG TABLET PO (08:06)
[2023-02-19] MEDS: oxyCODONE HCl ER 10 MG TAB.ER.12H PO ×2 (08:06→20:21)
[2023-02-19] MEDS: Cholecalciferol (Vitamin D3) 25 MCG TABLET 50 MCG PO (08:06)
[2023-02-19] MEDS: polyethylene glycoL 3350 17 GM POWD.PACK PO (08:06)
[2023-02-19] MEDS: 0.9 % Sodium Chloride Flush 3 ML SYRINGE IVFLUSH ×3 (08:11→20:20)
[2023-02-19 09:47] LABS: Hematocrit 25.5 % (37.0-47.0); Hemoglobin 8.2 g/dl (12.0-16.0)
[2023-02-19] MEDS: Acetaminophen 325 MG TABLET 650 MG PO (10:29)
--- NOTE | 2023-02-19 14:29 | HO.PM.IMPN ---
Subjective Subjective Date of Service: 02/19/23 Interval History: febrile,pneumonia Review of Systems Shortness of breath somewhat improving, has cough Denies any chest pain. Physical Exam Vital Signs: Vital Signs: Last Vital Signs Temp 98.6 F 02/19/23 07:28 Pulse 111 H 02/19/23 07:28 Resp 18 02/19/23 07:28 BP 133/57 L 02/19/23 07:28 Pulse Ox 95 02/19/23 07:28 O2 Del Method Nasal Cannula 02/19/23 07:28 O2 Flow Rate 2 02/19/23 07:28 BMI result Body Mass Index 19.7 Appearance: Alert.? Oriented X3. cvs: rrr, [id number] , no murmur res: air entry somwhat diminshed ,some rhinchii at bases. abd: no rebound or guarding ,nt, bs present. ext pulses present , no cyanosis . neuro: axo3 , nonfocal. Objective Data Active Medications Acetaminophen (Acetaminophen Supp 650 Mg Supp.Rect) 650 mg [place] Q6H PRN PRN Reason: Pain, Mild (Pain Scale 1-3) Acetaminophen (Acetaminophen 325 Mg Tablet) 650 mg PO Q8H PRN PRN Reason: Pain Last Admin: 02/19/23 10:29 Dose: 325 mg Documented By: CARRIE Bisacodyl (Bisacodyl 10 Mg Supp.Rect) 10 mg [place] DAILY PRN PRN Reason: Constipation Cyanocobalamin (Cyanocobalamin (Vitamin B-12) 1,000 Mcg/Ml Vial) 1,000 mcg IM Q28D [facility] Last Admin: 02/18/23 09:47 Dose: 1,000 mcg Documented By: SYLVAIN Docusate Sodium (Docusate Sodium 100 Mg Capsule) 100 mg PO DAILY PRN PRN Reason: Constipation Last Admin: 02/18/23 09:39 Dose: 100 mg Documented By: SYLVAIN Docusate Sodium (Docusate Sodium 100 Mg Capsule) 100 mg PO BID PRN PRN Reason: constipation Ezetimibe (Ezetimibe 10 Mg Tablet) 10 mg PO DAILY [facility] Last Admin: 02/19/23 08:06 Dose: 10 mg Documented By: CARRIE Escitalopram Oxalate (Escitalopram Oxalate 10 Mg Tablet) 10 mg PO DAILY [facility] Last Admin: 02/19/23 08:06 Dose: 10 mg Documented By: CARRIE Fluticasone Propionate (Fluticasone Propionate Nasal 16 Gm [place]) 1 spray NOSTRIL-B DAILY [facility] Last Admin: 02/19/23 10:30 Dose: Not Given Documented By: CARRIE Non-Admin Reason: Patient Refused Heparin Sodium (Porcine) (Heparin Sodium,Porcine 5,000 Unit/Ml Vial) 5,000 unit SUBCUT Q12H [facility] Last Admin: 02/19/23 14:13 Dose: 5,000 unit Documented By: CARRIE Hydromorphone HCl (Hydromorphone Hcl 0.5 Mg/0.5 Ml Syringe) 0.5 mg IV Q4H PRN; Protocol PRN Reason: Pain, Severe (Pain Scale 7-10) Last Admin: 02/19/23 03:39 Dose: 0.5 mg Documented By: TAM Ceftriaxone Sodium 1 gm/ (Sodium Chloride) 50 mls @ 100 mls/hr IV Q24H [facility] Last Infusion: 02/19/23 01:46 Dose: 0 mls/hr Documented By: TAM Azithromycin 500 mg/ Sodium (Chloride) 250 mls @ 125 mls/hr IV Q24H [facility] Last Infusion: 02/19/23 03:38 Dose: 0 mls/hr Documented By: TAM Lidocaine (Lidocaine 4 % Patch Adh..Patch) 3 patch TRANSDERMA DAILY [facility] Last Admin: 02/19/23 08:02 Dose: 3 patch Documented By: CARRIE Lorazepam (Lorazepam 0.5 Mg Tablet) 0.5 mg PO BEDTIME PRN PRN Reason: Anxiety Last Admin: 02/18/23 23:11 Dose: 0.5 mg Documented By: TAM Mirtazapine (Mirtazapine 15 Mg Tablet) 15 mg PO BEDTIME [facility] Last Admin: 02/18/23 21:13 Dose: 15 mg Documented By: TAM Naloxone HCl (Naloxone Hcl 0.4 Mg/Ml Vial) 0.2 mg IVPUSH Q2M PRN PRN Reason: Excessive sedation or RR < 8 Omeprazole (Omeprazole 20 Mg Capsule.Dr) 20 mg PO DAILY@0630 [facility] Last Admin: 02/19/23 05:26 Dose: 20 mg Documented By: TAM Ondansetron HCl (Ondansetron Hcl 4 Mg/2 Ml Vial) 4 mg IVPUSH Q8H PRN PRN Reason: Nausea and Vomiting Last Admin: 02/18/23 02:09 Dose: 4 mg Documented By: HALLEY Ondansetron HCl (Ondansetron Odt 4 Mg Tab.Rapdis) 4 mg TRANSLINGU Q8H PRN PRN Reason: Nausea And Vomiting Oxycodone HCl (Oxycodone Hcl Er 10 Mg Tab.Er.12h) 10 mg PO BID [facility] Last Admin: 02/19/23 08:06 Dose: 10 mg Documented By: CARRIE Pharmacy Consult (Consult Rx Perform Med Rec) 1 each MISCELLANE ONCE PRN PRN Reason: Consult order Polyethylene Glycol (Polyethylene Glycol 3350 17 Gm Powd.Pack) 17 gm PO DAILY [facility] Last Admin: 02/19/23 08:06 Dose: 17 gm Documented By: CARRIE Senna (Sennosides 8.6 Mg Tablet) 17.2 mg PO BEDTIME [facility] Last Admin: 02/18/23 21:13 Dose: 17.2 mg Documented By: TAM Simethicone (Simethicone 80 Mg Tab.Chew) 160 mg PO Q6H PRN PRN Reason: gas Sodium Chloride (0.9 % Sodium Chloride Flush 3 Ml Syringe) 3 ml IVFLUSH QSHIFT [facility] Last Admin: 02/19/23 08:11 Dose: 3 ml Documented By: CARRIE Vitamin D (Cholecalciferol (Vitamin D3) 25 Mcg Tablet) 50 mcg PO DAILY [facility] Last Admin: 02/19/23 08:06 Dose: 50 mcg Documented By: CARRIE Labs 02/19/23 09:31 02/18/23 05:48 Microbiology Microbiology Results: Microbiology 02/18/23 04:46 Urine Culture - Final Urine clean catch - Clean Catch Midstream 02/17/23 21:12 Blood Culture - Preliminary Blood - Venous No growth after 24 hours. 02/17/23 21:12 Blood Culture - Preliminary Blood - Venous No growth after 24 hours. Assessment and Plan (1) Community acquired pneumonia: Status: Acute (2) Pneumonia: Status: Acute Plan 77-year-old female past medical history of melanoma with Mets to the bones comes into the hospital with fever found to have pneumonia acute community-acquired pneumonia treat with IV antibiotics,follow cultures febrile- secondary to above. no more fevers no neutropenia,Tylenol p.r.n. pain thought to possible sec due to Mets Dilaudid p.r.n. depression-continue home meds. Pneumonia -need IV antibiotics for acute pneumonia ,blood culture wait to be neg@48hrs. Time Spent With Patient Time: Total time managing care of this patient today ____ minutes. Quality Stroke Does the patient have a stroke diagnosis?: No VTE Prior VTE?: No VTE Risk Level:: Medical - moderate - high VTE Device Contraindication: Treatment Not Indicated VTE Drug Contraindication: N/A - Med Ordered
[2023-02-19 15:38] VITALS: BP 111/53; PULSE 87; RESP 20; TEMP 36.6; O2SAT 98
[2023-02-19] MEDS: Simethicone 80 MG TAB.CHEW 160 MG PO (17:09)
[2023-02-19 19:56] VITALS: BP 137/64; PULSE 98; RESP 20; TEMP 37.2; O2SAT 99
[2023-02-19] MEDS: Sennosides 8.6 MG TABLET 17.2 MG PO (20:21)
[2023-02-19] MEDS: Mirtazapine 15 MG TABLET PO (20:21)
[2023-02-20] MEDS: Heparin Sodium,Porcine 5,000 UNIT/ML VIAL 5000 UNIT SUBCUT ×2 (01:35→13:38)
[2023-02-20] MEDS: cefTRIAXone sodium 1 GM in 0.9 % Sodium Chloride 50 ML IV (01:35)
[2023-02-20] MEDS: Azithromycin 500 MG in 0.9 % Sodium Chloride 250 ML 125 MG IV (02:08)
[2023-02-20 04:00] VITALS: BP 116/55; PULSE 99; RESP 16; TEMP 36.1; O2SAT 97
[2023-02-20] MEDS: HYDROmorphone HCl 0.5 MG/0.5 ML SYRINGE IV (04:18)
[2023-02-20] MEDS: Omeprazole 20 MG CAPSULE.DR PO (05:51)
[2023-02-20 07:13] VITALS: BP 117/54; PULSE 99; RESP 16; TEMP 36.4; O2SAT 97
[2023-02-20] MEDS: 0.9 % Sodium Chloride Flush 3 ML SYRINGE IVFLUSH ×3 (08:19→23:13)
[2023-02-20] MEDS: oxyCODONE HCl ER 10 MG TAB.ER.12H PO ×2 (08:19→21:16)
[2023-02-20] MEDS: Ezetimibe 10 MG TABLET PO (08:20)
[2023-02-20] MEDS: Cholecalciferol (Vitamin D3) 25 MCG TABLET 50 MCG PO (08:20)
[2023-02-20] MEDS: Escitalopram Oxalate 10 MG TABLET PO (08:20)
[2023-02-20] MEDS: Lidocaine 4 % Patch ADH..PATCH 3 PATCH TRANSDERMA (08:25)
[2023-02-20] MEDS: polyethylene glycoL 3350 17 GM POWD.PACK PO (08:27)
[2023-02-20 11:09] LABS: Iron 58 mcg/dL (30-160); Percent Iron Saturation 39 % (15-50); Total Iron Binding Capacity 150 mcg/dL (228-428); Unsaturated Iron Binding 92 ug/dL
[2023-02-20 11:32] LABS: Folate 7.1 ng/mL (> or = 4.0); Vitamin B12 230 pg/mL (200-900)
[2023-02-20 12:16] LABS: Ferritin 4605 ng/mL (10-250)
--- NOTE | 2023-02-20 14:21 | P.PNIM_ITS ---
Subjective Subjective Date of Service: 02/21/23 Interval History: pneumonia ,anemia Review of Systems sob seems to be improving denies any janeen bleedin or melena h/h drop Eyes Eyes: Reports blurry vision Physical Exam Vital Signs: Vital Signs: Last Vital Signs Temp 97.6 F 02/20/23 07:13 Pulse 99 02/20/23 07:13 Resp 16 02/20/23 07:13 BP 117/54 L 02/20/23 07:13 Pulse Ox 97 02/20/23 07:13 O2 Del Method Nasal Cannula 02/20/23 07:13 O2 Flow Rate 2 02/20/23 07:13 BMI result Body Mass Index 19.7 Appearance: Alert.? Oriented X3. cvs: rrr, [id number] , no murmur res: air entry somwhat diminshed ,some rhinchii at bases. abd: no rebound or guarding ,nt, bs present. ext pulses present , no cyanosis . neuro: axo3 , nonfocal. Objective Data Active Medications Acetaminophen (Acetaminophen Supp 650 Mg Supp.Rect) 650 mg OH Q6H PRN PRN Reason: Pain, Mild (Pain Scale 1-3) Acetaminophen (Acetaminophen 325 Mg Tablet) 650 mg PO Q8H PRN PRN Reason: Pain Last Admin: 02/19/23 10:29 Dose: 325 mg Documented By: CARRIE Bisacodyl (Bisacodyl 10 Mg Supp.Rect) 10 mg OH DAILY PRN PRN Reason: Constipation Cyanocobalamin (Cyanocobalamin (Vitamin B-12) 1,000 Mcg/Ml Vial) 1,000 mcg IM Q28D [facility] Last Admin: 02/18/23 09:47 Dose: 1,000 mcg Documented By: SYLVAIN Docusate Sodium (Docusate Sodium 100 Mg Capsule) 100 mg PO DAILY PRN PRN Reason: Constipation Last Admin: 02/18/23 09:39 Dose: 100 mg Documented By: SYLVAIN Docusate Sodium (Docusate Sodium 100 Mg Capsule) 100 mg PO BID PRN PRN Reason: constipation Ezetimibe (Ezetimibe 10 Mg Tablet) 10 mg PO DAILY [facility] Last Admin: 02/20/23 08:20 Dose: 10 mg Documented By: REMA Escitalopram Oxalate (Escitalopram Oxalate 10 Mg Tablet) 10 mg PO DAILY [facility] Last Admin: 02/20/23 08:20 Dose: 10 mg Documented By: REMA Fluticasone Propionate (Fluticasone Propionate Nasal 16 Gm Canones) 1 spray NOSTRIL-B DAILY [facility] Last Admin: 02/20/23 10:30 Dose: Not Given Documented By: REMA Non-Admin Reason: Med Not Available Heparin Sodium (Porcine) (Heparin Sodium,Porcine 5,000 Unit/Ml Vial) 5,000 unit SUBCUT Q12H [facility] Last Admin: 02/20/23 13:38 Dose: 5,000 unit Documented By: REMA Hydromorphone HCl (Hydromorphone Hcl 0.5 Mg/0.5 Ml Syringe) 0.5 mg IV Q4H PRN; Protocol PRN Reason: Pain, Severe (Pain Scale 7-10) Last Admin: 02/20/23 04:18 Dose: 0.5 mg Documented By: ADRIEN Ceftriaxone Sodium 1 gm/ (Sodium Chloride) 50 mls @ 100 mls/hr IV Q24H [facility] Last Infusion: 02/20/23 02:13 Dose: 0 mls/hr Documented By: ADRIEN Azithromycin 500 mg/ Sodium (Chloride) 250 mls @ 125 mls/hr IV Q24H [facility] Last Infusion: 02/20/23 04:23 Dose: 0 mls/hr Documented By: ADRIEN Lidocaine (Lidocaine 4 % Patch Adh..Patch) 3 patch TRANSDERMA DAILY [facility] Last Admin: 02/20/23 08:25 Dose: 3 patch Documented By: REMA Lorazepam (Lorazepam 0.5 Mg Tablet) 0.5 mg PO BEDTIME PRN PRN Reason: Anxiety Last Admin: 02/18/23 23:11 Dose: 0.5 mg Documented By: TAM Mirtazapine (Mirtazapine 15 Mg Tablet) 15 mg PO BEDTIME [facility] Last Admin: 02/19/23 20:21 Dose: 15 mg Documented By: ADRIEN Naloxone HCl (Naloxone Hcl 0.4 Mg/Ml Vial) 0.2 mg IVPUSH Q2M PRN PRN Reason: Excessive sedation or RR < 8 Omeprazole (Omeprazole 20 Mg Capsule.) 20 mg PO DAILY@0630 [facility] Last Admin: 02/20/23 05:51 Dose: 20 mg Documented By: ADRIEN Ondansetron HCl (Ondansetron Hcl 4 Mg/2 Ml Vial) 4 mg IVPUSH Q8H PRN PRN Reason: Nausea and Vomiting Last Admin: 02/18/23 02:09 Dose: 4 mg Documented By: HALLEY Ondansetron HCl (Ondansetron Odt 4 Mg Tab.Rapdis) 4 mg TRANSLINGU Q8H PRN PRN Reason: Nausea And Vomiting Oxycodone HCl (Oxycodone Hcl Er 10 Mg Tab.Er.12h) 10 mg PO BID [facility] Last Admin: 02/20/23 08:19 Dose: 10 mg Documented By: REMA Pharmacy Consult (Consult Rx Perform Med Rec) 1 each MISCELLANE ONCE PRN PRN Reason: Consult order Polyethylene Glycol (Polyethylene Glycol 3350 17 Gm Powd.Pack) 17 gm PO DAILY [facility] Last Admin: 02/20/23 08:27 Dose: 17 gm Documented By: REMA Senna (Sennosides 8.6 Mg Tablet) 17.2 mg PO BEDTIME [facility] Last Admin: 02/19/23 20:21 Dose: 17.2 mg Documented By: ADRIEN Simethicone (Simethicone 80 Mg Tab.Chew) 160 mg PO Q6H PRN PRN Reason: gas Last Admin: 02/19/23 17:09 Dose: 160 mg Documented By: CARRIE Sodium Chloride (0.9 % Sodium Chloride Flush 3 Ml Syringe) 3 ml IVFLUSH QSHIFT [facility] Last Admin: 02/20/23 08:19 Dose: 3 ml Documented By: REMA Vitamin D (Cholecalciferol (Vitamin D3) 25 Mcg Tablet) 50 mcg PO DAILY [facility] Last Admin: 02/20/23 08:20 Dose: 50 mcg Documented By: REMA Labs 02/19/23 09:31 02/18/23 05:48 Labs: Laboratory Results - last 24 hr 02/20/23 02/20/23 02/20/23 09:29 09:30 09:30 Iron 58 TIBC 150 L % Saturation 39 Unsat Iron Binding 92 Ferritin 4605 H Vitamin B12 230 Folate 7.1 Microbiology Microbiology Results: Microbiology 02/17/23 21:12 Blood Culture - Preliminary Blood - Venous No growth after 48 hours. 02/17/23 21:12 Blood Culture - Preliminary Blood - Venous No growth after 48 hours. 02/18/23 04:46 Urine Culture - Final Urine clean catch - Clean Catch Midstream Assessment and Plan (1) Community acquired pneumonia: Status: Acute Plan 77-year-old female past medical history of melanoma with Mets to the bones comes into the hospital with fever found to have pneumonia ?acute community-acquired pneumonia treat with IV antibiotics,follow cultures ?febrile- secondary to above. no more fevers ?no neutropenia,Tylenol p.r.n. ? pain thought to possible sec due to Mets ?Dilaudid p.r.n. normocytic anemia : ironstudies ,ferrtin ,b12 and folate reviewed -seems like aocd hx of bone mets? ?had neg gi workup last year depression-continue home meds. Pneumonia -need? IV antibiotics for acute pneumonia ,blood culture wait to be neg@48hrs,also may need Gi workkup for anemia Time Spent With Patient Time: Total time managing care of this patient today ____ minutes. Quality Stroke Does the patient have a stroke diagnosis?: No VTE Prior VTE?: No VTE Risk Level:: Medical - moderate - high VTE Device Contraindication: Treatment Not Indicated VTE Drug Contraindication: N/A - Med Ordered
[2023-02-20 14:35] LABS: OBS Int Ctl Valid YES; OBS1 NEGATIVE (NEGATIVE)
[2023-02-20 15:35] LABS: Hematocrit 25.9 % (37.0-47.0); Hemoglobin 8.5 g/dl (12.0-16.0)
[2023-02-20 16:01] VITALS: BP 133/60; PULSE 100; RESP 18; TEMP 36.3; O2SAT 95
[2023-02-20 19:43] VITALS: BP 127/58; PULSE 100; RESP 16; TEMP 36.2; O2SAT 93
[2023-02-20] MEDS: Mirtazapine 15 MG TABLET PO (21:16)
[2023-02-20] MEDS: Sennosides 8.6 MG TABLET 17.2 MG PO (21:16)
[2023-02-20] MEDS: LORazepam 0.5 MG TABLET PO (23:11)
[2023-02-21] MEDS: cefTRIAXone sodium 1 GM in 0.9 % Sodium Chloride 50 ML IV (01:53)
[2023-02-21] MEDS: Heparin Sodium,Porcine 5,000 UNIT/ML VIAL 5000 UNIT SUBCUT (01:54)
[2023-02-21] MEDS: Azithromycin 500 MG in 0.9 % Sodium Chloride 250 ML 125 MG IV (02:38)
[2023-02-21 03:05] VITALS: BP 145/65; PULSE 95; RESP 16; TEMP 36.4; O2SAT 95
[2023-02-21] MEDS: Omeprazole 20 MG CAPSULE.DR PO (06:01)
[2023-02-21 07:41] VITALS: BP 128/58; PULSE 97; RESP 16; TEMP 36.8; O2SAT 93
--- NOTE | 2023-02-21 08:06 | P.DS_ITS ---
DS: Providers Provider Date of Service: 02/21/23 Date of admission: 02/18/23 01:55 Date of discharge: 02/21/23 Primary care physician: Angi Bartlett MD Consults: 02/20/23 09:19 Consult to Gastroenterology Routine Consulting Provider: Nikunj David Reason for consultation: Anemia Has provider been notified: No Attending physician on discharge: Syed Laughlin Discharging clinician: Syed Laughlin DS: Diagnosis Discharge Diagnosis (1) Community acquired pneumonia: Status: Acute (2) Pneumonia: Status: Acute DS: Summary Hospital Course Hospital Course: date of service and discharge : 02/21/23 77-year-old female with 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 Patient's daughter give me most of the history as patient Hungarian-speaking only, and refers to her daughter for information.? Daughter reports that patient has been having fever for the past 2 days, patient also reports shortness of breath, denies any chest pain, no abdominal pain nausea vomiting, no diarrhea constipation, no urinary symptoms.? Reports temperature at home was found to be 103 On arrival to the ED patient found to have a temperature of 100.4 heart rate of 115, blood pressure stable, satting 93% on room air Labs are significant for WBC count of 6.0, hemoglobin of 9.3, hematocrit 27.5, sodium 131, potassium of 5.2, UA positive for leukocyte Estrace, WBC, no bacteria Chest x-ray shows left lower lobe airspace opacity with a small left-sided pleural effusion concerning for pneumonia Patient started on antibiotics will be admitted for further management. Hospital course: Patient came to the hospital because of fever and shortness of breath, further lab work and imaging done: Patient was found to have pneumonia, started on IV antibiotics, blood cultures sent. In addition patient was found to have anemia normocytic. With IV antibiotics-her shortness of breath seems to be improved significantly walking fine and saturations are also fine. Patient will go home with p.o. antibiotics Ceftin and azithromycin . Please repeat chest imaging in 3-4 weeks to see resolution of pneumonia. Normocytic anemia: Patient denies any gross blood loss or melena. patient has metastatic disease Her stool occult blood is negative, she had GI workup including EGD and colonoscopy last year-which seems to be fine(has GERD and diverticulosis). H&H is stable around 8.5 range. Her metastatic disease might be contributing to anemia also. Patient has appointment out patiently in [place]. Consider GI workup outpatient if needed. Monitor CBC in 1 week. plan: Please complete the course of antibiotics Ceftin and azithromycin for 7 days . Please repeat chest imaging in 3-4 weeks to see resolution of pneumonia. for anemia:Monitor CBC in 1 week.Consider GI workup outpatient if needed. Above management discussed with the patient in detail length she understand and in agreement with the above plan, time spent 50 minutes and 50% time spent on counseling. Time Spent with Patient Time attestation: Total time managing care of this patient today ____ minutes. Discharge coordination time: Greater than 30 minutes Quality: Safe Use of Opioids Does Pt have an Active Cancer Diagnosis on the Problem List?: Yes Opioid Measure Date for [facility] Report: 01/22/23 Opioid Measure Time for [facility] Report: 11:53 Quality: Stroke Does the patient have a stroke diagnosis?: No Physical Exam Vital Signs: Vital Signs: Last Vital Signs Temp 98.2 F 02/21/23 07:41 Pulse 97 02/21/23 07:41 Resp 16 02/21/23 07:41 BP 128/58 L 02/21/23 07:41 Pulse Ox 93 02/21/23 07:41 O2 Del Method Room Air 02/21/23 07:41 O2 Flow Rate 2 02/20/23 07:13 BMI result Body Mass Index 19.7 Appearance: Alert.? Oriented X3. cvs: rrr, [id number] , no murmur res: air entry somwhat diminshed ,some rhinchii at bases. abd: no rebound or guarding ,nt, bs present. ext pulses present , no cyanosis . neuro: axo3 , nonfocal DS: Data Data Completed and Pending Labs on day of discharge: Laboratory Results - last 24 hr 02/20/23 02/20/23 02/20/23 09:29 09:30 09:30 Hgb Hct Iron 58 TIBC 150 L % Saturation 39 Unsat Iron Binding 92 Ferritin 4605 H Vitamin B12 230 Folate 7.1 Stool Occult Blood 02/20/23 02/20/23 14:05 15:28 Hgb 8.5 L Hct 25.9 L Iron TIBC % Saturation Unsat Iron Binding Ferritin Vitamin B12 Folate Stool Occult Blood NEGATIVE Preliminary micro results at discharge 02/17/23 21:12 Blood Culture - Preliminary Blood - Venous No growth after 48 hours. 02/17/23 21:12 Blood Culture - Preliminary Blood - Venous No growth after 48 hours. Imaging Chest x-ray: Radiologist's impression: ITS Impressions Chest X-Ray 02/17/23 21:30 IMPRESSION: New retrocardiac and left lower lobe airspace opacities with a small left-sided pleural effusion concerning for pneumonia. A follow-up chest CT after treatment is recommended to ensure resolution. Pulmonary nodules described on the prior CT are too small to characterize by radiograph; attention on follow-up with the above recommended chest CT is recommended to rule out malignancy. Discharge Plan Discharge Anticipated Discharge Date/Time: 02/21/23 07:57 Patient Disposition: Home Health Service Discharge Diagnosis: pneumonia ,anemia Referrals: Angi Velazquez MD [Primary Care Provider] - 1 Week Discharge Medications: New cefuroxime axetil 500 mg tablet 500 mg PO Q12H Qty: 14 0RF azithromycin 500 mg tablet 500 mg PO DAILY 6 Days Qty: 6 0RF hydromorphone [Dilaudid] 2 mg tablet 2 mg PO Q6H PRN (Reason: pain) Qty: 14 0RF Rx Instructions: Partial Fill upon patient request. Continued (DME) cane Device See Rx Instructions .ROUTE .MEDSUPPLY Qty: 1 0RF Rx Instructions: As directed (DME) [facility] See Rx Instructions .ROUTE .MEDSUPPLY Qty: 1 0RF Rx Instructions: As directed fluticasone propionate [Flonase Allergy Relief] 50 mcg/actuation spray,suspension 1 spray intranasal DAILY 30 Days Qty: 16 0RF Rx Instructions: administer into each nostril mirtazapine 15 mg tablet 15 mg PO BEDTIME 90 Days Qty: 90 0RF hydrocortisone 2.5 % cream with perineal applicator 1 appl topical BID PRN (Reason: Pain) pantoprazole 40 mg tablet,delayed release (DR/EC) 40 mg PO DAILY@0630 lidocaine 5 % adhesive patch,medicated 3 patch topical DAILY Rx Instructions: apply to thigh, hip, and back simethicone [Gas Relief Extra Strength] 125 mg tablet,chewable 125 mg PO Q6H PRN (Reason: gas) acetaminophen [Tylenol Arthritis Pain] 650 mg tablet extended release 650 mg PO Q8H PRN (Reason: Pain) cyanocobalamin (vitamin B-12) 1,000 mcg/mL solution 1,000 mcg IM QMONTH Patient Comments: PER PATIENT'S GRANDOPAL, DUE 02/18/23 bisacodyl [Dulcolax (bisacodyl)] 10 mg Suppository 10 mg CA DAILY PRN (Reason: Constipation) ondansetron HCl 4 mg tablet 4 mg PO Q8H PRN (Reason: Nausea And Vomiting) escitalopram oxalate 10 mg tablet 10 mg PO DAILY sennosides [senna] 8.6 mg tablet 17.2 mg PO BEDTIME polyethylene glycol 3350 [Miralax] 17 gram/dose powder 17 g PO DAILY lorazepam 0.5 mg tablet 0.5 mg PO BEDTIME PRN (Reason: Anxiety) cholecalciferol (vitamin D3) [Vitamin D3] 50 mcg (2,000 unit) capsule 50 mcg PO DAILY 90 Days Qty: 90 1RF thiamine HCl (vitamin B1) 100 mg tablet 100 mg PO DAILY 30 Days Qty: 30 0RF ezetimibe 10 mg tablet 10 mg PO DAILY 90 Days Qty: 90 1RF (DME) Easy Touch SheathLock Syrg-Ndl 3 mL 21 gauge x 1 1/2 syringe See Rx Instructions .ROUTE .MEDSUPPLY Qty: 1 2RF Rx Instructions: As directed (DME) bedside commode Kit See Rx Instructions .Route Qty: 1 0RF Rx Instructions: As directed (DME) ENSURE Drink 1 can a day See Rx Instructions .Route .MEDSUPPLY Qty: 30 5RF Rx Instructions: As directed docusate sodium [Colace] 100 mg capsule 100 mg PO BID PRN (Reason: constipation) Qty: 20 0RF Discontinued oxycodone [OxyContin] 10 mg tablet,oral only,ext.rel.12 hr 10 mg PO BID Qty: 20 0RF Rx Instructions: Partial Fill upon patient request. oxycodone 5 mg tablet 10 mg PO Q4H PRN (Reason: Moderate Pain (Scale Score 5-6)) Discharge Orders: Discharge Order (Routine); Ordered 02/21/23 Ordered By: Syed Laughlin Diet: Advance to usual diet Activity on Discharge: As tolerated Stand Alone Forms: Patient Portal Discharge page Care Plan Goals: Patient came to the hospital because of fever and shortness of breath, further lab work and imaging done: Patient was found to have pneumonia, started on IV antibiotics, blood cultures sent. In addition patient was found to have anemia normocytic. With IV antibiotics-her shortness of breath seems to be improved significantly walking fine and saturations are also fine. Patient will go home with p.o. antibiotics Ceftin and azithromycin . Please repeat chest imaging in 3-4 weeks to see resolution of pneumonia. Normocytic anemia: Patient denies any gross blood loss or melena. patient has metastatic disease Her stool occult blood is negative, she had GI workup including EGD and colonoscopy last year-which seems to be fine(has GERD and diverticulosis). H&H is stable around 8.5 range. Her metastatic disease might be contributing to anemia also. Patient has appointment out patiently in [place]. Consider GI workup outpatient if needed. Monitor CBC in 1 week. Health Concerns: As above. Plan of Treatment: As above. Assessment: As above.
[2023-02-21] MEDS: 0.9 % Sodium Chloride Flush 3 ML SYRINGE IVFLUSH (08:47)
[2023-02-21] MEDS: polyethylene glycoL 3350 17 GM POWD.PACK PO (08:49)
[2023-02-21] MEDS: Cholecalciferol (Vitamin D3) 25 MCG TABLET 50 MCG PO (08:49)
[2023-02-21] MEDS: Ezetimibe 10 MG TABLET PO (08:50)
[2023-02-21] MEDS: Lidocaine 4 % Patch ADH..PATCH 3 PATCH TRANSDERMA (08:50)
[2023-02-21] MEDS: Escitalopram Oxalate 10 MG TABLET PO (08:50)
[2023-02-21] MEDS: oxyCODONE HCl ER 10 MG TAB.ER.12H PO (08:51)
--- NOTE | 2023-02-21 09:55 | MHC.CM.PN ---
Addendum entered by Sejal Quintana 02/21/23 11:19: ESHA Leal, has referred the patient to the [facility]. She provided the Pts grdtr with contact info. Original Note: Patient planned for discharge today. odered Home services SN+PT. The [facility] declines home services at this time. She has a private pay P.T. in place. The plan is hospice in the near future. She is working with [facility] hospice. DP home with resumption of PT. [facility] has been referred. [employer] night manager Mel, is on the case. Transportation home will be provided by the [facility].
[2023-02-21] MEDS: HYDROmorphone HCl 0.5 MG/0.5 ML SYRINGE IV (12:05)
== END 2023-02-21 12:37 | disposition home health service (06) | DRG 194 ==
LOC: HO.ED 02-18 02:18 → HO.EDOVER 02-18 02:23 → HO.S3 02-18 10:44
PROVIDERS: Physician Assistant; Admitting Provider Internal Medicine; Emergency Provider Emergency Medicine; PCP Internal Medicine; Visit Provider Internal Medicine
DX: J18.9 Pneumonia, unspecified organism (principal); C79.51 Secondary malignant neoplasm of bone; J91.8 Pleural effusion in other conditions classified elsewhere; D63.0 Anemia in neoplastic disease; G89.3 Neoplasm related pain (acute) (chronic); C43.9 Malignant melanoma of skin, unspecified; K21.9 Gastro-esophageal reflux disease without esophagitis; F32.9 Major depressive disorder, single episode, unspecified; Z20.822 Contact with and (suspected) exposure to COVID-19; Z79.51 Long term (current) use of inhaled steroids; Z79.899 Other long term (current) drug therapy
CPT/HCPCS: 0241U; 36415; 71045; 80048; 80053; 81001; 82272; 82607; 82728; 82746; 83540; 83605; 83690; 84484; 85007; 85014; 85018; 85025; 85027; 85610; 85730; 87040; 87086; 93005; 97161; 99285; J0456; J0692; J0696; J1170; J1643; J2270; J2405

== ENCOUNTER → 2023-02-17 20:42 | Outpatient (BNV) | payer OTHER, SELFPAY | PROVIDERS: Admitting Provider Internal Medicine; Emergency Provider Emergency Medicine; PCP Internal Medicine; Visit Provider Internal Medicine Cardiovascular Disease | DX: R00.0 Tachycardia, unspecified (principal); R94.31 Abnormal electrocardiogram [ECG] [EKG] | CPT/HCPCS: 93010 ==

== ENCOUNTER → 2023-02-18 01:55 | Outpatient (BNV) | payer OTHER, SELFPAY | PROVIDERS: Admitting Provider Internal Medicine; Emergency Provider Emergency Medicine; PCP Internal Medicine; Visit Provider Internal Medicine | DX: J18.9 Pneumonia, unspecified organism (principal) | CPT/HCPCS: 99223; 99231; 99232; 99239; 99499 ==

== ENCOUNTER 2023-02-25 16:38 | Emergency (ER) | payer OTHER, SELFPAY ==
--- NOTE | ~2023-02-25 | XR_ITS ---
EXAMINATION: XR CHEST CLINICAL INFORMATION: Assess improving pneumonia. COMPARISON: Chest radiographs dated 02/17/2023 and 02/11/2023, CT scan of the abdomen dated 02/11/2023 TECHNIQUE: Frontal view of the chest was obtained. FINDINGS: Increasing small left pleural effusion with adjacent atelectasis. The right lung is clear. The heart and mediastinal structures are unremarkable. XR/XR chest 1V IMPRESSION: Increasing left pleural effusion and atelectasis. And associated infiltrate cannot be excluded.
--- NOTE | ~2023-02-25 | CT_ITS ---
EXAMINATION: CT CHEST WITHOUT CONTRAST CLINICAL INFORMATION: Pleural effusion, question pneumonia COMPARISON: Multiple priors, most recent chest x-ray from earlier the same day TECHNIQUE: Multidetector volumetric CT imaging of the chest was done. Axial MIP volume rendering provided. Sagittal and coronal reformatted images were obtained. This CT examination was performed using dose optimization techniques as appropriate, variously including the following: *Automated exposure control *Adjustment of mA and/or kV according to patient size (this includes techniques or standardized protocols for targeted exams where dose is matched to indication/reason for exam; i.e. extremities or head) *Use of iterative reconstruction technique DLP: 183 mGy-cm FINDINGS: LUNGS: There are numerous scattered nodules throughout both lungs, some of which measure only a few millimeters and are indistinct, while others are solid and more well-defined. A few of the most prominent nodules measure up to 1.1 cm in the right upper lobe medially on image 109/427, 0.7 cm in the right middle lobe on image 323/427, and 0.7 cm in the left upper lobe anteriorly on image 148/427. There are also regions of interlobular septal thickening most prominently in the bilateral upper lobes. 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 There is dense opacification of the basilar left lower lobe adjacent to a small to moderate pleural effusion, favored to represent atelectasis. Similar region of atelectasis is suspected in the basilar right lower lobe adjacent to a small pleural effusion. MEDIASTINUM: The visualized thyroid gland is unremarkable. No appreciable lymphadenopathy on this noncontrast exam. Cardiac size is within normal limits; no pericardial effusion. Mild scattered calcification along the aorta. CORONARY ARTERY CALCIFICATION: Present PLEURA: Small to moderate left and small right pleural effusions. AXILLA: No lymphadenopathy. UPPER ABDOMEN: Grossly unremarkable. OSSEOUS STRUCTURES: Mild degenerative changes noted in the spine. Questionable subtle lytic lesion in the T9 vertebral body. CT/CT chest wo IV con IMPRESSION: 1. Numerous scattered nodules throughout both lungs, along with regions regions of interlobular septal thickening most prominently in the bilateral upper lobes. 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 2. Small to moderate left and small right pleural effusions. 3. Regions of dense opacification in the basilar lower lobes, favored to represent atelectasis. 4. Questionable subtle lytic lesion in the T9 vertebral body, which could be further assessed with MRI.
[2023-02-25 16:47] VITALS: BP 139/49; PULSE 109; RESP 20; TEMP 37.6; O2SAT 97; BMI 19.7
--- NOTE | 2023-02-25 16:51 | ED_ITS ---
HPI - General Adult General Chief complaint: Fever Stated complaint: Having body pain/ Flu? Time Seen by Provider: 02/25/23 19:05 Source: patient and family Mode of arrival: ambulatory Limitations: no limitations History of Present Illness HPI narrative: Patient with metastatic melanoma on immunotherapy last dose of immunotherapy was on 02/05 patient was admitted on 02/18 and discharged on 02/21 with similar pres entation for low-grade fever and body aches not drinking enough fluids workup was negative except questionable left lower lobe pneumonia and discharge patient on Zithromax and Ceftin patient comes back as again she had low-grade fever at home feeling cold and not drinking enough fluids flu COVID test was negative chest x-ray was done prior to my evaluation showed slightly increase in L pleural effusion Related Data Home Medications Medication Instructions Recorded Confirmed escitalopram oxalate 10 mg tablet 10 mg PO DAILY 02/12/23 02/18/23 lorazepam 0.5 mg tablet 0.5 mg PO BEDTIME PRN Anxiety 02/12/23 02/18/23 polyethylene glycol 3350 17 17 g PO DAILY 02/12/23 02/18/23 gram/dose oral powder (Miralax) sennosides 8.6 mg tablet (senna) 17.2 mg PO BEDTIME 02/12/23 02/18/23 acetaminophen 650 mg 650 mg PO Q8H PRN Pain 02/18/23 02/18/23 tablet,extended release (Tylenol Arthritis Pain) bisacodyl 10 mg rectal suppository 10 mg WA DAILY PRN Constipation 02/18/23 02/18/23 (Dulcolax (bisacodyl)) cyanocobalamin (vitamin B-12) 1,000 mcg IM QMONTH 02/18/23 02/18/23 1,000 mcg/mL injection solution hydrocortisone 2.5 % topical cream 1 appl topical BID PRN Pain 02/18/23 02/18/23 with perineal applicator lidocaine 5 % topical patch 3 patch topical DAILY 02/18/23 02/18/23 ondansetron HCl 4 mg tablet 4 mg PO Q8H PRN Nausea And Vomiting 02/18/23 02/18/23 pantoprazole 40 mg tablet,delayed 40 mg PO DAILY@0630 02/18/23 02/18/23 release simethicone 125 mg chewable tablet 125 mg PO Q6H PRN gas 02/18/23 02/18/23 (Gas Relief Extra Strength) Previous Rx's Medication Instructions Recorded cane #1 ea 09/14/20 walker #1 ea 10/20/20 docusate sodium 100 mg capsule 100 mg PO BID PRN constipation #20 08/16/21 (Colace) caps fluticasone propionate 50 1 spray intranasal DAILY 30 days 10/02/22 mcg/actuation nasal #16 grams spray,suspension (Flonase Allergy Relief) mirtazapine 15 mg tablet 15 mg PO BEDTIME 90 days #90 tabs 10/02/22 ENSURE Drink 1 can a day #30 ea 02/12/23 cholecalciferol (vitamin D3) 50 50 mcg PO DAILY 90 days #90 caps 02/12/23 mcg (2,000 unit) capsule (Vitamin D3) commode (bedside commode) #1 ea 02/12/23 ezetimibe 10 mg tablet 10 mg PO DAILY 90 days #90 tabs 02/12/23 syringe with needle, safety 3 mL #1 ea 02/12/23 21 gauge x 1 1/2 (Easy Touch SheathLock Syringe with Needle) thiamine HCl (vitamin B1) 100 mg 100 mg PO DAILY 30 days #30 tabs 02/12/23 tablet azithromycin 500 mg tablet 500 mg PO DAILY 6 days #6 tabs 02/21/23 cefuroxime axetil 500 mg tablet 500 mg PO Q12H #14 tabs 02/21/23 hydromorphone 2 mg tablet 2 mg PO Q6H PRN pain #14 tabs 02/21/23 (Dilaudid) Allergies Allergy/AdvReac Type Severity Reaction Status Date / Time ibuprofen Allergy Mild anaphylaxis, Verified 02/17/23 20:42 hives metronidazole Allergy Mild rash Verified 02/17/23 20:42 naproxen [Aleve] Allergy Mild anaphylaxis, Verified 02/17/23 20:42 hives pravastatin Allergy Mild anaphylaxis Verified 02/17/23 20:42 simvastatin Allergy Mild cramps Verified 02/17/23 20:42 aspirin Allergy Mild swelling Uncoded 02/17/23 20:42 Review of Systems Review of Systems: Yes all other systems are reviewed and are negative PMFSH Past Medical History Medical History Acute medial meniscus tear of left knee B12 deficiency Chronic fatigue Depression Dyslipidemia Effusion, left knee GERD (gastroesophageal reflux disease) HLA B27 (HLA B27 positive) Insomnia Malnutrition 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 depression, single episode Neck pain on right side New daily persistent headache Ophthalmoplegic migraine headache Osteoarthritis of left knee Screening for hypothyroidism Sinusitis Sore throat, chronic Uterine cancer UTI (urinary tract infection) Surgical History History of laparoscopic cholecystectomy History of total abdominal hysterectomy and bilateral salpingo-oophorectomy Family History Family History Mother CVD (cardiovascular disease) Father Lung cancer Son Cancer Sister Lung cancer Brother Colon cancer Social History Social History Household Members: Family Housing: House Alcohol intake: never Patient Tobacco Use Status: Never used Tobacco e-Cigarette/Vaping Use: Never Used Second Hand Smoke Exposure: No Advance Directives: Yes Advance Directives on File: Yes Advance Directives Date on File: 02/13/23 service: No Current occupational status: retired Current occupation: rt handed Cognitive needs: No Hearing needs: No Vision needs: Yes Physical Exam ED Vital Signs: Vital Signs - 24 hr 02/25/23 16:47 02/25/23 17:31 02/25/23 18:32 Temperature 99.6 F 100.6 F H Pulse Rate 109 H 98 Respiratory Rate 20 19 Blood Pressure 139/49 L 121/46 L Pulse Oximetry 97 96 Oxygen Delivery Method Room Air Room Air 02/25/23 22:32 Temperature 99.3 F Pulse Rate 95 Respiratory Rate 17 Blood Pressure 137/50 L Pulse Oximetry 95 Oxygen Delivery Method Room Air BMI result Body Mass Index 19.7 Appearance: Alert. Oriented X3. No acute distress. Eyes: PERRLA, No Nystagmus ENT: Pharynx normal. Oral Mucosa moist Neck: Normal inspection. Neck supple. CVS: Normal heart rate and rhythm. Pulses normal. Respiratory: No respiratory distress. Decreased air entry left lower base, , no wheezing/rales/rhonchi Abdomen: Soft and nontender. Bowel sounds are present, no mass palpable, no CVA tenderness Skin: Skin warm and dry. Normal skin color. Normal skin turgor. Extremities: No lower extremity edema. No calf tenderness Neuro: Oriented X 3. No motor deficit. No sensory deficit.No cerebellar signs , cranial nerves II-XII intact Course Course Course Narrative: RME: 77 yold female presents to the ED for boydaches, chills, weakness, and headache. patient has known pneumonia. labs, xray ordered Medications Administered Discontinued Medications Generic Name Dose Route Start Last Admin Trade Name Freq PRN Reason Stop Dose Admin Acetaminophen 650 mg 02/25/23 18:10 02/25/23 18:19 Acetaminophen 325 Mg Tablet PO 02/25/23 18:11 650 mg ONCE ONE Administration Sodium Chloride 1,000 mls @ 999 mls/hr 02/25/23 19:22 02/25/23 21:21 Ns IV 02/25/23 20:22 Infused .Q1H1M ONE Infusion Medical Decision Making Medical Decision Making [facility] Narrative: Patient workup is negative had pleural effusion without any pneumonia cause of fever likely medications will discharge patient home Lab Data [facility] Lab Attestation statement: I reviewed the patient's lab results. 02/25/23 16:58 02/25/23 16:58 Labs: Lab Results 02/25/23 02/25/23 02/25/23 Range/Units 16:58 16:58 16:58 WBC 7.5 (4.8-10.8) X10*3/uL RBC 2.83 L (4.20-5.50) X10*6/uL Hgb 8.6 L (12.0-16.0) g/dl Hct 26.2 L (37.0-47.0) % MCV 92.6 (80.0-98.0) fL MCH 30.4 (27.0-33.0) pg MCHC 32.8 (31.0-35.0) g/dl RDW 15.0 (11.0-16.0) % Plt Count 304 D (160-400) X10*3/uL MPV 9.8 (9.4-12.3) fL Immature Gran % (Auto) Cancelled Neut % (Auto) Cancelled Lymph % (Auto) Cancelled Wharton % (Auto) Cancelled Eos % (Auto) Cancelled Baso % (Auto) Cancelled Lymph # (Auto) Cancelled Wharton # (Auto) Cancelled Eos # (Auto) Cancelled Baso # (Auto) Cancelled Abs Immat Gran (auto) Cancelled Absolute Neuts (auto) Cancelled Absolute Nucleated RBC 0.060 H (0.0-0.012) X10*3/uL Nucleated RBC % (auto) 0.8 H (0.0-0.2) /100WBC Neutrophils % (Manual) 75 H (45-73) % Lymphocytes % (Manual) 16 L (20-40) % Monocytes % (Manual) 8 (2-11) % Eosinophils % (Manual) 1 (0-4) % Abs Neuts (Manual) 5.6 (2.0-8.3) X10*3/uL Lymphocytes # (Manual) 1.2 (1.2-4.9) X10*3/uL Monocytes # (Manual) 0.6 (0.1-1.2) X10*3/uL Eosinophils # (Manual) 0.1 (0.0-0.4) X10*3/uL Nucleated RBCs 1 H (0-0) /100WBC Platelet Estimate NORMAL (NORMAL) Plt Morphology Comment NORMAL RBC Morphology NORMAL Sodium 135 (135-145) mmol/L Potassium 4.1 (3.3-5.1) mmol/L Chloride 99 (96-108) mmol/L Carbon Dioxide 27 (22-29) mmol/L Anion Gap 13 (12-20) BUN 7 L (9-16) mg/dL Creatinine 0.79 (0.5-1.4) mg/dL Estim Creat Clear Calc 49.8 Estimated GFR > 60 Random Glucose 116 H (60-115) mg/dL Calcium 10.1 D (8.4-10.2) mg/dL Total Bilirubin 0.5 (0.0-1.0) mg/dL AST 24 (5-31) U/L ALT 18 (0-31) U/L Alkaline Phosphatase 118 H (39-117) U/L Total Protein 7.0 (6.5-8.0) g/dL Albumin 3.4 L (3.5-5.0) g/dL Influenza Type A (PCR) NEGATIVE (Negative) Influenza Type B (PCR) NEGATIVE (Negative) RSV RNA Qual (PCR) NEGATIVE (Negative) SARS-CoV-2 RNA (RT-PCR) NEGATIVE (Negative) Discharge Plan Discharge Clinical Impression: Fever, 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 Patient Disposition: Home, Self-Care Instructions: Melanoma (DC), Fever in Adults (ED) Additional Instructions: Take Tylenol for fever which is likely from medications Drink plenty of fluids Prescriptions: No Action (DME) cane Device See Rx Instructions .ROUTE .MEDSUPPLY Qty: 1 0RF Rx Instructions: As directed (DME) [facility]oselito [facility] See Rx Instructions .ROUTE .MEDSUPPLY Qty: 1 0RF Rx Instructions: As directed fluticasone propionate [Flonase Allergy Relief] 50 mcg/actuation spray,ricardo pension 1 spray intranasal DAILY 30 Days Qty: 16 0RF Rx Instructions: administer into each nostril mirtazapine 15 mg tablet 15 mg PO BEDTIME 90 Days Qty: 90 0RF hydrocortisone 2.5 % cream with perineal applicator 1 appl topical BID PRN (Reason: Pain) pantoprazole 40 mg tablet,delayed release (DR/EC) 40 mg PO DAILY@0630 lidocaine 5 % adhesive patch,medicated 3 patch topical DAILY Rx Instructions: apply to thigh, hip, and back simethicone [Gas Relief Extra Strength] 125 mg tablet,chewable 125 mg PO Q6H PRN (Reason: gas) acetaminophen [Tylenol Arthritis Pain] 650 mg tablet extended release 650 mg PO Q8H PRN (Reason: Pain) cyanocobalamin (vitamin B-12) 1,000 mcg/mL solution 1,000 mcg IM QMONTH Patient Comments: PER PATIENT'S [facility] 02/18/23 bisacodyl [Dulcolax (bisacodyl)] 10 mg Suppository 10 mg WA DAILY PRN (Reason: Constipation) ondansetron HCl 4 mg tablet 4 mg PO Q8H PRN (Reason: Nausea And Vomiting) cefuroxime axetil 500 mg tablet 500 mg PO Q12H Qty: 14 0RF azithromycin 500 mg tablet 500 mg PO DAILY 6 Days Qty: 6 0RF hydromorphone [Dilaudid] 2 mg tablet 2 mg PO Q6H PRN (Reason: pain) Qty: 14 0RF Rx Instructions: Partial Fill upon patient request. escitalopram oxalate 10 mg tablet 10 mg PO DAILY sennosides [senna] 8.6 mg tablet 17.2 mg PO BEDTIME polyethylene glycol 3350 [Miralax] 17 gram/dose powder 17 g PO DAILY lorazepam 0.5 mg tablet 0.5 mg PO BEDTIME PRN (Reason: Anxiety) cholecalciferol (vitamin D3) [Vitamin D3] 50 mcg (2,000 unit) capsule 50 mcg PO DAILY 90 Days Qty: 90 1RF thiamine HCl (vitamin B1) 100 mg tablet 100 mg PO DAILY 30 Days Qty: 30 0RF ezetimibe 10 mg tablet 10 mg PO DAILY 90 Days Qty: 90 1RF (DME) Easy Touch SheathLock Syrg-Ndl 3 mL 21 gauge x 1 1/2 syringe See Rx Instructions .ROUTE .MEDSUPPLY Qty: 1 2RF Rx Instructions: As directed (DME) bedside commode Kit See Rx Instructions .Route Qty: 1 0RF Rx Instructions: As directed (DME) ENSURE Drink 1 can a day See Rx Instructions .Route .MEDSUPPLY Qty: 30 5RF Rx Instructions: As directed docusate sodium [Colace] 100 mg capsule 100 mg PO BID PRN (Reason: constipation) Qty: 20 0RF Interventions: ED Discharge Assessment Last Done: 02/25/23 22:46 Discharge Date/Time: 02/25/23 22:47
[2023-02-25 17:15] LABS: Hematocrit 26.2 % (37.0-47.0); Hemoglobin 8.6 g/dl (12.0-16.0); Mean Corpuscular HGB Conc 32.8 g/dl (31.0-35.0); Mean Corpuscular Hemoglobin 30.4 pg (27.0-33.0); Mean Corpuscular Volume 92.6 fL (80.0-98.0); Mean Platelet Volume 9.8 fL (9.4-12.3); NRBC Pct Auto 0.8 /100WBC (0.0-0.2); Platelet Count 304 X10*3/uL (160-400); Red Blood Count 2.83 X10*6/uL (4.20-5.50); White Blood Count 7.5 X10*3/uL (4.8-10.8)
[2023-02-25 17:31] VITALS: TEMP 38.1
[2023-02-25 17:51] LABS: Influenza A PCR NEGATIVE (Negative); Influenza B PCR NEGATIVE (Negative); Resp Syncy Virus RNA Qual PCR NEGATIVE (Negative); SARS COV2 PCR INHOUSE NEGATIVE (Negative)
[2023-02-25 17:55] LABS: Alanine Aminotransferase 18 U/L (0-31); Albumin Level 3.4 g/dL (3.5-5.0); Alkaline Phosphatase 118 U/L (39-117); Anion Gap 13 (12-20); Aspartate Amino Transferase 24 U/L (5-31); Bilirubin Total 0.5 mg/dL (0.0-1.0); Blood Urea Nitrogen 7 mg/dL (9-16); Calcium 10.1 mg/dL (8.4-10.2); Carbon Dioxide 27 mmol/L (22-29); Chloride 99 mmol/L (96-108); Creatinine Clr Calc Pharmacy 49.8; Estimated Glomerular Filt Rate > 60; Glucose Random 116 mg/dL (60-115); Potassium 4.1 mmol/L (3.3-5.1); Sodium 135 mmol/L (135-145)
[2023-02-25 17:56] LABS: Eosinophils Absolute Manual 0.1 X10*3/uL (0.0-0.4); Eosinophils Percent Manual 1 % (0-4); Lymphocytes Absolute Manual 1.2 X10*3/uL (1.2-4.9); Lymphocytes Percent Manual 16 % (20-40); Monocytes Absolute Manual 0.6 X10*3/uL (0.1-1.2); Monocytes Percent Manual 8 % (2-11); Neutrophils Percent Manual 75 % (45-73); Nucleated Red Blood Cells 1 /100WBC (0-0); Platelet Estimate NORMAL (NORMAL); Platelet Morphology Comment NORMAL; RBC Morphology NORMAL
[2023-02-25 18:19] LABS: Neutrophils Absolute Manual 5.6 X10*3/uL (2.0-8.3)
[2023-02-25] MEDS: Acetaminophen 325 MG TABLET 650 MG PO (18:19)
[2023-02-25 18:32] VITALS: BP 121/46; PULSE 98; RESP 19; O2SAT 96
[2023-02-25] MEDS: 0.9 % Sodium Chloride 1,000 ML 999 ML IV (19:35)
[2023-02-25 22:32] VITALS: BP 137/50; PULSE 95; RESP 17; TEMP 37.4; O2SAT 95
== END 2023-02-25 22:47 | disposition home or self-care (01) ==
PROVIDERS: Physician Assistant; Emergency Provider Internal Medicine; PCP Internal Medicine
DX: J18.9 Pneumonia, unspecified organism (principal); R50.9 Fever, unspecified; M79.10 Myalgia, unspecified site; M54.6 Pain in thoracic spine; Z20.822 Contact with and (suspected) exposure to COVID-19; Z20.828 Contact with and (suspected) exposure to other viral communicable diseases; Z79.899 Other long term (current) drug therapy
CPT/HCPCS: 0241U; 71045; 71250; 80053; 85007; 85027; 99284

== ENCOUNTER 2023-02-27 16:04 | Outpatient (AMB) | payer OTHER, SELFPAY ==
--- NOTE | 2023-02-27 16:06 | AM.OFFVISNUR ---
Intake Intake Visit Reasons: B12 Allergies ibuprofen Allergy (Mild, Verified 02/17/23 20:42) anaphylaxis, hives metronidazole Allergy (Mild, Verified 02/17/23 20:42) rash naproxen [Aleve] Allergy (Mild, Verified 02/17/23 20:42) anaphylaxis, hives pravastatin Allergy (Mild, Verified 02/17/23 20:42) anaphylaxis simvastatin Allergy (Mild, Verified 02/17/23 20:42) cramps aspirin Allergy (Mild, Uncoded 02/17/23 20:42) swelling Office Meds cyanocobalamin (vitamin B-12) Performing Provider: Angi Bartlett MD Administered by: Rosangela Hilario RN on 02/27/23 16:13 Dose Route Admin Location Lot Number Expiration Date [place] Loss Claim Clerk 1,000 mcg IM left deltoid [id number] 04/07/24 [id number] [employer] Coding Diagnoses Assessment & Plan Assessment & Plan Orders: Orders AMB Vitamin B12 Injection Patient Supplied Today E53.8 - Deficiency of other specified B group vitamins Medications: Discontinued ondansetron HCl 4 mg PO Q8H 20 tabs 0RF acetaminophen ER 650 mg PO Q8H 30 days 90 tabs 0RF pain M17.12 - Unilateral primary osteoarthritis, left knee cyanocobalamin (vitamin B-12) 1,000 mcg IM .once a month 30 days 1 mL 6RF E53.8 - Deficiency of other specified B group vitamins
== END 2023-02-27 16:14 | disposition home or self-care (01) ==
LOC: HO.HMGH 16:04
PROVIDERS: PCP Internal Medicine; Visit Provider Internal Medicine
DX: E53.8 Deficiency of other specified B group vitamins (principal)
CPT/HCPCS: 96372; J3420

== ENCOUNTER 2023-03-11 18:19 | Emergency (ER) | payer OTHER, SELFPAY ==
--- NOTE | ~2023-03-11 | XR_ITS ---
EXAMINATION: XR CHEST CLINICAL INFORMATION: Fever and weakness COMPARISON: 02/25/2023 TECHNIQUE: 2 views of the chest were obtained. FINDINGS: Increased interstitial markings and vascularity distribution with left lower lobe opacity due to pleural effusion and possible airspace disease. XR/XR chest 2V IMPRESSION: CHF with pleural effusion.
[2023-03-11 18:22] VITALS: BP 134/45; PULSE 119; RESP 20; TEMP 37.7; O2SAT 94; BMI 19.6
--- NOTE | 2023-03-11 18:22 | ED_ITS ---
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 last dose was 4 days ago and radiation treatment started 2 weeks ago received 1 0 days of radiation , noticed to have nausea vomiting for last 3 days and temperature of 102 degrees earlier today fever is typical for her after immunotherapy patient been here multiple times with same symptoms and received IV hydration blood culture been negative patient received Tylenol prior to arrival afebrile on arrival patient denies any significant abdominal pain no urinary symptoms no upper respiratory symptoms no cough Related Data Home Medications Medication Instructions Recorded Confirmed escitalopram oxalate 10 mg tablet 10 mg PO DAILY 02/12/23 02/18/23 lorazepam 0.5 mg tablet 0.5 mg PO BEDTIME PRN Anxiety 02/12/23 02/18/23 polyethylene glycol 3350 17 17 g PO DAILY 02/12/23 02/18/23 gram/dose oral powder (Miralax) sennosides 8.6 mg tablet (senna) 17.2 mg PO BEDTIME 02/12/23 02/18/23 acetaminophen 650 mg 650 mg PO Q8H PRN Pain 02/18/23 02/18/23 tablet,extended release (Tylenol Arthritis Pain) bisacodyl 10 mg rectal suppository 10 mg PA DAILY PRN Constipation 02/18/23 02/18/23 (Dulcolax (bisacodyl)) cyanocobalamin (vitamin B-12) 1,000 mcg IM QMONTH 02/18/23 02/18/23 1,000 mcg/mL injection solution hydrocortisone 2.5 % topical cream 1 appl topical BID PRN Pain 02/18/23 02/18/23 with perineal applicator lidocaine 5 % topical patch 3 patch topical DAILY 02/18/23 02/18/23 ondansetron HCl 4 mg tablet 4 mg PO Q8H PRN Nausea And Vomiting 02/18/23 02/18/23 pantoprazole 40 mg tablet,delayed 40 mg PO DAILY@0630 02/18/23 02/18/23 release simethicone 125 mg chewable tablet 125 mg PO Q6H PRN gas 02/18/23 02/18/23 (Gas Relief Extra Strength) Previous Rx's Medication Instructions Recorded cane #1 ea 09/14/20 walker #1 ea 10/20/20 docusate sodium 100 mg capsule 100 mg PO BID PRN constipation #20 08/16/21 (Colace) caps fluticasone propionate 50 1 spray intranasal DAILY 30 days 10/02/22 mcg/actuation nasal #16 grams spray,suspension (Flonase Allergy Relief) mirtazapine 15 mg tablet 15 mg PO BEDTIME 90 days #90 tabs 10/02/22 ENSURE Drink 1 can a day #30 ea 02/12/23 cholecalciferol (vitamin D3) 50 50 mcg PO DAILY 90 days #90 caps 02/12/23 mcg (2,000 unit) capsule (Vitamin D3) commode (bedside commode) #1 ea 02/12/23 ezetimibe 10 mg tablet 10 mg PO DAILY 90 days #90 tabs 02/12/23 syringe with needle, safety 3 mL #1 ea 02/12/23 21 gauge x 1 1/2 (Easy Touch SheathLock Syringe with Needle) azithromycin 500 mg tablet 500 mg PO DAILY 6 days #6 tabs 02/21/23 cefuroxime axetil 500 mg tablet 500 mg PO Q12H #14 tabs 02/21/23 hydromorphone 2 mg tablet 2 mg PO Q6H PRN pain #14 tabs 02/21/23 (Dilaudid) thiamine HCl (vitamin B1) 100 mg 100 mg PO DAILY 30 days #30 tabs 03/07/23 tablet Allergies Allergy/AdvReac Type Severity Reaction Status Date / Time ibuprofen Allergy Mild anaphylaxis, Verified 03/11/23 18:21 hives metronidazole Allergy Mild rash Verified 03/11/23 18:21 naproxen [Aleve] Allergy Mild anaphylaxis, Verified 03/11/23 18:21 hives pravastatin Allergy Mild anaphylaxis Verified 03/11/23 18:21 simvastatin Allergy Mild cramps Verified 03/11/23 18:21 aspirin Allergy Mild swelling Uncoded 02/17/23 20:42 Review of Systems Review of Systems: Yes all other systems are reviewed and are negative PMFSH Past Medical History Medical History Acute medial meniscus tear of left knee B12 deficiency Chronic fatigue Depression Dyslipidemia Effusion, left knee GERD (gastroesophageal reflux disease) HLA B27 (HLA B27 positive) Insomnia Malnutrition 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 depression, single episode Neck pain on right side New daily persistent headache Ophthalmoplegic migraine headache Osteoarthritis of left knee Screening for hypothyroidism Sinusitis Sore throat, chronic Uterine cancer UTI (urinary tract infection) Surgical History History of laparoscopic cholecystectomy History of total abdominal hysterectomy and bilateral salpingo-oophorectomy Family History Family History Mother CVD (cardiovascular disease) Father Lung cancer Son Cancer Sister Lung cancer Brother Colon cancer Social History Social History Household Members: Family Housing: House Alcohol intake: never Patient Tobacco Use Status: Never used Tobacco e-Cigarette/Vaping Use: Never Used Second Hand Smoke Exposure: No Advance Directives: Yes Advance Directives on File: Yes Advance Directives Date on File: 02/13/23 service: No Current occupational status: retired Current occupation: rt handed Cognitive needs: No Hearing needs: No Vision needs: Yes Physical Exam Vital Signs: Vital Signs: Last Vital Signs Temp 99.1 F 03/11/23 20:52 Pulse 102 H 03/11/23 20:52 Resp 16 03/11/23 20:52 BP 131/37 L 03/11/23 20:52 Pulse Ox 97 03/11/23 20:52 O2 Del Method Room Air 03/11/23 20:52 BMI result Body Mass Index 19.6 Appearance: Alert. Oriented X3. No acute distress. Eyes: PERRLA, No Nystagmus ENT: Pharynx normal. Oral Mucosa moist Neck: Normal inspection. Neck supple. CVS: Normal heart rate and rhythm. Pulses normal. Respiratory: No respiratory distress. Equal air entry bilateral, no wheezing/rales/rhonchi Abdomen: Soft and nontender. Bowel sounds are present, no mass palpable, no CVA tenderness Skin: Skin warm and dry. Normal skin color. Normal skin turgor. Extremities: No lower extremity edema. No calf tenderness Neuro: Oriented X 3. No motor deficit. No sensory deficit.No cerebellar signs , cranial nerves II-XII intact Course Course Course Narrative: This is a rapid medical exam. Deferred additional HPI, ROS, PE to primary pia [email or web address]. 77 yo female with history of metastatic melanoma currently on immunotherapy here with complaints of vomiting, abdominal pain x several days, body aches. Fever 102F today at home. Gave tylenol 650mg tylenol at home just 30 minutes. Currently receiving radiation in [facility] (last radiation Sunday), immunotherapy (6 weeks ago). Temp 99.8 on triage, tachycardic. Will obtain labs, EKG, CXR, COVID screen, UA Medications Administered Discontinued Medications Generic Name Dose Route Start Last Admin Trade Name Freq PRN Reason Stop Dose Admin Acetaminophen 325 mg 03/11/23 19:38 03/11/23 20:16 Acetaminophen 325 Mg Tablet PO 03/11/23 19:39 325 mg ONCE ONE Administration Sodium Chloride 1,000 mls @ 999 mls/hr 03/11/23 18:27 03/11/23 19:22 Ns IV 03/11/23 19:27 999 mls/hr .Q1H1M STA Administration Sodium Chloride 1,000 mls @ 999 mls/hr 03/11/23 19:01 03/11/23 19:23 Ns IV 03/11/23 20:01 999 mls/hr .Q1H1M ONE Administration Ondansetron HCl 4 mg 03/11/23 18:54 03/11/23 19:23 Ondansetron Hcl 4 Mg/2 Ml Vial IVPUSH 03/11/23 18:55 4 mg ONCE ONE Administration Medical Decision Making Medical Decision Making [facility] Narrative: Patient with fever post immunotherapy and dehydration after radiation treatment is improved after IV fluids discharge patient home advised to follow with oncologist had normal lactic acid no signs of sepsis Differential Diagnosis Differential Diagnoses: The differential diagnosis associated with the presentation includes Sepsis/viral/chemotherapy-induced fever/dehydration Lab Data [facility] Lab Attestation statement: I reviewed the patient's lab results. 03/11/23 19:18 03/11/23 19:18 Labs: Lab Results 03/11/23 03/11/23 03/11/23 Range/Units 19:17 19:18 19:18 WBC 6.8 (4.8-10.8) X10*3/uL RBC 2.47 L (4.20-5.50) X10*6/uL Hgb 7.5 L (12.0-16.0) g/dl Hct 22.5 L (37.0-47.0) % MCV 91.1 (80.0-98.0) fL MCH 30.4 (27.0-33.0) pg MCHC 33.3 (31.0-35.0) g/dl RDW 15.9 (11.0-16.0) % Plt Count 181 D (160-400) X10*3/uL MPV 10.0 (9.4-12.3) fL Immature Gran % (Auto) 4.6 H (0.0-0.4) % Neut % (Auto) 71.8 (45-73) % Lymph % (Auto) 11.7 L (20-40) % [place] % (Auto) 11.2 H (2-11) % Eos % (Auto) 0.3 (0-4) % Baso % (Auto) 0.4 (0-2) % Lymph # (Auto) 0.8 L (1.2-4.9) X10*3/uL [place] # (Auto) 0.8 (0.1-1.2) X10*3/uL Eos # (Auto) 0.0 (0.0-0.4) X10*3/uL Baso # (Auto) 0.0 (0.0-0.2) X10*3/uL Abs Immat Gran (auto) 0.31 H (0.00-0.03) X10*3/uL Absolute Neuts (auto) 4.9 (2.0-8.3) x10*3/uL Absolute Nucleated RBC 0.070 H (0.0-0.012) X10*3/uL Nucleated RBC % (auto) 1.0 H (0.0-0.2) /100WBC PT (11.1-13.3) SEC INR (0.9-1.1) Sodium 132 L (135-145) mmol/L Potassium 4.3 (3.3-5.1) mmol/L Chloride 94 L (96-108) mmol/L Carbon Dioxide 27 (22-29) mmol/L Anion Gap 15 (12-20) BUN 16 (9-16) mg/dL Creatinine 1.05 (0.5-1.4) mg/dL Estim Creat Clear Calc 37.1 Estimated GFR 51 Random Glucose 122 H (60-115) mg/dL Lactic Acid 0.8 (0.5-2.0) mmol/L Calcium 10.0 (8.4-10.2) mg/dL Magnesium 1.9 (1.6-2.6) mg/dL Total Bilirubin 1.2 H (0.0-1.0) mg/dL Direct Bilirubin 0.4 (0.0-0.5) mg/dL AST 53 H (5-31) U/L ALT 8 (0-31) U/L Alkaline Phosphatase 134 H (39-117) U/L Troponin I High Sens (<3.5-17.0) ng/L Total Protein 7.6 (6.5-8.0) g/dL Albumin 4.1 (3.5-5.0) g/dL COVID-19 (ANDRA) (Negative) COVID-19 Clin Com 03/11/23 03/11/23 03/11/23 Range/Units 19:18 19:18 19:18 WBC (4.8-10.8) X10*3/uL RBC (4.20-5.50) X10*6/uL Hgb (12.0-16.0) g/dl Hct (37.0-47.0) % MCV (80.0-98.0) fL MCH (27.0-33.0) pg MCHC (31.0-35.0) g/dl RDW (11.0-16.0) % Plt Count (160-400) X10*3/uL MPV (9.4-12.3) fL Immature Gran % (Auto) (0.0-0.4) % Neut % (Auto) (45-73) % Lymph % (Auto) (20-40) % [place] % (Auto) (2-11) % Eos % (Auto) (0-4) % Baso % (Auto) (0-2) % Lymph # (Auto) (1.2-4.9) X10*3/uL [place] # (Auto) (0.1-1.2) X10*3/uL Eos # (Auto) (0.0-0.4) X10*3/uL Baso # (Auto) (0.0-0.2) X10*3/uL Abs Immat Gran (auto) (0.00-0.03) X10*3/uL Absolute Neuts (auto) (2.0-8.3) x10*3/uL Absolute Nucleated RBC (0.0-0.012) X10*3/uL Nucleated RBC % (auto) (0.0-0.2) /100WBC PT 13.8 H (11.1-13.3) SEC INR 1.1 (0.9-1.1) Sodium (135-145) mmol/L Potassium (3.3-5.1) mmol/L Chloride (96-108) mmol/L Carbon Dioxide (22-29) mmol/L Anion Gap (12-20) BUN (9-16) mg/dL Creatinine (0.5-1.4) mg/dL Estim Creat Clear Calc Estimated GFR Random Glucose (60-115) mg/dL Lactic Acid (0.5-2.0) mmol/L Calcium (8.4-10.2) mg/dL Magnesium (1.6-2.6) mg/dL Total Bilirubin (0.0-1.0) mg/dL Direct Bilirubin (0.0-0.5) mg/dL AST (5-31) U/L ALT (0-31) U/L Alkaline Phosphatase (39-117) U/L Troponin I High Sens < 2.7 D (<3.5-17.0) ng/L Total Protein (6.5-8.0) g/dL Albumin (3.5-5.0) g/dL COVID-19 (ANDRA) Negative (Negative) COVID-19 Clin Com See Note Discharge Plan Discharge Clinical Impression: Dehydration due to radiation, Fever Patient Disposition: Home, Self-Care Instructions: Dehydration (ED), Fever in Adults (ED) Additional Instructions: Drink plenty of fluids and follow-up with your PCP/oncologist Tylenol for fever Prescriptions: No Action (DME) cane Device See Rx Instructions .ROUTE .MEDSUPPLY Qty: 1 0RF Rx Instructions: As directed (DME) walker Misc See Rx Instructions .ROUTE .MEDSUPPLY Qty: 1 0RF Rx Instructions: As directed fluticasone propionate [Flonase Allergy Relief] 50 mcg/actuation spray,suspension 1 spray intranasal DAILY 30 Days Qty: 16 0RF Rx Instructions: administer into each nostril mirtazapine 15 mg tablet 15 mg PO BEDTIME 90 Days Qty: 90 0RF thiamine HCl (vitamin B1) 100 mg tablet 100 mg PO DAILY 30 Days Qty: 30 0RF hydrocortisone 2.5 % cream with perineal applicator 1 appl topical BID PRN (Reason: Pain) pantoprazole 40 mg tablet,delayed release (DR/EC) 40 mg PO DAILY@0630 lidocaine 5 % adhesive patch,medicated 3 patch topical DAILY Rx Instructions: apply to thigh, hip, and back simethicone [Gas Relief Extra Strength] 125 mg tablet,chewable 125 mg PO Q6H PRN (Reason: gas) acetaminophen [Tylenol Arthritis Pain] 650 mg tablet extended release 650 mg PO Q8H PRN (Reason: Pain) cyanocobalamin (vitamin B-12) 1,000 mcg/mL solution 1,000 mcg IM QMONTH Patient Comments: PER PATIENT'S CONSTANTINE NICHOLS 02/18/23 bisacodyl [Dulcolax (bisacodyl)] 10 mg Suppository 10 mg PA DAILY PRN (Reason: Constipation) ondansetron HCl 4 mg tablet 4 mg PO Q8H PRN (Reason: Nausea And Vomiting) cefuroxime axetil 500 mg tablet 500 mg PO Q12H Qty: 14 0RF azithromycin 500 mg tablet 500 mg PO DAILY 6 Days Qty: 6 0RF hydromorphone [Dilaudid] 2 mg tablet 2 mg PO Q6H PRN (Reason: pain) Qty: 14 0RF Rx Instructions: Partial Fill upon patient request. escitalopram oxalate 10 mg tablet 10 mg PO DAILY sennosides [senna] 8.6 mg tablet 17.2 mg PO BEDTIME polyethylene glycol 3350 [Miralax] 17 gram/dose powder 17 g PO DAILY lorazepam 0.5 mg tablet 0.5 mg PO BEDTIME PRN (Reason: Anxiety) cholecalciferol (vitamin D3) [Vitamin D3] 50 mcg (2,000 unit) capsule 50 mcg PO DAILY 90 Days Qty: 90 1RF ezetimibe 10 mg tablet 10 mg PO DAILY 90 Days Qty: 90 1RF (DME) Easy Touch SheathLock Syrg-Ndl 3 mL 21 gauge x 1 1/2 syringe See Rx Instructions .ROUTE .MEDSUPPLY Qty: 1 2RF Rx Instructions: As directed (DME) bedside commode Kit See Rx Instructions .Route Qty: 1 0RF Rx Instructions: As directed (DME) ENSURE Drink 1 can a day See Rx Instructions .Route .MEDSUPPLY Qty: 30 5RF Rx Instructions: As directed docusate sodium [Colace] 100 mg capsule 100 mg PO BID PRN (Reason: constipation) Qty: 20 0RF
--- NOTE | 2023-03-11 18:25 | ECG_ITS ---
Test Reason : weakness Blood Pressure : / mmHG Vent. Rate : 105 BPM Atrial Rate : 105 BPM P-R Int : 118 ms QRS Dur : 072 ms QT Int : 310 ms P-R-T Axes : 016 002 034 degrees QTc Int : 409 ms Sinus tachycardia Nonspecific T wave abnormality Abnormal ECG When compared with ECG of 17-FEB-2023 20:58, Nonspecific T wave abnormality has replaced inverted T waves in Inferior leads Nonspecific T wave abnormality no longer evident in Anterolateral leads Referred By: Ronel Taylor Electronically Signed By:MIKE RECINOS
[2023-03-11] MEDS: 0.9 % Sodium Chloride 1,000 ML 999 ML IV ×2 (19:22→19:23)
[2023-03-11] MEDS: ondansetron HCL 4 MG/2 ML VIAL IVPUSH (19:23)
[2023-03-11 19:25] LABS: MANUAL DIFF FLAG NO
[2023-03-11 19:27] LABS: Basophils Percent Auto 0.4 % (0-2); Eosinophils Percent Auto 0.3 % (0-4); Hematocrit 22.5 % (37.0-47.0); Hemoglobin 7.5 g/dl (12.0-16.0); Imm Gran Abs Auto 0.31 X10*3/uL (0.00-0.03); Imm Gran Pct Auto 4.6 % (0.0-0.4); Lymphocytes Absolute Auto 0.8 X10*3/uL (1.2-4.9); Lymphocytes Percent Auto 11.7 % (20-40); Mean Corpuscular HGB Conc 33.3 g/dl (31.0-35.0); Mean Corpuscular Hemoglobin 30.4 pg (27.0-33.0); Mean Corpuscular Volume 91.1 fL (80.0-98.0); Monocytes Absolute Auto 0.8 X10*3/uL (0.1-1.2); Monocytes Percent Auto 11.2 % (2-11); Neutrophils Absolute Auto 4.9 x10*3/uL (2.0-8.3); Neutrophils Percent Auto 71.8 % (45-73); Platelet Count 181 X10*3/uL (160-400); Red Blood Count 2.47 X10*6/uL (4.20-5.50); Red Cell Distribution Width 15.9 % (11.0-16.0); White Blood Count 6.8 X10*3/uL (4.8-10.8)
[2023-03-11 19:31] VITALS: TEMP 38.5
[2023-03-11 19:33] LABS: INTERNATIONAL NORM RATIO 1.1 (0.9-1.1); Prothrombin Time 13.8 SEC (11.1-13.3)
[2023-03-11 19:39] LABS: Lactic Acid 0.8 mmol/L (0.5-2.0)
[2023-03-11 19:44] LABS: Alanine Aminotransferase 8 U/L (0-31); Albumin Level 4.1 g/dL (3.5-5.0); Alkaline Phosphatase 134 U/L (39-117); Anion Gap 15 (12-20); Aspartate Amino Transferase 53 U/L (5-31); Bilirubin Direct 0.4 mg/dL (0.0-0.5); Bilirubin Total 1.2 mg/dL (0.0-1.0); Blood Urea Nitrogen 16 mg/dL (9-16); Carbon Dioxide 27 mmol/L (22-29); Chloride 94 mmol/L (96-108); Creatinine Clr Calc Pharmacy 37.1; Estimated Glomerular Filt Rate 51; Glucose Random 122 mg/dL (60-115); Magnesium 1.9 mg/dL (1.6-2.6); Potassium 4.3 mmol/L (3.3-5.1); Sodium 132 mmol/L (135-145); Total Protein 7.6 g/dL (6.5-8.0)
[2023-03-11 19:47] LABS: COVID-19 Test Negative (Negative); IDNOW Serial# 08D9AD1C
[2023-03-11 19:55] LABS: Troponin-I High Sensitivity < 2.7 ng/L (<3.5-17.0)
[2023-03-11] MEDS: Acetaminophen 325 MG TABLET PO (20:16)
[2023-03-11 20:52] VITALS: BP 131/37; PULSE 102; RESP 16; TEMP 37.3; O2SAT 97
--- NOTE | 2023-03-11 20:56 | MHC.EDTECH ---
patient ambulated to commode with assistance with this PCT.
[2023-03-11] MEDS: LORazepam 0.5 MG TABLET PO (21:19)
== END 2023-03-11 21:50 | disposition home or self-care (01) ==
PROVIDERS: Nurse Practitioner Family; Emergency Provider Internal Medicine; PCP Internal Medicine
DX: E86.0 Dehydration (principal); R00.0 Tachycardia, unspecified; R11.2 Nausea with vomiting, unspecified; R19.7 Diarrhea, unspecified; R50.9 Fever, unspecified; Z20.822 Contact with and (suspected) exposure to COVID-19; Z20.828 Contact with and (suspected) exposure to other viral communicable diseases; Z79.899 Other long term (current) drug therapy
CPT/HCPCS: 36415; 71046; 80048; 80076; 83605; 83735; 84484; 85025; 85610; 87040; 87635; 93005; 99284; 99285; J2405

== ENCOUNTER 2023-04-11 13:04 | Outpatient (AMB) | payer OTHER, SELFPAY ==
--- OUTSIDE RECORDS SUMMARY | 2023-04-11 13:05 | XMS_ITS | Patient Health Record ---
Author Name Unknown Organization [facility] Address [address] [place] [id number] Care Team Providers Care Print Production Associate Name Role Phone Angi Velazquez Primary Care Provider Unavailab Liang Gonsalez Jr Unavailable ALLERGIES Allergen (clinical drug ingredient) Drug/Non Drug Allergy documented on EMR Reaction Allergy Type Onset Date Status aspirin Aspirin Unknown Drug Allergy Active REASON FOR REFERRAL No Information MEDICATIONS Medication SIG (Take, Route, Frequency, Duration) Notes Start Date End Date Status MiraLax (colon prep) 17 GM/SCOOP mixed with Gatorade or Crystal Light Orally begin at 5:00 p.m. the day before the procedure for 1 day 11/16/2021 Active Pantoprazole Sodium 40 MG 1 tablet Orall y Once a day for 30 day(s) 11/16/2021 Active Dicyclomine HCl 10 MG 1 tablet Orally 2- 4 times a day 11/16/2021 Active Vitamin D 50 MCG (1999 UT) 1 tablet Oral ly Once a day for 30 day(s) Active Zetia 10 MG 1 tablet Orally Once a day for 30 day(s) Active IMMUNIZATIONS Vaccine Route Administration Date Status Comme nts Influenza Unknown 05/25/2021 Administered SOCIAL HISTORY Tobacco Use: Social History Observation Description Date Details (start date - stop date) Never Smoker NA - NA Sex Assigned At : Social History Observation Description Sex Assigned At Unknown Tobacco Use/Smoking Question Answer Notes Patient is a nonsmoker Alcohol Screen Question Answer Notes Did you have a drink containing alcohol in the p ast year? No Points 0 Interpretation Negative PROBLEMS Problem Type ICD Code Onset Dates Problem Status W/U Status Risk SNOMED Code Notes Problem Gastroesophageal reflux disease without esophagitis (K21.9) Active confirmed 133885603 Problem Diverticulitis of large intestine without perforation or abscess without bleeding (K57.32) Active confirmed 7531611 Problem Gastroesophageal reflux (K21.9) Active confirmed Esophageal reflux finding (191731434) Problem Diverticulitis (K57.92) Active confirmed Diverticulitis (69633520) PLAN OF TREATMENT Future Test Test Name Order Date UPPER GI ENDOSCOPY 11/16/2021 COLONOSCOPY 11/16/2021 Insurance Providers Payer Name Payer Address Payer Phone Subscriber Number Group Number Insured Name Patient Relationship to Insured Coverage Start Date Coverage End Date MEDICARE OF [place] [address] [place] [phone] [id number] JUNE JOSEPH Self - patient is the insured MEDICAL (GENERAL) HISTORY Medical History History ICD Code uterine cancer Elevated cholesterol B12 deficiency Gastroesophageal reflux disease Depression Surgical History Surgery Date(Month/Year) CHECO/BSO 1998 Cholecystectomy 2011
[2023-04-11 13:08] VITALS: BP 116/50; PULSE 64; O2SAT 97
--- NOTE | 2023-04-11 13:08 | A.OFFVIS_ITS ---
Intake Vital Signs 04/11/23 13:08 BP 116/50 L Blood Pressure Location Rt brachial Position Sitting Pulse 64 Pulse Oximetry (%) 97 Oxygen Delivery Method Room Air Intake Visit Reasons: Dyspnea Screw Remover Required: No Software Quality Test Engineer: Software Quality Test Engineer offered & declined Accompanied by: Grand Child Allergies ibuprofen Allergy (Mild, Verified 04/11/23 13:15) anaphylaxis, hives metronidazole Allergy (Mild, Verified 04/11/23 13:15) rash naproxen [Aleve] Allergy (Mild, Verified 04/11/23 13:15) anaphylaxis, hives pravastatin Allergy (Mild, Verified 04/11/23 13:15) anaphylaxis simvastatin Allergy (Mild, Verified 04/11/23 13:15) cramps aspirin Allergy (Mild, Uncoded 04/11/23 13:15) swelling Medication List - Last Reconciled 04/11/23 by Yenni Castellano LPN acetaminophen ER (Tylenol Arthritis Pain) 650 mg PO Q8H PRN azithromycin 500 mg PO DAILY 6 days bisacodyl (Dulcolax (bisacodyl)) 10 mg DC DAILY PRN cane As directed cefuroxime axetil 500 mg PO Q12H cholecalciferol (vitamin D3) (Vitamin D3) 50 mcg PO DAILY 90 days commode (bedside commode) As directed cyanocobalamin (vitamin B-12) 1,000 mcg IM QMONTH docusate sodium (Colace) 100 mg PO BID PRN [ENSURE Drink 1 can a day As directed] escitalopram oxalate 10 mg PO DAILY ezetimibe 10 mg PO DAILY 90 days fluticasone propionate 50 mcg/actuation (Flonase Allergy Relief) 1 spray intranasal DAILY 30 days hospital bed As directed hydrocortisone 2.5% 1 appl topical BID PRN hydromorphone (Dilaudid) 2 mg PO Q6H PRN lidocaine 5% 3 patches topical DAILY lorazepam 0.5 mg PO BEDTIME PRN mirtazapine 15 mg PO BEDTIME 90 days ondansetron HCl 4 mg PO Q8H PRN pantoprazole 40 mg PO BID polyethylene glycol 3350 (Miralax) 17 grams PO DAILY sennosides (senna) 17.2 mg PO BEDTIME simethicone (Gas Relief Extra Strength) 125 mg PO Q6H PRN syringe with needle, safety (Easy Touch SheathLock Syringe with Needle) As directed thiamine HCl (vitamin B1) 100 mg PO DAILY 30 days walker As directed HPI Dyspnea HPI Details Katya is a very pleasant 77 year old female, never smoker, with 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 She was referred by PCP for pulmonary evaluation. She is accompanied by her granddaughter, HCP. She reports since being diagnosed in October, she has had significant decline of overall health with fatigue, weakness, and dyspnea, resulting in significant deconditioning. She does use a walker but can only ambulate a few steps. She denies any chest tightness/discomfort or cough. She notes intermittent hypoxia with exertion as well as nocturnal hypoxia. Her oxygen saturation reportedly can decrease to as low as 83%. She was recently seen at [facility], who manages her palliative care and suggested she transition to hospice but patient declined. She receives pain control through their office, receiving approximately 30-40 MME per day as well as lorazepam PRN. Aware not to combine medication. She also was noted to have anemia, last h/h from 04/03 was 11/20. She does have a family history of lung cancer, father, sister and brother. Today she presents to discuss supplemental oxygen. 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 depression, single episode Neck pain on right side New daily persistent headache Ophthalmoplegic migraine headache Osteoarthritis of left knee Screening for hypothyroidism Sinusitis Sore throat, chronic Uterine cancer UTI (urinary tract infection) Surgical History History of laparoscopic cholecystectomy History of total abdominal hysterectomy and bilateral salpingo-oophorectomy Family History Mother CVD (cardiovascular disease) Father Lung cancer Son Cancer Sister Lung cancer Brother Colon cancer Social History (Updated 04/11/23 @ 13:27 by Yenni Castellano LPN) Household Members: Family Housing: House Alcohol intake: never Patient Tobacco Use Status: Never used Tobacco e-Cigarette/Vaping Use: Never Used Second Hand Smoke Exposure: No Advance Directives Date on File: 02/13/23 service: No Current occupational status: retired Current occupation: rt handed Cognitive needs: No Hearing needs: No Vision needs: Yes Review of Systems Const Reports anorexia, Denies chills, Denies excessive sweating, Reports fatigue, Denies fever(s), Reports lethargy, Denies night sweats, Reports poor appetite, Reports weakness and Reports weight loss Eyes Denies dry eyes, Denies irritation and Denies itchy eyes ENT Reports Normal hearing present, Denies nasal congestion, Denies nasal discharge, Denies post nasal drip and Denies sore throat Card Denies chest pain, Denies chest pain at rest, Denies chest pain with activity, Denies claudication, Denies leg edema, Reports dyspnea and Reports dyspnea on exertion Resp Denies chest congestion, Denies cough, Denies excessive phlegm production, Denies pain on inspiration, Denies pain with cough, Reports dyspnea, Reports dyspnea on exertion, Denies stridor and Denies wheezing Neuro Reports Normal hearing present and Reports weakness Endo Denies excessive sweating and Reports fatigue Aller/Immun Denies itchy eyes, Denies seasonal rhinorrhea and Denies wheezing Physical Exam Vital Signs: Last Vital Signs Pulse 64 04/11/23 13:08 BP 116/50 L 04/11/23 13:08 Pulse Ox 97 04/11/23 13:08 Oxygen Delivery Method Room Air 04/11/23 13:08 Const General: cooperative, no acute distress, alert and anxious Orientation/consciousness: patient oriented x3 Limitations: ambulation with walker and wheelchair HEENT Head: Yes normal to inspection, Yes normocephalic and Yes atraumatic Ears: hearing grossly normal bilaterally and external ears normal Eyes General: appearance normal, both eyes and all related structures Eyelids: Yes eyelids normal EOM: EOMs intact bilaterally Neck Neck: Yes normal visual inspection and Yes no lymphadenopathy Lymphatic: no lymphadenopathy noted Chest Chest palpation & inspection: normal inspection of the chest Resp Other: diminished bases bilateral L>R. Effort & Inspection: normal respiratory effort, able to speak in complete sentences, no audible wheezes, no cough, no stridor, not tachypneic, no tripod positioning and no use of accessory muscles Auscultation: no crackles, no rhonchi and no wheezes Cardio Jugular venous distension: no JVD Rate: regular rate Rhythm: regular rhythm Skin Other: warm, dry General skin exam: no rashes or lesions noted Neuro General: patient oriented x3 Cranial nerves: Yes Normal hearing present Cognition (Neuro): normal cognition Gait exam (Neuro): Normal gait present Extrem General: Yes normal to inspection, Yes capillary refill normal and Yes no pedal edema Psych Appearance: grossly normal and well kempt Speech and movement: Normal speech and movement present and Clear speech present Affect: normal affect Attitude: cooperative Thought process: Normal thought process present Thought content: Normal thought content present Insight: Good insight present (Psych) Judgement: Good judgement present (Psych) Office Procedures 6 Minute Walk Time:: 13:50 SPO2 % at rest: 97 Pulse at rest: 101 SPO2 % during excercise: 70 Pulse during excercise: 112 SPO2 % after excercise: 100 Pulse after excercise: 98 Distance in yards walked: 2 Susan Score: 8 Performance Observations:: Patient walked using a walker and assistance. After j ust 2 yards O2 saturation dropped to 85 and then 70. Patient returned to chair and O2 applied at 1L with rest the O2 saturation increased to 100%. Patient is unable to continue walk due to fatigue. [address]365 - 6 Minute Walk Results Reviewed Results Reviewed: [address] [address] [address] Scan Report Signed Patient: Katya Villarreal MR#: [id number] : 1945 Acct:[id number] Age/Sex: 77 / F ADM Date: 02/25/23 Loc: .ED Attending Dr: Ordering Physician: Darryl Ramos MD Date of Service: 02/25/23 Procedure(s): CT chest wo IV con Accession Number(s): [id number] cc: Darryl Ramos MD~ EXAMINATION: CT CHEST WITHOUT CONTRAST CLINICAL INFORMATION: Pleural effusion, question pneumonia COMPARISON: Multiple priors, most recent chest x-ray from earlier the same day TECHNIQUE: Multidetector volumetric CT imaging of the chest was done. Axial MIP volume rendering provided. Sagittal and coronal reformatted images were obtained. This CT examination was performed using dose optimization techniques as appropriate, variously including the following: *Automated exposure control *Adjustment of mA and/or kV according to patient size (this includes techniques or standardized protocols for targeted exams where dose is matched to indication/reason for exam; i.e. extremities or head) *Use of iterative reconstruction technique DLP: 183 mGy-cm FINDINGS: LUNGS: There are numerous scattered nodules throughout both lungs, some of which measure only a few millimeters and are indistinct, while others are solid and more well-defined. A few of the most prominent nodules measure up to 1.1 cm in the right upper lobe medially on image 109/427, 0.7 cm in the right middle lobe on image 323/427, and 0.7 cm in the left upper lobe anteriorly on image 148/427. There are also regions of interlobular septal thickening most prominently in the bilateral upper lobes. 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 There is dense opacification of the basilar left lower lobe adjacent to a small to moderate pleural effusion, favored to represent atelectasis. Similar region of atelectasis is suspected in the basilar right lower lobe adjacent to a small pleural effusion. MEDIASTINUM: The visualized thyroid gland is unremarkable. No appreciable lymphadenopathy on this noncontrast exam. Cardiac size is within normal limits; no pericardial effusion. Mild scattered calcification along the aorta. CORONARY ARTERY CALCIFICATION: Present PLEURA: Small to moderate left and small right pleural effusions. AXILLA: No lymphadenopathy. UPPER ABDOMEN: Grossly unremarkable. OSSEOUS STRUCTURES: Mild degenerative changes noted in the spine. Questionable subtle lytic lesion in the T9 vertebral body. CT/CT chest wo IV con IMPRESSION: 1. Numerous scattered nodules throughout both lungs, along with regions regions of interlobular septal thickening most prominently in the bilateral upper lobes. 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 2. Small to moderate left and small right pleural effusions. 3. Regions of dense opacification in the basilar lower lobes, favored to represent atelectasis. 4. Questionable subtle lytic lesion in the T9 vertebral body, which could be further assessed with MRI. 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 6MWT performed and after minimal ambulation patient's oxygen desaturated to 70 and recovered quickly on 1 liter. At this time, will send for supplemental oxygen and overnight oximetry on 1L. Will also repeat chest CT in 6-8 weeks to reassess pleural effusions and consolidations, as patient recently had pneumonia. Briefly discussed management of pain and medication contributing to decreased respirations. She is currently in palliative care and does not want to transition to hospice at this time. Will refer to pain management at [facility] [place] to discuss alternative treatment options to have a local provider manage her pain. All questions were answered and patient is in agreement of plan. Will follow up in 4 weeks or sooner if needed. Orders: Orders AMB 6 minute walk Today J18.9 - Pneumonia, unspecified organism, R06.00 - Dyspnea, unspecified Overnight Pulse Oximetry Today G47.34 - Idiopathic sleep related nonobstructive alveolar hypoventilation, J96.11 - Chronic respiratory failure with hypoxia CT chest wo IV con 05/23/23 J90 - Pleural effusion, not elsewhere classified, R06.00 - Dyspnea, unspecified, R91.8 - Other nonspecific abnormal finding of lung field Referrals Pain Management Referral C79.51 - Secondary malignant neoplasm of bone, G89.3 - Neoplasm related pain (acute) (chronic) Coding Level of Care Code New Pt Level 4 (25384) Diagnoses Chronic respiratory failure with hypoxia J96.11 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
[2023-04-11 14:19] VITALS: PULSE 101; O2SAT 97
== END 2023-04-11 13:58 | disposition home or self-care (01) ==
LOC: HO.HPSW 13:04
PROVIDERS: PCP Internal Medicine; Referring Provider Internal Medicine; Visit Provider Nurse Practitioner Family
DX: J96.11 Chronic respiratory failure with hypoxia (principal); C79.51 Secondary malignant neoplasm of bone; J90 Pleural effusion, not elsewhere classified; Z99.81 Dependence on supplemental oxygen
CPT/HCPCS: 94618; 99204

== ENCOUNTER 2023-04-16 19:55 | Observation (INO) | payer OTHER, SELFPAY ==
[2023-04-16 20:34] VITALS: BP 128/37; PULSE 98; RESP 16; TEMP 36.9; O2SAT 100; BMI 17.2
--- NOTE | 2023-04-16 20:39 | ED.GENADULT ---
HPI - General Adult General Chief complaint: Nausea/Vomiting/Diarrhea Stated complaint: dehydrated / swollen feet Time Seen by Provider: 04/16/23 23:37 Source: patient, family ( Daughter) and directory assistance operator Mode of arrival: ambulatory Limitations: no limitations History of Present Illness HPI narrative: 77-year-old female with history of melanoma with metastases patient is on palliative treatment with immunosuppressive therapy, GERD, depression came in today for evaluation of nausea, vomiting and nonbloody watery diarrhea for the past 3 days unable to keep p.o., patient feels generalized weakness and dehydrated, patient is a Jehovah Witness and declining blood transfusion. Patient declined any source of losing blood no blood in the vomit no blood in the stool. Patient is adamant about not getting blood transfusion but okay to take iron transfusion and hydration. Related Data Home Medications Medication Instructions Recorded Confirmed escitalopram oxalate 10 mg tablet 10 mg PO DAILY 02/12/23 04/11/23 lorazepam 0.5 mg tablet 0.5 mg PO BEDTIME PRN Anxiety 02/12/23 04/11/23 polyethylene glycol 3350 17 17 g PO DAILY 02/12/23 04/11/23 gram/dose oral powder (Miralax) sennosides 8.6 mg tablet (senna) 17.2 mg PO BEDTIME 02/12/23 02/18/23 acetaminophen 650 mg 650 mg PO Q8H PRN Pain 02/18/23 04/11/23 tablet,extended release (Tylenol Arthritis Pain) bisacodyl 10 mg rectal suppository 10 mg AL DAILY PRN Constipation 02/18/23 04/11/23 (Dulcolax (bisacodyl)) cyanocobalamin (vitamin B-12) 1,000 mcg IM QMONTH 02/18/23 04/11/23 1,000 mcg/mL injection solution hydrocortisone 2.5 % topical cream 1 appl topical BID PRN Pain 02/18/23 04/11/23 with perineal applicator lidocaine 5 % topical patch 3 patch topical DAILY 02/18/23 04/11/23 ondansetron HCl 4 mg tablet 4 mg PO Q8H PRN Nausea And Vomiting 02/18/23 04/11/23 simethicone 125 mg chewable tablet 125 mg PO Q6H PRN gas 02/18/23 04/11/23 (Gas Relief Extra Strength) pantoprazole 40 mg tablet,delayed 40 mg PO BID 04/11/23 04/11/23 release Previous Rx's Medication Instructions Recorded cane #1 ea 09/14/20 walker #1 ea 10/20/20 docusate sodium 100 mg capsule 100 mg PO BID PRN constipation #20 08/16/21 (Colace) caps fluticasone propionate 50 1 spray intranasal DAILY 30 days 10/02/22 mcg/actuation nasal #16 grams spray,suspension (Flonase Allergy Relief) cholecalciferol (vitamin D3) 50 50 mcg PO DAILY 90 days #90 caps 02/12/23 mcg (2,000 unit) capsule (Vitamin D3) commode (bedside commode) #1 ea 02/12/23 ezetimibe 10 mg tablet 10 mg PO DAILY 90 days #90 tabs 02/12/23 syringe with needle, safety 3 mL #1 ea 02/12/23 21 gauge x 1 1/2 (Easy Touch SheathLock Syringe with Needle) azithromycin 500 mg tablet 500 mg PO DAILY 6 days #6 tabs 02/21/23 cefuroxime axetil 500 mg tablet 500 mg PO Q12H #14 tabs 02/21/23 hydromorphone 2 mg tablet 2 mg PO Q6H PRN pain #14 tabs 02/21/23 (Dilaudid) mirtazapine 15 mg tablet 15 mg PO BEDTIME 90 days #90 tabs 03/19/23 thiamine HCl (vitamin B1) 100 mg 100 mg PO DAILY 30 days #30 tabs 04/03/23 tablet hospital bed #1 ea 04/06/23 ENSURE Drink 1 can a day #30 ea 04/10/23 Allergies Allergy/AdvReac Type Severity Reaction Status Date / Time ibuprofen Allergy Mild anaphylaxis, Verified 04/11/23 13:15 hives metronidazole Allergy Mild rash Verified 04/11/23 13:15 naproxen [Aleve] Allergy Mild anaphylaxis, Verified 04/11/23 13:15 hives pravastatin Allergy Mild anaphylaxis Verified 04/11/23 13:15 simvastatin Allergy Mild cramps Verified 04/11/23 13:15 aspirin Allergy Mild swelling Uncoded 04/11/23 13:15 Review of Systems Review of Systems: All other systems are reviewed and are negative Constitutional: Reports as per HPI and Reports no additional constitutional complaints Eyes: Reports as per HPI and Reports no additional eye complaints Reports system reviewed and no additional complaints, except as documented Cardiovascular: Reports as per HPI and Reports no additional cardiovascular complaints Respiratory: Reports as per HPI and Reports no additional respiratory complaints Gastrointestinal: Reports as per HPI and Reports no additional gastrointestinal complaints Genitourinary: Reports no additional female genitourinary complaints Musculoskeletal: Reports no additional musculoskeletal complaints Skin/Breast: Reports system reviewed and no additional complaints, except as docu Psychiatric: Reports no additional psychiatric complaints Endocrine: Reports no additional endocrine complaints Hematologic/Lymphatic: Reports no additional hematologic/lymphatic complaints Allergic/Immunologic: Reports no additional allergic/immunologic complaints Reports system reviewed and no additional complaints, except as documented and Reports Abnormal speech present PMFSH Past Medical History Medical History Malnutrition 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 New daily persistent headache Sinusitis UTI (urinary tract infection) Uterine cancer Depression Screening for hypothyroidism Acute medial meniscus tear of left knee Mild major depression, single episode HLA B27 (HLA B27 positive) Effusion, left knee B12 deficiency Osteoarthritis of left knee Chronic fatigue Sore throat, chronic Dyslipidemia Ophthalmoplegic migraine headache Neck pain on right side Insomnia GERD (gastroesophageal reflux disease) Surgical History History of total abdominal hysterectomy and bilateral salpingo-oophorectomy History of laparoscopic cholecystectomy Family History Family History Mother CVD (cardiovascular disease) Father Lung cancer Son Cancer Sister Lung cancer Brother Colon cancer Social History Social History Household Members: Family Housing: House Alcohol intake: never Patient Tobacco Use Status: Never used Tobacco Smoked in Last 30 Days: No e-Cigarette/Vaping Use: Never Used Second Hand Smoke Exposure: No Use of substances other than those prescribed or required for medical reasons: No Advance Directives: Yes Advance Directives on File: Yes Advance Directives Date on File: 02/13/23 service: No Current occupational status: retired Current occupation: rt handed Cognitive needs: No Hearing needs: No Vision needs: Yes Physical Exam ED Vital Signs: Vital Signs - 24 hr 04/16/23 20:34 04/16/23 23:18 Temperature 98.5 F Pulse Rate 98 97 Respiratory Rate 16 17 Blood Pressure 128/37 L 141/43 H Pulse Oximetry 100 97 Oxygen Delivery Method Nasal Cannula Oxymask Oxygen Flow Rate 2 BMI result Body Mass Index 17.2 Vital signs have been reviewed and appear to be correct. Blood pressure elevated. Heart rate normal. Respiratory rate normal. Temperature normal. Oxygen saturation normal. Appearance: cachectic, pale, Alert. Oriented X3. Head: Normal external exam. Normocephalic. Atraumatic. No Chapman signs noted. No raccoon eyes noted Eyes: PERRLA. EOMI. Conjunctiva and sclera normal. Eyelids normal. ENT: TM's Normal. Pharynx normal. Uvula midline. Moist mucous membranes. No trismus noted. No drooling noted. No muffled voice noted. Neck: Normal inspection. Neck supple. FROM. No adenopathy. Thyroid Normal. No meningeal signs. No neck mass noted. CVS: Normal heart rate and rhythm. Heart sound normal. No murmurs noted. Pulses normal throughout. Respiratory: No respiratory distress. Painless inspiration. Breath sounds normal. No wheezes/rales/rhonchi noted. Chest nontender. No accessory muscle usage noted or decreased air movement noted. Abdomen: Soft and nontender. Bowel sounds normal in all 4 quadrants. No distention noted. No organomegaly noted. No visible injury noted. Back: No CVA tenderness. Full range of motion noted. Skin: Skin warm and dry. Normal skin color. Normal skin turgor. No rashes/lesions/lacerations noted. Extremities: No lower extremity edema. Extremities exhibit normal range of motion. Extremities nontender. Neuro: Oriented X 3. Cranial nerve exam: II-XII are grossly intact No motor deficit. No sensory deficit. Reflexes normal. Course Course Course Narrative: RME performed by Bambi Deshpande PA-C. Patient is a 77 year old assigned female at presenting to the emergency department with increased weakness and feeling generally unwell. Labs ordered. Patient placed back in the waiting room pending room availability and results. Reevaluation(s) Reevaluation #1: Severe anemia patient is declining transfusion because her Jehovah Witness believe but patient agreed to iron transfusion. Intractable vomiting patient is receiving IV fluid. Intractable metastatic pain will control with morphine. Time: 01:19 Medications Administered Discontinued Medications Generic Name Dose Route Start Last Admin Trade Name Freq PRN Reason Stop Dose Admin Sodium Chloride 1,000 mls @ 999 mls/hr 04/16/23 23:51 04/17/23 01:09 Ns IV 04/17/23 00:51 Infused .Q1H1M ONE Infusion Iron Dextran 25 mg/ Sodium 50.5 mls @ 202 mls/hr 04/17/23 00:01 04/17/23 01:11 Chloride IV 04/17/23 00:02 Not Given ONCE ONE Morphine Sulfate 2 mg 04/16/23 23:51 04/17/23 00:03 Morphine Sulfate 2 Mg/Ml Cartridge IVPUSH 04/16/23 23:52 2 mg ONCE ONE Administration Protocol Ondansetron HCl 4 mg 04/16/23 23:51 04/17/23 00:03 Ondansetron Hcl 4 Mg/2 Ml Vial IVPUSH 04/16/23 23:52 4 mg ONCE ONE Administration Medical Decision Making Differential Diagnosis Differential Diagnoses: The differential diagnosis associated with the presentation includes ( Dehydration, electrolyte abnormality, severe anemia, pain management.) Admission/Observation Consideration of admission/observation: Escalation of care including admission/observation considered Consult Healthcare Provider Management of the patient was discussed with: Hospitalist ( Dr. Chung) Lab Data MDM Lab Attestation statement: I reviewed the patient's lab results. 04/16/23 22:37 04/16/23 23:37 Labs: Lab Results 04/16/23 04/16/23 04/16/23 Range/Units 21:34 22:37 23:37 WBC 3.8 L (4.8-10.8) X10*3/uL RBC 1.47 L D (4.20-5.50) X10*6/uL Hgb 4.9 L* D (12.0-16.0) g/dl Hct 15.2 L* D (37.0-47.0) % MCV 103.4 H (80.0-98.0) fL MCH 33.3 H (27.0-33.0) pg MCHC 32.2 (31.0-35.0) g/dl RDW 24.2 H (11.0-16.0) % Plt Count 150 L (160-400) X10*3/uL MPV 9.9 (9.4-12.3) fL Immature Gran % (Auto) Cancelled Neut % (Auto) Cancelled Lymph % (Auto) Cancelled [place] % (Auto) Cancelled Eos % (Auto) Cancelled Baso % (Auto) Cancelled Lymph # (Auto) Cancelled [place] # (Auto) Cancelled Eos # (Auto) Cancelled Baso # (Auto) Cancelled Abs Immat Gran (auto) Cancelled Absolute Neuts (auto) Cancelled Absolute Nucleated RBC 0.180 H (0.0-0.012) X10*3/uL Nucleated RBC % (auto) 4.7 H (0.0-0.2) /100WBC Neutrophils % (Manual) 60 (45-73) % Band Neutrophils % 9 H (3-5) % Lymphocytes % (Manual) 24 (20-40) % Monocytes % (Manual) 5 (2-11) % Eosinophils % (Manual) 1 (0-4) % Metamyelocytes % 1 % Abs Neuts (Manual) 2.6 (2.0-8.3) X10*3/uL Lymphocytes # (Manual) 0.9 L (1.2-4.9) X10*3/uL Monocytes # (Manual) 0.2 (0.1-1.2) X10*3/uL Nucleated RBCs 3 H (0-0) /100WBC Platelet Estimate SLIGHTLY DECREASED (NORMAL) Plt Morphology Comment NORMAL RBC Morphology NOTED Polychromasia 1+ (0-2) /OIF Hypochromasia 1+ (5-14) /OIF Macrocytosis 1+ (5-14) /OIF Tear Drop Cells 1+ (0-2) /OIF Ovalocytes 1+ (5-14) /OIF Schistocytes 1+ (0-2) /OIF PT 12.6 (11.1-13.3) SEC INR 1.0 (0.9-1.1) APTT 25.2 L (26.0-36.4) SEC Sodium 135 (135-145) mmol/L Potassium 4.7 (3.3-5.1) mmol/L Chloride 97 (96-108) mmol/L Carbon Dioxide 22 (22-29) mmol/L Anion Gap 21 H (12-20) BUN 17 H (9-16) mg/dL Creatinine 0.74 (0.5-1.4) mg/dL Estim Creat Clear Calc 46.2 Estimated GFR > 60 Random Glucose 103 (60-115) mg/dL Calcium 9.5 (8.4-10.2) mg/dL Magnesium 2.1 (1.6-2.6) mg/dL Total Bilirubin 1.1 H (0.0-1.0) mg/dL AST 29 (5-31) U/L ALT 7 (0-31) U/L Alkaline Phosphatase 172 H (39-117) U/L Total Protein 6.7 (6.5-8.0) g/dL Albumin 3.5 (3.5-5.0) g/dL Influenza Type A (PCR) NEGATIVE (Negative) Influenza Type B (PCR) NEGATIVE (Negative) RSV RNA Qual (PCR) NEGATIVE (Negative) SARS-CoV-2 RNA (RT-PCR) NEGATIVE (Negative) Discharge Plan Discharge Clinical Impression: Anemia, Intractable vomiting Patient Disposition: Admitted As Inpatient
--- NOTE | 2023-04-16 21:49 | MHC.EDTECH ---
Attempted draw, was able to draw the PTT, sent, will attempt the CBC and CMP again.
--- NOTE | 2023-04-16 22:08 | MHC.EDTECH ---
Multiple attempts to draw bloodx3 did not succeed clinical coordinator made aware
[2023-04-16 23:18] VITALS: BP 141/43; PULSE 97; RESP 17; O2SAT 97
--- NOTE | 2023-04-17 00:47 | PC.NURSE ---
pt reported that her lips are numb, Dr. Slaughter
--- NOTE | 2023-04-17 00:49 | PC.NURSE ---
Addendum entered by Ray Davidson RN 04/17/23 01:19: daughter reported pt c/o facial numbness dr. emmanuel Original Note: spoke with pharmacy, they reported the iron infusion wont be ready until [address] Emmanuel
[2023-04-17 01:47] VITALS: BP 126/43; PULSE 91; PULSE 99; RESP 16; RESP 18; O2SAT 91; O2SAT 98
--- NOTE | 2023-04-17 01:50 | PM.IMHP ---
History of Present Illness Date of Service: 04/17/23 Chief Complaint: Nausea/vomiting This is a 77-year-old female with pertinent history of metastatic melanoma with metastasis to the bone, mood disorder, gastroesophageal reflux disease who presents the emergency department for evaluation of multiple episodes of nausea, vomiting. Patient is Emir[place]-speaking and history obtained by her daughter. The daughter states that patient has been having multiple episodes of nonbloody emesis for the last 1-2 days with decreased p.o. intake. She feels that the patient is dehydrated and is unable to tolerate p.o. intake. Patient's last immunotherapy was end of March and last radiotherapy was early in February for metastatic melanoma. Also has been having nonbloody watery diarrhea for the last 2-3 days. Denies fever, chills, dysuria, changes in urinary habits, cough. No chest discomfort or palpitations. No abdominal discomfort. No hematemesis, melena, hematochezia. In the emergency department, patient was found to be severely anemic with hemoglobin of 4.9. Review of Systems Constitutional: Constitutional: Reports fatigue, Reports lethargy, Reports malaise and Reports weakness Cardiovascular: Cardiovascular: Reports no additional cardiovascular complaints Respiratory: Respiratory: Reports no additional respiratory complaints Gastrointestinal: Gastrointestinal: Reports loose stools, Reports nausea and Reports vomiting Genitourinary: Genitourinary: Reports no additional female genitourinary complaints Neurologic: Reports weakness Endocrine: Endocrine: Reports fatigue PMFSH Medical History Malnutrition 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 New daily persistent headache Sinusitis UTI (urinary tract infection) Uterine cancer Depression Screening for hypothyroidism Acute medial meniscus tear of left knee Mild major depression, single episode HLA B27 (HLA B27 positive) Effusion, left knee B12 deficiency Osteoarthritis of left knee Chronic fatigue Sore throat, chronic Dyslipidemia Ophthalmoplegic migraine headache Neck pain on right side Insomnia GERD (gastroesophageal reflux disease) Family History Mother CVD (cardiovascular disease) Father Lung cancer Son Cancer Sister Lung cancer Brother Colon cancer Surgical History History of total abdominal hysterectomy and bilateral salpingo-oophorectomy History of laparoscopic cholecystectomy Social History Household Members: Family Housing: House Alcohol intake: never Patient Tobacco Use Status: Never used Tobacco Smoked in Last 30 Days: No e-Cigarette/Vaping Use: Never Used Second Hand Smoke Exposure: No Use of substances other than those prescribed or required for medical reasons: No Advance Directives: Yes Advance Directives on File: Yes Advance Directives Date on File: 02/13/23 service: No Current occupational status: retired Current occupation: rt handed Cognitive needs: No Hearing needs: No Vision needs: Yes Meds Allergies Allergy/AdvReac Type Severity Reaction Status Date / Time ibuprofen Allergy Mild anaphylaxis, Verified 04/11/23 13:15 hives metronidazole Allergy Mild rash Verified 04/11/23 13:15 naproxen [Aleve] Allergy Mild anaphylaxis, Verified 04/11/23 13:15 hives pravastatin Allergy Mild anaphylaxis Verified 04/11/23 13:15 simvastatin Allergy Mild cramps Verified 04/11/23 13:15 aspirin Allergy Mild swelling Uncoded 04/11/23 13:15 Active Medications: Current Medications Acetaminophen (Acetaminophen 325 Mg Tablet) 650 mg PO Q6H PRN PRN Reason: Pain, Mild (Pain Scale 1-3) Acetaminophen (Acetaminophen Supp 650 Mg Supp.Rect) 650 mg IA Q6H PRN PRN Reason: Pain, Mild (Pain Scale 1-3) Iron Sucrose 200 mg/ Sodium (Chloride) 110 mls @ 440 mls/hr IV DAILY [facility] Stop: 04/22/23 09:00 Melatonin (Melatonin 3 Mg Tablet) 6 mg PO BEDTIME PRN PRN Reason: Insomnia Ondansetron HCl (Ondansetron Hcl 4 Mg/2 Ml Vial) 4 mg IVPUSH Q8H PRN PRN Reason: Nausea and Vomiting Sodium Chloride (0.9 % Sodium Chloride Flush 3 Ml Syringe) 3 ml IVFLUSH QSHIFT [facility] Home Medications Medication Instructions Recorded Confirmed Last Taken Type escitalopram oxalate 10 mg tablet 10 mg PO DAILY 02/12/23 04/11/23 02/17/23 09:00 History lorazepam 0.5 mg tablet 0.5 mg PO BEDTIME PRN Anxiety 02/12/23 04/11/23 Unknown History polyethylene glycol 3350 17 17 g PO DAILY 02/12/23 04/11/23 02/17/23 09:00 History gram/dose oral powder (Miralax) sennosides 8.6 mg tablet (senna) 17.2 mg PO BEDTIME 02/12/23 02/18/23 02/16/23 History acetaminophen 650 mg 650 mg PO Q8H PRN Pain 02/18/23 04/11/23 Unknown History tablet,extended release (Tylenol Arthritis Pain) bisacodyl 10 mg rectal suppository 10 mg IA DAILY PRN Constipation 02/18/23 04/11/23 Unknown History (Dulcolax (bisacodyl)) cyanocobalamin (vitamin B-12) 1,000 mcg IM QMONTH 02/18/23 04/11/23 Unknown History 1,000 mcg/mL injection solution hydrocortisone 2.5 % topical cream 1 appl topical BID PRN Pain 02/18/23 04/11/23 Unknown History with perineal applicator lidocaine 5 % topical patch 3 patch topical DAILY 02/18/23 04/11/23 02/17/23 09:00 History ondansetron HCl 4 mg tablet 4 mg PO Q8H PRN Nausea And Vomiting 02/18/23 04/11/23 Unknown History simethicone 125 mg chewable tablet 125 mg PO Q6H PRN gas 02/18/23 04/11/23 Unknown History (Gas Relief Extra Strength) pantoprazole 40 mg tablet,delayed 40 mg PO BID 04/11/23 04/11/23 Unknown History release Physical Exam Vital Signs and Narrative: Vital Signs: Last Vital Signs Temp 98.5 F 04/16/23 20:34 Pulse 97 04/16/23 23:18 Resp 17 04/16/23 23:18 BP 141/43 H 04/16/23 23:18 Pulse Ox 97 04/16/23 23:18 O2 Del Method Oxymask 04/16/23 23:18 O2 Flow Rate 2 04/16/23 23:18 Oxygen Flow Rate 2 04/16/23 20:34 BMI result Body Mass Index 17.2 Elderly female, thin built lying in bed in no distress Neck supple, no JVD, dry mucous membranes Regular rate and rhythm, S1-S2 heard Regular breath sounds bilaterally, no wheezing or crackles appreciated Abdomen soft nontender, no guarding, no rigidity Patient is awake, alert and oriented to self, place, time and person ; no focal motor deficit Psych: Normal mood No pedal edema Results Labs 04/16/23 22:37 04/16/23 23:37 Labs: Laboratory Results - last 24 hr 04/16/23 04/16/23 04/16/23 21:34 22:37 23:37 MCV 103.4 H MCH 33.3 H MCHC 32.2 RDW 24.2 H Plt Count 150 L MPV 9.9 Immature Gran % (Auto) Cancelled Neut % (Auto) Cancelled Lymph % (Auto) Cancelled [place] % (Auto) Cancelled Eos % (Auto) Cancelled Baso % (Auto) Cancelled Lymph # (Auto) Cancelled [place] # (Auto) Cancelled Eos # (Auto) Cancelled Baso # (Auto) Cancelled Abs Immat Gran (auto) Cancelled Absolute Neuts (auto) Cancelled Absolute Nucleated RBC 0.180 H Nucleated RBC % (auto) 4.7 H Neutrophils % (Manual) 60 Band Neutrophils % 9 H Lymphocytes % (Manual) 24 Monocytes % (Manual) 5 Eosinophils % (Manual) 1 Metamyelocytes % 1 Abs Neuts (Manual) 2.6 Lymphocytes # (Manual) 0.9 L Monocytes # (Manual) 0.2 Nucleated RBCs 3 H Platelet Estimate SLIGHTLY DECREASED Plt Morphology Comment NORMAL RBC Morphology NOTED Polychromasia 1+ (0-2) Hypochromasia 1+ (5-14) Macrocytosis 1+ (5-14) Tear Drop Cells 1+ (0-2) Ovalocytes 1+ (5-14) Schistocytes 1+ (0-2) PT 12.6 INR 1.0 APTT 25.2 L Anion Gap 21 H Estim Creat Clear Calc 46.2 Estimated GFR > 60 Random Glucose 103 Calcium 9.5 Magnesium 2.1 Total Bilirubin 1.1 H AST 29 ALT 7 Alkaline Phosphatase 172 H Total Protein 6.7 Albumin 3.5 Influenza Type A (PCR) NEGATIVE Influenza Type B (PCR) NEGATIVE RSV RNA Qual (PCR) NEGATIVE SARS-CoV-2 RNA (RT-PCR) NEGATIVE Assessment and Plan (1) Anemia: Status: Acute (2) Intractable vomiting: Status: Acute Plan This is a 77-year-old female with pertinent history of metastatic melanoma with metastasis to the bone, mood disorder, gastroesophageal reflux disease who presents the emergency department for evaluation of multiple episodes of nausea, vomiting. #. Severe anemia, macrocytic. Noted decline in hemoglobin from 1 month ago. Obtaining iron panel, B12 and folate. Iron dextran ordered by ER physician. Consulting Gastroenterology and Oncology. Patient is a Buddhist and declined blood transfusion. Closely monitor H&H #. Intractable nausea/vomiting/diarrhea. Likely in the setting of underlying metastatic disease. Obtaining GI panel. Consulted Gastroenterology as above. Supportive care. Resuscitating with IV crystalloids #. Mood disorder. Continue home mood stabilizers #. Gastroesophageal reflux disease: On PPI #. Metastatic melanoma. On palliative immunotherapy and radiotherapy Med rec pending DVT prophylaxis: Mechanical Full code. Discussed with daughter at bedside Time Spent With Patient Time: Total time managing care of this patient today ____ minutes. Quality Stroke Does the patient have a stroke diagnosis?: No VTE Prior VTE?: No VTE Risk Level:: Medical - moderate - high VTE Device Contraindication: N/A - Device Ordered VTE Drug Contraindication: Treatment Not Indicated
--- NOTE | 2023-04-17 02:13 | PC.NURSE ---
pt reported increased anxiety, medicated with 0.5mg of ativan po
[2023-04-17 02:55] VITALS: BP 130/42; PULSE 96; RESP 17; TEMP 36.9; O2SAT 100
[2023-04-17 03:17] LABS: Anion Gap 17 (12-20); Blood Urea Nitrogen 15 mg/dL (9-16); Calcium 8.6 mg/dL (8.4-10.2); Carbon Dioxide 21 mmol/L (22-29); Chloride 102 mmol/L (96-108); Creatinine Clr Calc Pharmacy 49.6; Estimated Glomerular Filt Rate > 60; Glucose Random 98 mg/dL (60-115); Potassium 4.4 mmol/L (3.3-5.1); Sodium 136 mmol/L (135-145)
[2023-04-17 05:43] VITALS: BP 117/48; PULSE 101; RESP 17; TEMP 36.7; O2SAT 97
[2023-04-17 10:21] VITALS: BP 112/35; PULSE 103; RESP 16; TEMP 37; O2SAT 98
--- NOTE | 2023-04-17 10:24 | P.CNHO_ITS ---
Subjective - Subjective Chief complaint: None reported Patient: new to practice Consult date: 04/17/23 Requesting Physician: Kalee Chung MD Primary Care Provider: Unknown Physician HPI - Consult Narrative Reason for consult: Anemia Narrative: Katya Harris is a 77 year old female who presented to emergency department with weakness, nausea and emesis. Granddaughter is her healthcare proxy and historian. According to the granddaughter, who was at her bedside, patient has been feeling very weak and has had a few episodes of nausea, vomiting as well as diarrhea. She has metastatic melanoma and is being managed by physicians in [place]. 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 She has a history of anemia because of ongoing chemo/immunotherapy as well as recent radiation therapy. In the past she was treated for her anemia with iron infusions and ANCELMO therapy as she is Lutheran and does not accept blood or blood products. At this time she says her pain is well controlled. She denies any nausea or emesis. No fever or chills. She offers no complaints. Review of Systems - Constitutional Reports as per HPI, Reports anorexia, Reports lack of energy, Reports malaise, Reports weakness - Cardiovascular Reports system reviewed and no additional complaints, except as documented - Respiratory Reports no additional respiratory complaints - Gastrointestinal Reports system reviewed and no additional complaints, except as documented - Neurologic Reports weakness PMFSH Medical History: Medical History (Last Reviewed 04/17/23 @ 01:59 by Kalee Chung MD) Acute medial meniscus tear of left knee B12 deficiency Chronic fatigue Depression Dyslipidemia Effusion, left knee GERD (gastroesophageal reflux disease) HLA B27 (HLA B27 positive) Insomnia Malnutrition 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 depression, single episode Neck pain on right side New daily persistent headache Ophthalmoplegic migraine headache Osteoarthritis of left knee Screening for hypothyroidism Sinusitis Sore throat, chronic Uterine cancer UTI (urinary tract infection) Family History: Family History (Last Reviewed 04/17/23 @ 01:59 by Kalee Chung MD) Mother CVD (cardiovascular disease) Father Lung cancer Son Cancer Sister Lung cancer Brother Colon cancer Surgical History: Surgical History (Last Reviewed 04/17/23 @ 01:59 by Kalee Chung MD) History of laparoscopic cholecystectomy History of total abdominal hysterectomy and bilateral salpingo-oophorectomy Social History: Social History (Last Reviewed 04/17/23 @ 01:59 by Kalee Chung MD) Living Situation History: Household Members: Family Housing: House Tobacco History: Patient Tobacco Use Status: Never used Tobacco e-Cigarette/Vaping Use: Never Used Second Hand Smoke Exposure: No Advance Directives: Advance Directives Date on File: 02/13/23 Occupation Assessmet: service: No Current occupational status: retired Current occupation: rt handed Home Medications and Allergies Current Medications: Current Medications Acetaminophen (Acetaminophen 325 Mg Tablet) 650 mg PO Q6H PRN PRN Reason: Pain, Mild (Pain Scale 1-3) Acetaminophen (Acetaminophen Supp 650 Mg Supp.Rect) 650 mg KY Q6H PRN PRN Reason: Pain, Mild (Pain Scale 1-3) Hydromorphone HCl (Hydromorphone Hcl 1 Mg/Ml Syringe) 1 mg IVPUSH Q4H PRN; Protocol PRN Reason: Pain, Severe (Pain Scale 7-10) Last Admin: 04/17/23 09:51 Dose: 1 mg Sodium Chloride (Ns) 1,000 mls @ 100 mls/hr IVCONT .Q10H ONE Stop: 04/17/23 11:58 Last Admin: 04/17/23 02:12 Dose: 100 mls/hr Melatonin (Melatonin 3 Mg Tablet) 6 mg PO BEDTIME PRN PRN Reason: Insomnia Ondansetron HCl (Ondansetron Hcl 4 Mg/2 Ml Vial) 4 mg IVPUSH Q8H PRN PRN Reason: Nausea and Vomiting Last Admin: 04/17/23 09:51 Dose: 4 mg Sodium Chloride (0.9 % Sodium Chloride Flush 3 Ml Syringe) 3 ml IVFLUSH [facility] Last Admin: 04/17/23 09:51 Dose: 3 ml Home Medications Medication Instructions Recorded Confirmed Type escitalopram oxalate 10 mg tablet 10 mg PO DAILY 02/12/23 04/17/23 History lorazepam 0.5 mg tablet 0.5 mg PO BEDTIME Anxiety 02/12/23 04/17/23 History sennosides 8.6 mg tablet (senna) 17.2 mg PO BEDTIME 02/12/23 04/17/23 History acetaminophen 650 mg 650 mg PO Q8H PRN Pain 02/18/23 04/17/23 History tablet,extended release (Tylenol Arthritis Pain) bisacodyl 10 mg rectal suppository 10 mg [place] DAILY PRN Constipation 02/18/23 04/17/23 History (Dulcolax (bisacodyl)) cyanocobalamin (vitamin B-12) 1,000 mcg IM QMONTH 02/18/23 04/17/23 History 1,000 mcg/mL injection solution lidocaine 5 % topical patch 3 patch topical DAILY PRN Pain 02/18/23 04/17/23 History simethicone 125 mg chewable tablet 125 mg PO Q6H PRN gas 02/18/23 04/17/23 History (Gas Relief Extra Strength) pantoprazole 40 mg tablet,delayed 40 mg PO BID 04/11/23 04/17/23 History release cyanocobalamin (vitamin B-12) 1,000 mcg PO DAILY 04/17/23 04/17/23 History 1,000 mcg tablet fluticasone propionate 50 1 spray intranasal DAILY PRN 04/17/23 04/17/23 History mcg/actuation nasal ALLERGIES spray,suspension (Flonase Allergy Relief) folic acid 1 mg tablet 1 mg PO DAILY 04/17/23 04/17/23 History lorazepam 0.5 mg tablet 0.5 mg PO DAILY PRN Anxiety 04/17/23 04/17/23 History olanzapine 2.5 mg tablet 2.5 mg PO BID 04/17/23 04/17/23 History ondansetron 8 mg disintegrating 8 mg PO Q4H PRN nausea/vomiting 04/17/23 04/17/23 History tablet oxycodone 10 mg tablet,crush 10 mg PO BID 04/17/23 04/17/23 History resistant,extended release 12 hr (OxyContin) oxycodone 5 mg tablet 5 mg PO Q4-6H PRN Pain 04/17/23 04/17/23 History polyethylene glycol 3350 17 17 g PO BID 04/17/23 04/17/23 History gram/dose oral powder prochlorperazine maleate 10 mg 10 mg PO BID-TID 04/17/23 04/17/23 History tablet Allergies Allergy/AdvReac Type Severity Reaction Status Date / Time ibuprofen Allergy Mild anaphylaxis, Verified 04/11/23 13:15 hives metronidazole Allergy Mild rash Verified 04/11/23 13:15 naproxen [Aleve] Allergy Mild anaphylaxis, Verified 04/11/23 13:15 hives pravastatin Allergy Mild anaphylaxis Verified 04/11/23 13:15 simvastatin Allergy Mild cramps Verified 04/11/23 13:15 aspirin Allergy Mild swelling Uncoded 04/11/23 13:15 Physical Exam Vital signs: Vital Signs Temp 98.6 F 04/17/23 10:21 Pulse 103 H 04/17/23 10:21 Resp 16 04/17/23 10:21 BP 112/35 L 04/17/23 10:21 Pulse Ox 98 04/17/23 10:21 O2 Del Method Nasal Cannula 04/17/23 10:21 O2 Flow Rate 2 04/17/23 10:21 Intake & Output 04/16/23 04/17/23 04/17/23 18:59 06:59 18:59 Intake Total 1000 / 1000 Balance 1000 / 1000 Intake: Intake, IV Amount 1000 / 1000 0.9 % Sodium Chloride 1,000 ml 1000 / 1000 @ 999 mls/hr IV .Q1H1M ONE Rx#: [id number] Other: Weight 45.359 kg Weight 45.359 kg - Constitutional Present: no acute distress, cachectic, chronically ill appearing - Routine HEENT Exam Head: Present: normal inspection Eye: Present: EOMI, conjunctivae pale - Routine Neck Exam Absent: lymphadenopathy - Routine Respiratory Exam Absent: accessory muscle use - Routine Cardiovascular Exam Cardiovascular: Present: S1, S2 - Routine Abdominal Exam Present: soft - Routine Skin Exam Present: intact Hem/Onc Consult Result - Labs CBC & Chem 7: 04/17/23 02:59 04/17/23 02:59 Labs: Short CBC 04/16/23 04/17/23 Range/Units 22:37 02:59 WBC 3.8 L 3.5 L (4.8-10.8) X10*3/uL Hgb 4.9 L* D 4.0 L* (12.0-16.0) g/dl Hct 15.2 L* D 12.7 L* (37.0-47.0) % Plt Count 150 L 118 L (160-400) X10*3/uL BMP 04/16/23 04/17/23 23:37 02:59 Sodium 135 136 Potassium 4.7 4.4 Chloride 97 102 Carbon Dioxide 22 21 L BUN 17 H 15 Creatinine 0.74 0.69 Calcium 9.5 8.6 D Liver Function 04/16/23 Range/Units 23:37 Total Bilirubin 1.1 H (0.0-1.0) mg/dL AST 29 (5-31) U/L ALT 7 (0-31) U/L Alkaline Phosphatase 172 H (39-117) U/L Albumin 3.5 (3.5-5.0) g/dL Assessment and Plan Patient Active problem list reviewed?: Yes (1) Anemia Status: Acute Assessment and plan: 1. This is a 77-year-old Portuguese-speaking woman with a history of metastatic malignant melanoma admitted for severe anemia. She is a Lutheran and does not accept blood or blood products. She is receiving palliative immunotherapy and recent radiation therapy in [place] for melanoma. She does not give any history of acute or chronic gastrointestinal blood losses. She has chronic anemia, her hemoglobin was 7.5 gram/dL in March 2023. This acute worsening is probably related to recent radiation therapy to her spine. She does not have any hematinic deficiencies. I recommend giving her Venofer infusion and starting her on ANCELMO therapy, Procrit 83375 units daily. Optimal dosing of ANCELMO therapy in such cases is not well known. Vitamin B12 and folic acid levels are normal. Her kidney functions are normal. She needs to be monitored upon discharge. ANCELMO therapy can be continued as outpatient. I thank you for the consultation. - Time Spent With Patient Time Spent with Patient (in minutes): 15
--- NOTE | 2023-04-17 11:22 | PHA.MEDREC ---
Pharmacy Consult ? Medication Reconciliation Pharmacy has completed the medication reconciliation. SPOKE TO DAUGHTER
--- NOTE | 2023-04-17 11:33 | PM.EVENT ---
Event Note Date of Service: 04/17/23 Event Note: I personally seen and examined and discussed with daughter and pt, she was admitted this morning for n/v and found to have severe acute on chronic anemia but with no evidence of acute blood loss. Her Hgb is? 4; she has recently been treated at [facility] for a hemoglobin of 5.? She has underlying melanoma with bony mets; she is a Hoahaoism and will not take a transfusion. A/P per H and P from this morning, IV Iron? and Epogen as recommended by the easement man. Avoid repeat blood unnecessary blood draws. N/V has improved. The abdominal exam is benign, if? N/V persists, I do a CT scan. Time Spent With Patient Time: Total time managing care of this patient today ____ minutes.
--- NOTE | 2023-04-17 12:00 | PC.NURSE ---
family remains at bedside, commode placed in room for patient, on assist to commode. Iron infusing at this time, medicated per the MAR.
--- NOTE | 2023-04-17 13:50 | PC.NURSE ---
home medications administered to patient, family still at bedside. patient offers no complaints at this time. resting quietly in room, call das within reach
--- NOTE | 2023-04-17 14:17 | MHC.EDTECH ---
Pt ambulated 1 assisted to bathroom.
[2023-04-17 14:43] VITALS: BP 127/39; PULSE 98; RESP 18; O2SAT 95
--- NOTE | 2023-04-17 19:21 | PC.NURSE ---
this rn assumed care of pt. pt a&ox4. respirations even and unlabored. pt lung sounds clear bilaterally, pt sating between 97-98 on 2L. pt placed on humidified air for nasal cannula. pt reports 8/10 back pain at this time, heat pack placed on pt lower back. pt eating toast at this time with no complaints of nausea/vomiting. pt granddaughter at bedside.
--- NOTE | 2023-04-17 19:23 | PC.NURSE ---
Pt requesting humidification for O2, obtained and installed with NC @ 2L. Pt requesting heating pack/warm blanket for lower back, obtained and placed with improvement. Pt requesting toast, provided. Granddaughter at bedside, no acute distress at this time.
--- NOTE | 2023-04-17 20:01 | PC.NURSE ---
This RN had conversation with MD Chung, hospitalist regarding plan of care for pt. Provider confirmed pt is Full Code, to include all life saving measures.
--- NOTE | 2023-04-17 21:08 | PC.NURSE ---
pt medicated per mar. pt takes medications well with ensure, one pill at a time.
[2023-04-17 22:55] VITALS: BP 130/43; PULSE 94; RESP 14; O2SAT 98
--- NOTE | 2023-04-18 02:21 | PC.NURSE ---
pt currently sleeping at this time. respirations even and unlabored. o2 sating between 96-98% at this time.
[2023-04-18 05:53] VITALS: BP 136/40; PULSE 96; RESP 16; O2SAT 96
--- NOTE | 2023-04-18 06:07 | PC.NURSE ---
pt reporting 7/10 back pain, pt medicated per mar at this time.
--- NOTE | 2023-04-18 08:25 | PC.NURSE ---
Initial contact with pt. pt sleeping, family at bedside. vss on monitor.
--- NOTE | 2023-04-18 08:59 | MHC.CM.PN ---
CM MET WITH PTS GRANDDAUGHTER, JUNE, AT BEDSIDE SHE REPORTS THE PT HCP HAS BEEN INVOKED PT DOES NOT WANT TO KNOW ANYTHING ABOUT HER CONDITION SHE PROVIDED DOCUMENTATION STATING THE ABOVE WHICH IS NOW ON FILE PTS GRANDDAUGHTER LIVES IN THE HOME WITH HER AND PROVIDES CARE PRN PT IS ALSO ACTIVE WITH [facility] SHE HAS A WALKER AND A WHEEL CHAIR PT USED TO HAVE [place] AND THEY ARE HOPING SHE COULD GET IT AGAIN [place] [facility] [place] REQUESTED COPY OF INVOCATION NOW ON FILE PCP: DARIUS KABA OBSERVATION NOTICE DELIVERED DCP: HOME WITH RESUMPTION OF [facility] AND FAMILY SUPPORT GRANDDAUGHTER TO TRANSPORT
--- NOTE | 2023-04-18 09:52 | PM.DS ---
DS: Providers Provider Date of Service: 04/18/23 Date of admission: 04/17/23 01:47 Primary care physician: Angi Bartlett MD Consults: 04/17/23 01:46 Consult to Gastroenterology Routine Consulting Provider: Liang Avelar Reason for consultation: Anemia 04/17/23 01:54 Consult to Hematology / Oncology Routine Consulting Provider: Brittny Horton Reason for consultation: Anemia DS: Diagnosis Discharge Diagnosis (1) Anemia: Status: Acute DS: Summary Hospital Course Hospital Course: Chief Complaint: Nausea/vomiting This is a 77-year-old female with pertinent history of metastatic melanoma with metastasis to the bone, mood disorder, gastroesophageal reflux disease who presents the emergency department for evaluation of multiple episodes of nausea, vomiting. Patient is Marshallese-speaking and history obtained by her daughter. The daughter states that patient has been having multiple episodes of nonbloody emesis for the last 1-2 days with decreased p.o. intake. She feels that the patient is dehydrated and is unable to tolerate p.o. intake. Patient's last immunotherapy was end of March and last radiotherapy was early in February for metastatic melanoma. Also has been having nonbloody watery diarrhea for the last 2-3 days. Denies fever, chills, dysuria, changes in urinary habits, cough. No chest discomfort or palpitations. No abdominal discomfort. No hematemesis, melena, hematochezia. In the emergency department, patient was found to be severely anemic with hemoglobin of 4.9. Hospital course: This patient with history as above presented with nausea and vomitting, likely related to cancer, abdominal exam was soft and bening, lab showed profound anemia with hemoglobin of 4; She is a Jehovah witnessed and doesn't want transfusion. So she was given Epogen and IV Iron and she will follow up ny[facility] Dr. Horton for further infusion on outpatient basis Time Spent with Patient Time attestation: Total time managing care of this patient today ____ minutes. Discharge coordination time: Greater than 30 minutes Quality: Safe Use of Opioids Does Pt have an Active Cancer Diagnosis on the Problem List?: No Quality: Stroke Does the patient have a stroke diagnosis?: No Physical Exam Vital Signs: Vital Signs: Last Vital Signs Temp 98.6 F 04/17/23 10:21 Pulse 96 04/18/23 05:53 Resp 16 10/11/23 05:53 BP 136/40 L 04/18/23 05:53 Pulse Ox 96 04/18/23 05:53 O2 Del Method Nasal Cannula 04/18/23 05:53 O2 Flow Rate 2 04/18/23 05:53 Oxygen Flow Rate 2 04/16/23 20:34 BMI result Body Mass Index 17.2 DS: Data Data Completed and Pending Labs on day of discharge: Laboratory Results - last 24 hr 04/17/23 09:34 Stool Occult Blood NEGATIVE Discharge Plan Discharge Anticipated Discharge Date/Time: 04/18/23 09:55 Patient Disposition: Home, Self-Care Discharge Diagnosis: Acute anemia, intractable nausea and vomiting Referrals: [facility] [Other] - 1 Week (SERVICES WILL RESUME THROUGH AGENCY. ) Angi Velazquez MD [Primary Care Provider] - 1 Week Discharge Medications: Continued (DME) cane Device See Rx Instructions .ROUTE .MEDSUPPLY Qty: 1 0RF Rx Instructions: As directed (DME) joselito Misc See Rx Instructions .ROUTE .MEDSUPPLY Qty: 1 0RF Rx Instructions: As directed thiamine HCl (vitamin B1) 100 mg tablet 100 mg PO DAILY 30 Days Qty: 30 0RF (DME) hospital bed Kit See Rx Instructions .Route Qty: 1 0RF Rx Instructions: As directed (DME) ENSURE Drink 1 can a day See Rx Instructions .Route .MEDSUPPLY Qty: 30 5RF Rx Instructions: As directed olanzapine 2.5 mg tablet 2.5 mg PO BID ondansetron 8 mg tablet,disintegrating 8 mg PO Q4H PRN (Reason: nausea/vomiting) folic acid 1 mg tablet 1 mg PO DAILY oxycodone 5 mg tablet 5 mg PO Q4-6H PRN (Reason: Pain) oxycodone [OxyContin] 10 mg tablet,oral only,ext.rel.12 hr 10 mg PO BID prochlorperazine maleate 10 mg tablet 10 mg PO BID-TID lorazepam 0.5 mg tablet 0.5 mg PO DAILY PRN (Reason: Anxiety) fluticasone propionate [Flonase Allergy Relief] 50 mcg/actuation spray,suspension 1 spray intranasal DAILY PRN (Reason: ALLERGIES) Rx Instructions: administer into each nostril cyanocobalamin (vitamin B-12) 1,000 mcg Tablet 1,000 mcg PO DAILY polyethylene glycol 3350 17 gram/dose Powder 17 g PO BID lidocaine 5 % adhesive patch,medicated 3 patch topical DAILY PRN (Reason: Pain) Rx Instructions: apply to thigh, hip, and back simethicone [Gas Relief Extra Strength] 125 mg tablet,chewable 125 mg PO Q6H PRN (Reason: gas) acetaminophen [Tylenol Arthritis Pain] 650 mg tablet extended release 650 mg PO Q8H PRN (Reason: Pain) cyanocobalamin (vitamin B-12) 1,000 mcg/mL solution 1,000 mcg IM QMONTH Patient Comments: PER PATIENT'S OPAL, DUE 02/18/23 bisacodyl [Dulcolax (bisacodyl)] 10 mg Suppository 10 mg DE DAILY PRN (Reason: Constipation) pantoprazole 40 mg tablet,delayed release (DR/EC) 40 mg PO BID escitalopram oxalate 10 mg tablet 10 mg PO DAILY sennosides [senna] 8.6 mg tablet 17.2 mg PO BEDTIME lorazepam 0.5 mg tablet 0.5 mg PO BEDTIME cholecalciferol (vitamin D3) [Vitamin D3] 50 mcg (2,000 unit) capsule 50 mcg PO DAILY 90 Days Qty: 90 1RF ezetimibe 10 mg tablet 10 mg PO DAILY 90 Days Qty: 90 1RF (DME) Easy Touch SheathLock Syrg-Ndl 3 mL 21 gauge x 1 1/2 syringe See Rx Instructions .ROUTE .MEDSUPPLY Qty: 1 2RF Rx Instructions: As directed (DME) bedside commode Kit See Rx Instructions .Route Qty: 1 0RF Rx Instructions: As directed Discharge Orders: Discharge Order (Routine); Ordered 04/18/23 Ordered By: Pawel Villegas Diet: Advance to usual diet Activity on Discharge: As tolerated Stand Alone Forms: Patient Portal Discharge page Care Plan Goals: recovery from anemia Health Concerns: Chronic anemia metastatic melanoma Plan of Treatment: anemia: you have received IV iron and Epogen and will follow up with Dr. Horton's office for repeat blood count and further infusion of iron or epogen Assessment: as above Discharge Date/Time: 04/18/23 13:00
--- NOTE | 2023-04-18 12:13 | PM.EVENT ---
Patient has severe anemia secondary to ongoing treatment for her cancer. Acute worsening of chronic anemia related to malignancy. She cannot receive blood as she is [facility]. She has received iron infusion. She will be scheduled for ANCELMO, Procrit therapy 50799 units once a week upon discharge.
--- NOTE | 2023-04-18 13:20 | HO.HEMONCPA ---
Addendum entered by Josie Castellanos 04/20/23 14:17: [employer] APPROVED FOR PROCRIT J0885 20,000 UNITS EVERY 7 DAYS AUTH #[id number] DOS 04/20/24 - 07/21/23 Original Note: LATASHA pending for PROCRIT J0885 reference # [id number] awaiting decision from [employer] via [employer]
== END 2023-04-18 13:00 | disposition home or self-care (01) ==
LOC: HO.ED 04-17 01:19 → HO.EDOVER 04-17 02:45
PROVIDERS: Admitting Provider Student in an Organized Health Care Education/Training Program; Emergency Provider Emergency Medicine; PCP Internal Medicine; Visit Provider Internal Medicine
DX: D64.81 Anemia due to antineoplastic chemotherapy (principal); D63.0 Anemia in neoplastic disease; T45.1X5A Adverse effect of antineoplastic and immunosuppressive drugs, initial encounter; C43.9 Malignant melanoma of skin, unspecified; C79.51 Secondary malignant neoplasm of bone; R11.2 Nausea with vomiting, unspecified; G89.3 Neoplasm related pain (acute) (chronic); F39 Unspecified mood [affective] disorder; R19.7 Diarrhea, unspecified; K21.9 Gastro-esophageal reflux disease without esophagitis; Z53.1 Procedure and treatment not carried out because of patient's decision for reasons of belief and group pressure; Z92.3 Personal history of irradiation; Z11.52 Encounter for screening for COVID-19; Z79.60 Long term (current) use of unspecified immunomodulators and immunosuppressants; Z79.899 Other long term (current) drug therapy
CPT/HCPCS: 0241U; 36415; 80048; 80053; 82272; 82607; 82746; 83540; 83735; 85007; 85027; 85610; 85730; 87507; 96361; 96365; 96366; 96372; 96375; 96376; 99221; 99285; J0885; J1170; J1756; J2270; J2405

== ENCOUNTER → 2023-04-17 00:19 | Outpatient (BNV) | payer OTHER, SELFPAY | PROVIDERS: Emergency Provider Emergency Medicine; Visit Provider Student in an Organized Health Care Education/Training Program | DX: D64.9 Anemia, unspecified (principal) | CPT/HCPCS: 99222; 99239; 99499 ==

== ENCOUNTER → 2023-04-17 01:47 | Outpatient (BNV) | payer OTHER, SELFPAY | PROVIDERS: Admitting Provider Student in an Organized Health Care Education/Training Program; Emergency Provider Emergency Medicine; PCP Internal Medicine; Visit Provider Internal Medicine | DX: D64.9 Anemia, unspecified (principal) | CPT/HCPCS: 99221 ==

== ENCOUNTER 2023-04-23 10:36 | Outpatient (REF) | payer OTHER, SELFPAY ==
[2023-04-23 14:06] LABS: Vitamin D 25-OH Total 36.6 ng/mL (>30)
[2023-04-23 14:19] LABS: Folate 15.3 ng/mL (> or = 4.0); Vitamin B12 816 pg/mL (200-900)
[2023-04-28 10:34] LABS: Vitamin B1 91 nmol/L (8-30)
== END 2023-04-23 10:37 | disposition home or self-care (01) ==
LOC: HO.10HDL 10:36
PROVIDERS: Visit Provider Internal Medicine
DX: E51.9 Thiamine deficiency, unspecified (principal); E53.8 Deficiency of other specified B group vitamins; E55.9 Vitamin D deficiency, unspecified
CPT/HCPCS: 36415; 82306; 82607; 82746; 84425

== ENCOUNTER → 2023-04-25 15:20 | Outpatient (BNV) | payer OTHER, SELFPAY | PROVIDERS: PCP Internal Medicine; Visit Provider Internal Medicine | DX: D64.9 Anemia, unspecified (principal); C79.51 Secondary malignant neoplasm of bone; G89.3 Neoplasm related pain (acute) (chronic) | CPT/HCPCS: 99214 ==

== ENCOUNTER 2023-04-30 10:38 | Outpatient (AMB) | payer OTHER, SELFPAY ==
[2023-04-30 12:31] VITALS: BP 120/60; PULSE 99; TEMP 37.2; O2SAT 100
--- NOTE | 2023-04-30 12:31 | AM.OFFWIN_ITS ---
Intake Vital Signs 04/30/23 12:31 Height 5 ft 4 in BMI Reason not done Patient refused/unable BP 120/60 Blood Pressure Location Lt brachial Position Sitting Pulse 99 Pulse Source Pulse Oximeter Temp 99.0 F Temp Source Temporal Artery Scan Pulse Oximetry (%) 100 Oxygen Delivery Method Room Air Intake Visit Reasons: EP, congestion, body aches [phone] Intake Note: pt is here for c/o congestion, body aches, patient is with family member states they are concerned of possible pneumonia Patient Tobacco Use Status: Never used Tobacco Allergies ibuprofen Allergy (Mild, Verified 05/13/23 13:26) anaphylaxis, hives metronidazole Allergy (Mild, Verified 05/13/23 13:26) rash naproxen [Aleve] Allergy (Mild, Verified 05/13/23 13:26) anaphylaxis, hives pravastatin Allergy (Mild, Verified 05/13/23 13:26) anaphylaxis simvastatin Allergy (Mild, Verified 05/13/23 13:26) cramps aspirin Allergy (Mild, Uncoded 05/13/23 13:26) swelling Medication List - Last Reconciled 05/13/23 by Robert Mason MD acetaminophen ER (Tylenol Arthritis Pain) 650 mg PO Q8H PRN albuterol sulfate 2.5 mg (3 mL) inhalation Q4-6H PRN bisacodyl (Dulcolax (bisacodyl)) 10 mg KS DAILY PRN cane As directed cholecalciferol (vitamin D3) (Vitamin D3) 50 mcg PO DAILY 90 days commode (bedside commode) As directed cyanocobalamin (vitamin B-12) 1,000 mcg IM QMONTH cyanocobalamin (vitamin B-12) 1,000 mcg PO DAILY [ENSURE Drink 1 can a day As directed] escitalopram oxalate 10 mg PO DAILY ezetimibe 10 mg PO DAILY 90 days fluticasone propionate 50 mcg/actuation (Flonase Allergy Relief) 1 spray intranasal DAILY PRN folic acid 1 mg PO DAILY hospital bed As directed levofloxacin 500 mg PO DAILY lidocaine 5% 3 patches topical DAILY PRN lorazepam 0.5 mg PO DAILY PRN lorazepam 0.5 mg PO BEDTIME olanzapine 2.5 mg PO BID ondansetron 8 mg PO Q4H PRN ondansetron 8 mg PO Q12H PRN oxycodone 5 mg PO Q4-6H PRN oxycodone ER (OxyContin) 10 mg PO BID pantoprazole 40 mg PO BID polyethylene glycol 3350 17 grams PO BID prochlorperazine maleate 10 mg PO BID-TID sennosides (senna) 17.2 mg PO BEDTIME simethicone (Gas Relief Extra Strength) 125 mg PO Q6H PRN syringe with needle, safety (Easy Touch SheathLock Syringe with Needle) As directed thiamine HCl (vitamin B1) 100 mg PO DAILY 30 days walker As directed Do you need a note to return to daycare/school/sports/work: Yes HPI EP, congestion, body aches [phone] HPI Details 77-year-old female presents to the [facility] for a sick visit. She is wheelchair-bound and is accompanied by her granddaughter and son. The granddaughter is translating. Granddaughter reports that patient is having chest pain and shortness of breath for the past few days. At baseline she is on home oxygen. Chest pain symptoms started 2 days ago. She is not sleeping well. Pain is continuous with no n ausea or vomiting. 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 New daily persistent headache Sinusitis UTI (urinary tract infection) Uterine cancer Depression Screening for hypothyroidism Acute medial meniscus tear of left knee Mild major depression, single episode HLA B27 (HLA B27 positive) Effusion, left knee B12 deficiency Osteoarthritis of left knee Chronic fatigue Sore throat, chronic Dyslipidemia Ophthalmoplegic migraine headache Neck pain on right side Insomnia GERD (gastroesophageal reflux disease) Surgical History History of total abdominal hysterectomy and bilateral salpingo-oophorectomy History of laparoscopic cholecystectomy Family History Mother CVD (cardiovascular disease) Father Lung cancer Son Cancer Sister Lung cancer Brother Colon cancer Social History (Updated 05/09/23 @ 13:47 by Yenni Castellano LPN) Household Members: Family Housing: House Alcohol intake: never Patient Tobacco Use Status: Never used Tobacco e-Cigarette/Vaping Use: Never Used Second Hand Smoke Exposure: No Use of substances other than those prescribed or required for medical reasons: No Do you feel safe in your current relationship?: Yes Advance Directives Date on File: 02/13/23 Do you have thoughts of harming others: None service: No Current occupational status: retired Current occupation: rt handed Cognitive needs: No Hearing needs: No Vision needs: Yes Physical Exam Vital Signs: Last Vital Signs Temp 99.0 F 04/30/23 12:31 Pulse 99 04/30/23 12:31 BP 120/60 04/30/23 12:31 Pulse Ox 100 04/30/23 12:31 Oxygen Delivery Method Room Air 04/30/23 12:31 Const Other: Projectile elderly wheelchair bound lady in mild distress. Able to understand verbal commands. General: cooperative and healthy appearing Nutritional Appearance: well nourished Orientation/consciousness: patient oriented x3 Limitations: no limitations HEENT Head: Yes normal to inspection Eyes General: appearance normal, both eyes and all related structures Neck Neck: Yes normal visual inspection Chest Chest palpation & inspection: normal palpation of entire chest wall Resp Other: Diminished breath sounds in both bases. Effort & Inspection: normal respiratory effort Neuro General: patient oriented x3 Office Procedures EKG Details: Nonspecific T-wave abnormalities. [id number], Complete Assessment & Plan Assessment & Plan (1) Pneumonia: Code(s): J18.9 - Pneumonia, unspecified organism Plan: Chest x-ray shows bilateral pleural effusion with possible infiltrates. These are new compared to the previous x-ray done in the hospital. Had a detailed discussion with her granddaughter who is the healthcare proxy. The patient and the granddaughter are reluctant to take her to the hospital for IV antibiotics. They prefer p.o. antibiotics and prednisone. Flonase for the nasal congestion. I explained to the patient that this is suboptimal care and should her symptoms worsen, as they should urbano to the hospital. Patient can very easily get sicker. Both patient and the healthcare proxy are verbally understanding Orders: Orders AMB EKG-In Office 04/30/23 R07.9 - Chest pain, unspecified Medications: New levofloxacin 500 mg PO DAILY 10 tabs 0RF prednisone 6 pills by mouth day 1, 6 pills by mouth day 2, 5 pills by mouth day 3, 4 pills by mouth day 4, 3 pills by mouth day 5, 2 pills by mouth day 6, 1 pill by mouth day 7 and 1 pill by mouth day 8. 10 mg PO DAILY 28 tabs 0RF Coding Level of Care Code Est Pt Level 4 (56724) Diagnoses Pneumonia J18.9 CPT Codes EKG - CPT: 79499-[id number], Complete ([id number])
== END 2023-04-30 14:21 | disposition home or self-care (01) ==
PROVIDERS: PCP Internal Medicine; Visit Provider Internal Medicine
DX: J18.9 Pneumonia, unspecified organism (principal)
CPT/HCPCS: 93000; 99214

== ENCOUNTER 2023-04-30 12:52 | Outpatient (REF) | payer OTHER, SELFPAY ==
--- NOTE | ~2023-04-30 | XR_ITS ---
EXAMINATION: XR CHEST CLINICAL INFORMATION: Cough COMPARISON: Previous chest x-ray most recent 03/11/[address] 02/25/2023 TECHNIQUE: Frontal view of the chest was obtained. FINDINGS: Cardiac silhouette is slightly enlarged. There is question of pulmonary venous. There are bilateral pleural effusions, moderate size, increased from March 2023 exam. Appearance is questionable for mild/CHF. There are innumerable pulmonary nodules. These appear increased in size and number from prior exams. There is question of increasing right paratracheal and suprahilar lymphadenopathy There is increased bilateral lower lobe atelectasis/consolidation. There is increased left lateral pleural thickening overlying the scapula and adjacent to the left upper lobe. There are degenerative changes of the spine. Underlying bone lesion not appreciated. XR/XR chest 1V IMPRESSION: Interval increase in pulmonary nodules, right paratracheal lymphadenopathy and left lateral pleural thickening. Neoplastic as well as infectious and inflammatory processes considered. Question mild CHF with increased cardiac silhouette size, pulmonary venous redistribution and moderate size bilateral pleural effusions. There is also increasing bilateral lower lobe atelectasis/consolidation adjacent to the effusions.
== END 2023-04-30 12:53 | disposition home or self-care (01) ==
LOC: HO.HMGCX 12:52
PROVIDERS: PCP Internal Medicine; Visit Provider Internal Medicine
DX: R05.9 Cough, unspecified (principal)
CPT/HCPCS: 71045

== ENCOUNTER 2023-05-09 13:33 | Outpatient (AMB) | payer OTHER, SELFPAY ==
--- NOTE | 2023-05-09 13:35 | MHC.OFFVIS ---
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: No Accompanied by: Family/Other Allergies ibuprofen Allergy (Mild, Verified 05/09/23 13:44) anaphylaxis, hives metronidazole Allergy (Mild, Verified 05/09/23 13:44) rash naproxen [Aleve] Allergy (Mild, Verified 05/09/23 13:44) anaphylaxis, hives pravastatin Allergy (Mild, Verified 05/09/23 13:44) anaphylaxis simvastatin Allergy (Mild, Verified 05/09/23 13:44) cramps aspirin Allergy (Mild, Uncoded 05/09/23 13:44) swelling Medication List - Last Reconciled 05/09/23 by Yenni Castellano LPN acetaminophen ER (Tylenol Arthritis Pain) 650 mg PO Q8H PRN bisacodyl (Dulcolax (bisacodyl)) 10 mg [place] DAILY PRN cane As directed cholecalciferol (vitamin D3) (Vitamin D3) 50 mcg PO DAILY 90 days commode (bedside commode) As directed cyanocobalamin (vitamin B-12) 1,000 mcg IM QMONTH cyanocobalamin (vitamin B-12) 1,000 mcg PO DAILY [ENSURE Drink 1 can a day As directed] escitalopram oxalate 10 mg PO DAILY ezetimibe 10 mg PO DAILY 90 days fluticasone propionate 50 mcg/actuation (Flonase Allergy Relief) 1 spray intranasal DAILY PRN folic acid 1 mg PO DAILY hospital bed As directed levofloxacin 500 mg PO DAILY lidocaine 5% 3 patches topical DAILY PRN lorazepam 0.5 mg PO DAILY PRN lorazepam 0.5 mg PO BEDTIME olanzapine 2.5 mg PO BID ondansetron 8 mg PO Q4H PRN oxycodone 5 mg PO Q4-6H PRN oxycodone ER (OxyContin) 10 mg PO BID pantoprazole 40 mg PO BID polyethylene glycol 3350 17 grams PO BID prochlorperazine maleate 10 mg PO BID-TID sennosides (senna) 17.2 mg PO BEDTIME simethicone (Gas Relief Extra Strength) 125 mg PO Q6H PRN syringe with needle, safety (Easy Touch SheathLock Syringe with Needle) As directed thiamine HCl (vitamin B1) 100 mg PO DAILY 30 days walker As directed HPI dyspnea: 4 week follow up HPI Details Katya is a very pleasant 77 year old female, never smoker, with 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 Currently receiving Procrit. Today she presents to review respiratory status after supplemental oxygen. Per granddaugther, HCP, patient has had improvements overall in dyspnea with addition on 2L. Unfortunately, she was recently evaluated and treated for pneumonia. Her PCP placed her on levaquin and prednisone on 04/30 but was admitted to a hospital in [place] and treatment was discontinued. CXR from 05/03 below. 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 New daily persistent headache Sinusitis UTI (urinary tract infection) Uterine cancer Depression Screening for hypothyroidism Acute medial meniscus tear of left knee Mild major depression, single episode HLA B27 (HLA B27 positive) Effusion, left knee B12 deficiency Osteoarthritis of left knee Chronic fatigue Sore throat, chronic Dyslipidemia Ophthalmoplegic migraine headache Neck pain on right side Insomnia GERD (gastroesophageal reflux disease) Surgical History History of total abdominal hysterectomy and bilateral salpingo-oophorectomy History of laparoscopic cholecystectomy Family History Mother CVD (cardiovascular disease) Father Lung cancer Son Cancer Sister Lung cancer Brother Colon cancer Social History (Updated 05/09/23 @ 13:47 by Yenni Castellano LPN) Household Members: Family Housing: House Alcohol intake: never Patient Tobacco Use Status: Never used Tobacco e-Cigarette/Vaping Use: Never Used Second Hand Smoke Exposure: No Use of substances other than those prescribed or required for medical reasons: No Do you feel safe in your current relationship?: Yes Advance Directives Date on File: 02/13/23 Do you have thoughts of harming others: None service: No Current occupational status: retired Current occupation: rt handed Cognitive needs: No Hearing needs: No Vision needs: Yes Review of Systems Const Reports anorexia, Denies chills, Denies excessive sweating, Reports fatigue, Denies fever(s), Reports lethargy, Denies night sweats, Reports poor appetite, Reports weakness and Reports weight loss Eyes Denies dry eyes, Denies irritation and Denies itchy eyes ENT Reports Normal hearing present, Denies nasal congestion, Denies nasal discharge, Denies post nasal drip and Denies sore throat Card Denies chest pain, Denies chest pain at rest, Denies chest pain with activity, Denies claudication, Denies leg edema, Reports dyspnea and Reports dyspnea on exertion Resp Denies cough, Denies excessive phlegm production, Denies pain on inspiration, Denies pain with cough, Reports dyspnea, Reports dyspnea on exertion, Denies stridor and Denies wheezing Neuro Reports Normal hearing present and Reports weakness Endo Denies excessive sweating and Reports fatigue Aller/Immun Denies itchy eyes, Denies seasonal rhinorrhea and Denies wheezing Physical Exam Vital Signs: Last Vital Signs Pulse 107 H 05/09/23 13:38 BP 100/60 05/09/23 13:38 Pulse Ox 99 05/09/23 13:38 Oxygen Delivery Method Room Air 05/09/23 13:38 Oxygen Flow Rate 2 05/09/23 13:38 BMI result Body Mass Index 16.5 Const General: cooperative, no acute distress, alert and anxious Orientation/consciousness: patient oriented x3 Limitations: ambulation with walker and wheelchair HEENT Head: Yes normal to inspection, Yes normocephalic and Yes atraumatic Ears: hearing grossly normal bilaterally and external ears normal Eyes General: appearance normal, both eyes and all related structures Eyelids: Yes eyelids normal EOM: EOMs intact bilaterally Neck Neck: Yes normal visual inspection and Yes no lymphadenopathy Lymphatic: no lymphadenopathy noted Chest Chest palpation & inspection: normal inspection of the chest Resp Other: diminished bases bilaterally Effort & Inspection: normal respiratory effort, able to speak in complete sentences, no audible wheezes, no cough, no stridor, not tachypneic, no tripod positioning and no use of accessory muscles Auscultation: no crackles, no rhonchi and no wheezes Cardio Jugular venous distension: no JVD Rate: regular rate Rhythm: regular rhythm Skin Other: warm, dry General skin exam: no rashes or lesions noted Neuro General: patient oriented x3 Cranial nerves: Yes Normal hearing present Cognition (Neuro): normal cognition Gait exam (Neuro): Normal gait present Extrem General: Yes normal to inspection and Yes no pedal edema Psych Appearance: well kempt Speech and movement: Normal speech and movement present and Clear speech present Attitude: cooperative Thought process: Normal thought process present Results Reviewed Results Reviewed: Assessment & Plan Assessment & Plan (1) Chronic respiratory failure with hypoxia: Code(s): J96.11 - Chronic respiratory failure with hypoxia (2) 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 Will restart Levaquin. Will also send in prescription for nebulizer and albuterol. Patient was scheduled for repeat chest CT after prior episode of pneumonia, but with new consolidations, will need to reschedule chest CT for another 8-10 weeks to assess for resolution. Had long discussion regarding patient's respiratory status with granddaughter, explaining with her anemia, she is unlikely to going to have symptomatic improvement. She questioned therapeutic thorancentesis but there are significant risks, including bleeding and advised against this. She is also requesting a humidifier for oxygen and refill on her zofran. Will send the humidifier prescription to [facility]. Will send in zofran until she is able to follow up with oncology. Reviewed importance to avoid use of zofran until levaquin complete due to risk of prolonged QT. All questions were answered and patient is in agreement of plan. Will follow up in 4 weeks or sooner if needed. 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
[2023-05-09 13:38] VITALS: BP 100/60; PULSE 107; O2SAT 99; BMI 16.5
== END 2023-05-09 14:32 | disposition home or self-care (01) ==
LOC: HO.HPSW 13:33
PROVIDERS: PCP Internal Medicine; Visit Provider Nurse Practitioner Family
DX: J96.11 Chronic respiratory failure with hypoxia (principal); C79.51 Secondary malignant neoplasm of bone; Z99.81 Dependence on supplemental oxygen; R91.8 Other nonspecific abnormal finding of lung field; J90 Pleural effusion, not elsewhere classified
CPT/HCPCS: 99214

== ENCOUNTER → 2023-05-09 13:33 | Outpatient (BNVA) | payer OTHER, SELFPAY | PROVIDERS: PCP Internal Medicine; Visit Provider Nurse Practitioner Family ==

== ENCOUNTER 2023-05-14 16:13 | Outpatient (AMB) | payer OTHER, SELFPAY ==
[2023-05-14 16:25] VITALS: BP 102/58; PULSE 103; O2SAT 99
--- NOTE | 2023-05-14 16:25 | MHC.PC.OV ---
Vital Signs 05/14/23 16:25 Height 5 ft 4 in BMI Reason not done Patient refused/unable BP 102/58 L Blood Pressure Location Lt brachial Position Sitting Pulse 103 H Pulse Source Pulse Oximeter Pulse Oximetry (%) 99 Oxygen Delivery Method Room Air Intake Visit Reasons: melanoma Intake Note: Pt is here for routine F/U. Receiver Stocker Required: No Accompanied by: Proxy- Katya Allergies ibuprofen Allergy (Mild, Verified 05/14/23 16:37) anaphylaxis, hives metronidazole Allergy (Mild, Verified 05/14/23 16:37) rash naproxen [Aleve] Allergy (Mild, Verified 05/14/23 16:37) anaphylaxis, hives pravastatin Allergy (Mild, Verified 05/14/23 16:37) anaphylaxis simvastatin Allergy (Mild, Verified 05/14/23 16:37) cramps aspirin Allergy (Mild, Uncoded 05/14/23 16:37) swelling Medication List - Last Reconciled 05/14/23 by Angi Bartlett MD acetaminophen ER (Tylenol Arthritis Pain) 650 mg PO Q8H PRN albuterol sulfate 2.5 mg (3 mL) inhalation Q4-6H PRN bisacodyl (Dulcolax (bisacodyl)) 10 mg [place] DAILY PRN cane As directed cholecalciferol (vitamin D3) (Vitamin D3) 50 mcg PO DAILY 90 days commode (bedside commode) As directed cyanocobalamin (vitamin B-12) 1,000 mcg IM QMONTH cyanocobalamin (vitamin B-12) 1,000 mcg PO DAILY [ENSURE Drink 1 can a day As directed] escitalopram oxalate 10 mg PO DAILY ezetimibe 10 mg PO DAILY 90 days fluticasone propionate 50 mcg/actuation (Flonase Allergy Relief) 1 spray intranasal DAILY PRN folic acid 1 mg PO DAILY hospital bed As directed levofloxacin 500 mg PO DAILY lidocaine 5% 3 patches topical DAILY PRN lorazepam 0.5 mg PO DAILY PRN lorazepam 0.5 mg PO BEDTIME olanzapine 2.5 mg PO BID ondansetron 8 mg PO Q4H PRN ondansetron 8 mg PO Q12H PRN oxycodone 5 mg PO Q4-6H PRN oxycodone ER (OxyContin) 10 mg PO BID pantoprazole 40 mg PO BID polyethylene glycol 3350 17 grams PO BID prochlorperazine maleate 10 mg PO BID-TID sennosides (senna) 17.2 mg PO BEDTIME simethicone (Gas Relief Extra Strength) 125 mg PO Q6H PRN syringe with needle, safety (Easy Touch SheathLock Syringe with Needle) As directed thiamine HCl (vitamin B1) 100 mg PO DAILY 30 days walker As directed Tobacco use date assessed: 09/28/22 HPI HPI Comments History of Present Illness Details This is a 77-year-old female with pain due to melanoma Mets to bone, mild major depression, malnutrition and chatterjee ulcer stage I that comes today for follow-up on her conditions. She is currently in a wheelchair and has been having a lot of weight loss due to decrease in appetite. On opiates for her pain due to cancer. Has low hemoglobin and refuse transfusion. Complains of fatigue and tiredness. Still has depression and escitalopram was refill. Has sacral ulcer stage1 that bothers her and Hydrogel was sent. Accompanied by physician interventional cardiologist which is a granddaughter. 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 New daily persistent headache Sinusitis UTI (urinary tract infection) Uterine cancer Depression Screening for hypothyroidism Acute medial meniscus tear of left knee Mild major depression, single episode HLA B27 (HLA B27 positive) Effusion, left knee B12 deficiency Osteoarthritis of left knee Chronic fatigue Sore throat, chronic Dyslipidemia Ophthalmoplegic migraine headache Neck pain on right side Insomnia GERD (gastroesophageal reflux disease) Surgical History History of total abdominal hysterectomy and bilateral salpingo-oophorectomy History of laparoscopic cholecystectomy Family History Mother CVD (cardiovascular disease) Father Lung cancer Son Cancer Sister Lung cancer Brother Colon cancer Social History Household Members: Family Housing: House Alcohol intake: never Patient Tobacco Use Status: Never used Tobacco e-Cigarette/Vaping Use: Never Used Second Hand Smoke Exposure: No Advance Directives Date on File: 02/13/23 service: No Current occupational status: retired Current occupation: rt handed Cognitive needs: No Hearing needs: No Vision needs: Yes Questionnaire Thrive Questionnaire Date Thrive assessed: 04/18/23 ADELITA-7 AMB Questionnaire ADELITA-7 Date ADELITA - 7 assessed: 09/28/22 Source: Developed by Drs. Nikunj Grant, Zee Stokes, Chris Mae and colleagues, with an educational ronn from [employer]. Review of Systems Const All systems reviewed & are unremarkable except as noted in HPI and below Eyes Reports no additional complaints, Denies change in vision and Denies other visual disturbances Card Denies chest pain at rest, Denies chest pain with activity, Denies edema, Denies irregular heart rhythm, Denies claudication, Denies dyspnea, Denies dyspnea on exertion, Denies orthopnea, Denies paroxysmal nocturnal dyspnea and Denies slow heart rate Resp Denies cough, Denies dyspnea and Denies dyspnea on exertion GI Denies abdominal pain, Denies change in bowel habits, Denies excessive flatus, Denies nausea and Denies vomiting Reports urinary incontinence, Denies urinary hesitancy and Denies urinary urgency Musc Denies abnormal gait, Reports back pain, Denies atrophy, Denies deformity and Denies limited range of motion Skin/Breast Denies bleeding lesions, Denies changing lesions and Denies rash Neuro Denies abnormal gait and Denies lack of coordination Physical exam (Primary Care) Vital Signs: Last Vital Signs Pulse 103 H 05/14/23 16:25 BP 102/58 L 05/14/23 16:25 Pulse Ox 99 05/14/23 16:25 Oxygen Delivery Method Room Air 05/14/23 16:25 Tobacco/Smoking Status: Tobacco use Status Tobacco use date assessed 09/28/22 05/14/23 16:27 Patient Tobacco Use Status Never used Tobacco 05/14/23 16:27 e-Cigarette/Vaping Use Never Used 05/14/23 16:27 Thrive Assessment: Date of Thrive Assessment Date Thrive assessed 04/18/23 05/14/23 16:27 Const Limitations: wheelchair Eyes General: appearance normal, both eyes and all related structures Eyelids: Yes eyelids normal Conjunctivae: conjunctivae normal Neck Neck: Yes normal visual inspection and Yes supple Resp Effort & Inspection: normal respiratory effort Auscultation: clear to auscultation bilaterally Cardio Jugular venous distension: no JVD Rate: regular rate Rhythm: regular rhythm Heart sounds: S1 normal heart sound present and S2 normal heart sound present Skin Other: Sacral ulcer stage I Extrem General: Yes full ROM Office Meds cyanocobalamin (vitamin B-12) 1,000 mcg/mL injection solution Performing Provider: Angi Bartlett MD Performing Location: [facility] [place] [facility] Administered by: Rosangela Hilario RN on 05/14/23 16:41 Dose Route Admin Location Dispensed Lot Number Expiration Date [facility] Air Director 1,000 mcg IM left deltoid 1 mL [id number] 04/07/24 53705-072-54 FERNY PHARMACEUT Assessment and Plan Assessment & Plan (1) Ulcer of sacral region, stage 1: Code(s): L98.429 - Non-pressure chronic ulcer of back with unspecified severity Plan: Hydrogel ordered (2) Pain due to malignant neoplasm metastatic to bone: Code(s): G89.3 - Neoplasm related pain (acute) (chronic); C79.51 - Secondary malignant neoplasm of bone Plan: Continue opiates as needed (3) Malnutrition: Code(s): E46 - Unspecified protein-calorie malnutrition Plan: Continue Ensure (4) Mild major depression, single episode: Code(s): F32.0 - Major depressive disorder, single episode, mild Plan: Continue escitalopram Orders: Orders AMB Vitamin B12 Injection Patient Supplied Today D51.9 - Vitamin B12 deficiency anemia, unspecified [facility]errals [facility] Referral L98.429 - Non-pressure chronic ulcer of back with unspecified severity Medications: New prednisone 40 mg (2 x 20 mg) PO .every week 30 days 8 tabs 6RF gel dressing (DermaGauze Hydrogel Dressing) As directed 15 ea 2RF L98.429 - Non-pressure chronic ulcer of back with unspecified severity underpads (Bed Underpads) Use 3 to 4 bed underpads daily 100 ea 11RF N39.41 - Urge incontinence Gel mattress overlay As directed 1 ea 0RF L98.429 - Non-pressure chronic ulcer of back with unspecified severity [wipes] As directed 200 ea 11RF N39.41 - Urge incontinence [adult diapers pull-ups] As directed 240 ea 11RF N39.41 - Urge incontinence latex gloves (Latex Gloves, Large) As directed 200 ea 11RF N39.41 - Urge incontinence clonazepam 0.5 mg PO BID 30 days 60 tabs 0RF Changed From cyanocobalamin (vitamin B-12) 1,000 mcg IM QMONTH To cyanocobalamin (vitamin B-12) 1,000 mcg IM QMONTH 30 days 1 mL 6RF From escitalopram oxalate 10 mg PO DAILY To escitalopram oxalate 10 mg PO DAILY 90 days 90 tabs 1RF From fluticasone propionate 50 mcg/actuation (Flonase Allergy Relief) administer into each nostril 1 spray intranasal DAILY PRN ALLERGIES To fluticasone propionate 50 mcg/actuation (Flonase Allergy Relief) administer into each nostril 1 spray intranasal DAILY 30 days PRN 16 grams 1RF ALLERGIES Refilled cholecalciferol (vitamin D3) (Vitamin D3) 50 mcg PO DAILY 90 days 90 caps 1RF ezetimibe 10 mg PO DAILY 90 days 90 tabs 1RF Coding Level of Care Code Est Pt Level 4 (26569) Diagnoses Ulcer of sacral region, stage 1 L98.429 Pain due to malignant neoplasm metastatic to bone G89.3; C79.51 Malnutrition E46 Mild major depression, single episode F32.0 Time Spent (min) 26
== END 2023-05-14 16:59 | disposition home or self-care (01) ==
PROVIDERS: PCP Internal Medicine; Visit Provider Internal Medicine
DX: L98.429 Non-pressure chronic ulcer of back with unspecified severity (principal); G89.3 Neoplasm related pain (acute) (chronic); C79.51 Secondary malignant neoplasm of bone; E46 Unspecified protein-calorie malnutrition; F32.0 Major depressive disorder, single episode, mild; D51.9 Vitamin B12 deficiency anemia, unspecified
CPT/HCPCS: 96372; 99214; J3420

== ENCOUNTER 2023-05-16 14:46 | Emergency (ER) | payer OTHER, SELFPAY ==
--- NOTE | ~2023-05-16 | CT_ITS ---
Indication: Fall EXAMINATION: CT brain, CT cervical spine. Axial imaging and coronal and sagittal reformatted images. This CT examination was performed using dose optimization techniques as appropriate, variously including the following: *Automated exposure control *Adjustment of mA and/or kV according to patient size (this includes techniques or standardized protocols for targeted exams where dose is matched to indication/reason for exam; i.e. extremities or head) *Use of iterative reconstruction technique. Radiation dose 196 and 563. Comparison chest CT dated 02/25/2023 CT brain; There is no midline shift. There is no mass effect. There is no hemorrhage. The basal cisterns appear patent. The posterior fossa is grossly within normal limits. No extra-axial collection. Probable scattered areas of white matter ischemic change. The ventricular system is within normal limits. Review of the bone windows does not demonstrate evidence of fracture. Sinus disease is noted. Mottled appearance to the base of the skull bones Cervical spine; Negative for acute fracture or dislocation. There is a mottled appearance to the bones. This could possibly represent the patient's baseline. Underlying malignancy cannot be excluded. Correlation recommended clinically for history. Note is made once again of lung densities also seen on previous exam. Etiology is indeterminate. These are partially imaged CT/CT cervical spine wo IV con IMPRESSION:: Negative acute noncontrast CT the brain. There is no evidence for an acute fracture or dislocation the cervical spine. Mottled bony appearance. Underlying bony malignancy cannot be excluded given the appearance. Probable increasing lung effusions bilaterally and once again partially imaged scattered lung lesions of indeterminate etiology.
[2023-05-16 14:53] VITALS: BP 118/39; PULSE 103; RESP 18; TEMP 37.1; O2SAT 100; BMI 16.5
--- NOTE | 2023-05-16 14:53 | ED_ITS ---
HPI - General Adult General Chief complaint: Fall Stated complaint: Fall/Head inj Time Seen by Provider: 05/16/23 19:42 Source: patient, family and old records reviewed Mode of arrival: ambulatory Limitations: no limitations History of Present Illness HPI narrative: 77 yo female with PMH of metastatic melanoma with anemia but Alen currently no chemo but trying to get H/H up so she can go back to [place] at this time she tripped on walker hit L side of head and ear no LOC not on thinners. no other injuries reported. MD complaint: head injury Onset (ago): minute(s) (prior to arrival ) Location: head Radiation: non-radiation Severity: mild Quality: aching Pain Consistency: constant Relieving factors: none Exacerbating factors: other (touching ear) Associated symptoms: other (hematoma to L ear) Treatments prior to arrival: none Related Data Home Medications Medication Instructions Recorded Confirmed sennosides 8.6 mg tablet (senna) 17.2 mg PO BEDTIME 02/12/23 05/14/23 acetaminophen 650 mg 650 mg PO Q8H PRN Pain 02/18/23 05/14/23 tablet,extended release (Tylenol Arthritis Pain) bisacodyl 10 mg rectal suppository 10 mg [place] DAILY PRN Constipation 02/18/23 05/14/23 (Dulcolax (bisacodyl)) lidocaine 5 % topical patch 3 patch topical DAILY PRN Pain 02/18/23 05/14/23 simethicone 125 mg chewable tablet 125 mg PO Q6H PRN gas 02/18/23 05/14/23 (Gas Relief Extra Strength) pantoprazole 40 mg tablet,delayed 40 mg PO BID 04/11/23 05/14/23 release cyanocobalamin (vitamin B-12) 1,000 mcg PO DAILY 04/17/23 05/14/23 1,000 mcg tablet folic acid 1 mg tablet 1 mg PO DAILY 04/17/23 05/14/23 olanzapine 2.5 mg tablet 2.5 mg PO BID 04/17/23 05/14/23 ondansetron 8 mg disintegrating 8 mg PO Q4H PRN nausea/vomiting 04/17/23 05/14/23 tablet oxycodone 10 mg tablet,crush 10 mg PO BID 04/17/23 05/14/23 resistant,extended release 12 hr (OxyContin) oxycodone 5 mg tablet 5 mg PO Q4-6H PRN Pain 04/17/23 05/14/23 polyethylene glycol 3350 17 17 g PO BID 04/17/23 05/14/23 gram/dose oral powder prochlorperazine maleate 10 mg 10 mg PO BID-TID 04/17/23 05/14/23 tablet Previous Rx's Medication Instructions Recorded cane #1 ea 09/14/20 walker #1 ea 10/20/20 commode (bedside commode) #1 ea 02/12/23 syringe with needle, safety 3 mL #1 ea 02/12/23 21 gauge x 1 1/2 (Easy Touch SheathLock Syringe with Needle) thiamine HCl (vitamin B1) 100 mg 100 mg PO DAILY 30 days #30 tabs 04/03/23 tablet hospital bed #1 ea 04/06/23 albuterol sulfate 2.5 mg/3 mL 2.5 mg (3 mL) inhalation Q4-6H PRN 05/10/23 (0.083 %) solution for nebulization shortness of breath or wheezing #90 mL levofloxacin 500 mg tablet 500 mg PO DAILY #10 tabs 05/10/23 ondansetron 8 mg disintegrating 8 mg PO Q12H PRN nausea and 05/11/23 tablet vomiting #14 tabs cholecalciferol (vitamin D3) 50 50 mcg PO DAILY 90 days #90 caps 05/14/23 mcg (2,000 unit) capsule (Vitamin D3) clonazepam 0.5 mg tablet 0.5 mg PO BID 30 days #60 tabs 05/14/23 cyanocobalamin (vitamin B-12) 1,000 mcg IM QMONTH 30 days #1 mL 05/14/23 1,000 mcg/mL injection solution escitalopram oxalate 10 mg tablet 10 mg PO DAILY 90 days #90 tabs 05/14/23 ezetimibe 10 mg tablet 10 mg PO DAILY 90 days #90 tabs 05/14/23 fluticasone propionate 50 1 spray intranasal DAILY PRN 05/14/23 mcg/actuation nasal ALLERGIES 30 days #16 grams spray,suspension (Flonase Allergy Relief) prednisone 20 mg tablet 40 mg (2 x 20 mg) PO .every week 05/14/23 30 days #8 tabs ENSURE Drink 1 can a day #30 ea 05/15/23 Gel mattress overlay #1 ea 05/15/23 adult diapers pull-ups #240 ea 05/15/23 gel dressing 4 X 4 (DermaGauze #15 ea 05/15/23 Hydrogel Dressing) latex gloves (Latex Gloves, Large) #200 ea 05/15/23 underpads (Bed Underpads) #100 ea 05/15/23 wipes #200 ea 05/15/23 Allergies Allergy/AdvReac Type Severity Reaction Status Date / Time ibuprofen Allergy Mild anaphylaxis, Verified 05/14/23 16:37 hives metronidazole Allergy Mild rash Verified 05/14/23 16:37 naproxen [Aleve] Allergy Mild anaphylaxis, Verified 05/14/23 16:37 hives pravastatin Allergy Mild anaphylaxis Verified 05/14/23 16:37 simvastatin Allergy Mild cramps Verified 05/14/23 16:37 aspirin Allergy Mild swelling Uncoded 05/14/23 16:37 Review of Systems Review of Systems: Constitutional : No Fever, No Chills, No Fatigue ENT/Mouth : No sore throat, No Rhinorrhea, pos ear pain Eyes: No Eye Pain, No Swelling, No Redness Cardiovascular : No Chest Pain, No SOB, No Dyspnea on Exertion Respiratory : No Cough, No Sputum Gastrointestinal : No Nausea, No Vomiting, No Diarrhea, No abdominal Pain Genitourinary : No Dysuria, No Urinary Frequency, No Hematuria, Musculoskeletal : No joint pain, No Myalgias, No Joint Swelling Skin : No Skin Lesions, No rash Neuro : No Weakness, No Numbness, No Dizziness, positive Headache Psych : No Anxiety/Panic, No Depression All other systems reviewed and are negative [facility] Past Medical History Medical History Malnutrition 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 New daily persistent headache Sinusitis UTI (urinary tract infection) Uterine cancer Depression Screening for hypothyroidism Acute medial meniscus tear of left knee Mild major depression, single episode HLA B27 (HLA B27 positive) Effusion, left knee B12 deficiency Osteoarthritis of left knee Chronic fatigue Sore throat, chronic Dyslipidemia Ophthalmoplegic migraine headache Neck pain on right side Insomnia GERD (gastroesophageal reflux disease) Surgical History History of total abdominal hysterectomy and bilateral salpingo-oophorectomy History of laparoscopic cholecystectomy Family History Family History Mother CVD (cardiovascular disease) Father Lung cancer Son Cancer Sister Lung cancer Brother Colon cancer Social History Social History Household Members: Family Housing: House Alcohol intake: never Patient Tobacco Use Status: Never used Tobacco Smoked in Last 30 Days: No e-Cigarette/Vaping Use: Never Used Second Hand Smoke Exposure: No Advance Directives: Yes Advance Directives on File: Yes Advance Directives Date on File: 02/13/23 service: No Current occupational status: retired Current occupation: rt handed Cognitive needs: No Hearing needs: No Vision needs: Yes Physical Exam ED Vital Signs: Vital Signs - 24 hr 05/16/23 14:53 05/16/23 17:11 05/16/23 19:37 Temperature 98.7 F 98.7 F Pulse Rate 103 H 103 H 104 H Respiratory Rate 18 18 22 H Blood Pressure 118/39 L 110/47 L 131/37 L Pulse Oximetry 100 98 96 Oxygen Delivery Method Room Air Room Air Room Air BMI result Body Mass Index 16.5 Appearance: Alert. Oriented X3. No acute distress. at baseline, frail thin and cachectic Eyes: Pupils equal, round and reactive to light. ENT: Pharynx normal. L ear small hematoma and abrasion noted on pinna no large hematoma no tense pocket no bleeding very superficial abrasion seen Neck: Normal inspection. Neck supple. CVS: Normal heart rate and rhythm. Pulses normal. Respiratory: No respiratory distress. Breath sounds normal. Abdomen: Soft and nontender. Skin: Skin warm and dry. pale skin color. Normal skin turgor. Extremities: No lower extremity edema. Neuro: Oriented X 3. No motor deficit. No sensory deficit. Course Course Course Narrative: L ear wrapped with sterile gauze and iveth wrap to prevent further hematoma or progression showed family how to wrap Medical Decision Making Medical Decision Making MDM Narrative: 77 yo female with PMH of metastatic melanoma who cannot receive transfusions due to Jehovah's status with worsening anemia and now treatments foregone per onc notes other than trying to get H/H up so she can spend her final days in [place]. She is here after mechanical fall with L ear injury and head strike not on thinners no LOC and at baseline no other injures reported will obtain CT head and Cspine This is an RME: Additional HPI, ROS, PE not included below will be deferred to primary provider. This is a 19-mt[age]mny-female, with a hx of melanoma with metastases patient is on palliative treatment with immunosuppressive therapy, GERD, depression, presenting to the emergency department. She had a mechanical fall as she was walking without her walker and fell. This was witnessed by family. No loss of consciousness. She is acting at her baseline. She is not on blood thinners. Plan: CT head, CT neck Differential Diagnosis Differential Diagnoses: The differential diagnosis associated with the presentation includes head or neck trauma Admission/Observation Consideration of admission/observation: Escalation of care including admission/observation considered at baseline stable for DC Lab Data MDM Lab Attestation statement: I reviewed the patient's lab results. Independent Interpretation I performed an independent interpretation of an: CT Scan (no trauma) Interpretation: family aware of bony melinda and lung pathology - not new Radiology Impression Discussion of test interpretation with radiology: I have reviewed the radiologist's reading. Independent Historian Clinical information obtained from an independent historian. History obtained from or confirmed by: Other (family ) Discharge Plan Discharge Clinical Impression: Ear hematoma, left Qualifiers: Encounter type: initial encounter Qualified Code(s): S00.432A - Contusion of left ear, initial encounter Head injury Qualifiers: Encounter type: initial encounter Qualified Code(s): S09.90XA - Unspecified injury of head, initial encounter Patient Disposition: Home, Self-Care Instructions: Head Injury (ED), Contusion in Adults (ED) Additional Instructions: change dressing daily monitor for increased swelling, redness, fevers or signs of infection. keep area wrapped for 3 days like we showed you. return for vomiting, confusion or signs of infection Prescriptions: No Action (DME) cane Device See Rx Instructions .ROUTE .MEDSUPPLY Qty: 1 0RF Rx Instructions: As directed (DME) walker Misc See Rx Instructions .ROUTE .MEDSUPPLY Qty: 1 0RF Rx Instructions: As directed thiamine HCl (vitamin B1) 100 mg tablet 100 mg PO DAILY 30 Days Qty: 30 0RF (DME) hospital bed Kit See Rx Instructions .Route Qty: 1 0RF Rx Instructions: As directed (DME) ENSURE Drink 1 can a day See Rx Instructions .Route .MEDSUPPLY Qty: 30 5RF Rx Instructions: As directed (DME) adult diapers pull-ups small See Rx Instructions .Route .MEDSUPPLY Qty: 240 11RF Rx Instructions: As directed (DME) DermaGauze Hydrogel Dressing 4 X 4 bandage See Rx Instructions .Route Qty: 15 2RF Rx Instructions: As directed (DME) Gel mattress overlay Misc See Rx Instructions .Route Qty: 1 0RF Rx Instructions: As directed (DME) latex gloves [Latex Gloves, Large] Misc See Rx Instructions .Route Qty: 200 11RF Rx Instructions: As directed (DME) underpads [Bed Underpads] Pad See Rx Instructions .Route Qty: 100 11RF Rx Instructions: Use 3 to 4 bed underpads daily (DME) wipes See Rx Instructions .Route .MEDSUPPLY Qty: 200 11RF Rx Instructions: As directed olanzapine 2.5 mg tablet 2.5 mg PO BID ondansetron 8 mg tablet,disintegrating 8 mg PO Q4H PRN (Reason: nausea/vomiting) folic acid 1 mg tablet 1 mg PO DAILY oxycodone 5 mg tablet 5 mg PO Q4-6H PRN (Reason: Pain) oxycodone [OxyContin] 10 mg tablet,oral only,ext.rel.12 hr 10 mg PO BID prochlorperazine maleate 10 mg tablet 10 mg PO BID-TID cyanocobalamin (vitamin B-12) 1,000 mcg Tablet 1,000 mcg PO DAILY polyethylene glycol 3350 17 gram/dose Powder 17 g PO BID lidocaine 5 % adhesive patch,medicated 3 patch topical DAILY PRN (Reason: Pain) Rx Instructions: apply to thigh, hip, and back simethicone [Gas Relief Extra Strength] 125 mg tablet,chewable 125 mg PO Q6H PRN (Reason: gas) acetaminophen [Tylenol Arthritis Pain] 650 mg tablet extended release 650 mg PO Q8H PRN (Reason: Pain) bisacodyl [Dulcolax (bisacodyl)] 10 mg Suppository 10 mg [place] DAILY PRN (Reason: Constipation) pantoprazole 40 mg tablet,delayed release (DR/EC) 40 mg PO BID sennosides [senna] 8.6 mg tablet 17.2 mg PO BEDTIME (DME) Easy Touch SheathLock Syrg-Ndl 3 mL 21 gauge x 1 1/2 syringe See Rx Instructions .ROUTE .MEDSUPPLY Qty: 1 2RF Rx Instructions: As directed (DME) bedside commode Kit See Rx Instructions .Route Qty: 1 0RF Rx Instructions: As directed cyanocobalamin (vitamin B-12) 1,000 mcg/mL solution 1,000 mcg IM QMONTH 30 Days Qty: 1 6RF cholecalciferol (vitamin D3) [Vitamin D3] 50 mcg (2,000 unit) capsule 50 mcg PO DAILY 90 Days Qty: 90 1RF escitalopram oxalate 10 mg tablet 10 mg PO DAILY 90 Days Qty: 90 1RF ezetimibe 10 mg tablet 10 mg PO DAILY 90 Days Qty: 90 1RF prednisone 20 mg tablet 40 mg PO .every week 30 Days Qty: 8 6RF fluticasone propionate [Flonase Allergy Relief] 50 mcg/actuation spray,suspension 1 spray intranasal DAILY PRN (Reason: ALLERGIES) 30 Days Qty: 16 1RF Rx Instructions: administer into each nostril clonazepam 0.5 mg tablet 0.5 mg PO BID 30 Days Qty: 60 0RF levofloxacin 500 mg tablet 500 mg PO DAILY Qty: 10 0RF albuterol sulfate 2.5 mg /3 mL (0.083 %) solution for nebulization 2.5 mg inhalation Q4-6H PRN (Reason: shortness of breath or wheezing) Qty: 90 0RF ondansetron 8 mg tablet,disintegrating 8 mg PO Q12H PRN (Reason: nausea and vomiting) Qty: 14 0RF Rx Instructions: do not use while on antibiotic levofloxacin
[2023-05-16 17:11] VITALS: BP 110/47; PULSE 103; RESP 18; TEMP 37.1; O2SAT 98
[2023-05-16 19:37] VITALS: BP 131/37; PULSE 104; RESP 22; O2SAT 96
== END 2023-05-16 20:13 | disposition home or self-care (01) ==
PROVIDERS: Emergency Provider Emergency Medicine; PCP Internal Medicine
DX: S00.432A Contusion of left ear, initial encounter (principal); S09.90XA Unspecified injury of head, initial encounter; D64.9 Anemia, unspecified; R51.9 Headache, unspecified; M54.2 Cervicalgia; W01.10XA Fall on same level from slipping, tripping and stumbling with subsequent striking against unspecified object, initial encounter; Y93.9 Activity, unspecified; Y92.9 Unspecified place or not applicable; Y99.9 Unspecified external cause status; Z79.899 Other long term (current) drug therapy
CPT/HCPCS: 70450; 72125; 99284

== ENCOUNTER 2023-05-22 17:36 | Outpatient (REF) | payer OTHER, SELFPAY ==
--- NOTE | ~2023-05-22 | CT_ITS ---
EXAMINATION: CT CHEST WITHOUT CONTRAST CLINICAL INFORMATION: Dyspnea COMPARISON: Chest radiograph 04/30/2023, CT chest 02/25/2023, CT abdomen pelvis 02/11/2023 TECHNIQUE: Multidetector volumetric CT imaging of the chest was done. Axial MIP volume rendering provided. Sagittal and coronal reformatted images were obtained. This CT examination was performed using dose optimization techniques as appropriate, variously including the following: *Automated exposure control *Adjustment of mA and/or kV according to patient size (this includes techniques or standardized protocols for targeted exams where dose is matched to indication/reason for exam; i.e. extremities or head) *Use of iterative reconstruction technique DLP: 78 mGy-cm FINDINGS: Detail is obscured by marked motion artifact. LUNGS ANS PLEURA: Pleural effusions have significantly increased in size compared to 02/25/2023 study and are now moderate in size bilaterally. There is associated bibasilar atelectasis/collapse. There is septal thickening throughout the lungs. Numerous lung masses are seen which have increased in size compared to prior. For example, a paratracheal nodule has increased from 1.0 x 0.8 cm 1.2 x 1.0 cm (5:144 compare prior 5:109). A upper lobe inferior nodule has increased in size from 0.5 cm to 0.9 cm (5:275 compare prior 5:220) multiple other masses have increased in a similar fashion. MEDIASTINUM: Normal appearing thyroid. Heart size within normal limits. No pericardial effusion. No mediastinal or hilar lymphadenopathy. CORONARY ARTERY CALCIFICATION: Present AXILLA: No lymphadenopathy. UPPER ABDOMEN: There is a liver mass seen just beneath the dome of the hemidiaphragm that measures 2 cm and 34 Hounsfield units (3:44). This was not seen with any certainty on prior studies. Bilateral adrenal masses are present which have significantly increased in size when compared to the 02/11/2023 study when they appeared normal. Punctate renal calculus is present. OSSEOUS STRUCTURES: Mild degenerative changes seen. No evidence of osseous metastatic disease. CT/CT chest wo IV con IMPRESSION: Septal thickening and increase in size of effusions may represent CHF Significant worsening in what appears to be metastatic disease with increase in size of pulmonary nodules, a new liver mass and new bilateral adrenal masses. Pulmonary nodule recommendation: CT of the chest without contrast is recommended for further evaluation. Fleischner guidelines were followed.
== END 2023-05-22 17:37 | disposition home or self-care (01) ==
LOC: HO.CT 17:36
PROVIDERS: PCP Internal Medicine; Visit Provider Nurse Practitioner Family
DX: R91.8 Other nonspecific abnormal finding of lung field (principal); J90 Pleural effusion, not elsewhere classified; R06.00 Dyspnea, unspecified
CPT/HCPCS: 71250

== ENCOUNTER 2023-06-05 09:23 | Emergency (ER) | payer OTHER, SELFPAY ==
--- NOTE | ~2023-06-05 | XR_ITS ---
EXAMINATION: XR HIP, RIGHT CLINICAL INFORMATION: Pain. COMPARISON: CT abdomen and pelvis November 15, 2019 TECHNIQUE: Frontal view of pelvis Two views of the right hip. FINDINGS: No acute fracture or dislocation. No focal bone destruction or abnormal periosteal reaction. There is mild osteosclerotic appearance of the bones which is nonspecific and similar to the findings on CT abdomen pelvis November 15, 2019. Osteoblastic process is not entirely excluded however. XR/XR hip RT w PEL1V IMPRESSION: 1. No acute fracture or dislocation. 2. Mild osteosclerotic appearance of the bones which is nonspecific and similar to CT abdomen pelvis November 15, 2019. Osteoblastic process is not entirely excluded however.
--- NOTE | ~2023-06-05 | XR_ITS ---
EXAMINATION: XR CHEST CLINICAL INFORMATION: Dyspnea. COMPARISON: Chest x-ray dated April 30, 2023. Chest CT dated May 22, 2023. TECHNIQUE: Portable AP view of the chest was obtained. XR/XR chest 1V FINDINGS/IMPRESSION: The study is limited by portable technique and low lung volumes. Allowing for differences in technique and inspiration, there has been no gross significant radiographic change compared with April 30, 2023. Examination again demonstrates diffuse bilateral interstitial prominence with small to moderate bibasilar hazy densities. The findings suggest pulmonary edema with bilateral pleural effusions; superimposed pleural thickening, atelectasis, infiltrate, and/or neoplasm cannot be confirmed or excluded. Multiple bilateral pulmonary nodules were better appreciated on chest CT from May 22, 2023. The cardiac silhouette is poorly evaluated.
--- NOTE | ~2023-06-05 | XR_ITS ---
EXAMINATION: XR RIBS, RIGHT CLINICAL INFORMATION: Fall and injury. COMPARISON: Chest x-ray obtained the same day. TECHNIQUE: 3 views of the right ribs were obtained. XR/XR ribs RT 2V FINDINGS/IMPRESSION: No displaced rib fracture is appreciated. Lung and pleural findings appear unchanged compared with chest x-ray obtained the same day.
[2023-06-05 09:29] VITALS: BP 134/47; PULSE 105; RESP 18; TEMP 36.7; O2SAT 100; BMI 15.2
--- NOTE | 2023-06-05 09:34 | ECG_ITS ---
Test Reason : DYSPNEA Blood Pressure : / mmHG Vent. Rate : 100 BPM Atrial Rate : 100 BPM P-R Int : 108 ms QRS Dur : 070 ms QT Int : 338 ms P-R-T Axes : 002 011 011 degrees QTc Int : 436 ms Sinus rhythm with short MS Low voltage QRS Nonspecific T wave abnormality Abnormal ECG T wave amplitude has decreased in Anterolateral leads Referred By: Leyda Nunes Electronically Signed By:VARSHA BURGER MD
--- NOTE | 2023-06-05 11:35 | MHC.EDTECH ---
Pt refusing labs, RN aware.
--- NOTE | 2023-06-05 11:58 | ED.GENADULT ---
HPI - General Adult General Chief complaint: Dyspnea Stated complaint: Side Pain S/P Fall This AM Time Seen by Provider: 06/05/23 11:07 Source: patient Mode of arrival: ambulatory Limitations: no limitations History of Present Illness HPI narrative: fall from low height onto right chest. Patient with known metastic cancer and pleural effusions, family wants to take patient home Onset (ago): hour(s) Severity: mild Related Data Home Medications Medication Instructions Recorded Confirmed sennosides 8.6 mg tablet (senna) 17.2 mg PO BEDTIME 02/12/23 05/14/23 acetaminophen 650 mg 650 mg PO Q8H PRN Pain 02/18/23 05/14/23 tablet,extended release (Tylenol Arthritis Pain) bisacodyl 10 mg rectal suppository 10 mg IA DAILY PRN Constipation 02/18/23 05/14/23 (Dulcolax (bisacodyl)) lidocaine 5 % topical patch 3 patch topical DAILY PRN Pain 02/18/23 05/14/23 simethicone 125 mg chewable tablet 125 mg PO Q6H PRN gas 02/18/23 05/14/23 (Gas Relief Extra Strength) pantoprazole 40 mg tablet,delayed 40 mg PO BID 04/11/23 05/14/23 release cyanocobalamin (vitamin B-12) 1,000 mcg PO DAILY 04/17/23 05/14/23 1,000 mcg tablet folic acid 1 mg tablet 1 mg PO DAILY 04/17/23 05/14/23 olanzapine 2.5 mg tablet 2.5 mg PO BID 04/17/23 05/14/23 ondansetron 8 mg disintegrating 8 mg PO Q4H PRN nausea/vomiting 04/17/23 05/14/23 tablet oxycodone 10 mg tablet,crush 10 mg PO BID 04/17/23 05/14/23 resistant,extended release 12 hr (OxyContin) oxycodone 5 mg tablet 5 mg PO Q4-6H PRN Pain 04/17/23 05/14/23 polyethylene glycol 3350 17 17 g PO BID 04/17/23 05/14/23 gram/dose oral powder prochlorperazine maleate 10 mg 10 mg PO BID-TID 04/17/23 05/14/23 tablet Previous Rx's Medication Instructions Recorded cane #1 ea 09/14/20 walker #1 ea 10/20/20 commode (bedside commode) #1 ea 02/12/23 syringe with needle, safety 3 mL #1 ea 02/12/23 21 gauge x 1 1/2 (Easy Touch SheathLock Syringe with Needle) thiamine HCl (vitamin B1) 100 mg 100 mg PO DAILY 30 days #30 tabs 04/03/23 tablet hospital bed #1 ea 04/06/23 albuterol sulfate 2.5 mg/3 mL 2.5 mg (3 mL) inhalation Q4-6H PRN 05/10/23 (0.083 %) solution for nebulization shortness of breath or wheezing #90 mL levofloxacin 500 mg tablet 500 mg PO DAILY #10 tabs 05/10/23 ondansetron 8 mg disintegrating 8 mg PO Q12H PRN nausea and 05/11/23 tablet vomiting #14 tabs cholecalciferol (vitamin D3) 50 50 mcg PO DAILY 90 days #90 caps 05/14/23 mcg (2,000 unit) capsule (Vitamin D3) clonazepam 0.5 mg tablet 0.5 mg PO BID 30 days #60 tabs 05/14/23 cyanocobalamin (vitamin B-12) 1,000 mcg IM QMONTH 30 days #1 mL 05/14/23 1,000 mcg/mL injection solution escitalopram oxalate 10 mg tablet 10 mg PO DAILY 90 days #90 tabs 05/14/23 ezetimibe 10 mg tablet 10 mg PO DAILY 90 days #90 tabs 05/14/23 fluticasone propionate 50 1 spray intranasal DAILY PRN 05/14/23 mcg/actuation nasal ALLERGIES 30 days #16 grams spray,suspension (Flonase Allergy Relief) prednisone 20 mg tablet 40 mg (2 x 20 mg) PO .every week 05/14/23 30 days #8 tabs ENSURE Drink 1 can a day #30 ea 05/15/23 Gel mattress overlay #1 ea 05/15/23 adult diapers pull-ups #240 ea 05/15/23 gel dressing 4 X 4 (DermaGauze #15 ea 05/15/23 Hydrogel Dressing) latex gloves (Latex Gloves, Large) #200 ea 05/15/23 underpads (Bed Underpads) #100 ea 05/15/23 wipes #200 ea 05/15/23 Allergies Allergy/AdvReac Type Severity Reaction Status Date / Time ibuprofen Allergy Mild anaphylaxis, Verified 05/14/23 16:37 hives metronidazole Allergy Mild rash Verified 05/14/23 16:37 naproxen [Aleve] Allergy Mild anaphylaxis, Verified 05/14/23 16:37 hives pravastatin Allergy Mild anaphylaxis Verified 05/14/23 16:37 simvastatin Allergy Mild cramps Verified 05/14/23 16:37 aspirin Allergy Mild swelling Uncoded 05/14/23 16:37 Review of Systems Review of Systems: Yes all other systems are reviewed and are negative Neurologic: Denies Sensory deficit (Neuro) [facility] Past Medical History Medical History Malnutrition 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 New daily persistent headache Sinusitis UTI (urinary tract infection) Uterine cancer Depression Screening for hypothyroidism Acute medial meniscus tear of left knee Mild major depression, single episode HLA B27 (HLA B27 positive) Effusion, left knee B12 deficiency Osteoarthritis of left knee Chronic fatigue Sore throat, chronic Dyslipidemia Ophthalmoplegic migraine headache Neck pain on right side Insomnia GERD (gastroesophageal reflux disease) Surgical History History of total abdominal hysterectomy and bilateral salpingo-oophorectomy History of laparoscopic cholecystectomy Family History Family History Mother CVD (cardiovascular disease) Father Lung cancer Son Cancer Sister Lung cancer Brother Colon cancer Social History Social History Household Members: Family Housing: House Alcohol intake: never Comment: pt family at bedside Patient Tobacco Use Status: Never used Tobacco e-Cigarette/Vaping Use: Never Used Second Hand Smoke Exposure: No Advance Directives: Yes Advance Directives on File: Yes Advance Directives Date on File: 02/13/23 service: No Current occupational status: retired Current occupation: rt handed Cognitive needs: No Hearing needs: No Vision needs: Yes Physical Exam ED Vital Signs: Vital Signs - 24 hr 06/05/23 09:29 06/05/23 14:54 Temperature 98.1 F 98.0 F Pulse Rate 105 H 102 H Respiratory Rate 18 18 Blood Pressure 134/47 L 114/48 L Pulse Oximetry 100 95 Oxygen Delivery Method Nasal Cannula Nasal Cannula Oxygen Flow Rate 2 BMI result Body Mass Index 15.2 Const Other: thin frail female sleepy but arousable Orientation/consciousness: oriented to person and patient oriented x3 Limitations: no limitations HENMT Head: Yes normal to inspection Ears: external ears normal General nose exam: Normal external nose present Mouth: Normal oral and palatal mucosa present and oropharynx normal Throat: Yes posterior oropharynx normal Eyes General: appearance normal, both eyes and all related structures Neck Neck: Yes normal visual inspection Chest Other: right sided chest pain reproducible to palpation Resp Other: decreased BS to both bases Cardio Jugular venous distension: no JVD Rate: regular rate Rhythm: regular rhythm Heart sounds: S1 normal heart sound present and S2 normal heart sound present GI Inspection: Yes normal to inspection Palpation (GI): Soft to palpation, nontender and No hepatosplenomegaly present Auscultation: normal bowel sounds General: Yes no CVA tenderness Back/Spine/Pelvis Back: no CVA tenderness Skin General skin exam: no rashes or lesions noted Neuro General: oriented to person and patient oriented x3 Cranial nerves: Yes CN's II-XII intact bilaterally Motor exam (neuro): 5/5 motor strength present throughout Sensory Exam: No Sensory deficit (Neuro) Extrem General: Yes normal to inspection Psych Appearance: grossly normal Course Reevaluation(s) Reevaluation #1: family and patient refusing blood work Time: 11:59 Reevaluation #2: Patient with pleural effusions secondary to malignancy will dc home with familyt Time: 15:32 Medical Decision Making Differential Diagnosis Differential Diagnoses: The differential diagnosis associated with the presentation includes (rib fracture, pneumothorax, pleural effusions, pneumonia were all considered) Admission/Observation Consideration of admission/observation: Escalation of care including admission/observation considered (upon arrival patient was considered for admission) Lab Data family refusing lab work Independent Interpretation I performed an independent interpretation of an: Plain X-Ray (chest: bilateral pleural effusions Ribs: no fractures seen, hip no hip fracture) Independent Historian Clinical information obtained from an independent historian. History obtained from or confirmed by: Other (son and granddaughter) External Record Review External record reviewed: Outpatient record Prescription Management I considered prescription management with: Pain Medication and Antibiotic (no evidence of infection) patient on chronic pain medication Chronic Conditions Patient?s care impacted by: Cancer Discharge Plan Discharge Clinical Impression: Chest wall contusion Patient Disposition: Home, Self-Care Instructions: Rib Contusion (ED) Prescriptions: No Action (DME) cane Device See Rx Instructions .ROUTE .MEDSUPPLY Qty: 1 0RF Rx Instructions: As directed (DME) walker Misc See Rx Instructions .ROUTE .MEDSUPPLY Qty: 1 0RF Rx Instructions: As directed thiamine HCl (vitamin B1) 100 mg tablet 100 mg PO DAILY 30 Days Qty: 30 0RF (DME) hospital bed Kit See Rx Instructions .Route Qty: 1 0RF Rx Instructions: As directed (DME) ENSURE Drink 1 can a day See Rx Instructions .Route .MEDSUPPLY Qty: 30 5RF Rx Instructions: As directed (DME) adult diapers pull-ups small See Rx Instructions .Route .MEDSUPPLY Qty: 240 11RF Rx Instructions: As directed (DME) DermaGauze Hydrogel Dressing 4 X 4 bandage See Rx Instructions .Route Qty: 15 2RF Rx Instructions: As directed (DME) Gel mattress overlay Misc See Rx Instructions .Route Qty: 1 0RF Rx Instructions: As directed (DME) latex gloves [Latex Gloves, Large] Misc See Rx Instructions .Route Qty: 200 11RF Rx Instructions: As directed (DME) underpads [Bed Underpads] Pad See Rx Instructions .Route Qty: 100 11RF Rx Instructions: Use 3 to 4 bed underpads daily (DME) wipes See Rx Instructions .Route .MEDSUPPLY Qty: 200 11RF Rx Instructions: As directed olanzapine 2.5 mg tablet 2.5 mg PO BID ondansetron 8 mg tablet,disintegrating 8 mg PO Q4H PRN (Reason: nausea/vomiting) folic acid 1 mg tablet 1 mg PO DAILY oxycodone 5 mg tablet 5 mg PO Q4-6H PRN (Reason: Pain) oxycodone [OxyContin] 10 mg tablet,oral only,ext.rel.12 hr 10 mg PO BID prochlorperazine maleate 10 mg tablet 10 mg PO BID-TID cyanocobalamin (vitamin B-12) 1,000 mcg Tablet 1,000 mcg PO DAILY polyethylene glycol 3350 17 gram/dose Powder 17 g PO BID lidocaine 5 % adhesive patch,medicated 3 patch topical DAILY PRN (Reason: Pain) Rx Instructions: apply to thigh, hip, and back simethicone [Gas Relief Extra Strength] 125 mg tablet,chewable 125 mg PO Q6H PRN (Reason: gas) acetaminophen [Tylenol Arthritis Pain] 650 mg tablet extended release 650 mg PO Q8H PRN (Reason: Pain) bisacodyl [Dulcolax (bisacodyl)] 10 mg Suppository 10 mg IA DAILY PRN (Reason: Constipation) pantoprazole 40 mg tablet,delayed release (DR/EC) 40 mg PO BID sennosides [senna] 8.6 mg tablet 17.2 mg PO BEDTIME (DME) Easy Touch SheathLock Syrg-Ndl 3 mL 21 gauge x 1 1/2 syringe See Rx Instructions .ROUTE .MEDSUPPLY Qty: 1 2RF Rx Instructions: As directed (DME) bedside commode Kit See Rx Instructions .Route Qty: 1 0RF Rx Instructions: As directed cyanocobalamin (vitamin B-12) 1,000 mcg/mL solution 1,000 mcg IM QMONTH 30 Days Qty: 1 6RF cholecalciferol (vitamin D3) [Vitamin D3] 50 mcg (2,000 unit) capsule 50 mcg PO DAILY 90 Days Qty: 90 1RF escitalopram oxalate 10 mg tablet 10 mg PO DAILY 90 Days Qty: 90 1RF ezetimibe 10 mg tablet 10 mg PO DAILY 90 Days Qty: 90 1RF prednisone 20 mg tablet 40 mg PO .every week 30 Days Qty: 8 6RF fluticasone propionate [Flonase Allergy Relief] 50 mcg/actuation spray,suspension 1 spray intranasal DAILY PRN (Reason: ALLERGIES) 30 Days Qty: 16 1RF Rx Instructions: administer into each nostril clonazepam 0.5 mg tablet 0.5 mg PO BID 30 Days Qty: 60 0RF levofloxacin 500 mg tablet 500 mg PO DAILY Qty: 10 0RF albuterol sulfate 2.5 mg /3 mL (0.083 %) solution for nebulization 2.5 mg inhalation Q4-6H PRN (Reason: shortness of breath or wheezing) Qty: 90 0RF ondansetron 8 mg tablet,disintegrating 8 mg PO Q12H PRN (Reason: nausea and vomiting) Qty: 14 0RF Rx Instructions: do not use while on antibiotic levofloxacin Referrals: Angi Velazquez MD [Primary Care Provider] - 3 days
[2023-06-05 14:54] VITALS: BP 114/48; PULSE 102; RESP 18; TEMP 36.7; O2SAT 95
== END 2023-06-05 15:56 | disposition home or self-care (01) ==
PROVIDERS: Emergency Provider Emergency Medicine; PCP Internal Medicine
DX: S20.211A Contusion of right front wall of thorax, initial encounter (principal); W19.XXXA Unspecified fall, initial encounter; J90 Pleural effusion, not elsewhere classified; C43.9 Malignant melanoma of skin, unspecified; C79.51 Secondary malignant neoplasm of bone; Y93.9 Activity, unspecified; Y92.9 Unspecified place or not applicable; Y99.9 Unspecified external cause status; D64.9 Anemia, unspecified; J96.11 Chronic respiratory failure with hypoxia; Z99.81 Dependence on supplemental oxygen
CPT/HCPCS: 71045; 71100; 73502; 93005; 99283; 99284

== ENCOUNTER 2023-07-04 14:00 | Outpatient (RCR) | payer OTHER, SELFPAY ==
--- NOTE | 2023-04-20 14:19 | HO.HEMONCPA ---
Addendum entered by Indira Feliz 04/25/23 15:19: Called [employer] to because Dr wanted to give 40,000 units of Procrit. Per [employer] franchise sales representative Luciana on 04/25/23 at @02:16pm SUPERINTENDENT MAINTENANCE (3:16pmEST): Approved authorizations are for unlimited doses as long it meets medical necessity and/or FDA guidline. Call ref # [id number]. Auth#[id number] DOS 04/20/23 TO 07/21/2023 Original Note: 04/18/23 13:20 - Hem/Onc Prior Auth Note by Josie Castellanos Acct Num: [id number] : 1945 Patient Age: 77 Addendum entered by Josie Castellanos 04/20/23 14:17: PA APPROVED FOR PROCRIT J0885 20,000 UNITS EVERY 7 DAYS AUTH #[id number] DOS 04/20/24 - 07/21/23 Original Note: PA pending for PROCRIT J0885 reference # [id number] awaiting decision from [employer] via [employer] Initialized on 04/18/23 13:20 - END OF NOTE
--- NOTE | 2023-04-25 14:50 | PM.HEMONCPN ---
Medical Summary - Medical Summary Date of Service: 04/25/23 Chief complaint: Follow-up Primary Care Provider: Angi Bartlett MD Medical Summary: Diagnosis: Severe anemia, metastatic melanoma She is Zoroastrian. She has metastatic melanoma and is being managed by physicians in [place]. 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 She has a history of anemia because of ongoing chemo/immunotherapy as well as recent radiation therapy. Interval History Interval history: Patient is here accompanied by her granddaughter. She is not feeling well, continues to feel extremely weak and tired. Her granddaughter wants her to get slightly better so she can travel back to [place] for her last days. They do understand that she is no longer a candidate to receive palliative chemotherapy. She is unable to go to [place] for any appointments at this time. 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, single episode Neck pain on right side New daily persistent headache Ophthalmoplegic migraine headache Osteoarthritis of left knee Screening for hypothyroidism Sinusitis Sore throat, chronic Uterine cancer UTI (urinary tract infection) Family History: Family History (Last Reviewed 04/25/23 @ 14:55 by Paul Hilario) Mother CVD (cardiovascular disease) Father Lung cancer Son Cancer Sister Lung cancer Brother Colon cancer Surgical History: Surgical History (Last Reviewed 04/25/23 @ 14:55 by Paul Hilario) History of laparoscopic cholecystectomy History of total abdominal hysterectomy and bilateral salpingo-oophorectomy Social History: Social History (Last Updated 04/25/23 @ 14:56 by Paul Hilario) Living Situation History: Household Members: Family Housing: House Alcohol History Details: 1. How often do you have a drink containing alcohol?: a. Never Tobacco History: Patient Tobacco Use Status: Never used Tobacco e-Cigarette/Vaping Use: Never Used Second Hand Smoke Exposure: No Substance Use History: Use of substances other than those prescribed or required for medical reasons: No Domestic Abuse History: Do you feel safe in your current relationship?: Yes Advance Directives: Advance Directives Date on File: 02/13/23 Homicidal Assessment: Do you have thoughts of harming others: None Occupation Assessmet: service: No Current occupational status: retired Current occupation: rt handed Oncology Screenings - ECOG Performance Status ECOG Performance Status: 4 Home Medications and Allergies Home Medications Medication Instructions Recorded Confirmed Type escitalopram oxalate 10 mg tablet 10 mg PO DAILY 02/12/23 04/25/23 History lorazepam 0.5 mg tablet 0.5 mg PO BEDTIME Anxiety 02/12/23 04/25/23 History sennosides 8.6 mg tablet (senna) 17.2 mg PO BEDTIME 02/12/23 04/25/23 History acetaminophen 650 mg 650 mg PO Q8H PRN Pain 02/18/23 04/25/23 History tablet,extended release (Tylenol Arthritis Pain) bisacodyl 10 mg rectal suppository 10 mg [place] DAILY PRN Constipation 02/18/23 04/25/23 History (Dulcolax (bisacodyl)) cyanocobalamin (vitamin B-12) 1,000 mcg IM QMONTH 02/18/23 04/25/23 History 1,000 mcg/mL injection solution lidocaine 5 % topical patch 3 patch topical DAILY PRN Pain 02/18/23 04/25/23 History simethicone 125 mg chewable tablet 125 mg PO Q6H PRN gas 02/18/23 04/25/23 History (Gas Relief Extra Strength) pantoprazole 40 mg tablet,delayed 40 mg PO BID 04/11/23 04/25/23 History release cyanocobalamin (vitamin B-12) 1,000 mcg PO DAILY 04/17/23 04/25/23 History 1,000 mcg tablet fluticasone propionate 50 1 spray intranasal DAILY PRN 04/17/23 04/25/23 History mcg/actuation nasal ALLERGIES spray,suspension (Flonase Allergy Relief) folic acid 1 mg tablet 1 mg PO DAILY 04/17/23 04/25/23 History lorazepam 0.5 mg tablet 0.5 mg PO DAILY PRN Anxiety 04/17/23 04/25/23 History olanzapine 2.5 mg tablet 2.5 mg PO BID 04/17/23 04/25/23 History ondansetron 8 mg disintegrating 8 mg PO Q4H PRN nausea/vomiting 04/17/23 04/25/23 History tablet oxycodone 10 mg tablet,crush 10 mg PO BID 04/17/23 04/25/23 History resistant,extended release 12 hr (OxyContin) oxycodone 5 mg tablet 5 mg PO Q4-6H PRN Pain 04/17/23 04/25/23 History polyethylene glycol 3350 17 17 g PO BID 04/17/23 04/25/23 History gram/dose oral powder prochlorperazine maleate 10 mg 10 mg PO BID-TID 04/17/23 04/25/23 History tablet Allergies Allergy/AdvReac Type Severity Reaction Status Date / Time ibuprofen Allergy Mild anaphylaxis, Verified 04/25/23 14:56 hives metronidazole Allergy Mild rash Verified 04/25/23 14:56 naproxen [Aleve] Allergy Mild anaphylaxis, Verified 04/25/23 14:56 hives pravastatin Allergy Mild anaphylaxis Verified 04/25/23 14:56 simvastatin Allergy Mild cramps Verified 04/25/23 14:56 aspirin Allergy Mild swelling Uncoded 04/25/23 14:56 Exam Vital signs: Vital Signs (72 hours) 04/25/23 14:54 Pulse Rate 105 H Blood Pressure 129/59 L Pulse Oximetry 100 Oxygen Delivery Method Room Air - Constitutional Present: mild distress, thin, cachectic, chronically ill appearing - Routine HEENT Exam Eye: Present: conjunctivae pale - Routine Neck Exam Absent: lymphadenopathy - Routine Respiratory Exam Absent: accessory muscle use - Routine Cardiovascular Exam Cardiovascular: Present: S1, S2, tachycardia - Routine Abdominal Exam Present: soft Data - Labs CBC & Chem 7: 04/25/23 15:30 Assessment and Plan Patient Active problem list reviewed?: Yes (1) Anemia Status: Chronic Assessment and plan: 1. This is a 77 Y/O woman, Zoroastrian with history of metastatic melanoma and severe anemia secondary to malignancy as well as ongoing treatment. Patient has severe anemia secondary to ongoing treatment for her cancer. Acute worsening of chronic anemia related to malignancy. She cannot receive blood as she is Zoroastrian. She has received iron infusion. Ferritin level is over 4000 NG/mL. She does not have renal dysfunction, bilirubin is, no evidence of hemolysis. Vitamin B12 level is over 800. She will be scheduled for ANCELMO, Procrit therapy 20-40,000 units once a week. They were unable to go to [place] anymore for further care. Granddaughter wants to fly patient home to [place] for her last days. They understand that has a performance status has declined considerably along with severe anemia/pancytopenia, she is no longer an eligible for palliative/ systemic therapy. - Time Spent With Patient Time Spent with Patient (in minutes): 25
[2023-04-25 14:54] VITALS: BP 129/59; PULSE 105; O2SAT 100
[2023-04-25 15:34] LABS: Mean Corpuscular HGB Conc 31.3 g/dl (31.0-35.0); Mean Corpuscular Hemoglobin 34.1 pg (27.0-33.0); Mean Corpuscular Volume 108.9 fL (80.0-98.0); Mean Platelet Volume 9.5 fL (9.4-12.3); Platelet Count 158 X10*3/uL (160-400); Red Blood Count 1.23 X10*6/uL (4.20-5.50); Red Cell Distribution Width 24.6 % (11.0-16.0); White Blood Count 3.9 X10*3/uL (4.8-10.8)
[2023-04-25 15:45] LABS: Hematocrit 13.4 % (37.0-47.0); Hemoglobin 4.2 g/dl (12.0-16.0); NRBC Pct Auto 5.4 /100WBC (0.0-0.2)
[2023-04-25] MEDS: Epoetin Alfa 40,000 UNIT/ML VIAL 40000 UNIT SUBCUT (15:48)
--- NOTE | 2023-04-25 15:52 | MHC.HEMONCMA ---
patient seen today for anemia, vss, labs, following up with provider in 1 month and following up with procrit injection weekly
--- NOTE | 2023-04-25 15:59 | MHC.HEMONC ---
Hgb critical at 4.2- Patient declines blood transfusion for anabaptist reasons. Dr. Horton ordered Procrit 40,000 units. Indira notified- prior authorization was for 20,000 units. Indira spoke to insurance and ok to proceed with Procrit 40,000 units. Injection administered to right lower quadrant and well tolerated. Patient to return for weekly Procrit. Appt made. Calender provided.
[2023-05-02] MEDS: Epoetin Alfa 40,000 UNIT/ML VIAL 40000 UNIT SUBCUT (13:30)
[2023-05-02 13:36] VITALS: BP 132/60; PULSE 106
--- NOTE | 2023-05-02 13:37 | MHC.HEMONC ---
pt family requested no blood drawn today jamee pt is going to [facility] and they will draw a lot of tests. dr trev lerner with procrit given based off last weeks labs hgb 4.2
[2023-05-09 15:28] VITALS: BP 117/55; PULSE 106; RESP 18; TEMP 36.6; O2SAT 93
[2023-05-09] MEDS: Epoetin Alfa 40,000 UNIT/ML VIAL 40000 UNIT SUBCUT (15:41)
--- NOTE | 2023-05-09 16:12 | MHC.HEMONC ---
Here for procrit. Refuses blood draw. Dr Horton is aware, and ok to give injection. Did have blood work done in [place] on 05/03, and hgb 4.8 on that day. Copy of blood work to be scanned into pts chart. Procrit 40,000units sc given RUQ and tolerated well. Next injection scheduled for 1 week. Calendar given
[2023-05-16 14:06] LABS: MANUAL DIFF FLAG NO
[2023-05-16 14:11] LABS: Basophils Percent Auto 0.3 % (0-2); Eosinophils Percent Auto 0.3 % (0-4); Imm Gran Abs Auto 0.11 X10*3/uL (0.00-0.03); Imm Gran Pct Auto 1.5 % (0.0-0.4); Lymphocytes Absolute Auto 0.7 X10*3/uL (1.2-4.9); Lymphocytes Percent Auto 9.3 % (20-40); Mean Corpuscular HGB Conc 33.2 g/dl (31.0-35.0); Mean Corpuscular Hemoglobin 37.9 pg (27.0-33.0); Mean Platelet Volume 10.3 fL (9.4-12.3); Monocytes Absolute Auto 0.5 X10*3/uL (0.1-1.2); Monocytes Percent Auto 7.3 % (2-11); Neutrophils Percent Auto 81.3 % (45-73); Platelet Count 185 X10*3/uL (160-400); Red Blood Count 1.61 X10*6/uL (4.20-5.50); Red Cell Distribution Width 23.9 % (11.0-16.0); White Blood Count 7.4 X10*3/uL (4.8-10.8)
[2023-05-16 14:14] LABS: Hematocrit 18.4 % (37.0-47.0); Hemoglobin 6.1 g/dl (12.0-16.0); Mean Corpuscular Volume 114.3 fL (80.0-98.0); NRBC Pct Auto 1.9 /100WBC (0.0-0.2)
[2023-05-16] MEDS: Epoetin Alfa 40,000 UNIT/ML VIAL 40000 UNIT SUBCUT (14:34)
[2023-05-16 14:37] VITALS: BP 123/57; PULSE 104; RESP 16; O2SAT 100
--- NOTE | 2023-05-16 15:58 | MHC.HEMONC ---
Weekly Procrit- Hgb 6.1. Dr. Horton notified. Order for Procrit 40,000 units s/c administered to left lower quadrant and well tolerated. VSS. Granddaughter states patient did experience fall at home early afternoon. No visible injuries noted. Granddaughter states she will bring patient to ED after this appt. Dr. Horton made aware. Calender provided with next appts.
--- NOTE | 2023-05-22 09:47 | HE.ONCSEC ---
LVM reminding pt of appt on 05/23/23
[2023-05-22 15:31] LABS: MANUAL DIFF FLAG NO
[2023-05-22 15:35] LABS: Basophils Percent Auto 0.2 % (0-2); Eosinophils Percent Auto 0.9 % (0-4); Imm Gran Abs Auto 0.05 X10*3/uL (0.00-0.03); Imm Gran Pct Auto 1.1 % (0.0-0.4); Lymphocytes Absolute Auto 0.9 X10*3/uL (1.2-4.9); Lymphocytes Percent Auto 19.8 % (20-40); Mean Corpuscular HGB Conc 32.8 g/dl (31.0-35.0); Mean Corpuscular Hemoglobin 37.6 pg (27.0-33.0); Mean Platelet Volume 9.5 fL (9.4-12.3); Monocytes Absolute Auto 0.5 X10*3/uL (0.1-1.2); Monocytes Percent Auto 10.2 % (2-11); Neutrophils Absolute Auto 3.1 x10*3/uL (2.0-8.3); Neutrophils Percent Auto 67.8 % (45-73); Platelet Count 160 X10*3/uL (160-400); Red Blood Count 1.73 X10*6/uL (4.20-5.50); Red Cell Distribution Width 22.7 % (11.0-16.0); White Blood Count 4.5 X10*3/uL (4.8-10.8)
[2023-05-22 15:37] LABS: Hematocrit 19.8 % (37.0-47.0); Mean Corpuscular Volume 114.5 fL (80.0-98.0); NRBC Pct Auto 1.3 /100WBC (0.0-0.2)
[2023-05-22 15:39] LABS: Hemoglobin 6.5 g/dl (12.0-16.0)
[2023-05-22 15:51] LABS: Alanine Aminotransferase 5 U/L (0-31); Albumin Level 3.6 g/dL (3.5-5.0); Alkaline Phosphatase 138 U/L (39-117); Anion Gap 17 (12-20); Aspartate Amino Transferase 38 U/L (5-31); Bilirubin Total 0.9 mg/dL (0.0-1.0); Blood Urea Nitrogen 24 mg/dL (9-16); Calcium 9.2 mg/dL (8.4-10.2); Carbon Dioxide 33 mmol/L (22-29); Chloride 90 mmol/L (96-108); Estimated Glomerular Filt Rate 58; Glucose Random 139 mg/dL (60-115); Potassium 2.6 mmol/L (3.3-5.1); Sodium 137 mmol/L (135-145); Total Protein 6.2 g/dL (6.5-8.0)
[2023-05-22 15:53] VITALS: BP 132/60; PULSE 100; RESP 18; TEMP 36.7; O2SAT 97
[2023-05-22] MEDS: Epoetin Alfa 40,000 UNIT/ML VIAL 40000 UNIT SUBCUT (16:00)
--- NOTE | 2023-05-22 16:00 | PM.HEMONCPN ---
Medical Summary - Medical Summary Date of Service: 05/22/23 Chief complaint: Generalized weakness Primary Care Provider: Angi Bartlett MD Medical Summary: Diagnosis: Severe anemia, metastatic melanoma She is [employer]. She has metastatic melanoma and is being managed by physicians in [place]. 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 She has a history of anemia because of ongoing chemo/immunotherapy as well as recent radiation therapy. Interval History Interval history: Patient is here accompanied by her granddaughter. She continues to feel rather weak. Anemia has improved slightly. She is currently not receiving any treatment for her melanoma. She has a CT of her chest scheduled today and underwent CMP testing which revealed hyperkalemia. On questioning further, patient does admit to having recent diarrhea. She denies fevers, chills or abdominal pain. 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 depression, single episode Neck pain on right side New daily persistent headache Ophthalmoplegic migraine headache Osteoarthritis of left knee Screening for hypothyroidism Sinusitis Sore throat, chronic Uterine cancer UTI (urinary tract infection) Family History: Family History (Last Reviewed 05/14/23 @ 17:29 by Angi Bartlett MD) Mother CVD (cardiovascular disease) Father Lung cancer Son Cancer Sister Lung cancer Brother Colon cancer Surgical History: Surgical History (Last Reviewed 05/14/23 @ 17:29 by Angi Bartlett MD) History of laparoscopic cholecystectomy History of total abdominal hysterectomy and bilateral salpingo-oophorectomy Social History: Social History (Last Reviewed 05/14/23 @ 17:30 by Angi Bartlett MD) Living Situation History: Household Members: Family Housing: House Alcohol History Details: 1. How often do you have a drink containing alcohol?: a. Never Tobacco History: Patient Tobacco Use Status: Never used Tobacco e-Cigarette/Vaping Use: Never Used Second Hand Smoke Exposure: No Substance Use History: Use of substances other than those prescribed or required for medical reasons: No Domestic Abuse History: Do you feel safe in your current relationship?: Yes Advance Directives: Advance Directives Date on File: 02/13/23 Homicidal Assessment: Do you have thoughts of harming others: None Occupation Assessmet: service: No Current occupational status: retired Current occupation: rt handed Home Medications and Allergies Home Medications Medication Instructions Recorded Confirmed Type sennosides 8.6 mg tablet (senna) 17.2 mg PO BEDTIME 02/12/23 05/14/23 History acetaminophen 650 mg 650 mg PO Q8H PRN Pain 02/18/23 05/14/23 History tablet,extended release (Tylenol Arthritis Pain) bisacodyl 10 mg rectal suppository [address] DAILY PRN Constipation 02/18/23 05/14/23 History (Dulcolax (bisacodyl)) lidocaine 5 % topical patch 3 patch topical DAILY PRN Pain 02/18/23 05/14/23 History simethicone 125 mg chewable tablet 125 mg PO Q6H PRN gas 02/18/23 05/14/23 History (Gas Relief Extra Strength) pantoprazole 40 mg tablet,delayed 40 mg PO BID 04/11/23 05/14/23 History release cyanocobalamin (vitamin B-12) 1,000 mcg PO DAILY 04/17/23 05/14/23 History 1,000 mcg tablet folic acid 1 mg tablet 1 mg PO DAILY 04/17/23 05/14/23 History olanzapine 2.5 mg tablet 2.5 mg PO BID 04/17/23 05/14/23 History ondansetron 8 mg disintegrating 8 mg PO Q4H PRN nausea/vomiting 04/17/23 05/14/23 History tablet oxycodone 10 mg tablet,crush 10 mg PO BID 04/17/23 05/14/23 History resistant,extended release 12 hr (OxyContin) oxycodone 5 mg tablet 5 mg PO Q4-6H PRN Pain 04/17/23 05/14/23 History polyethylene glycol 3350 17 17 g PO BID 04/17/23 05/14/23 History gram/dose oral powder prochlorperazine maleate 10 mg 10 mg PO BID-TID 04/17/23 05/14/23 History tablet Allergies Allergy/AdvReac Type Severity Reaction Status Date / Time ibuprofen Allergy Mild anaphylaxis, Verified 05/14/23 16:37 hives metronidazole Allergy Mild rash Verified 05/14/23 16:37 naproxen [Aleve] Allergy Mild anaphylaxis, Verified 05/14/23 16:37 hives pravastatin Allergy Mild anaphylaxis Verified 05/14/23 16:37 simvastatin Allergy Mild cramps Verified 05/14/23 16:37 aspirin Allergy Mild swelling Uncoded 05/14/23 16:37 Exam Vital signs: Vital Signs Temp 98.1 F 05/22/23 15:53 Pulse 100 05/22/23 15:53 Resp 18 05/22/23 15:53 BP 132/60 05/22/23 15:53 Pulse Ox 97 05/22/23 15:53 O2 Del Method Room Air 05/22/23 15:53 - Constitutional Present: mild distress, thin, cachectic, chronically ill appearing - Routine Neck Exam Absent: lymphadenopathy - Routine Respiratory Exam Absent: accessory muscle use - Routine Cardiovascular Exam Cardiovascular: Present: S1, S2, tachycardia - Routine Abdominal Exam Present: soft Data - Labs CBC & Chem 7: 05/22/23 15:29 05/22/23 15:29 Labs: 04/25/23 15:30 CBC NO DIFF [Complete Blood Count no Diff] Stat Epoetin Watson [Procrit] 40,000 unit SUBCUT ONCE ONE 05/02/23 13:30 Epoetin Watson [Procrit] 40,000 unit SUBCUT ONCE ONE 05/09/23 15:45 Epoetin Watson [Procrit] 40,000 unit SUBCUT ONCE 05/16/23 14:05 CBC W/AUTO DIFF [Complete Blood Count Auto Diff] Stat 05/16/23 14:30 Epoetin Watson [Procrit] 40,000 unit SUBCUT ONCE ONE 05/22/23 15:29 CBC W/AUTO DIFF [Complete Blood Count Auto Diff] Stat CMP [Comprehensive Met. Panel] Stat 05/22/23 15:45 Epoetin Watson [Procrit] 40,000 unit SUBCUT ONCE ONE Laboratory Last Values WBC 4.5 X10*3/uL (4.8-10.8) L 05/22/23 15:29 RBC 1.73 X10*6/uL (4.20-5.50) L 05/22/23 15:29 Hgb 6.5 g/dl (12.0-16.0) L* 05/22/23 15:29 Hct 19.8 % (37.0-47.0) L* 05/22/23 15: MCV 114.5 fL (80.0-98.0) H 05/22/23 15: MCH 37.6 pg (27.0-33.0) H 05/22/23 15: MCHC 32.8 g/dl (31.0-35.0) 05/22/23 15: RDW 22.7 % (11.0-16.0) H 05/22/23 15: Plt Count 160 X10*3/uL (160-400) 05/22/23 15: MPV 9.5 fL (9.4-12.3) 05/22/23 15: Immature Gran % (Auto) 1.1 % (0.0-0.4) H 05/22/23 15: Neut % (Auto) 67.8 % (45-73) 05/22/23 15: Lymph % (Auto) 19.8 % (20-40) L 05/22/23 15: Rooks % (Auto) 10.2 % (2-11) 05/22/23 15: Eos % (Auto) 0.9 % (0-4) 05/22/23 15: Baso % (Auto) 0.2 % (0-2) 05/22/23 15: Lymph # (Auto) 0.9 X10*3/uL (1.2-4.9) L 05/22/23 15: Rooks # (Auto) 0.5 X10*3/uL (0.1-1.2) 05/22/23 15: Eos # (Auto) 0.0 X10*3/uL (0.0-0.4) 05/22/23 15: Baso # (Auto) 0.0 X10*3/uL (0.0-0.2) 05/22/23 15: Abs Immat Gran (auto) 0.05 X10*3/uL (0.00-0.03) H 05/22/23 15: Absolute Neuts (auto) 3.1 x10*3/uL (2.0-8.3) 05/22/23 15:29 Absolute Nucleated RBC 0.060 X10*3/uL (0.0-0.012) H 05/22/23 15:29 Nucleated RBC % (auto) 1.3 /100WBC (0.0-0.2) H 05/22/23 15:29 Smear Path Review SEE NOTE 05/16/23 14:05 Sodium 137 mmol/L (135-145) 05/22/23 15:29 Potassium 2.6 mmol/L (3.3-5.1) L D 05/22/23 15:29 Chloride 90 mmol/L (96-108) L 05/22/23 15:29 Carbon Dioxide 33 mmol/L (22-29) H 05/22/23 15:29 Anion Gap 17 (12-20) 05/22/23 15:29 BUN 24 mg/dL (9-16) H 05/22/23 15:29 Creatinine 0.94 mg/dL (0.5-1.4) 05/22/23 15:29 Estim Creat Clear Calc TNP 05/22/23 15:29 Estimated GFR 58 05/22/23 15:29 Random Glucose 139 mg/dL (60-115) H 05/22/23 15:29 Calcium 9.2 mg/dL (8.4-10.2) D 05/22/23 15:29 Total Bilirubin 0.9 mg/dL (0.0-1.0) 05/22/23 15:29 AST 38 U/L (5-31) H 05/22/23 15:29 ALT 5 U/L (0-31) 05/22/23 15:29 Alkaline Phosphatase 138 U/L (39-117) H 05/22/23 15:29 Total Protein 6.2 g/dL (6.5-8.0) L 05/22/23 15:29 Albumin 3.6 g/dL (3.5-5.0) 05/22/23 15:29 Assessment and Plan Patient Active problem list reviewed?: Yes (1) Anemia Status: Chronic Assessment and plan: 1. This is a 77 year old woman, [employer] with history of metastatic melanoma and severe anemia secondary to malignancy as well as ongoing treatment. Patient has severe anemia secondary to ongoing treatment for her cancer. Acute worsening of chronic anemia related to malignancy. She cannot receive blood as she is [employer]. She has received iron infusion. Ferritin level is over 4000 NG/mL. She does not have renal dysfunction, bilirubin is, no evidence of hemolysis. Vitamin B12 level is over 800. She will be scheduled for ANCELMO, Procrit therapy 20-40,000 units once a week. They were unable to go to [place] anymore for further care. Granddaughter wants to fly patient home to [place] for her last days. They understand that has a performance status has declined considerably along with severe anemia/pancytopenia, she is no longer an eligible for palliative/ systemic therapy. Administer Procrit 54347 units today. 2. Hyperkalemia probably related to recent diarrhea. Administer KCL 10 mEq IV and 40 mEq by mouth. - Time Spent With Patient Time Spent with Patient (in minutes): 10
[2023-05-22] MEDS: Potassium Chloride/H20 10 MEQ/100 ML PIGGYBACK 100 MEQ IV (16:27)
[2023-05-22] MEDS: Potassium Chloride Packet 20 MEQ PACKET 40 MEQ PO (16:53)
--- NOTE | 2023-05-22 17:45 | MHC.HEMONC ---
Pt was in for weekly procrit inj, labs drawn/reviewed, Hgb was 6.5, pt has refused blood transfusion, nurse admin procrit 40,000 units SC to pt's LUQ abdomen, well-tolerated. Dr. Horton met w/ pt for Hem consult to discuss goals of care, also pt was noted hypokalemic, ordered nurse to admin 10 meQ IV potassium. Nurse Maricarmen placed 24g PIV to pt's Left forearm, w/ positive blood return. Pt was admin potassium 10mEq IV, which she tolerated well. Pt was admin 40 mEq PO potassium Cl in two 20 mEq ER tablets, but pt was unable to swallow them, nurse wasted tabs. Nurse placed T/O w/ Dr. Horton for potassium powder 40 mEq, pt was able to take mixed in ensure. Pt's PIV was slushed w/ NS and removed. Pt also was pre-registered for CT scan at radiology. Nurse escorted pt and fam members up to CT to meet tech.
--- NOTE | 2023-05-29 09:37 | HE.ONCSEC ---
LVM reminding pt of appt on 05/30/23.
[2023-05-30 12:51] LABS: MANUAL DIFF FLAG NO
[2023-05-30 12:57] LABS: Basophils Percent Auto 0.2 % (0-2); Eosinophils Percent Auto 0.3 % (0-4); Hematocrit 21.8 % (37.0-47.0); Imm Gran Pct Auto 1.5 % (0.0-0.4); Lymphocytes Percent Auto 15.4 % (20-40); Mean Corpuscular HGB Conc 32.1 g/dl (31.0-35.0); Mean Corpuscular Hemoglobin 38.5 pg (27.0-33.0); Mean Corpuscular Volume 119.8 fL (80.0-98.0); Mean Platelet Volume 9.6 fL (9.4-12.3); Monocytes Absolute Auto 0.4 X10*3/uL (0.1-1.2); Monocytes Percent Auto 6.2 % (2-11); NRBC Pct Auto 1.1 /100WBC (0.0-0.2); Neutrophils Absolute Auto 5.1 x10*3/uL (2.0-8.3); Neutrophils Percent Auto 76.4 % (45-73); Platelet Count 165 X10*3/uL (160-400); Red Blood Count 1.82 X10*6/uL (4.20-5.50); White Blood Count 6.6 X10*3/uL (4.8-10.8)
[2023-05-30 13:06] VITALS: BP 140/53; PULSE 94; RESP 18; TEMP 36.7; O2SAT 98
[2023-05-30] MEDS: Epoetin Alfa 40,000 UNIT/ML VIAL 40000 UNIT SUBCUT (13:19)
--- NOTE | 2023-05-30 17:12 | MHC.HEMONC ---
Pt was in today w/ her granddaughter for weekly procrit, labs drawn/reviewed, Hgb resulted at 7.0, Dr. Horton was notified. Pt has established she will not accept blood transfusions. Pt's VSS. Nurse admin procrit 40,000 units SC to pt's RUQ abdomen, which was well-tolerated. Per pt's granddtr's request, pt's potassium level was also checked, resulted WNL at 4.0, after pt received IV k+ last week in this clinic. Granddtr asked if pt could receive scrip for oral potassium, but Dr. Horton declined, nurse asked her to f/u w/ PCP Dr. Tobias to order. Pt was given calendar and copy of recent lab results.
--- NOTE | 2023-06-05 09:53 | HE.ONCSEC ---
LVM reminding pt of appt on 06/06/23.
[2023-06-06 13:48] LABS: MANUAL DIFF FLAG NO
[2023-06-06 13:54] LABS: Basophils Percent Auto 0.4 % (0-2); Eosinophils Percent Auto 0.6 % (0-4); Hematocrit 22.2 % (37.0-47.0); Hemoglobin 7.1 g/dl (12.0-16.0); Imm Gran Abs Auto 0.08 X10*3/uL (0.00-0.03); Imm Gran Pct Auto 1.1 % (0.0-0.4); Lymphocytes Absolute Auto 0.7 X10*3/uL (1.2-4.9); Lymphocytes Percent Auto 9.7 % (20-40); Mean Platelet Volume 9.9 fL (9.4-12.3); Monocytes Absolute Auto 0.4 X10*3/uL (0.1-1.2); Monocytes Percent Auto 5.2 % (2-11); Neutrophils Absolute Auto 5.9 x10*3/uL (2.0-8.3); Platelet Count 203 X10*3/uL (160-400); Red Blood Count 1.87 X10*6/uL (4.20-5.50); Red Cell Distribution Width 19.6 % (11.0-16.0); White Blood Count 7.1 X10*3/uL (4.8-10.8)
[2023-06-06 13:55] LABS: Mean Corpuscular Volume 118.7 fL (80.0-98.0)
[2023-06-06] MEDS: Epoetin Alfa 40,000 UNIT/ML VIAL 40000 UNIT SUBCUT (14:20)
--- NOTE | 2023-06-06 14:55 | MHC.HEMONC ---
Pt here for procrit q week. HGB 7.1 procrit given 40,000 units left abdomen. Pt tolerated it well. Calendar given and pt departed via wheelchair with family.
[2023-06-13 09:45] LABS: MANUAL DIFF FLAG NO
[2023-06-13 09:50] LABS: Basophils Percent Auto 0.3 % (0-2); Eosinophils Percent Auto 0.3 % (0-4); Hematocrit 25.2 % (37.0-47.0); Hemoglobin 8.1 g/dl (12.0-16.0); Imm Gran Abs Auto 0.13 X10*3/uL (0.00-0.03); Imm Gran Pct Auto 1.7 % (0.0-0.4); Lymphocytes Absolute Auto 1.5 X10*3/uL (1.2-4.9); Lymphocytes Percent Auto 19.8 % (20-40); Mean Corpuscular HGB Conc 32.1 g/dl (31.0-35.0); Mean Platelet Volume 9.9 fL (9.4-12.3); Monocytes Absolute Auto 0.6 X10*3/uL (0.1-1.2); Monocytes Percent Auto 8.4 % (2-11); Neutrophils Absolute Auto 5.3 x10*3/uL (2.0-8.3); Neutrophils Percent Auto 69.5 % (45-73); Platelet Count 282 X10*3/uL (160-400); Red Blood Count 2.13 X10*6/uL (4.20-5.50); Red Cell Distribution Width 18.3 % (11.0-16.0); White Blood Count 7.5 X10*3/uL (4.8-10.8)
[2023-06-13 09:51] LABS: Mean Corpuscular Volume 118.3 fL (80.0-98.0); NRBC Pct Auto 1.6 /100WBC (0.0-0.2)
[2023-06-13] MEDS: Epoetin Alfa 40,000 UNIT/ML VIAL 40000 UNIT SUBCUT (10:18)
[2023-06-13 10:22] VITALS: BP 123/55; PULSE 112; RESP 18; O2SAT 98
--- NOTE | 2023-06-13 10:25 | MHC.HEMONC ---
Weekly Procrit Hgb 8.1- Procrit 40,000 units ordered and administered to left lower abdominal quadrant. Dr. Horton recommends for patient to start taking Ferrous Sulfate twice a day with Vitamin C daily for absorption. Iron will not covered by insurance- patient's granddaughter is willing and will purchase over the counter. Calender provided with next appt.
[2023-06-20 10:14] LABS: MANUAL DIFF FLAG NO
[2023-06-20 10:16] LABS: Basophils Absolute Auto 0.1 X10*3/uL (0.0-0.2); Basophils Percent Auto 0.6 % (0-2); Eosinophils Percent Auto 0.5 % (0-4); Hematocrit 26.4 % (37.0-47.0); Hemoglobin 8.4 g/dl (12.0-16.0); Imm Gran Abs Auto 0.08 X10*3/uL (0.00-0.03); Lymphocytes Absolute Auto 1.8 X10*3/uL (1.2-4.9); Lymphocytes Percent Auto 23.2 % (20-40); Mean Corpuscular HGB Conc 31.8 g/dl (31.0-35.0); Mean Corpuscular Hemoglobin 37.8 pg (27.0-33.0); Mean Platelet Volume 9.9 fL (9.4-12.3); Monocytes Absolute Auto 0.9 X10*3/uL (0.1-1.2); Monocytes Percent Auto 11.4 % (2-11); Neutrophils Percent Auto 63.3 % (45-73); Platelet Count 225 X10*3/uL (160-400); Red Blood Count 2.22 X10*6/uL (4.20-5.50); Red Cell Distribution Width 17.3 % (11.0-16.0); White Blood Count 7.8 X10*3/uL (4.8-10.8)
[2023-06-20 10:21] LABS: Mean Corpuscular Volume 118.9 fL (80.0-98.0)
[2023-06-20 10:22] LABS: NRBC Pct Auto 1.5 /100WBC (0.0-0.2)
[2023-06-20] MEDS: Epoetin Alfa 40,000 UNIT/ML VIAL 40000 UNIT IVPUSH (10:46)
--- NOTE | 2023-06-20 11:37 | MHC.HEMONC ---
Procrit 49345 units given for hgb=8.4. [email or web address] Katya is unable to swallow iron supplement, liquid Iron prescription sent to pharmacy by Dr Horton. Pt aware of next appointment, calendar provided.
[2023-06-20 11:46] VITALS: BP 128/57; PULSE 116; TEMP 36.3; O2SAT 96
[2023-06-27 13:38] LABS: MANUAL DIFF FLAG NO
--- NOTE | 2023-06-27 13:42 | MHC.HEMONC ---
[facility] called asking if Mr Lord will need any labs. Weekly labs per Dr Horton. [facility] notified and will draw weekly labs starting Sunday.
[2023-06-27 13:48] LABS: Basophils Percent Auto 0.3 % (0-2); Eosinophils Percent Auto 0.3 % (0-4); Hematocrit 25.3 % (37.0-47.0); Imm Gran Abs Auto 0.06 X10*3/uL (0.00-0.03); Lymphocytes Absolute Auto 0.9 X10*3/uL (1.2-4.9); Lymphocytes Percent Auto 14.5 % (20-40); Mean Corpuscular HGB Conc 31.6 g/dl (31.0-35.0); Mean Corpuscular Hemoglobin 36.9 pg (27.0-33.0); Mean Corpuscular Volume 116.6 fL (80.0-98.0); Mean Platelet Volume 9.8 fL (9.4-12.3); Monocytes Absolute Auto 0.8 X10*3/uL (0.1-1.2); NRBC Pct Auto 1.5 /100WBC (0.0-0.2); Neutrophils Absolute Auto 4.3 x10*3/uL (2.0-8.3); Neutrophils Percent Auto 70.9 % (45-73); Platelet Count 218 X10*3/uL (160-400); Red Blood Count 2.17 X10*6/uL (4.20-5.50); Red Cell Distribution Width 16.9 % (11.0-16.0)
[2023-06-27 14:13] VITALS: BP 136/63; PULSE 112; RESP 16
--- NOTE | 2023-06-27 14:24 | MHC.HEMONC ---
Addendum entered by Alanna Plasencia RN 06/27/23 14:38: Granddaughter states patient is taking iron daily (liquid form) started yesterday. Original Note: Weekly Procrit. Hgb 8.0 Dr. Horton notified. Order for Procrit 20,000 units- administered to right lower quadrant and well tolerated. VSS. Patient departed unit via wheelchair accompanied by daughter. Granddaughter reports some nose bleeds. Encourage use of saline spray and humidification as patient is using oxygen and could be related to dry air. Calender provided with next appts.
--- NOTE | 2023-06-27 14:57 | HO.HEMONCPA ---
Addendum entered by Josie Castellanos 07/10/23 11:02: [facility] APPROVED FOR PROCRIT [id number] AUTH # [id number] DOS 07/23/23 - 07/08/24 EOC# [id number] Addendum entered by Josie Castellanos 07/03/23 10:47: [employer] APPROVED FOR PROCRIT [id number] AUTH # [id number] DOS 07/23/23 - 07/08/24 Original Note: [facility] PENDING FOR PROCRIT [id number] REFERENCE # [id number] [facility]
[2023-07-04 13:28] LABS: MANUAL DIFF FLAG NO
[2023-07-04 14:11] LABS: Basophils Percent Auto 0.8 % (0-2); Eosinophils Percent Auto 0.8 % (0-4); Hematocrit 24.9 % (37.0-47.0); Hemoglobin 7.7 g/dl (12.0-16.0); Imm Gran Abs Auto 0.04 X10*3/uL (0.00-0.03); Imm Gran Pct Auto 0.8 % (0.0-0.4); Lymphocytes Absolute Auto 0.6 X10*3/uL (1.2-4.9); Lymphocytes Percent Auto 11.8 % (20-40); Mean Corpuscular HGB Conc 30.9 g/dl (31.0-35.0); Mean Corpuscular Hemoglobin 36.5 pg (27.0-33.0); Mean Platelet Volume 9.9 fL (9.4-12.3); Monocytes Absolute Auto 0.7 X10*3/uL (0.1-1.2); Monocytes Percent Auto 14.8 % (2-11); Neutrophils Absolute Auto 3.5 x10*3/uL (2.0-8.3); Platelet Count 206 X10*3/uL (160-400); Red Blood Count 2.11 X10*6/uL (4.20-5.50); Red Cell Distribution Width 16.8 % (11.0-16.0); White Blood Count 4.9 X10*3/uL (4.8-10.8)
[2023-07-04 14:20] VITALS: BP 138/63; PULSE 114; RESP 17; TEMP 37.2; O2SAT 94
[2023-07-04] MEDS: Epoetin Alfa 40,000 UNIT/ML VIAL 40000 UNIT SUBCUT (14:24)
--- NOTE | 2023-07-04 15:13 | MHC.HEMONC ---
Addendum entered by Manoj Maddox RN 07/04/23 17:13: Per Dr. Horton's request, this nurse called pt's granddtr/CG at home, informed her that pt's ferritin level is trending higher and higher, and Dr. Horton advises she stop taking the liquid ferrous sulfate at this time, she may ask her to resume it in the future depending on blood test results. Grandrachel Aldana verbalized understanding. Nurse removed it from pt's med list. Original Note: Pt here for weekly Procrit injection (LATASHA guerrier 07/08/24) Labs drawn by repairer and checker-specimen to lab. H& H 7.01/29.[address] Horton. Procrit 40,000 units SC given in left arm-tolerated well. No edema or redness at site after injection. Next appointment scheduled-calendar given to family member.
[2023-07-04 16:40] LABS: Ferritin 1899 ng/mL (10-250)
== END 2023-07-14 | disposition home or self-care (01) ==
LOC: HO.ONC 14:00
PROVIDERS: PCP Internal Medicine; Visit Provider Internal Medicine
DX: D64.81 Anemia due to antineoplastic chemotherapy (principal); T45.1X5A Adverse effect of antineoplastic and immunosuppressive drugs, initial encounter; C43.9 Malignant melanoma of skin, unspecified; C79.51 Secondary malignant neoplasm of bone; E87.5 Hyperkalemia; D63.0 Anemia in neoplastic disease
CPT/HCPCS: 36415; 80053; 82728; 84132; 85025; 85027; 96365; 96372; J0885; J3480

== ENCOUNTER 2023-07-04 14:39 | Inpatient (IN) | payer MEDICARE, SELFPAY ==
--- NOTE | ~2023-07-04 | XR_ITS ---
EXAMINATION: XR CHEST CLINICAL INFORMATION: Difficulty breathing COMPARISON: Prior chest radiograph dated 06/05/2023 TECHNIQUE: Frontal view of the chest was obtained. FINDINGS: Bibasilar effusions and consolidations are again present. Cardiac silhouette not clearly seen due to the presence of these effusions. There is moderate distention of the pulmonary vessels. Osseous structures intact although a slight permeative pattern in the humeri are seen which is chronic and probably due to extreme osteopenia. XR/XR chest 1V IMPRESSION: Congestive changes with edema and effusions are again seen. The effusions may be greater today than on the prior 05/22/2023 exam..
--- NOTE | ~2023-07-04 | CT_ITS ---
EXAMINATION: CT HEAD WITHOUT CONTRAST CLINICAL INFORMATION: AMS. COMPARISON: None available. TECHNIQUE: Contiguous axial imaging was performed from the skull base to vertex without intravenous administration of contrast. This CT examination was performed using dose optimization techniques as appropriate, variously including the following: *Automated exposure control *Adjustment of mA and/or kV according to patient size (this includes techniques or standardized protocols for targeted exams where dose is matched to indication/reason for exam; i.e. extremities or head) *Use of iterative reconstruction technique DLP: 669 mGy-cm FINDINGS: There is no acute intra-axial, extra-axial bleed, masses or midline shift. There is no acute infarction evolution. There is no edema. The mayers to white matter differentiation is maintained normal. The lateral ventricles are symmetrical in size and configuration without enlargement. Bone windows reveal no calvarial abnormality. There is diffuse mucoperiosteal thickening involving right frontal, ethmoid and sphenoid sinuses with an air-fluid level in the right maxillary and left sphenoid sinus suggestive of acute sinusitis. The mastoid sinuses are clear. CT/CT head/brain wo IV con IMPRESSION: 1. No acute intracranial process seen. Acute right maxillary and left sphenoid sinusitis. Chronic sinusitis involving right ethmoid, frontal and sphenoid sinuses
--- NOTE | ~2023-07-04 | XR_ITS ---
EXAMINATION: XR CHEST CLINICAL INFORMATION: Hypoxia. COMPARISON: Most recent chest radiograph dated 07/05/2023. TECHNIQUE: Frontal view of the chest was obtained. FINDINGS: Endotracheal tube with the tip approximately 1.9 cm proximal to the mark. Enterogastric tube with its tip beneath the left hemidiaphragm and extending beyond the imaged field of view. Left-sided central venous catheter with the tip in the region of the cavoatrial junction. Small bilateral pleural effusions, unchanged. No pneumothorax. Patchy bilateral airspace opacities with interstitial and pulmonary vascular prominence, increased when compared to the prior examination. Stable cardiomediastinal silhouette. XR/XR chest 1V IMPRESSION: 1. Endotracheal tube with its tip approximately 1.9 cm proximal to the mark. Enterogastric tube and left-sided central venous catheter in appropriate position. 2. Small bilateral pleural effusions with patchy bilateral airspace opacities and interstitial and pulmonary vascular prominence, increased when compared to the prior examination. Findings can be seen in the setting of pulmonary edema.
--- NOTE | ~2023-07-04 | XR_ITS ---
EXAMINATION: XR CHEST CLINICAL INFORMATION: Tube placement. COMPARISON: Chest radiograph 07/04/2023. TECHNIQUE: Frontal view of the chest was obtained. FINDINGS: Left IJ CVC tip projects at the level of the lower right atrium just above the diaphragm. An enteric tube courses into the abdomen and terminates outside of the field of view. Unchanged cardiomediastinal silhouette. Multifocal airspace opacities and nodules are not convincingly changed. Small bilateral layering pleural effusions are slightly decreased. No pneumothorax. No acute osseous findings. XR/XR chest 1V IMPRESSION: 1. Left IJ CVC tip projects at the level of the lower right atrium just above the diaphragm, recommend retraction. 2. Multifocal airspace opacities and nodules are not convincingly changed. 3. Bilateral pleural effusions are slightly decreased.
--- NOTE | ~2023-07-04 | CT_ITS ---
EXAMINATION: CT CHEST WITHOUT CONTRAST CLINICAL INFORMATION: Worsening bilateral pleural effusions COMPARISON: Previous chest CT May 2023 and chest x-ray from earlier TECHNIQUE: Multidetector volumetric CT imaging of the chest was done. Axial MIP volume rendering provided. Sagittal and coronal reformatted images were obtained. This CT examination was performed using dose optimization techniques as appropriate, variously including the following: *Automated exposure control *Adjustment of mA and/or kV according to patient size (this includes techniques or standardized protocols for targeted exams where dose is matched to indication/reason for exam; i.e. extremities or head) *Use of iterative reconstruction technique DLP: 169 mGy-cm FINDINGS: LUNGS: Evaluation of the lungs is limited due to respiratory motion. There are increased interstitial markings in the upper lobes. There are multiple pulmonary nodules, largest right upper lobe nodule measuring 5 mm axial image 80 left upper lobe nodule measuring 7 mm axial image 152 series 5. Pulmonary nodules appear decreased from May 2023 exam. There is compressive atelectasis of the lingula, right middle lobe and bilateral lower lobes from the MEDIASTINUM: Upper normal heart size. Mild coronary artery calcification. No pericardial effusion normal caliber thoracic aorta and pulmonary arteries no enlarged hilar or mediastinal lymph nodes CORONARY ARTERY CALCIFICATION: None visualized on this study. PLEURA: Large bilateral pleural effusions. Question slight pleural nodularity. AXILLA: No lymphadenopathy. UPPER ABDOMEN: Unchanged liver and bilateral adrenal masses. OSSEOUS STRUCTURES: Old right lateral rib fracture. Question mild T9 vertebral body fracture versus Schmorl's node. CT/CT chest wo IV con IMPRESSION: Limited exam. Increased interstitial markings in the upper lobes similar to prior exam. Bilateral pulmonary nodules are decreased in size and number compared to May 2023. Large bilateral pleural effusions and adjacent compressive atelectasis. Liver and adrenal nodules appear unchanged. Fleischner guidelines were followed.
--- NOTE | 2023-07-04 14:45 | ED_ITS ---
HPI - General Adult General Chief complaint: Wound/Laceration Stated complaint: Infected sore on backside, disoriented, fever Time Seen by Provider: 07/04/23 16:40 Source: family Mode of arrival: wheelchair Limitations: altered mental status History of Present Illness HPI narrative: Patient comes to the emergency room accompanied by her family. According to the patient's health caretakers, patient has been more confused than usual. They believe that patient has an infected sacral ulcer., family reports the patient has not been sleeping at night. Patient known to have anemia low H&H chronic. Patient is being treated for uterine cancer, her treatment had to be suspended secondary to anemia. Patient is a Jehovah Witness, therefore patient/family requested no blood transfusions. At this time, patient seems confused, unable to give any significant history. Patient does not seem in any distress. Patient does complain that she has pain in the sacral area. Related Data Home Medications Medication Instructions Recorded Confirmed sennosides 8.6 mg tablet (senna) 17.2 mg PO BEDTIME 02/12/23 05/14/23 acetaminophen 650 mg 650 mg PO Q8H PRN Pain 02/18/23 05/14/23 tablet,extended release (Tylenol Arthritis Pain) bisacodyl 10 mg rectal suppository 10 mg DE DAILY PRN Constipation 02/18/23 05/14/23 (Dulcolax (bisacodyl)) lidocaine 5 % topical patch 3 patch topical DAILY PRN Pain 02/18/23 05/14/23 simethicone 125 mg chewable tablet 125 mg PO Q6H PRN gas 02/18/23 05/14/23 (Gas Relief Extra Strength) pantoprazole 40 mg tablet,delayed 40 mg PO BID 04/11/23 05/14/23 release cyanocobalamin (vitamin B-12) 1,000 mcg PO DAILY 04/17/23 05/14/23 1,000 mcg tablet folic acid 1 mg tablet 1 mg PO DAILY 04/17/23 05/14/23 olanzapine 2.5 mg tablet 2.5 mg PO BID 04/17/23 05/14/23 ondansetron 8 mg disintegrating 8 mg PO Q4H PRN nausea/vomiting 04/17/23 05/14/23 tablet oxycodone 10 mg tablet,crush 10 mg PO BID 04/17/23 05/14/23 resistant,extended release 12 hr (OxyContin) oxycodone 5 mg tablet 5 mg PO Q4-6H PRN Pain 04/17/23 05/14/23 polyethylene glycol 3350 17 17 g PO BID 04/17/23 05/14/23 gram/dose oral powder prochlorperazine maleate 10 mg 10 mg PO BID-TID 04/17/23 05/14/23 tablet ascorbic acid (vitamin C) 500 mg 500 mg PO BID 06/13/23 06/13/23 tablet (Vitamin C) Previous Rx's Medication Instructions Recorded cane #1 ea 09/14/20 walker #1 ea 10/20/20 commode (bedside commode) #1 ea 02/12/23 syringe with needle, safety 3 mL #1 ea 02/12/23 21 gauge x 1 1/2 (Easy Touch SheathLock Syringe with Needle) thiamine HCl (vitamin B1) 100 mg 100 mg PO DAILY 30 days #30 tabs 04/03/23 tablet hospital bed #1 ea 04/06/23 albuterol sulfate 2.5 mg/3 mL 2.5 mg (3 mL) inhalation Q4-6H PRN 05/10/23 (0.083 %) solution for nebulization shortness of breath or wheezing #90 mL levofloxacin 500 mg tablet 500 mg PO DAILY #10 tabs 05/10/23 ondansetron 8 mg disintegrating 8 mg PO Q12H PRN nausea and 05/11/23 tablet vomiting #14 tabs cholecalciferol (vitamin D3) 50 50 mcg PO DAILY 90 days #90 caps 05/14/23 mcg (2,000 unit) capsule (Vitamin D3) clonazepam 0.5 mg tablet 0.5 mg PO BID 30 days #60 tabs 05/14/23 cyanocobalamin (vitamin B-12) 1,000 mcg IM QMONTH 30 days #1 mL 05/14/23 1,000 mcg/mL injection solution escitalopram oxalate 10 mg tablet 10 mg PO DAILY 90 days #90 tabs 05/14/23 ezetimibe 10 mg tablet 10 mg PO DAILY 90 days #90 tabs 05/14/23 fluticasone propionate 50 1 spray intranasal DAILY PRN 05/14/23 mcg/actuation nasal ALLERGIES 30 days #16 grams spray,suspension (Flonase Allergy Relief) prednisone 20 mg tablet 40 mg (2 x 20 mg) PO .every week 05/14/23 30 days #8 tabs ENSURE Drink 1 can a day #30 ea 05/15/23 Gel mattress overlay #1 ea 05/15/23 adult diapers pull-ups #240 ea 05/15/23 gel dressing 4 X 4 (DermaGauze #15 ea 05/15/23 Hydrogel Dressing) latex gloves (Latex Gloves, Large) #200 ea 05/15/23 underpads (Bed Underpads) #100 ea 05/15/23 wipes #200 ea 05/15/23 potassium chloride 10 mEq 10 meq PO DAILY 10 days #10 caps 06/13/23 capsule,extended release Allergies Allergy/AdvReac Type Severity Reaction Status Date / Time ibuprofen Allergy Mild anaphylaxis, Verified 05/14/23 16:37 hives metronidazole Allergy Mild rash Verified 05/14/23 16:37 naproxen [Aleve] Allergy Mild anaphylaxis, Verified 05/14/23 16:37 hives pravastatin Allergy Mild anaphylaxis Verified 05/14/23 16:37 simvastatin Allergy Mild cramps Verified 05/14/23 16:37 aspirin Allergy Mild swelling Uncoded 05/14/23 16:37 Review of Systems 2 Review of Systems: Yes Unobtainable due to mental status PMFSH Past Medical History Medical History Malnutrition 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 New daily persistent headache Sinusitis UTI (urinary tract infection) Uterine cancer Depression Screening for hypothyroidism Acute medial meniscus tear of left knee Mild major depression, single episode HLA B27 (HLA B27 positive) Effusion, left knee B12 deficiency Osteoarthritis of left knee Chronic fatigue Sore throat, chronic Dyslipidemia Ophthalmoplegic migraine headache Neck pain on right side Insomnia GERD (gastroesophageal reflux disease) Surgical History History of total abdominal hysterectomy and bilateral salpingo-oophorectomy History of laparoscopic cholecystectomy Family History Family History Mother CVD (cardiovascular disease) Father Lung cancer Son Cancer Sister Lung cancer Brother Colon cancer Social History Social History Household Members: Family Housing: House Alcohol intake: never Comment: pt family at bedside Patient Tobacco Use Status: Never used Tobacco Smoked in Last 30 Days: No e-Cigarette/Vaping Use: Never Used Second Hand Smoke Exposure: No Use of substances other than those prescribed or required for medical reasons: No Advance Directives: Yes Advance Directives on File: Yes Advance Directives Date on File: 02/13/23 service: No Current occupational status: retired Current occupation: rt handed Cognitive needs: No Hearing needs: No Vision needs: Yes Physical Exam ED Vital Signs: Vital Signs - 24 hr 07/04/23 14:50 07/04/23 16:06 07/04/23 17:54 Temperature 98.2 F 99.6 F Pulse Rate 111 H 114 H 116 H Respiratory Rate 16 16 25 H Blood Pressure 109/49 L 127/50 L 147/57 H Pulse Oximetry 94 90 L 94 Oxygen Delivery Method Nasal Cannula Nasal Cannula Nasal Cannula Oxygen Flow Rate 4 4 07/04/23 19:27 Temperature 98.4 F Pulse Rate 112 H Respiratory Rate 20 Blood Pressure 127/40 L Pulse Oximetry 94 Oxygen Delivery Method Nasal Cannula Oxygen Flow Rate 4 BMI result Body Mass Index 15.2 Const Other: Appearance: Alert. No acute distress Eyes: Pupils equal, round and reactive to light. ENT: Pharynx normal. Neck: Normal inspection. Neck supple. No lymph nodes noted. No crepitus CVS: Normal heart rate and rhythm. Pulses normal. Normal S1 and S2 Respiratory: Mildly flat kidney, decreased breath sounds bilateral, no wheezing, bilateral crackles Abdomen: Soft and nontender. No rigidity. No distention. Skin: Skin warm and dry. Normal skin color. Normal skin turgor. Extremities: No lower extremity edema. No Lacerations. No Rash Neuro: Disoriented No motor deficit. No sensory deficit. Moving all extremities spontaneous. No slurred speech. Unable to participating cranial nerve assessment Psych: calm, cooperative, confused Course Course Course Narrative: RME: 77 yo F w/PMHx GERD, insomnia, HLD, osteoarthritis, uterine CA, metastatic melanoma, anemia, Jehovah Witness, was on immunotherapy which was stopped (due to low H/H), currently on Palliative Care, presenting to the ED c/o infected bed sore x3 months (worsening over the past week), increased confusion & weakness x yesterday. Also reports low grade fever 99 EKG, Labs, UA, CXR, lactic/blood Cx, Head CT ordered Full HPI, ROS and PE to be performed by primary ED provider. Medications Administered Discontinued Medications Generic Name Dose Route Start Last Admin Trade Name Taryn PRN Reason Stop Dose Admin Sodium Chloride 1,000 mls @ 999 mls/hr 07/04/23 17:34 07/04/23 17:49 Ns IVCONT 07/04/23 18:34 999 mls/hr .Q1H1M ONE Administration Oxymetazoline HCl 2 spray 07/04/23 17:08 07/04/23 17:30 Oxymetazoline Hcl 0.05 % Nasal 15 Ml [place] NOSTRIL-B 07/04/23 17:09 2 spray ONCE ONE Administration Medical Decision Making Medical Decision Making MDM Narrative: -my interpretation of labs: Hematology is at baseline, hemoglobin slightly lower, 7.7. However, due to patient's sikhism believes she will not accept blood transfusion. Chemistry is at baseline. Lactic acid 2.2, likely secondary to dehydration. Patient was given 1 L of normal saline, lactic acid became normal. Patient's troponin 19.4, 2nd 26.0. Patient has no chest pain. Patient tested positive for COVID-19, likely causing COVID encephalopathy. -Also, patient's chest x-ray shows worsening pleural effusions bilaterally. I discussed the x-ray findings with Dr. Coronel from thoracic surgery for advise whether this effusion stay to be drained. Recommendations: CT scan and at least the left side should be drained. Patient has a small amount of trace leukocyte esterase. However, from previous microbiology reports with similar urinalysis, patient has not grown bacteria -I discussed this finding with the patient's healthcare proxy over the phone (patient's daughter) who is sick at home with COVID. Although patient is impaled of care, patient's daughter wants everything to be done. She consents and agrees to have the thoracentesis done tomorrow I discussed the above-mentioned with Dr. Killian, patient accepted to the medicine service Differential Diagnosis Differential Diagnoses: The differential diagnosis associated with the presentation includes (COVID, pneumonia, CHF, pleural effusions, encephalopathy, UTI) Admission/Observation Consideration of admission/observation: Escalation of care including admission/observation considered Consult Healthcare Provider Management of the patient was discussed with: Hospitalist and Supervisor Hand Workers Lab Data MDM Lab Attestation statement: I reviewed the patient's lab results. 07/04/23 15:13 07/04/23 15:13 Labs: Lab Results 07/04/23 07/04/23 07/04/23 Range/Units 15:13 17:44 18:01 WBC 4.1 L (4.8-10.8) X10*3/uL RBC 2.15 L (4.20-5.50) X10*6/uL Hgb 7.8 L (12.0-16.0) g/dl Hct 25.4 L (37.0-47.0) % MCV 118.1 H (80.0-98.0) fL MCH 36.3 H (27.0-33.0) pg MCHC 30.7 L (31.0-35.0) g/dl RDW 16.8 H (11.0-16.0) % Plt Count 204 (160-400) X10*3/uL MPV 10.1 (9.4-12.3) fL Immature Gran % (Auto) Cancelled Neut % (Auto) Cancelled Lymph % (Auto) Cancelled Harrison % (Auto) Cancelled Eos % (Auto) Cancelled Baso % (Auto) Cancelled Lymph # (Auto) Cancelled Harrison # (Auto) Cancelled Eos # (Auto) Cancelled Baso # (Auto) Cancelled Abs Immat Gran (auto) Cancelled Absolute Neuts (auto) Cancelled Absolute Nucleated RBC 0.080 H (0.0-0.012) X10*3/uL Nucleated RBC % (auto) 2.0 H (0.0-0.2) /100WBC Neutrophils % (Manual) 44 L (45-73) % Band Neutrophils % 29 H (3-5) % Lymphocytes % (Manual) 7 L (20-40) % Monocytes % (Manual) 11 (2-11) % Eosinophils % (Manual) 1 (0-4) % Basophils % (Manual) 1 (0-2) % Metamyelocytes % 4 % Myelocytes % 3 % Abs Neuts (Manual) 3.0 (2.0-8.3) X10*3/uL Lymphocytes # (Manual) 0.3 L (1.2-4.9) X10*3/uL Monocytes # (Manual) 0.5 (0.1-1.2) X10*3/uL Metamyelocytes # 0.2 X10*3/uL Myelocytes # 0.1 X10*/uL Nucleated RBCs 3 H (0-0) /100WBC Toxic Granulation PRESENT Dohle Bodies PRESENT Platelet Estimate NORMAL (NORMAL) Plt Morphology Comment NORMAL RBC Morphology NOTED Polychromasia 1+ (0-2) /OIF Tear Drop Cells 1+ (0-2) /OIF Stomatocytes 1+ (5-14) /OIF PT 13.8 H (11.1-13.3) SEC INR 1.1 (0.9-1.1) Sodium 144 (135-145) mmol/L Potassium 3.7 (3.3-5.1) mmol/L Chloride 94 L (96-108) mmol/L Carbon Dioxide 32 H (22-29) mmol/L Anion Gap 22 H (12-20) BUN 30 H (9-16) mg/dL Creatinine 1.11 (0.5-1.4) mg/dL Estim Creat Clear Calc 25.6 Estimated GFR 48 Random Glucose 133 H (60-115) mg/dL Lactic Acid 2.2 H* (0.5-2.0) mmol/L Lactic Acid F/U @ 2Hr 1.8 (0.5-2.0) mmol/L Calcium 10.2 D (8.4-10.2) mg/dL Magnesium 1.8 (1.6-2.6) mg/dL Total Bilirubin 0.7 (0.0-1.0) mg/dL Direct Bilirubin 0.3 (0.0-0.5) mg/dL AST 40 H (5-31) U/L ALT 7 (0-31) U/L Alkaline Phosphatase 101 (39-117) U/L Ammonia 32 (13-55) umol/L Troponin I High Sens 19.4 H D (<3.5-17.0) ng/L B-Natriuretic Peptide 89 (<100) pg/mL Total Protein 6.1 L (6.5-8.0) g/dL Albumin 3.4 L (3.5-5.0) g/dL Lipase 8 (8-78) U/L Urine Color Yellow Urine Appearance Clear Urine pH 5.0 (5.0-9.0) Ur Specific [place] 1.015 (1.005-1.025) Urine Protein Negative (Neg-Trace) mg/dL Urine Glucose (UA) Negative (Negative) mg/dL Urine Ketones Trace (Negative) mg/dL Urine Blood Moderate (2+) H (Negative) Urine Nitrite Negative (Negative) Ur Leukocyte Esterase Trace H (Negative) Urine RBC 6-10 H (0-2) /HPF Urine WBC 0-5 (0-5) /HPF Ur Squamous Epith Cells 3-5 (0-2) /HPF Calcium Oxalate Crystal Present Urine Bacteria None Seen (None Seen) Hyaline Casts 11-20 (0-2) /LPF Influenza Type A (PCR) NEGATIVE (Negative) Influenza Type B (PCR) NEGATIVE (Negative) RSV RNA Qual (PCR) NEGATIVE (Negative) SARS-CoV-2 RNA (RT-PCR) POSITIVE A (Negative) 07/04/23 Range/Units 19:53 WBC (4.8-10.8) X10*3/uL RBC (4.20-5.50) X10*6/uL Hgb (12.0-16.0) g/dl Hct (37.0-47.0) % MCV (80.0-98.0) fL MCH (27.0-33.0) pg MCHC (31.0-35.0) g/dl RDW (11.0-16.0) % Plt Count (160-400) X10*3/uL MPV (9.4-12.3) fL Immature Gran % (Auto) Neut % (Auto) Lymph % (Auto) Harrison % (Auto) Eos % (Auto) Baso % (Auto) Lymph # (Auto) Harrison # (Auto) Eos # (Auto) Baso # (Auto) Abs Immat Gran (auto) Absolute Neuts (auto) Absolute Nucleated RBC (0.0-0.012) X10*3/uL Nucleated RBC % (auto) (0.0-0.2) /100WBC Neutrophils % (Manual) (45-73) % Band Neutrophils % (3-5) % Lymphocytes % (Manual) (20-40) % Monocytes % (Manual) (2-11) % Eosinophils % (Manual) (0-4) % Basophils % (Manual) (0-2) % Metamyelocytes % % Myelocytes % % Abs Neuts (Manual) (2.0-8.3) X10*3/uL Lymphocytes # (Manual) (1.2-4.9) X10*3/uL Monocytes # (Manual) (0.1-1.2) X10*3/uL Metamyelocytes # X10*3/uL Myelocytes # X10*/uL Nucleated RBCs (0-0) /100WBC Toxic Granulation Dohle Bodies Platelet Estimate (NORMAL) Plt Morphology Comment RBC Morphology Polychromasia /OIF Tear Drop Cells /OIF Stomatocytes /OIF PT (11.1-13.3) SEC INR (0.9-1.1) Sodium (135-145) mmol/L Potassium (3.3-5.1) mmol/L Chloride (96-108) mmol/L Carbon Dioxide (22-29) mmol/L Anion Gap (12-20) BUN (9-16) mg/dL Creatinine (0.5-1.4) mg/dL Estim Creat Clear Calc Estimated GFR Random Glucose (60-115) mg/dL Lactic Acid (0.5-2.0) mmol/L Lactic Acid F/U @ 2Hr (0.5-2.0) mmol/L Calcium (8.4-10.2) mg/dL Magnesium (1.6-2.6) mg/dL Total Bilirubin (0.0-1.0) mg/dL Direct Bilirubin (0.0-0.5) mg/dL AST (5-31) U/L ALT (0-31) U/L Alkaline Phosphatase (39-117) U/L Ammonia (13-55) umol/L Troponin I High Sens 26.0 H (<3.5-17.0) ng/L B-Natriuretic Peptide (<100) pg/mL Total Protein (6.5-8.0) g/dL Albumin (3.5-5.0) g/dL Lipase (8-78) U/L Urine Color Urine Appearance Urine pH (5.0-9.0) Ur Specific [place] (1.005-1.025) Urine Protein (Neg-Trace) mg/dL Urine Glucose (UA) (Negative) mg/dL Urine Ketones (Negative) mg/dL Urine Blood (Negative) Urine Nitrite (Negative) Ur Leukocyte Esterase (Negative) Urine RBC (0-2) /HPF Urine WBC (0-5) /HPF Ur Squamous Epith Cells (0-2) /HPF Calcium Oxalate Crystal Urine Bacteria (None Seen) Hyaline Casts (0-2) /LPF Influenza Type A (PCR) (Negative) Influenza Type B (PCR) (Negative) RSV RNA Qual (PCR) (Negative) SARS-CoV-2 RNA (RT-PCR) (Negative) Independent Interpretation I performed an independent interpretation of an: Plain X-Ray (My interpretation of chest x-ray: Worsening pleural effusions bilaterally) and CT Scan (My interpretation head CT: No intracranial bleed) Radiology Impression Discussion of test interpretation with radiology: I have reviewed the radiologist's reading. Radiologist Impression: Bibasilar effusions and consolidations are again present. Cardiac silhouette not clearly seen due to the presence of these effusions. There is moderate distention of the pulmonary vessels. Osseous structures intact although a slight permeative pattern in the humeri are seen which is chronic and probably due to extreme osteopenia. XR/XR chest 1V IMPRESSION: Congestive changes with edema and effusions are again seen. The effusions may be greater today than on the prior 05/22/2023 exam.. FINDINGS: There is no acute intra-axial, extra-axial bleed, masses or midline shift. There is no acute infarction evolution. There is no edema. The mayers to white matter differentiation is maintained normal. The lateral ventricles are symmetrical in size and configuration without enlargement. Bone windows reveal no calvarial abnormality. There is diffuse mucoperiosteal thickening involving right frontal, ethmoid and sphenoid sinuses with an air-fluid level in the right maxillary and left sphenoid sinus suggestive of acute sinusitis. The mastoid sinuses are clear. CT/CT head/brain wo IV con IMPRESSION: 1. No acute intracranial process seen. Acute right maxillary and left sphenoid sinusitis. Chronic sinusitis involving right ethmoid, frontal and sphenoid sinuses Independent Historian Clinical information obtained from an independent historian. History obtained from or confirmed by: Other (Son, patient's daughter/healthcare proxy) External Record Review External record reviewed: Inpatient record, Outpatient record and Prior outpatient radiology Critical Care Time Critical Care Time Critical Care Time: Yes Total Critical Care Time: 90 Attestation: I have personally provided critical care time. Time includes review of lab data, radiology results, discussion with consultants, and monitoring for potential decompensation. Intervention performed as documented. Discharge Plan Discharge Clinical Impression: Encephalopathy due to 2019-nCoV, Bilateral pleural effusion Patient Disposition: Admitted As Inpatient Prescriptions: No Action (DME) cane Device See Rx Instructions .ROUTE .MEDSUPPLY Qty: 1 0RF Rx Instructions: As directed (DME) walker Misc See Rx Instructions .ROUTE .MEDSUPPLY Qty: 1 0RF Rx Instructions: As directed thiamine HCl (vitamin B1) 100 mg tablet 100 mg PO DAILY 30 Days Qty: 30 0RF (DME) hospital bed Kit See Rx Instructions .Route Qty: 1 0RF Rx Instructions: As directed (DME) ENSURE Drink 1 can a day See Rx Instructions .Route .MEDSUPPLY Qty: 30 5RF Rx Instructions: As directed (DME) adult diapers pull-ups small See Rx Instructions .Route .MEDSUPPLY Qty: 240 11RF Rx Instructions: As directed (DME) DermaGauze Hydrogel Dressing 4 X 4 bandage See Rx Instructions .Route Qty: 15 2RF Rx Instructions: As directed (DME) Gel mattress overlay Misc See Rx Instructions .Route Qty: 1 0RF Rx Instructions: As directed (DME) latex gloves [Latex Gloves, Large] Misc See Rx Instructions .Route Qty: 200 11RF Rx Instructions: As directed (DME) underpads [Bed Underpads] Pad See Rx Instructions .Route Qty: 100 11RF Rx Instructions: Use 3 to 4 bed underpads daily (DME) wipes See Rx Instructions .Route .MEDSUPPLY Qty: 200 11RF Rx Instructions: As directed potassium chloride 10 mEq capsule, extended release 10 meq PO DAILY 10 Days Qty: 10 0RF olanzapine 2.5 mg tablet 2.5 mg PO BID ondansetron 8 mg tablet,disintegrating 8 mg PO Q4H PRN (Reason: nausea/vomiting) folic acid 1 mg tablet 1 mg PO DAILY oxycodone 5 mg tablet 5 mg PO Q4-6H PRN (Reason: Pain) oxycodone [OxyContin] 10 mg tablet,oral only,ext.rel.12 hr 10 mg PO BID prochlorperazine maleate 10 mg tablet 10 mg PO BID-TID cyanocobalamin (vitamin B-12) 1,000 mcg Tablet 1,000 mcg PO DAILY polyethylene glycol 3350 17 gram/dose Powder 17 g PO BID ascorbic acid (vitamin C) [Vitamin C] 500 mg Tablet 500 mg PO BID lidocaine 5 % adhesive patch,medicated 3 patch topical DAILY PRN (Reason: Pain) Rx Instructions: apply to thigh, hip, and back simethicone [Gas Relief Extra Strength] 125 mg tablet,chewable 125 mg PO Q6H PRN (Reason: gas) acetaminophen [Tylenol Arthritis Pain] 650 mg tablet extended release 650 mg PO Q8H PRN (Reason: Pain) bisacodyl [Dulcolax (bisacodyl)] 10 mg Suppository 10 mg DE DAILY PRN (Reason: Constipation) pantoprazole 40 mg tablet,delayed release (DR/EC) 40 mg PO BID sennosides [senna] 8.6 mg tablet 17.2 mg PO BEDTIME (DME) Easy Touch SheathLock Syrg-Ndl 3 mL 21 gauge x 1 1/2 syringe See Rx Instructions .ROUTE .MEDSUPPLY Qty: 1 2RF Rx Instructions: As directed (DME) bedside commode Kit See Rx Instructions .Route Qty: 1 0RF Rx Instructions: As directed cyanocobalamin (vitamin B-12) 1,000 mcg/mL solution 1,000 mcg IM QMONTH 30 Days Qty: 1 6RF cholecalciferol (vitamin D3) [Vitamin D3] 50 mcg (2,000 unit) capsule 50 mcg PO DAILY 90 Days Qty: 90 1RF escitalopram oxalate 10 mg tablet 10 mg PO DAILY 90 Days Qty: 90 1RF ezetimibe 10 mg tablet 10 mg PO DAILY 90 Days Qty: 90 1RF prednisone 20 mg tablet 40 mg PO .every week 30 Days Qty: 8 6RF fluticasone propionate [Flonase Allergy Relief] 50 mcg/actuation spray,suspension 1 spray intranasal DAILY PRN (Reason: ALLERGIES) 30 Days Qty: 16 1RF Rx Instructions: administer into each nostril clonazepam 0.5 mg tablet 0.5 mg PO BID 30 Days Qty: 60 0RF levofloxacin 500 mg tablet 500 mg PO DAILY Qty: 10 0RF albuterol sulfate 2.5 mg /3 mL (0.083 %) solution for nebulization 2.5 mg inhalation Q4-6H PRN (Reason: shortness of breath or wheezing) Qty: 90 0RF ondansetron 8 mg tablet,disintegrating 8 mg PO Q12H PRN (Reason: nausea and vomiting) Qty: 14 0RF Rx Instructions: do not use while on antibiotic levofloxacin
[2023-07-04 14:50] VITALS: BP 109/49; PULSE 111; RESP 16; O2SAT 94; BMI 15.2
--- NOTE | 2023-07-04 14:52 | ECG_ITS ---
Test Reason : ams Blood Pressure : / mmHG Vent. Rate : 113 BPM Atrial Rate : 113 BPM P-R Int : 130 ms QRS Dur : 064 ms QT Int : 318 ms P-R-T Axes : 036 019 035 degrees QTc Int : 436 ms Sinus tachycardia Low voltage QRS Nonspecific ST and T wave abnormality Abnormal ECG When compared with ECG of 05-JUN-2023 11:16, Nonspecific T wave abnormality now evident in Lateral leads Referred By: Yennifer Esquivel Electronically Signed By:RIDGE MOYA
[2023-07-04 15:22] LABS: Hematocrit 25.4 % (37.0-47.0); Hemoglobin 7.8 g/dl (12.0-16.0); Mean Corpuscular HGB Conc 30.7 g/dl (31.0-35.0); Mean Corpuscular Hemoglobin 36.3 pg (27.0-33.0); Mean Platelet Volume 10.1 fL (9.4-12.3); Platelet Count 204 X10*3/uL (160-400); Red Blood Count 2.15 X10*6/uL (4.20-5.50); Red Cell Distribution Width 16.8 % (11.0-16.0); White Blood Count 4.1 X10*3/uL (4.8-10.8)
[2023-07-04 15:23] LABS: Mean Corpuscular Volume 118.1 fL (80.0-98.0)
[2023-07-04 15:27] LABS: INTERNATIONAL NORM RATIO 1.1 (0.9-1.1); Prothrombin Time 13.8 SEC (11.1-13.3)
[2023-07-04 15:52] LABS: B Type Natriuretic Peptide 89 pg/mL (<100)
[2023-07-04 15:53] LABS: Troponin-I High Sensitivity 19.4 ng/L (<3.5-17.0)
[2023-07-04 16:00] LABS: Influenza A PCR NEGATIVE (Negative); Influenza B PCR NEGATIVE (Negative); Resp Syncy Virus RNA Qual PCR NEGATIVE (Negative); SARS COV2 PCR INHOUSE POSITIVE (Negative)
[2023-07-04 16:06] VITALS: BP 127/50; PULSE 114; RESP 16; TEMP 36.8; O2SAT 90
[2023-07-04 16:11] LABS: Alanine Aminotransferase 7 U/L (0-31); Albumin Level 3.4 g/dL (3.5-5.0); Alkaline Phosphatase 101 U/L (39-117); Anion Gap 22 (12-20); Aspartate Amino Transferase 40 U/L (5-31); Bilirubin Direct 0.3 mg/dL (0.0-0.5); Bilirubin Total 0.7 mg/dL (0.0-1.0); Blood Urea Nitrogen 30 mg/dL (9-16); Calcium 10.2 mg/dL (8.4-10.2); Carbon Dioxide 32 mmol/L (22-29); Chloride 94 mmol/L (96-108); Creatinine Clr Calc Pharmacy 25.6; Estimated Glomerular Filt Rate 48; Glucose Random 133 mg/dL (60-115); Lipase 8 U/L (8-78); Magnesium 1.8 mg/dL (1.6-2.6); Neutrophils Percent Manual 44 % (45-73); Potassium 3.7 mmol/L (3.3-5.1); Sodium 144 mmol/L (135-145); Total Protein 6.1 g/dL (6.5-8.0)
[2023-07-04 16:13] LABS: Band Neutrophils Percent 29 % (3-5); Basophils Percent Manual 1 % (0-2); Eosinophils Percent Manual 1 % (0-4); Lymphocytes Absolute Manual 0.3 X10*3/uL (1.2-4.9); Lymphocytes Percent Manual 7 % (20-40); Metamyelocytes Absolute 0.2 X10*3/uL; Metamyelocytes Percent 4 %; Monocytes Absolute Manual 0.5 X10*3/uL (0.1-1.2); Monocytes Percent Manual 11 % (2-11); Myelocytes Absolute 0.1 X10*/uL; Myelocytes Percent 3 %; Nucleated Red Blood Cells 3 /100WBC (0-0)
[2023-07-04 16:14] LABS: RBC Morphology NOTED; Stomatocytes 1+ (5-14) /OIF
[2023-07-04 16:15] LABS: Platelet Estimate NORMAL (NORMAL); Platelet Morphology Comment NORMAL; Polychromasia 1+ (0-2) /OIF; Tear Drop Cells 1+ (0-2) /OIF
--- NOTE | 2023-07-04 16:15 | PC.NURSE ---
patient awake, unable to communication, pt unable to ambulate was lifted by staff and put onto the bed. iv inserted to left hand, unable to get 2nd set of blood cultures-notified tech. pt on O2 at baseline at home, customer service teller applied- pt sinus tach, pt moving around in bed pointing at her sacral/buttocks area, this nurse looked and found an open wound to sacral area, this nurse applied dressing to sacral area and obtained picture, son at bedside, call das within reach, will continue to mointor.
[2023-07-04 16:16] LABS: Dohle Bodies PRESENT
[2023-07-04 16:17] LABS: Toxic Granulation PRESENT
[2023-07-04 16:20] LABS: Lactic Acid 2.2 mmol/L (0.5-2.0)
--- NOTE | 2023-07-04 16:21 | PC.NURSE ---
daughter/hcp number Katya [phone]
[2023-07-04 16:32] LABS: Ammonia 32 umol/L (13-55)
--- NOTE | 2023-07-04 16:41 | MHC.EDTECH ---
This pct assumed care of pt at 1600 ,2nd sets of blood culture drawn and sent to lab .
[2023-07-04 17:19] LABS: Reflex Lactate? Lactic Acid Added
[2023-07-04] MEDS: Oxymetazoline HCl 0.05 % Nasal 15 ML SPRAY 2 SPRAY NOSTRIL-B (17:30)
[2023-07-04] MEDS: 0.9 % Sodium Chloride 1,000 ML 999 ML IVCONT (17:49)
[2023-07-04 17:54] VITALS: BP 147/57; PULSE 116; RESP 25; TEMP 37.6; O2SAT 94
[2023-07-04 18:02] LABS: ~Lactic Acid-LAB USE ONLY 1.8 mmol/L (0.5-2.0)
--- NOTE | 2023-07-04 18:03 | MHC.EDTECH ---
PATIENT WAS STRAIGHT CATH BY RN ,URINE SAMPLE COLLECTED AND SENT TO LAB ,350 ML OUTPUT ,VITALS TAKEN ,PT WAS CHANGE AND REPOSITION ,REPEATED LACTIC ACID DRAWN AND SENT TO LAB .
--- NOTE | 2023-07-04 18:14 | PC.NURSE ---
PT straight cathed 350ml's of dark urine output noted. Sample sent to lab as ordered. Family at bedside.
[2023-07-04 18:31] LABS: Appearance Urine Clear; Color Urine Yellow; Glucose Urine UA Negative (Negative); Leukocyte Esterase Urine Trace (Negative); Nitrite Urine Negative (Negative); Specific Gravity - Urine 1.015 (1.005-1.025); UMIC TRIGGER UACC YES; Urine Blood Moderate (2+) (Negative); Urine Ketones Trace mg/dL (Negative); Urine Protein Negative (Neg-Trace)
[2023-07-04 18:44] LABS: Bacteria Urine None Seen (None Seen); Calcium Oxalate Crystals Urine Present; WBC Urine 0-5 /HPF (0-5)
--- NOTE | 2023-07-04 19:17 | MHC.EDTECH ---
aT THIS TIME PT IS REFUSING ADDITIONAL LAB ,DUE TO RESTORATIONIST CHOICES ,RN AND PROVIDER AWARE .
[2023-07-04 19:27] VITALS: BP 127/40; PULSE 112; RESP 20; TEMP 36.9; O2SAT 94
--- NOTE | 2023-07-04 19:54 | MHC.EDTECH ---
patient health care Proxy called and gave consent to get repeated Trop krishna aware ,which was drawn and sent to lab .
[2023-07-04] MEDS: LORazepam 2 MG/ML VIAL 1 MG IVPUSH (21:39)
[2023-07-04] MEDS: diphenhydrAMINE HCL 50 MG/ML VIAL IVPUSH (21:39)
--- NOTE | 2023-07-04 22:01 | PHA.MEDREC ---
Pharmacy Consult ? Medication Reconciliation Pharmacy has completed the medication reconciliation. Patient's daughter listed medications. Reports that they are stopping ferrous sulfate. Also reported patient has not take KCl because the tablet were too big. Liyah Dugan, PharmD
--- NOTE | 2023-07-04 23:17 | PC.NURSE ---
After CT scan, pt developed a nosebleed which has not stopped despite pressure. Clamped nose and sent following to MD Killian: Good evening - for patient Katya Martin (ED 20, Covid (+)), immediately after the CT, she developed another nose bleed that has not stopped. They did a few sprays of Afrin earlier. I have clamped it and changed her to a mask for O2 temporarily, but she needs to have some additional treatments. Orders? Thanks!
[2023-07-04 23:25] VITALS: BP 130/51; PULSE 114; RESP 24; TEMP 37.7; O2SAT 100
--- NOTE | 2023-07-04 23:31 | MHC.EDTECH ---
Patient was incontinent of urine ,care given ,bedding change ,Pt Belonging list done ,Vitals taken .
--- NOTE | 2023-07-04 23:32 | PM.IMHP ---
History of Present Illness Date of Service: 07/04/23 Attending physician on admission: Tomy Killian Chief Complaint: increased confusion x 2 days Patient is 77 year old female with underlying metastatic sinonasal mucosal melanoma (dx 10/18/22) treated with Pembrolizumab and palliative radiation therapy but developed severe anemia and poor performance status to where she is no longer eligible for palliative/systemic therapy presents to the emergency room from home accompanied by his family for evaluation of ongoing weakness and confusion. I spoke to her son & [id number] who indicate that she has been feeling unwell for the last 2 days and they have noticed that she has become progressively weaker plus has had poor oral intake. She has complained of pain in the sacral region and was found with an early stage sacral decubitus ulcer in the ER. They have not noticed any fevers, chills or diarrhea. Initial work up in the ED was notable for a positive COVID-9 test, anemia (stable) and mildly elevated HSTnI. A chest CT scan done showed large bilateral pleural effusions and adjacent compressive atelectasis. She was still confused during my evaluation and hence not able to provide any history. Admission was requested for continued care plus consideration for image guided thoracentesis. 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 New daily persistent headache Sinusitis UTI (urinary tract infection) Uterine cancer Depression Screening for hypothyroidism Acute medial meniscus tear of left knee Mild major depression, single episode HLA B27 (HLA B27 positive) Effusion, left knee B12 deficiency Osteoarthritis of left knee Chronic fatigue Sore throat, chronic Dyslipidemia Ophthalmoplegic migraine headache Neck pain on right side Insomnia GERD (gastroesophageal reflux disease) Family History Mother CVD (cardiovascular disease) Father Lung cancer Son Cancer Sister Lung cancer Brother Colon cancer Surgical History History of total abdominal hysterectomy and bilateral salpingo-oophorectomy History of laparoscopic cholecystectomy Social History Household Members: Family Housing: House Alcohol intake: never Comment: pt family at bedside Patient Tobacco Use Status: Never used Tobacco Smoked in Last 30 Days: No e-Cigarette/Vaping Use: Never Used Second Hand Smoke Exposure: No Use of substances other than those prescribed or required for medical reasons: No Advance Directives: Yes Advance Directives on File: Yes Advance Directives Date on File: 02/13/23 service: No Current occupational status: retired Current occupation: rt handed Cognitive needs: No Hearing needs: No Vision needs: Yes Meds Allergies Allergy/AdvReac Type Severity Reaction Status Date / Time ibuprofen Allergy Mild anaphylaxis, Verified 05/14/23 16:37 hives metronidazole Allergy Mild rash Verified 05/14/23 16:37 naproxen [Aleve] Allergy Mild anaphylaxis, Verified 05/14/23 16:37 hives pravastatin Allergy Mild anaphylaxis Verified 05/14/23 16:37 simvastatin Allergy Mild cramps Verified 05/14/23 16:37 aspirin Allergy Mild swelling Uncoded 05/14/23 16:37 Home Medications Medication Instructions Recorded Confirmed Last Taken Type sennosides 8.6 mg tablet (senna) 8.6 mg PO BID 02/12/23 07/04/23 07/04/23 History pantoprazole 40 mg tablet,delayed 40 mg PO BID 04/11/23 07/04/23 07/04/23 History release folic acid 1 mg tablet 1 mg PO DAILY 04/17/23 07/04/23 07/04/23 History oxycodone 10 mg tablet,crush 10 mg PO BID 04/17/23 07/04/23 07/04/23 History resistant,extended release 12 hr (OxyContin) oxycodone 5 mg tablet 5 mg PO Q4H PRN Pain 04/17/23 07/04/23 07/04/23 History albuterol sulfate 2.5 mg/3 mL 2.5 mg inhalation BID shortness of 07/04/23 07/04/23 07/04/23 History (0.083 %) solution for nebulization breath or wheezing cyanocobalamin (vitamin B-12) 500 500 mcg PO DAILY 07/04/23 07/04/23 07/04/23 History mcg tablet furosemide 20 mg tablet 20 mg PO DAILY 07/04/23 07/04/23 07/04/23 History furosemide 40 mg tablet 40 mg PO DAILY 07/04/23 07/04/23 07/04/23 History olanzapine 5 mg tablet 5 mg PO BID 07/04/23 07/04/23 07/04/23 History ondansetron 8 mg disintegrating 8 mg PO Q6H PRN nausea and vomiting 07/04/23 07/04/23 07/04/23 History tablet Physical Exam Vital Signs and Narrative: Vital Signs: Last Vital Signs Temp 99.8 F 07/04/23 23:25 Pulse 114 H 07/04/23 23:25 Resp 24 H 07/04/23 23:25 BP 130/51 L 07/04/23 23:25 Pulse Ox 100 07/04/23 23:25 O2 Del Method Non-Rebreather Ma sk 07/04/23 23:25 O2 Flow Rate 10 07/04/23 23:25 Oxygen Flow Rate 2 07/04/23 14:50 BMI result Body Mass Index 15.2 General: Thin elderly female in bed. Appears dry and weak. In no apparent distress Eyes: No pallor or jaundice. PERRLA, EOMI HENT: Moist oral mucus membranes. No oropharyngeal lesions. Neck: Supple. No cervical adenopathy. No JVD Cardiovascular: Regular rate and rhythm. Normal heart sounds. No murmurs, rubs or gallops. No JVD. No peripheral edema. Respiratory: Normal respiratory effort with no accessory muscle use. CTAB. Gastrointestinal: Abdomen is soft, non-tender, non-distended. NABS. No hepatosplenomegaly Extremities: No edema. No calf tenderness. Good peripheral pulses Skin: Warm/Dry. No rashes. No mottling. Capillary refill is < 2 seconds Neurological: Awake and alert but confused and not answering questions. Not able to follow basic instruction. Comprehensive neuro exam deferred. Hematologic: No bleeding. No ecchymosis. No swollen or tender lymph nodes. Psychiatric: Cooperative. Appropriate mood and affect. Results Labs 07/04/23 15:13 07/04/23 15:13 Labs: Laboratory Results - last 24 hr 07/04/23 07/04/23 07/04/23 15:13 17:44 18:01 MCV 118.1 H MCH 36.3 H MCHC 30.7 L RDW 16.8 H Plt Count 204 MPV 10.1 Immature Gran % (Auto) Cancelled Neut % (Auto) Cancelled Lymph % (Auto) Cancelled Towns % (Auto) Cancelled Eos % (Auto) Cancelled Baso % (Auto) Cancelled Lymph # (Auto) Cancelled Towns # (Auto) Cancelled Eos # (Auto) Cancelled Baso # (Auto) Cancelled Abs Immat Gran (auto) Cancelled Absolute Neuts (auto) Cancelled Absolute Nucleated RBC 0.080 H Nucleated RBC % (auto) 2.0 H Neutrophils % (Manual) 44 L Band Neutrophils % 29 H Lymphocytes % (Manual) 7 L Monocytes % (Manual) 11 Eosinophils % (Manual) 1 Basophils % (Manual) 1 Metamyelocytes % 4 Myelocytes % 3 Abs Neuts (Manual) 3.0 Lymphocytes # (Manual) 0.3 L Monocytes # (Manual) 0.5 Metamyelocytes # 0.2 Myelocytes # 0.1 Nucleated RBCs 3 H Toxic Granulation PRESENT Dohle Bodies PRESENT Platelet Estimate NORMAL Plt Morphology Comment NORMAL RBC Morphology NOTED Polychromasia 1+ (0-2) Tear Drop Cells 1+ (0-2) Stomatocytes 1+ (5-14) PT 13.8 H INR 1.1 Anion Gap 22 H Estim Creat Clear Calc 25.6 Estimated GFR 48 Random Glucose 133 H Lactic Acid 2.2 H* Lactic Acid F/U @ 2Hr 1.8 Calcium 10.2 D Magnesium 1.8 Total Bilirubin 0.7 Direct Bilirubin 0.3 AST 40 H ALT 7 Alkaline Phosphatase 101 Ammonia 32 B-Natriuretic Peptide 89 Total Protein 6.1 L Albumin 3.4 L Lipase 8 Urine Color Yellow Urine Appearance Clear Urine pH 5.0 Ur Specific [place] 1.015 Urine Protein Negative Urine Glucose (UA) Negative Urine Ketones Trace Urine Blood Moderate (2+) H Urine Nitrite Negative Ur Leukocyte Esterase Trace H Urine RBC 6-10 H Urine WBC 0-5 Ur Squamous Epith Cells 3-5 Calcium Oxalate Crystal Present Urine Bacteria None Seen Hyaline Casts 11-20 Influenza Type A (PCR) NEGATIVE Influenza Type B (PCR) NEGATIVE RSV RNA Qual (PCR) NEGATIVE SARS-CoV-2 RNA (RT-PCR) POSITIVE A Imaging Radiologist's Impressions: Impressions Chest X-Ray 07/04/23 16:05 IMPRESSION: Congestive changes with edema and effusions are again seen. The effusions may be greater today than on the prior 05/22/[address] 07/04/23 17:02 IMPRESSION: 1. No acute intracranial process seen. Acute right maxillary and left sphenoid sinusitis. Chronic sinusitis involving right ethmoid, frontal and sphenoid sinuses Chest CT 07/04/23 22:15 IMPRESSION: Limited exam. Increased interstitial markings in the upper lobes similar to prior exam. Bilateral pulmonary nodules are decreased in size and number compared to May 2023. Large bilateral pleural effusions and adjacent compressive atelectasis. Liver and adrenal nodules appear unchanged. Fleischner guidelines were followed. Assessment and Plan (1) Encephalopathy due to 2019-nCoV: Status: Acute (2) Bilateral pleural effusion: Status: Acute (3) Sacral decubitus ulcer, stage III: Status: Acute (4) Asthenia: Status: Acute (5) Anemia: Qualifiers: Anemia type: unspecified type Qualified Code(s): D64.9 - Anemia, unspecified Status: Chronic Plan 77 year old female with underlying metastatic sinonasal mucosal melanoma and chronic anemia here with 1. COVID-19 infection - with encephalopathy and confusion - admit and continue with management of COVID-19 - she may benefit from a shortened course of Remdesivir 2. Bilateral pleural effusions - she has had chronic pleural effusions that have unfortunately increased in size - she however is in no respiratory distress - she may benefit from bilateral thoracentesis plus pleural fluid analysis 3. Asthenia - due to underlying anemia, cancer, COVID-19 and advanced age - she may benefit from PT while inpatient and also discharge to [facility] (vs home PT) 4. Anemia - she has chronic anemia that is fairly stable - will continue to monitor 5. Sacral decubitus ulcers - stage III - noted with skin breakdown in the sacral region. - frequent turninbg while in bed DVT: SC Lovenox CODE STATUS: Full code Admission for at least 2 midnights for management of COVID-19 infection and weakness that may requir placement Total time managing care of this patient today: 75 minutes. Quality Stroke Does the patient have a stroke diagnosis?: No VTE Prior VTE?: No VTE Risk Level:: Medical - moderate - high VTE Device Contraindication: N/A - Device Ordered VTE Drug Contraindication: N/A - Med Ordered
[2023-07-05] VITALS (17 sets, daily range): BP systolic 83–164; BP diastolic 30–73; PULSE 109–127; RESP 20–40; TEMP 32–38.3; O2SAT 92–100; BMI 19.1
[2023-07-05] MEDS: oxyCODONE HCl ER 10 MG TAB.ER.12H PO (00:48)
[2023-07-05] MEDS: LORazepam 2 MG/ML VIAL 0.5 MG IVPUSH ×2 (00:49→15:01)
[2023-07-05] MEDS: OLANZapine 5 MG TABLET PO (00:49)
--- NOTE | 2023-07-05 01:01 | PC.NURSE ---
Ordered Txa not given due to bleeding controlled with pressure to nose. notified.
--- NOTE | 2023-07-05 02:04 | MHC.EDTECH ---
0200 rounding done ,vitals taken ,RN Yamil is aware of Pt high heart rate and respiration ,Pt is still very restless ,pulling out mask .
--- NOTE | 2023-07-05 02:19 | PC.NURSE ---
Grand daughter (HCP) called this RN. Sent following message to MD Killian: Granddaughter (HCP) of room 20 called, requested we do not use Ativan or Zyprexa for the patient as neither has the desired effect (sts Zyprexa actually has the reverse). She requested Clonazepam, which I see is ordered BID. Pt is still very awake and actively pulling at her O2 mask (switched to that b/c NC making her nose bleed). Can we perhaps have a one time dose of Clonazepam for now?
[2023-07-05] MEDS: clonazePAM 1 MG TABLET PO (03:00)
--- NOTE | 2023-07-05 05:10 | PC.NURSE ---
Pt granddaughter (HCP) at bedside providing pt care. Pt calm and resting after lat administered medication. Per HCP, pt has poor reaction to Ativan and Zyprexa, requesting only Clonazepam for restlessness. MD made aware. Pt on plan mask for oxygenation d/t recurrent nosebleeds with nasal canula use.
--- NOTE | 2023-07-05 06:54 | PC.NURSE ---
Pt HCP at bedside informed this RN and the Devang Funk that she requests to be notified prior to any lab drawn for the patient due to concerns of the pt's H/H and amount of blood being taken during lab draws. made aware.
--- NOTE | 2023-07-05 06:54 | MHC.EDTECH ---
PATIENT HEALTH CARE PROXY DID AGREE TO HAVE MORNING LABS DRAWN ,PHLEBOMIST CAME UP AND DRAW LABS ,PT HEALTH CARE PROXY ALSO REFUSED TO HAVE HER GRAND MOTHER REPOSITION ,I WAS ABLE TO CHECK PT AND PT WAS DRY .
[2023-07-05 06:58] LABS: Hematocrit 23.5 % (37.0-47.0); Hemoglobin 7.2 g/dl (12.0-16.0); Mean Corpuscular HGB Conc 30.6 g/dl (31.0-35.0); Mean Corpuscular Hemoglobin 36.5 pg (27.0-33.0); Mean Platelet Volume 9.6 fL (9.4-12.3); Platelet Count 205 X10*3/uL (160-400); Red Blood Count 1.97 X10*6/uL (4.20-5.50); Red Cell Distribution Width 16.9 % (11.0-16.0); White Blood Count 4.6 X10*3/uL (4.8-10.8)
--- NOTE | 2023-07-05 07:00 | CA_ITS ---
Transthoracic Echocardiogram Patient (Last, First, Middle): Katya Martin, Gender: Female Date of : 1945 Age: 77 Procedure Date: 07/05/2023 Procedure Type: Transthoracic Echocardiogram Location: ER Height: 157.48 cm Weight: 37.65 kg BSA: 1.32 m2 Heart Rate: 119 bpm BP: 125 / 44 mmHg Power Cleaner Operator: SB Referring MD: Toan Cabrera MD Symptoms: WA Study Quality: Adequate ECG Rhythm: Tachycardia Conclusions: - The study quality is limited by an uncooperative patient. - The left ventricular systolic function is normal. The calculated ejection fraction is 69% by biplane method. - Possible basal inferior hypokinesis, but difficult to assess. - No obvious valvular pathology seen on this study. - Mild to moderate pulmonary hypertension is present. Findings Procedure Information The quality of the study was technically difficult. The study quality is limited by an uncooperative patient. Left Ventricle Normal left ventricular cavity size. There is normal left ventricular wall thickness. The left ventricular systolic function is normal. The calculated ejection fraction is 69% by biplane method. Diastolic function is normal for age. Possible basal inferior hypokinesis, but difficult to assess. Right Ventricle Normal right ventricular cavity size and systolic function. Atria Both atria are normal in size. Aortic Valve There is a normal trileaflet aortic valve. There is no aortic valve stenosis. There is no aortic valve regurgitation. Mitral Valve The mitral valve appears normal. There is trace mitral valve regurgitation. There is no mitral valve stenosis. Pulmonic Valve The pulmonic valve is likely normal. Tricuspid Valve There is mild tricuspid valve regurgitation. Mild to moderate pulmonary hypertension is present. Great Vessels The asc aorta is normal in size. Venous The inferior vena cava is normal in size and collapses greater than 50% with inspiration. Pericardium/Pleural There is no evidence of pericardial effusion. Prior Study Comparison Changes noted compared to prior study dated: 10/29/2017. Pulmonary artery systolic pressure higher. See comment on wall motion. Recommendations, Care & Conclusions No obvious valvular pathology seen on this study. Measurements 2D Linear Measurements IVSd: 0.83 0.6-0.9/0.6-1.0 cm LVIDd: 3.91 3.9-5.3/4.2-5.9 cm LVIDd Index: 2.96 2.4-3.2/2.2-3.1 cm/m2 LVIDs: 2.18 2.0-3.6 cm LVPWd: 0.64 0.7-1.1 cm LA Diam: 2.60 2.7-3.8/3.0-4.0 cm LAIDs Index: 1.97 1.5-2.3 cm/m2 LV Mass: 99.69 67-162/88-224 g LV Mass Index: 75.52 43-95/49-115 g/m2 LVOT Diam: 1.80 3.0+(-)1.3 cm 2D Systolic Function EF 4C: 66.20 >55% EF 2C: 70.60 >55% EF BiP: 69.40 >55% Mitral Valve MV Pk E: 1.18 MV PK A: 1.18 MV Decel Time: 154.00 E/A: 1.00 E'Lateral: 12.80 E'Medial: 8.49 E/E' Med: 13.90 E/E' Lat: 9.20 PHT: 45.00 MVA PHT: 4.89 Decel [place]: 7.64 Aortic Valve AoV Pk Surendra: 1.59 AoV Pk Grad: 10.00 MALOU: 2.48 LVOT LVOT Pk Surendra: 1.55 LVOT Mn Surendra: 0.99 LVOT VTI: 0.26 LVOT Pk Grad: 10.00 LVOT Mn Grad: 5.00 LVOT Diam: 1.80 LVOT Area: 2.54 Diastolic Function MV Pk E: 1.18 MV Pk A: 1.18 E/A: 1.00 E'Medial: 8.49 E/E' Med: 13.90 E' Laterial: 12.80 E/E' Lat: 9.20 Right Ventricle TAPSE (mm): 15.70 Tricuspid Valve TR Pk Surendra: 3.53 TR Pk Grad: 50.00 RA Press: 3.00 RVSP: 53.00 Great Vessels Aorta Sinus of Valsalva: 3.10 2.0-3.5 cm Ao Asc: 3.20 2.1-3.4 cm Pulmonary Valve PV Pk Surendra: 1.22 Peak PV Grad: 6.00 Updated in Other Vendor System with Status of Final Abram Mejias MD electronically signed on 07/05/2023 11:48:28 AM with status of Final
[2023-07-05 07:01] LABS: Mean Corpuscular Volume 119.3 fL (80.0-98.0); NRBC Pct Auto 4.2 /100WBC (0.0-0.2)
[2023-07-05 07:20] LABS: Anion Gap 23 (12-20); Blood Urea Nitrogen 34 mg/dL (9-16); Calcium 9.4 mg/dL (8.4-10.2); Carbon Dioxide 30 mmol/L (22-29); Chloride 97 mmol/L (96-108); Creatinine Clr Calc Pharmacy 29.6; Estimated Glomerular Filt Rate 57; Glucose Random 101 mg/dL (60-115); Potassium 3.9 mmol/L (3.3-5.1); Sodium 146 mmol/L (135-145)
[2023-07-05 07:35] LABS: Troponin-I High Sensitivity 87.9 ng/L (<3.5-17.0)
--- NOTE | 2023-07-05 07:36 | PC.NURSE ---
tigerconnect sent to MD Farrell requesting order for soft restraints at HAYLEY wrists as pt pulling at tubes, IVs and O2 mask. alfreda at bedside aware of plan. awaiting orders at this time
[2023-07-05] MEDS: dexAMETHasone sod phosphate 4 MG/ML VIAL 6 MG IVPUSH (09:08)
[2023-07-05] MEDS: Furosemide 40 MG/4 ML VIAL IVPUSH (09:08)
[2023-07-05] MEDS: 0.9 % Sodium Chloride Flush 3 ML SYRINGE IVFLUSH (09:09)
--- NOTE | 2023-07-05 10:05 | PC.NURSE ---
pt lethargic and confused, unable to safely administer PO medications at this time. MD Farrell made aware.
--- NOTE | 2023-07-05 10:14 | PC.NURSE ---
cardiology at bedside to complete ECHO
[2023-07-05] MEDS: Potassium Chloride/H20 10 MEQ/100 ML PIGGYBACK 100 MEQ IV (10:44)
[2023-07-05] MEDS: Remdesivir 200 MG in 0.9 % Sodium Chloride 210 ML 105 MG IV (12:38)
--- NOTE | 2023-07-05 12:44 | P.CONPL_ITS ---
History of Present Illness History of Present Illness Consult date: 07/05/23 Chief complaint: COVID-19 Infect. Asthenia; Bilat. Pleural Effusion Narrative: This is an inpatient pulmonary consultation. The patient is a 77 year old female with underlying metastatic sinonasal mucosal melanoma (dx 10/18/22) treated with Pembrolizumab and palliative radiation therapy but developed severe anemia and poor performance status to where she is no longer eligible for palliative/systemic therapy presents to the emergency room from home accompanied by his family for evaluation of ongoing weakness and confusion. I spoke to her son & [id number] who indicate that she has been feeling unwell for the last 2 days and they have noticed that she has become progressively weaker plus has had poor oral intake. She has complained of pain in the sacral region and was found with an early stage sacral decubitus ulcer in the ER. They have not noticed any fevers, chills or diarrhea. Initial work up in the ED was notable for a positive COVID-9 test, anemia (stable) and mildly elevated HSTnI. A chest CT scan done showed large bilateral pleural effusions and adjacent compressive atelectasis. She was still confused during my evaluation and hence not able to provide any history. I did personally reviewed the imaging studies including the CT scan she had previously and now. Appears that she has metastatic melanoma with pulmonary nodules and also bilateral pleural effusions that is all likely related to the cancer. Upon arrival to the hospital with COVID B, the patient now has the persistent effusions but now what appears to be ground-glass opacities bilaterally secondary to likely viral pneumonia. She is down to 3 L on the OxyMask so therefore does not appear to be very symptomatic from the pleural effusions and therefore based on the fact that she has been having some elevations in a cardiac enzymes altered mental status significant anemia undergoing an elective or semi elective thoracentesis will be of low yield at this time. However, if her x-ray demonstrates worsening effusions or worsening respiratory symptoms we can consider at that point the patient continues to be very confused and all the information was gathered from the patient's granddaughter and also the chart. Typically she is able to be oriented x3. She will start Decadron in addition to remdesivir at this time for the acute COVID infection will continue to monitor her progress closely. Review of Systems 2 Review of Systems: Yes Unobtainable due to mental condition and Unobtainable due to mental status Neurologic: Reports confusion Psychiatric: Psychiatric: Reports confusion [facility] Past Medical History Medical History Malnutrition 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 New daily persistent headache Sinusitis UTI (urinary tract infection) Uterine cancer Depression Screening for hypothyroidism Acute medial meniscus tear of left knee Mild major depression, single episode HLA B27 (HLA B27 positive) Effusion, left knee B12 deficiency Osteoarthritis of left knee Chronic fatigue Sore throat, chronic Dyslipidemia Ophthalmoplegic migraine headache Neck pain on right side Insomnia GERD (gastroesophageal reflux disease) Family History Family History Mother CVD (cardiovascular disease) Father Lung cancer Son Cancer Sister Lung cancer Brother Colon cancer Surgical History Surgical History History of total abdominal hysterectomy and bilateral salpingo-oophorectomy History of laparoscopic cholecystectomy Social History Social History Household Members: Family Housing: House Alcohol intake: never Comment: pt family at bedside Patient Tobacco Use Status: Never used Tobacco Smoked in Last 30 Days: No e-Cigarette/Vaping Use: Never Used Second Hand Smoke Exposure: No Use of substances other than those prescribed or required for medical reasons: No Advance Directives: Yes Advance Directives on File: Yes Advance Directives Date on File: 02/13/23 service: No Current occupational status: retired Current occupation: rt handed Cognitive needs: No Hearing needs: No Vision needs: Yes Meds Allergies Allergy/AdvReac Type Severity Reaction Status Date / Time ibuprofen Allergy Mild anaphylaxis, Verified 05/14/23 16:37 hives metronidazole Allergy Mild rash Verified 05/14/23 16:37 naproxen [Aleve] Allergy Mild anaphylaxis, Verified 05/14/23 16:37 hives pravastatin Allergy Mild anaphylaxis Verified 05/14/23 16:37 simvastatin Allergy Mild cramps Verified 05/14/23 16:37 aspirin Allergy Mild swelling Uncoded 05/14/23 16:37 Active Medications: Current Medications Acetaminophen (Acetaminophen 325 Mg Tablet) 650 mg PO Q6H PRN PRN Reason: Pain, Mild (Pain Scale 1-3) Al Hydroxide/Mg Hydroxide (Magnesium Hydrox/Alum Hydrox 30 Ml Oral.Susp) 30 ml PO Q4H PRN PRN Reason: Heartburn/Nausea Albuterol Sulfate (Albuterol Sulfate (0.083%) 2.5 Mg/3 Ml Vial.Neb) 2.5 mg INHALE 8XD PRN PRN Reason: Shortness of Breath/Wheezing Dexamethasone Sodium Phosphate (Dexamethasone Sod Phosphate 4 Mg/Ml Vial) 6 mg IVPUSH DAILY [facility] Last Admin: 07/05/23 09:08 Dose: 6 mg Famotidine (Famotidine/Pf 20 Mg/2 Ml Vial) 20 mg IVPUSH DAILY [facility] Remdesivir 100 mg/ Sodium (Chloride) 230 mls @ 115 mls/hr IV Q24H [facility] Stop: 07/07/23 11:59 Doxycycline Hyclate 100 mg/ (Sodium Chloride) 250 mls @ 166.67 mls/hr IV Q12H [facility] Lorazepam (Lorazepam 2 Mg/Ml Vial) 0.5 mg IVPUSH Q8H PRN PRN Reason: anxiety/restlessness Melatonin (Melatonin 3 Mg Tablet) 6 mg PO BEDTIME PRN PRN Reason: Insomnia Morphine Sulfate (Morphine Sulfate 4 Mg/Ml Cartridge) 2 mg IVPUSH Q4H PRN; Protocol PRN Reason: Pain, Severe (Pain Scale 7-10) Morphine Sulfate (Morphine Sulfate 2 Mg/Ml Cartridge) 2 mg IVPUSH Q6H PRN; Protocol PRN Reason: sob Olanzapine (Olanzapine 5 Mg Tablet) 5 mg PO BID [facility] Last Admin: 07/05/23 10:06 Dose: Not Given Omeprazole (Omeprazole 20 Mg Capsule.) 20 mg PO BID [facility] Last Admin: 07/05/23 10:07 Dose: Not Given Ondansetron HCl (Ondansetron Hcl 4 Mg/2 Ml Vial) 4 mg IVPUSH Q8H PRN PRN Reason: Nausea and Vomiting Oxycodone HCl (Oxycodone Hcl Er 10 Mg Tab.Er.12h) 10 mg PO BID [facility] Last Admin: 07/05/23 10:06 Dose: Not Given Senna (Sennosides 8.6 Mg Tablet) 8.6 mg PO BID [facility] Last Admin: 07/05/23 10:07 Dose: Not Given Senna (Sennosides 8.6 Mg Tablet) 17.2 mg PO BEDTIME PRN PRN Reason: Constipation Sodium Chloride (0.9 % Sodium Chloride Flush 3 Ml Syringe) 3 [facility] Last Admin: 07/05/23 09:09 Dose: 3 ml Home Medications Medication Instructions Recorded Confirmed Last Taken Type sennosides 8.6 mg tablet (senna) 8.6 mg PO BID 02/12/23 07/04/23 07/04/23 History pantoprazole 40 mg tablet,delayed 40 mg PO BID 04/11/23 07/04/23 07/04/23 History release folic acid 1 mg tablet 1 mg PO DAILY 04/17/23 07/04/23 07/04/23 History oxycodone 10 mg tablet,crush 10 mg PO BID 04/17/23 07/04/23 07/04/23 History resistant,extended release 12 hr (OxyContin) oxycodone 5 mg tablet 5 mg PO Q4H PRN Pain 04/17/23 07/04/23 07/04/23 History albuterol sulfate 2.5 mg/3 mL 2.5 mg inhalation BID shortness of 07/04/23 07/04/23 07/04/23 History (0.083 %) solution for nebulization breath or wheezing cyanocobalamin (vitamin B-12) 500 500 mcg PO DAILY 07/04/23 07/04/23 07/04/23 History mcg tablet furosemide 20 mg tablet 20 mg PO DAILY 07/04/23 07/04/23 07/04/23 History furosemide 40 mg tablet 40 mg PO DAILY 07/04/23 07/04/23 07/04/23 History olanzapine 5 mg tablet 5 mg PO BID 07/04/23 07/04/23 07/04/23 History ondansetron 8 mg disintegrating 8 mg PO Q6H PRN nausea and vomiting 07/04/23 07/04/23 07/04/23 History tablet Physical Exam 2 Vital Signs: Vital Signs: Last Vital Signs Temp 100.0 F 07/05/23 06:21 Pulse 118 H 07/05/23 12:36 Resp 25 H 07/05/23 12:36 BP 137/48 L 07/05/23 12:36 Pulse Ox 94 07/05/23 12:36 O2 Del Method Oxymask 07/05/23 12:36 O2 Flow Rate 3.5 07/05/23 12:36 Oxygen Flow Rate 2 07/04/23 14:50 BMI result Body Mass Index 15.2 Const: General: confusion Orientation/consciousness: No oriented to person, No oriented to place, No oriented to time and confusion Limitations: a mbulation with walker and wheelchair HEENT: Head: Yes normal to inspection, Yes normocephalic and Yes atraumatic Ears: hearing grossly normal bilaterally and external ears normal Neck: Neck: Yes supple Lymphatic: no lymphadenopathy noted Chest: Chest palpation & inspection: normal inspection of the chest Resp: Effort & Inspection: normal respiratory effort Auscultation: d iminished lung sounds Cardio: Heart sounds: S1 normal heart sound present and S2 normal heart sound present GI: Palpation (GI): Soft to palpation Skin: Other: warm, dry General skin exam: no rashes or lesions noted Neuro: General: No oriented to person, No oriented to place, No oriented to time and confusion Extrem: General: Yes no clubbing, cyanosis or edema Results Laboratory Findings 07/05/23 06:49 07/05/23 06:49 ABG, PT/INR, D-dimer: PT/INR, D-dimer PT 13.8 SEC (11.1-13.3) H 07/04/23 15:13 INR 1.1 (0.9-1.1) 07/04/23 15:13 Abnormal lab findings: Abnormal Labs 07/04/23 07/04/23 07/04/23 15:13 18:01 19:53 WBC 4.1 L RBC 2.15 L Hgb 7.8 L Hct 25.4 L MCV 118.1 H MCH 36.3 H MCHC 30.7 L RDW 16.8 H Absolute Nucleated RBC 0.080 H Nucleated RBC % (auto) 2.0 H Neutrophils % (Manual) 44 L Band Neutrophils % 29 H Lymphocytes % (Manual) 7 L Lymphocytes # (Manual) 0.3 L Nucleated RBCs 3 H PT 13.8 H Sodium Chloride 94 L Carbon Dioxide 32 H Anion Gap 22 H BUN 30 H Random Glucose 133 H Lactic Acid 2.2 H* AST 40 H Troponin I High Sens 19.4 H D 26.0 H Total Protein 6.1 L Albumin 3.4 L Urine Blood Moderate (2+) H Ur Leukocyte Esterase Trace H Urine RBC 6-10 H SARS-CoV-2 RNA (RT-PCR) POSITIVE A 07/05/23 06:49 WBC 4.6 L RBC 1.97 L Hgb 7.2 L Hct 23.5 L MCV 119.3 H MCH 36.5 H MCHC 30.6 L RDW 16.9 H Absolute Nucleated RBC 0.190 H Nucleated RBC % (auto) 4.2 H Neutrophils % (Manual) Band Neutrophils % Lymphocytes % (Manual) Lymphocytes # (Manual) Nucleated RBCs PT Sodium 146 H Chloride Carbon Dioxide 30 H Anion Gap 23 H BUN 34 H Random Glucose Lactic Acid AST Troponin I High Sens 87.9 H* D Total Protein Albumin Urine Blood Ur Leukocyte Esterase Urine RBC SARS-CoV-2 RNA (RT-PCR) Assessment and Plan (1) Encephalopathy due to 2019-nCoV: Status: Acute (2) Bilateral pleural effusion: Status: Acute (3) Acute and chronic respiratory failure: Status: Acute (4) Multiple pulmonary nodules: Status: Acute (5) 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
--- NOTE | 2023-07-05 12:58 | PC.NURSE ---
pt currently experiencing epistaxis. MD [place] made aware.
--- NOTE | 2023-07-05 14:42 | MHC.CM.PN ---
PT ADMITTED COVID POSITIVE CM ATTEMPTED TO CONTACT PTS LISTED HCP, JUNE ANAYA [phone] VM MESSAGE LEFT REQUESTING A RETURN CALL
[2023-07-05] MEDS: Famotidine/PF 20 MG/2 ML VIAL IVPUSH (15:04)
[2023-07-05] MEDS: Doxycycline Hyclate 100 MG in 0.9 % Sodium Chloride 250 ML 166.67 MG IV (15:08)
--- NOTE | 2023-07-05 16:57 | P.PNIM_ITS ---
Subjective Subjective Date of Service: 07/06/23 Interval History: Being followed for confusion and weakness , recently diagnosed early stage sacral decubiti ulcer diagnosed to have COVID-19 infection/bilateral large pleural effusions, mildly elevated troponin and chronic stable anemia. Patient remains confused trying to pull oxygen and IV lines, granddaughter at bedside, unable to obtain history from patient due to confusion and lethargy. Review of Systems Unable to obtain review of system due to mental status. Physical Exam 2 Vital Signs: Vital Signs: Last Vital Signs Temp 100.0 F 07/05/23 06:21 Pulse 118 H 07/05/23 12:36 Resp 25 H 07/05/23 12:36 BP 137/48 L 07/05/23 12:36 Pulse Ox 94 07/05/23 12:36 O2 Del Method Oxymask 07/05/23 12:36 O2 Flow Rate 3.5 07/05/23 12:36 Oxygen Flow Rate 2 07/04/23 14:50 BMI result Body Mass Index 15.2 Const: Other: General confused, somnolent, frail. Neck + JVD. CVS regular rate rhythm, tachycardic Respiratory lungs clear to auscultation, tachypneic, diminished breath sounds,, no wheeze, no rhonchi. Gastrointestinal abdomen soft, bowel sounds audible. Extremities no edema. Neuro moving all 4 extremity, somnolent. Skin no rash Objective Data Active Medications Acetaminophen (Acetaminophen 325 Mg Tablet) 650 mg PO Q6H PRN PRN Reason: Pain, Mild (Pain Scale 1-3) Al Hydroxide/Mg Hydroxide (Magnesium Hydrox/Alum Hydrox 30 Ml Oral.Susp) 30 ml PO Q4H PRN PRN Reason: Heartburn/Nausea Albuterol Sulfate (Albuterol Sulfate (0.083%) 2.5 Mg/3 Ml Vial.Neb) 2.5 mg INHALE 8XD PRN PRN Reason: Shortness of Breath/Wheezing Dexamethasone Sodium Phosphate (Dexamethasone Sod Phosphate 4 Mg/Ml Vial) 6 mg IVPUSH DAILY [facility] Last Admin: 07/05/23 09:08 Dose: 6 mg Documented By: SONIDO Famotidine (Famotidine/Pf 20 Mg/2 Ml Vial) 20 mg IVPUSH DAILY [facility] Last Admin: 07/05/23 15:04 Dose: 20 mg Documented By: SONIDO Remdesivir 100 mg/ Sodium (Chloride) 230 mls @ 115 mls/hr IV Q24H [facility] Stop: 07/07/23 11:59 Doxycycline Hyclate 100 mg/ (Sodium Chloride) 250 mls @ 166.67 mls/hr IV Q12H [facility] Last Admin: 07/05/23 15:08 Dose: 166.67 mls/hr Documented By: SONIDO Lorazepam (Lorazepam 2 Mg/Ml Vial) 0.5 mg IVPUSH Q8H PRN PRN Reason: anxiety/restlessness Last Admin: 07/05/23 15:01 Dose: 0.5 mg Documented By: SONIDO Melatonin (Melatonin 3 Mg Tablet) 6 mg PO BEDTIME PRN PRN Reason: Insomnia Morphine Sulfate (Morphine Sulfate 4 Mg/Ml Cartridge) 2 mg IVPUSH Q4H PRN; Protocol PRN Reason: Pain, Severe (Pain Scale 7-10) Morphine Sulfate (Morphine Sulfate 2 Mg/Ml Cartridge) 2 mg IVPUSH Q6H PRN; Protocol PRN Reason: sob Olanzapine (Olanzapine 5 Mg Tablet) 5 mg PO BID [facility] Last Admin: 07/05/23 10:06 Dose: Not Given Documented By: SONIDO Non-Admin Reason: See Note Omeprazole (Omeprazole 20 Mg Capsule.Dr) 20 mg PO BID [facility] Last Admin: 07/05/23 10:07 Dose: Not Given Documented By: SONIDO Non-Admin Reason: See Note Ondansetron HCl (Ondansetron Hcl 4 Mg/2 Ml Vial) 4 mg IVPUSH Q8H PRN PRN Reason: Nausea and Vomiting Oxycodone HCl (Oxycodone Hcl Er 10 Mg Tab.Er.12h) 10 mg PO BID [facility] Last Admin: 07/05/23 10:06 Dose: Not Given Documented By: SONIDO Non-Admin Reason: See Note Senna (Sennosides 8.6 Mg Tablet) 8.6 mg PO BID [facility] Last Admin: 07/05/23 10:07 Dose: Not Given Documented By: SONIDO Non-Admin Reason: See Note Senna (Sennosides 8.6 Mg Tablet) 17.2 mg PO BEDTIME PRN PRN Reason: Constipation Sodium Chloride (0.9 % Sodium Chloride Flush 3 Ml Syringe) 3 ml IVFLUSH QSHIFT [facility] Last Admin: 07/05/23 09:09 Dose: 3 ml Documented By: SONIDO Labs 07/06/23 05:15 07/06/23 05:15 Labs: Laboratory Results - last 24 hr 07/04/23 07/04/23 07/05/23 17:44 18:01 06:49 MCV 119.3 H MCH 36.5 H MCHC 30.6 L RDW 16.9 H Plt Count 205 MPV 9.6 Absolute Nucleated RBC 0.190 H Nucleated RBC % (auto) 4.2 H Anion Gap 23 H Estim Creat Clear Calc 29.6 Estimated GFR 57 Random Glucose 101 Lactic Acid F/U @ 2Hr 1.8 Calcium 9.4 D Urine Color Yellow Urine Appearance Clear Urine pH 5.0 Ur Specific [place] 1.015 Urine Protein Negative Urine Glucose (UA) Negative Urine Ketones Trace Urine Blood Moderate (2+) H Urine Nitrite Negative Ur Leukocyte Esterase Trace H Urine RBC 6-10 H Urine WBC 0-5 Ur Squamous Epith Cells 3-5 Calcium Oxalate Crystal Present Urine Bacteria None Seen Hyaline Casts 11-20 Assessment and Plan (1) Acute and chronic respiratory failure: Status: Acute (2) Bilateral pleural effusion: Status: Acute (3) Encephalopathy due to 2019-nCoV: Status: Acute (4) Sacral decubitus ulcer, stage III: Status: Acute Plan 77 year old female with underlying metastatic sinonasal mucosal melanoma and chronic anemia here with 1. Acute toxic metabolic encephalopathy likely due to COVID-19 infection Treat COVID infection with IV Decadron, remdesivir follow clinical course, oxygen , supportive care Soft restraint since patient pulling IVs and oxygen mass 2. Acute on chronic hypoxic respiratory failure Likely related to COVID/CHF likely related to pulmonary hypertension/ Chronic bilateral pleural effusion/prior CT chest suggestive of lymphangitic spread Due to hypoxia, tachypnea tachycardia patient is not a candidate to undergo thoracocentesis, effusion likely due to cancer Echo obtained that showed EF 69%, possible basal inferior hypokinesis [id number] pulmonary hypertension and normal diastolic function Continue treatment for COVID-19, IV Lasix 40 mg x 1 given, poor prognosis informed healthcare proxy granddaughter Katya Lundy. 3. Asthenia - due to underlying anemia, cancer, COVID-19 and advanced age - she may benefit from PT while inpatient and also discharge to [facility] (vs home PT) 4. Chronic Anemia patient is Jehov[employer] Witness, declined blood transfusion receives Procrit at Hematology office 5. Sacral decubitus ulcers stage III - noted with skin breakdown in the sacral region. - frequent turning while in bed/protein shakes when able to swallow 6. Mild hypernatremia due to decreased by mouth intake follow BMP 7. Elevated troponin initial troponin 26 bump to 87.9, echo as above not a candidate for aggressive treatment, case discussed with cardio. DVT: SC Lovenox CODE STATUS: Full code /discuss code status with granddaughter who is the healthcare proxy multiple times and informed her regarding poor prognosis with underlying cancer currently on palliative care with worsening respiratory stress is status due to COVID lymphangitic spread of tumor with chronic bilateral effusion, chronic anemia, debility but healthcare proxy wishes to continue full code as per patient's wishes in the past. Patient need continued inpatient hospitalization for management of acute hypoxic respiratory failure/COVID 19 infection. Quality Stroke Does the patient have a stroke diagnosis?: No VTE Prior VTE?: No VTE Risk Level:: Medical - moderate - high VTE Device Contraindication: N/A - Device Ordered VTE Drug Contraindication: Treatment Not Tolerated
[2023-07-05] MEDS: Metoprolol Tartrate 5 MG/5 ML VIAL 2.5 MG IVPUSH (18:27)
[2023-07-05] MEDS: Acetaminophen Supp 650 MG SUPP.RECT PR (18:27)
[2023-07-05] MEDS: Morphine Sulfate 2 MG/ML CARTRIDGE IVPUSH (18:32)
--- NOTE | 2023-07-05 18:46 | HO.SKINPHOTO ---
Location: Category: Stage: Length: Width: Depth: cm Location: Category: Stage: Length: Width: Depth: cm Location: Category: Stage: Length: Width: Depth: cm Location: Category: Stage: Length: Width: Depth: cm Location: Category: Stage: Length: Width: Depth: cm Location: Category: Stage: Length: Width: Depth: cm STage 2 to coccyx
--- NOTE | 2023-07-05 22:10 | ECG_ITS ---
Test Reason : ams Blood Pressure : / mmHG Vent. Rate : 126 BPM Atrial Rate : 126 BPM P-R Int : 114 ms QRS Dur : 062 ms QT Int : 292 ms P-R-T Axes : 070 058 138 degrees QTc Int : 422 ms Sinus tachycardia Possible Left atrial enlargement Low voltage QRS Septal infarct , age undetermined Abnormal ECG When compared with ECG of 04-JUL-2023 15:02, No significant change was found Referred By: Dashawn Tran Electronically Signed By:RIDGE MOYA
--- NOTE | 2023-07-05 22:37 | PM.EVENT ---
Event Note Date of Service: 07/05/23 Event Note: WIRE HARNESS ASSEMBLER WIRE HARNESS ASSEMBLER called for patient who is hypoxic and unresponsive. She is a 77 YO female with PMH of metastatic sinonasal mucosal melanoma admitted last night with COVID-19 infection, bilateral pleural effusions, anemia and confusion (thought to be due to COVID-19). She is on home hospice but her granddaughter/HCP wanted her to be a full code Physical exam General: Seen in bed. Unresponsive. SpO2 75% on supplemental Oxygen. Resp: Diminished bilateral breath sounds (anterior lung esposito) Ass/Plan Acute hypoxic respiratory failure - will intubate and transfer to ICU (d/w Home Inspector Dr. Tran) Time Spent With Patient Time: Total time managing care of this patient today _15___ minutes.
[2023-07-05] MEDS: propofoL 1,000 MG/100 ML VIAL 2.84 MG IVCONT (22:50)
[2023-07-05 22:58] LABS: ABG Base Excess 7.6 mmol/L; ABG HCO3 32 mmol/L (22-26); ABG pCO2 46 mmHg (32-45); ABG pH 7.44 (7.35-7.45); ABG pO2 344 mmHg (83-108)
[2023-07-05] MEDS: Norepinephrine Bitartrate/D5W 8 MG/250 ML PLAST..BAG 4.44 MG IV (23:03)
--- NOTE | 2023-07-05 23:15 | PC.NURSE ---
2200 Pt O2 sats ranging 70's-80's while on oxymask 4L. O2 increased to 6L. Respiratory at bedside, pt placed on nonrebreather mask. ASSET MANAGEMENT ANALYST initiated approx 0 and was intubated and then transferred to ICU. family in hallway aware of transfer. report given to POLICY ADVISER.
--- NOTE | 2023-07-05 23:23 | W.PM.CCHP ---
Procedures Date of Service Date of Service: 07/05/23 Intubation Intubation Comments: The patient developed progressive respiratory fatigue, somnolence, and hypoxemia, and a rapid response was called. She was preoxygenated with Ambu-Bag 100%. ? RSI was carried out with the meds below.? The glottis was easily visualized with a provu glidescope and the trachea was intubated with a 7.0 ETT via? indirect video visualization, atraumatic.? BSBE, +CO2, SpO2 maintained.? The tube was secured at 21 cm at the upper lip. The patient tolerated the procedure well with no complications.? Placement confirmed with chest x-ray. Consent for Procedure: Emergent-no informed consent obtained Time out performed: Yes Sedative: etomidate Mg given: 20 Paralytic: rocuronium Mg given: 50 Laryngoscope: fiber optic video scope ET tube size: 7 ET tube uncuffed: Yes Tube secured depth (cm): 22 Tube secured location: lips Tube placement confirmation: visualized tube passing through cords, equal breath sounds bilaterally and confirmation by capnometry Patient tolerated procedure: well and no complications Intubation complications: none
[2023-07-05 23:34] LABS: ABG Refer to POC result
--- NOTE | 2023-07-05 23:36 | P.PCNCC_ITS ---
Procedures Date of Service Date of Service: 07/06/23 Central Line Placement Left IJ: Central Line Comments: The left neck was widely prepped and draped in full sterile fashion.? Under US? guidance, the left IJ vein was cannulated on the 1st pass of the 18 g thin wall needle, with return of dark, nonpulsatile blood. ? The wire was threaded without incident.? The 16 cm x 7 Indonesian triple-lumen CVC was advanced into the vein up to the hub via the Seldinger technique without incident.? There was good blood return x3.? The catheter was sutured x2 and a Biopatch and dry sterile dressing were applied. Consent for Procedure: Emergent-no informed consent obtained Time out performed: Yes Sterile Technique Used: Yes Patient placed on monitor/pulse ox: Yes prep: mask, gown and gloves Central line prep: Chlorhexidine scrub Ultrasound used for placement: Yes Central line lumen inserted: triple Post procedure: sutured in place, good blood return, all ports aspirated, flushed, capped and sterile dressing applied Post procedure x-ray: tip of catheter in good position and no pneumothorax seen Patient tolerated procedure: well and no complications Complications: none
--- NOTE | 2023-07-05 23:37 | ECG_ITS ---
Test Reason : ams Blood Pressure : / mmHG Vent. Rate : 127 BPM Atrial Rate : 127 BPM P-R Int : 122 ms QRS Dur : 056 ms QT Int : 294 ms P-R-T Axes : 067 059 113 degrees QTc Int : 427 ms Sinus tachycardia Low voltage QRS Septal infarct , age undetermined Abnormal ECG No significant changes when compared with the previous EKG of 05 jul 2023 Referred By: Dashawn Tran Electronically Signed By:RIDGE MOYA
--- NOTE | 2023-07-05 23:38 | P.PNCC_ITS ---
Critical Care Event Note Summary Date of Service: 07/05/23 Code activated: Yes Narrative: This case had a high probability of a clinically significant, sudden, or life threatening deterioration of this patient's condition which required my full and direct attention, intervention and personal management. Ms. Martin s a 77 year old female with underlying metastatic sinonasal mucosal melanoma (dx 10/18/22) treated with Pembrolizumab and palliative radiat ion therapy but developed severe anemia and poor performance status to where she is no longer eligible for palliative/systemic therapy. She was brought to the ER by family for progressive weakness and poor oral intake.? She was found to have an early stage sacral decubitus ulcer, positive COVID-19, anemia (stable) and mildly elevated troponin. Chest CT showed large persistent effusions and pulmona ry nodules all likely related to the cancer. Ground-glass opacities were seen bilaterally secondary to likely viral pneumonia and adjacent compressive atelectasis. Due to hypoxia, tachypnea, tachycardia, the patient is not a candidate to undergo thoracentesis. An Echo was obtained that showed EF 69%, possible basal inferior hypokinesis, [id number] pulmonary hypertension and normal diastolic function.? Late this evening, a MEDICAL STAFF SERVICES COORDINATOR was called as the patient was hypoxic and unresponsive. SpO2 75% on supplemental Oxygen. Numerous discussions about poor prognosis with underlying cancer, lymphangitic spread of tumor with chronic bilateral effusion, chronic anemia, debility and now worsening respiratory distress due to COVID were had with the patient?s granddaughter who is the healthcare proxy. She wished to continue full code as per patient's wishes in the past and was therefore emergently intubated on the floor and transferred to the ICU for further management.? Family, including HCP, were present at time of MEDICAL STAFF SERVICES COORDINATOR. After settling the patient in ICU, I attempted to discuss goals of care with the HCP (granddaughter). She appeared impaired and required assistance to stand up straight and told the nurse that she ?couldn?t handle this and had to take something.? Critical Care Time (minutes): 75 Comment: Critical care time used for critical evaluation, treatment, and coordination of care, review of records and documentation and is separate from any procedures performed.
[2023-07-06] VITALS (47 sets, daily range): BP systolic 84–137; BP diastolic 30–60; PULSE 101–145; RESP 13–30; TEMP 32–40.2; O2SAT 89–100; BMI 20.8
[2023-07-06 00:38] LABS: Glucose, Whole Blood 120 mg/dL (60-115)
[2023-07-06] MEDS: Vasopressin 20 UNIT/100 ML INFUS..BTL 12 UNIT IVCONT ×4 (01:39→19:40)
[2023-07-06] MEDS: Doxycycline Hyclate 100 MG in 0.9 % Sodium Chloride 250 ML 166.67 MG IV ×2 (03:16→14:42)
--- NOTE | 2023-07-06 04:01 | PC.NURSE ---
Addendum entered by Maria Ines Cooper RN 07/06/23 06:21: HR went up to 140's at 0621. notified. Original Note: Acquired care from 2250. S/p DROP CLIPPER. patient came from [facility]. came intubated with ETT size 7.0 @22 to the lip. Cuffed. Vent setting of AC/VC Vt 300, PEEP 5, FiO2 from 40% down to 30$ with O2 sats of 97%. Pt came with non functioning IV to her left forearm. So IV line was inserted G22 to Left wrist where Propofol was initiated. TLC was also inserted to Left jugular by DIGITAL PROJECT MANAGER. Placed on tele and CVP monitoring. Pt BP was low MAP below 65. . Levophed started at .05mcg/kg/min titrated up to 0.23 mcg/kg/min with minimal effect. Vasopressin drip started at 0.04 units with better results.OG tube inserted and clamped. Xray done for placement verification.Jeronimo cath in place with 200 cc of urine output in the bag upon arrival. Sacral wound/ulcer noted. foam dressing applied. Family given the chance to come and visit this shift.
[2023-07-06 05:18] LABS: VBG Base Excess 4.6 mmol/L; VBG HCO3 26 mmol/L (22-26); VBG pCO2 31 mmHg; VBG pH 7.54 (7.32-7.43); VBG pO2 51 mmHg
[2023-07-06 05:27] LABS: Venous Blood Gas Refer to POC result
[2023-07-06 05:42] LABS: Hematocrit 26.8 % (37.0-47.0); Hemoglobin 8.1 g/dl (12.0-16.0); Mean Corpuscular HGB Conc 30.2 g/dl (31.0-35.0); Mean Corpuscular Hemoglobin 36.8 pg (27.0-33.0); Mean Corpuscular Volume 121.8 fL (80.0-98.0); Mean Platelet Volume 10.4 fL (9.4-12.3); NRBC Pct Auto 13.7 /100WBC (0.0-0.2); Platelet Count 288 X10*3/uL (160-400); Red Cell Distribution Width 16.8 % (11.0-16.0); WBC ABN SCTR FOR CBC 1; White Blood Count 6.6 X10*3/uL (4.8-10.8)
[2023-07-06 06:01] LABS: Albumin Level 2.8 g/dL (3.5-5.0); Anion Gap 29 (12-20); Blood Urea Nitrogen 48 mg/dL (9-16); Calcium 8.4 mg/dL (8.4-10.2); Carbon Dioxide 22 mmol/L (22-29); Chloride 100 mmol/L (96-108); Creatinine Clr Calc Pharmacy 30.3; Estimated Glomerular Filt Rate 42; Glucose Random 131 mg/dL (60-115); Magnesium 1.8 mg/dL (1.6-2.6); Phosphorus 5.1 mg/dL (2.7-4.5); Potassium 4.3 mmol/L (3.3-5.1); Sodium 147 mmol/L (135-145)
[2023-07-06 06:12] LABS: Band Neutrophils Percent 36 % (3-5); Lymphocytes Absolute Manual 0.6 X10*3/uL (1.2-4.9); Lymphocytes Percent Manual 9 % (20-40); Metamyelocytes Absolute 0.7 X10*3/uL; Metamyelocytes Percent 11 %; Monocytes Absolute Manual 0.2 X10*3/uL (0.1-1.2); Monocytes Percent Manual 3 % (2-11); Myelocytes Absolute 0.1 X10*/uL; Myelocytes Percent 2 %; Neutrophils Percent Manual 39 % (45-73); Nucleated Red Blood Cells 37 /100WBC (0-0)
[2023-07-06 06:15] LABS: Dohle Bodies PRESENT; Hypochromasia 1+ (5-14) /OIF; Macrocytosis 3+ (>30) /OIF; Ovalocytes 2+ (15-30) /OIF; Pappenheimer Bodies PRESENT; Platelet Estimate NORMAL (NORMAL); Platelet Morphology Comment NORMAL; Polychromasia 2+ (3-5) /OIF; RBC Morphology NOTED; Stomatocytes 1+ (5-14) /OIF; Tear Drop Cells 1+ (0-2) /OIF; Toxic Granulation PRESENT
[2023-07-06 06:16] LABS: Toxic Vacuolation PRESENT
[2023-07-06] MEDS: fentaNYL citrate/NS 1,000 MCG/100 ML PLAST..BAG 2.5 MCG IVCONT ×2 (07:43→19:39)
[2023-07-06] MEDS: dexAMETHasone sod phosphate 4 MG/ML VIAL 6 MG IVPUSH (07:44)
[2023-07-06] MEDS: Famotidine/PF 20 MG/2 ML VIAL IVPUSH (07:44)
[2023-07-06] MEDS: 0.9 % Sodium Chloride Flush 3 ML SYRINGE IVFLUSH ×2 (07:44→14:43)
[2023-07-06] MEDS: propofoL 1,000 MG/100 ML VIAL 8.53 MG IVCONT ×2 (07:45→16:03)
--- NOTE | 2023-07-06 09:58 | PC.NURSE ---
Assumed care of patient 0700 Oral core temp initiated for pt. T 104.4F. notified. Per MD no IV tylenol. New orders for blood cultures x2, urine culture, sputum culture. Ice packs applied to patient. Per MD field to draw blood cultures from new TLC Left IJ. Phelobotomy attempted peripheral venous sticks x3 with no success.
[2023-07-06] MEDS: Norepinephrine Bitartrate/D5W 8 MG/250 ML PLAST..BAG 22.22 MG IV (10:44)
[2023-07-06] MEDS: Remdesivir 100 MG in 0.9 % Sodium Chloride 230 ML 115 MG IV (11:02)
[2023-07-06] MEDS: Chlorhexidine Gluc Oral Rinse 15 ML MOUTHWASH BUCCAL ×3 (11:03→19:39)
--- NOTE | 2023-07-06 11:22 | MHC.CLN ---
PT IS INTUBATED AND SEDATED PT WITH INCREASED NUTRITION RISK R/T COVID + WITH DX CA WITH METS AND STAGE 2 COCCYX PT IS CURRENTLY NPO IF TF NEEDED; RECOMMEND PROMOTE AT MAX GOAL RATE 55ML/HR WITH 120ML FREE WATER FLUSHES Q 6 HRS TO PROVIDE 1320KCALS (1545KCALS WITH SEDATION; 30KCALS/KG), 82.5G PROTEIN (1.6G/KG), 1587ML TOTAL WATER FROM FORMULA AND FLUSHES (30.7ML/KG) START FORMULA AT 20ML/HR AND INCREASE BY 10ML Q 4 HRS UNTIL MAX GOAL IS ACHIEVED MONITOR TOLERANCE, RESIDUALS AND LYTES TF WILL PROMOTE WOUND HEALING SEE ALSO FULL CLINICAL NUTRITION ASSESSMENT
[2023-07-06 12:07] LABS: Appearance Urine Cloudy; Color Urine Dark Yellow; Glucose Urine UA Negative (Negative); Leukocyte Esterase Urine Trace (Negative); Nitrite Urine Negative (Negative); UMIC TRIGGER UACC YES; Urine Blood Large (3+) (Negative); Urine Ketones Trace mg/dL (Negative); Urine Protein 30 (1+) mg/dL (Neg-Trace)
[2023-07-06 12:18] LABS: Bacteria Urine None Seen (None Seen); Calcium Oxalate Crystals Urine Present; Granular Casts Urine Present; RBC Urine >20 /HPF (0-2); WBC Urine 0-5 /HPF (0-5)
--- NOTE | 2023-07-06 13:52 | MHC.CM.PN ---
Pt is presently intubated and has baseline confusion. Information obtained from EMR, ICU care team and very brief interaction w/pt's dtr (HCP) also named Katya. Pt from home w/Katya who provides 29/01 care. Other family assists prn. Pt is totally dependent for ADL's and has some adaptive equipment at home. Pt is critically ill and her prognosis is poor per discussion w/MD. Dtr is having a very difficult time w/pt's condition and decision making and d/c planning will be deferred at this time to allow for continued goals of care discussions. HCP on file and in chart. IMM copy left in room per dtr request.
--- NOTE | 2023-07-06 18:26 | PM.CCPN ---
Subjective Subjective Date of Service: 07/06/23 Interval History: This 77-year-old female presented with acute hypoxemic respiratory failure in the face of a chronic background due to metastatic melanoma with chronic bilateral moderate to moderately large malignant effusions and with the COVID-19 pneumonia became acutely and precipitously worse with progressive respiratory distress requiring intubation despite the the unfortunately futile underlying diagnosis and she was already apparently and hospice when she was taken out of that environment and brought over to the emergency room Chest x-ray and of course CT scan of the chest showed extensive bilateral infiltrates and and at least a 1 and half to 2 L and pleural effusion bilaterally No other underlying disease that I am aware of in terms of HIV disease by history etc. and has no history of the no alcohol or drug abuse no evidence of witnessed aspiration Critical Care Time (minutes): 45 Physical Exam Vital Signs: Vital Signs: Last Vital Signs Temp 100.2 F 07/06/23 17:00 Pulse 107 H 07/06/23 17:00 Resp 20 07/06/23 17:00 BP 121/39 L 07/06/23 17:00 Pulse Ox 97 07/06/23 17:00 O2 Del Method Mechanical Ventil ation 07/06/23 17:00 O2 Flow Rate 4 07/05/23 19:30 FiO2 30 07/06/23 17:00 Oxygen Flow Rate 2 07/04/23 14:50 BMI result Body Mass Index 20.8 Throughout the day supported on 2 pressors with Levophed and vasopressin managed to maintain blood pressures and she remained in normal sinus rhythm without acute ST-T changes oxygen saturations were excellent and we were already weaning the FiO2 Lungs with significant coarse bilateral rales Abdomen benign soft with no organomegaly Skin periphery with no acrocyanosis and and peripheral pulses were palpable Objective Data Labs 07/07/23 04:25 07/07/23 04:25 Labs: Laboratory Results - last 24 hr 07/05/23 07/05/23 07/06/23 22:16 22:52 05:12 WBC RBC Hgb Hct MCV MCH MCHC RDW Plt Count MPV Immature Gran % (Auto) Neut % (Auto) Lymph % (Auto) [place] % (Auto) Eos % (Auto) Baso % (Auto) Lymph # (Auto) [place] # (Auto) Eos # (Auto) Baso # (Auto) Abs Immat Gran (auto) Absolute Neuts (auto) Absolute Nucleated RBC Nucleated RBC % (auto) Neutrophils % (Manual) Band Neutrophils % Lymphocytes % (Manual) Monocytes % (Manual) Metamyelocytes % Myelocytes % Abs Neuts (Manual) Lymphocytes # (Manual) Monocytes # (Manual) Metamyelocytes # Myelocytes # Nucleated RBCs Toxic Granulation Toxic Vacuolation Dohle Bodies Platelet Estimate Plt Morphology Comment RBC Morphology Polychromasia Hypochromasia Macrocytosis Pappenheimer Bodies Tear Drop Cells Ovalocytes Stomatocytes O2 Saturation 99.0 ABG pH at Pt Temp 7.44 ABG pCO2 at Pt Temp 46 H ABG pO2 at Pt Temp 344 H ABG HCO3 32 H ABG Base Excess (Actual) 7.6 VBG pH 7.54 H VBG pCO2 31 VBG pO2 51 VBG HCO3 26 VBG O2 Saturation 73.0 VBG Base Excess 4.6 Sodium Potassium Chloride Carbon Dioxide Anion Gap BUN Creatinine Estim Creat Clear Calc Estimated GFR POC Glucose 120 H Random Glucose Calcium Phosphorus Magnesium Albumin Urine Color Urine Appearance Urine pH Ur Specific [place] Urine Protein Urine Glucose (UA) Urine Ketones Urine Blood Urine Nitrite Ur Leukocyte Esterase Urine RBC Urine WBC Ur Squamous Epith Cells Calcium Oxalate Crystal Urine Bacteria Hyaline Casts Granular Casts 07/06/23 07/06/23 05:15 11:41 WBC 6.6 RBC 2.20 L Hgb 8.1 L Hct 26.8 L MCV 121.8 H MCH 36.8 H MCHC 30.2 L RDW 16.8 H Plt Count 288 D MPV 10.4 Immature Gran % (Auto) Cancelled Neut % (Auto) Cancelled Lymph % (Auto) Cancelled [place] % (Auto) Cancelled Eos % (Auto) Cancelled Baso % (Auto) Cancelled Lymph # (Auto) Cancelled [place] # (Auto) Cancelled Eos # (Auto) Cancelled Baso # (Auto) Cancelled Abs Immat Gran (auto) Cancelled Absolute Neuts (auto) Cancelled Absolute Nucleated RBC 0.900 H Nucleated RBC % (auto) 13.7 H Neutrophils % (Manual) 39 L Band Neutrophils % 36 H Lymphocytes % (Manual) 9 L Monocytes % (Manual) 3 Metamyelocytes % 11 Myelocytes % 2 Abs Neuts (Manual) 5.0 Lymphocytes # (Manual) 0.6 L Monocytes # (Manual) 0.2 Metamyelocytes # 0.7 Myelocytes # 0.1 Nucleated RBCs 37 H Toxic Granulation PRESENT Toxic Vacuolation PRESENT Dohle Bodies PRESENT Platelet Estimate NORMAL Plt Morphology Comment NORMAL RBC Morphology NOTED Polychromasia 2+ (3-5) Hypochromasia 1+ (5-14) Macrocytosis 3+ (>30) Pappenheimer Bodies PRESENT Tear Drop Cells 1+ (0-2) Ovalocytes 2+ (15-30) Stomatocytes 1+ (5-14) O2 Saturation ABG pH at Pt Temp ABG pCO2 at Pt Temp ABG pO2 at Pt Temp ABG HCO3 ABG Base Excess (Actual) VBG pH VBG pCO2 VBG pO2 VBG HCO3 VBG O2 Saturation VBG Base Excess Sodium 147 H Potassium 4.3 Chloride 100 Carbon Dioxide 22 Anion Gap 29 H BUN 48 H Creatinine 1.25 Estim Creat Clear Calc 30.3 Estimated GFR 42 POC Glucose Random Glucose 131 H Calcium 8.4 D Phosphorus 5.1 H Magnesium 1.8 Albumin 2.8 L Urine Color Dark Yellow Urine Appearance Cloudy Urine pH 5.0 Ur Specific [place] 1.020 Urine Protein 30 (1+) H Urine Glucose (UA) Negative Urine Ketones Trace Urine Blood Large (3+) H Urine Nitrite Negative Ur Leukocyte Esterase Trace H Urine RBC >20 H Urine WBC 0-5 Ur Squamous Epith Cells 3-5 Calcium Oxalate Crystal Present Urine Bacteria None Seen Hyaline Casts 11-20 Granular Casts Present Microbiology Microbiology Results: Microbiology 07/04/23 15:13 Blood - Venous Blood Culture - Preliminary No growth after 48 hours. 07/06/23 11:38 Sputum - Suctioned Gram Stain - Final 07/04/23 16:38 Blood - Venous Blood Culture - Preliminary No growth after 24 hours. Progress Note: A&P Assessment and plan (1) Acute and chronic respiratory failure: Status: Acute (2) Asthenia: Status: Acute (3) Bilateral pleural effusion: Status: Acute (4) Encephalopathy due to 2019-nCoV: Status: Acute (5) Sacral decubitus ulcer, stage III: Status: Acute (6) Ulcer of sacral region, stage 1: Status: Acute (7) Anemia: Status: Chronic (8) Chronic respiratory failure with hypoxia: Status: Acute (9) Pleural effusion: Status: Acute (10) Multiple pulmonary nodules: Status: Acute (11) Oxygen dependent: Status: Acute (12) Dyspnea: Status: Acute (13) Pain due to malignant neoplasm metastatic to bone: Status: Acute (14) Malnutrition: Status: Acute (15) 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: Status: Acute (16) Thiamine deficiency: Status: Acute (17) Left hemiplegia: Status: Acute (18) Depression: Status: Acute (19) Schatzki's ring: Status: Acute (20) Diverticulitis: Status: Acute (21) Mild major depression, single episode: Status: Acute (22) HLA B27 (HLA B27 positive): Status: Acute (23) Effusion, left knee: Status: Acute (24) B12 deficiency: Status: Acute (25) Chronic fatigue: Status: Acute (26) Sore throat, chronic: Status: Acute (27) GERD (gastroesophageal reflux disease): Status: Acute (28) Pneumonia due to COVID-19 virus: Status: Acute (29) Acute hypoxic respiratory failure: Status: Acute Plan Plan is to support on the ventilator despite the futility of the the ultimate diagnosis and and unequivocally this despite full code status as discussed with the initial honey no hospitalist also who knows the patient very well that the gravity of the overall prognosis implies very significant the no futility to a resuscitation attempt and should there be a cardiac arrest I think to this futility would dictate against a resuscitative effort which we feel from unethical standpoint we would be a clearly an unusual punishment but nonetheless we will support the potentially there may be and and ability to get over the acute COVID infection that remains to be seen Quality Stroke Does the patient have a stroke diagnosis?: No VTE Prior VTE?: No VTE Risk Level:: Medical - moderate - high VTE Device Contraindication: N/A - Device Ordered VTE Drug Contraindication: Treatment Not Tolerated
[2023-07-06] MEDS: vancomycin HCL 1,250 MG in 0.9 % Sodium Chloride 250 ML 166.67 MG IV (19:07)
[2023-07-06] MEDS: KCl 20 mEq in 5% Dex/0.45% Sod 20 MEQ/1,000 ML IV.SOLN 100 MEQ IVCONT (19:08)
[2023-07-06] MEDS: propofoL 1,000 MG/100 ML VIAL 11.38 MG IVCONT (19:39)
[2023-07-06] MEDS: Norepinephrine Bitartrate/D5W 8 MG/250 ML PLAST..BAG 25.77 MG IV (19:40)
[2023-07-07] VITALS (43 sets, daily range): BP systolic 101–147; BP diastolic 45–65; PULSE 86–106; RESP 18–20; TEMP 34.7–38.4; O2SAT 96–100; BMI 16.9
[2023-07-07] MEDS: Doxycycline Hyclate 100 MG in 0.9 % Sodium Chloride 250 ML 166.67 MG IV (02:06)
[2023-07-07] MEDS: Vasopressin 20 UNIT/100 ML INFUS..BTL 12 UNIT IVCONT ×3 (03:47→18:30)
[2023-07-07] MEDS: propofoL 1,000 MG/100 ML VIAL 8.53 MG IVCONT ×2 (03:48→16:30)
[2023-07-07 04:40] LABS: VBG Base Excess 6.3 mmol/L; VBG HCO3 28 mmol/L (22-26); VBG pCO2 32 mmHg; VBG pH 7.55 (7.32-7.43); VBG pO2 61 mmHg; Venous Blood Gas Refer to POC result
[2023-07-07 04:58] LABS: Hematocrit 22.9 % (37.0-47.0); Hemoglobin 7.6 g/dl (12.0-16.0); Mean Corpuscular HGB Conc 33.2 g/dl (31.0-35.0); Mean Corpuscular Hemoglobin 38.2 pg (27.0-33.0); Mean Corpuscular Volume 115.1 fL (80.0-98.0); Mean Platelet Volume 10.1 fL (9.4-12.3); NRBC Pct Auto 2.4 /100WBC (0.0-0.2); Platelet Count 198 X10*3/uL (160-400); Red Blood Count 1.99 X10*6/uL (4.20-5.50); Red Cell Distribution Width 16.8 % (11.0-16.0); WBC ABN SCTR FOR CBC 1
[2023-07-07 05:02] LABS: White Blood Count 13.8 X10*3/uL (4.8-10.8)
[2023-07-07 05:16] LABS: Albumin Level 2.4 g/dL (3.5-5.0); Anion Gap 21 (12-20); Blood Urea Nitrogen 66 mg/dL (9-16); Carbon Dioxide 23 mmol/L (22-29); Chloride 100 mmol/L (96-108); Creatinine Clr Calc Pharmacy 20.7; Estimated Glomerular Filt Rate 33; Glucose Random 233 mg/dL (60-115); Magnesium 1.9 mg/dL (1.6-2.6); Phosphorus 7.6 mg/dL (2.7-4.5); Potassium 4.5 mmol/L (3.3-5.1); Sodium 139 mmol/L (135-145)
[2023-07-07 05:26] LABS: Band Neutrophils Percent 36 % (3-5); Lymphocytes Absolute Manual 0.3 X10*3/uL (1.2-4.9); Lymphocytes Percent Manual 2 % (20-40); Metamyelocytes Absolute 0.7 X10*3/uL; Metamyelocytes Percent 5 %; Monocytes Absolute Manual 0.1 X10*3/uL (0.1-1.2); Monocytes Percent Manual 1 % (2-11); Neutrophils Absolute Manual 12.7 X10*3/uL (2.0-8.3); Neutrophils Percent Manual 56 % (45-73); Nucleated Red Blood Cells 2 /100WBC (0-0)
[2023-07-07 05:27] LABS: Macrocytosis 3+ (>30) /OIF; RBC Morphology NOTED
[2023-07-07 05:28] LABS: Basophilic Stippling 1+ (0-2) /OIF; Dohle Bodies PRESENT; Ovalocytes 1+ (5-14) /OIF; Platelet Estimate NORMAL (NORMAL); Platelet Morphology Comment NORMAL; Polychromasia 1+ (0-2) /OIF; Smudge Cells PRESENT; Stomatocytes 1+ (5-14) /OIF; Tear Drop Cells 2+ (3-5) /OIF; Toxic Granulation PRESENT; Toxic Vacuolation PRESENT
[2023-07-07] MEDS: 0.9 % Sodium Chloride 1,000 ML 50 ML IVCONT (05:30)
[2023-07-07] MEDS: Norepinephrine Bitartrate/D5W 8 MG/250 ML PLAST..BAG 16.89 MG IV (05:35)
--- NOTE | 2023-07-07 07:03 | PM.CCPN ---
Subjective Subjective Date of Service: 07/07/23 Interval History: 77-year-old female with acute on chronic hypoxic respiratory failure the acute episode being COVID-19 pneumonitis in the chronic metastatic melanoma with bilateral nodular disease and moderate to moderately large bilateral malignant effusions but despite the futility of the overall prognosis and the previous hospice status patient was brought here and the granddaughter who is the proxy demanded intubation which was performed without complication and she remains supported Sputum indicating 4+ polys and what looks like pure Gram-positive cocci so with her potential immune status I can not rule out superinfection and I will probably cover for like more likely Staph less likely strep and in in addition there is at least 3 and half to 4 L per positive intake and output for 24 hours so I will diurese but bedside echo demonstrated globally normal systolic wall motion of the left ventricle with preserved 55% ejection fraction normal right ventricle and no primary valve or pericardial disease but her FiO2 requirements are minimal at 25% and her minute ventilatory requirements are also very comfort a and so my intention would be to try to lift sedation in the morning and once awakening try pressure support trial for the ventilator Critical Care Time (minutes): 45 Physical Exam Vital Signs: Vital Signs: Last Vital Signs Temp 99.5 F 07/07/23 06:00 Pulse 102 H 07/07/23 06:00 Resp 20 07/07/23 06:00 BP 129/62 07/07/23 06:00 Pulse Ox 98 07/07/23 06:00 O2 Del Method Mechanical Ventil ation 07/07/23 06:00 O2 Flow Rate 4 07/05/23 19:30 FiO2 25 07/07/23 06:00 Oxygen Flow Rate 2 07/04/23 14:50 BMI result Body Mass Index 16.9 Sedated and intubated and bedside echo demonstrating normal LV and RV function no pericardial involvement Lungs with significant bilateral rales but the admit chest x-ray showing some mild increase in interstitial changes and possibly the effusions Abdomen soft no organomegaly Objective Data Labs 07/08/23 04:44 07/08/23 04:44 Labs: Laboratory Results - last 24 hr 07/06/23 07/07/23 07/07/23 11:41 04:25 04:33 WBC 13.8 H RBC 1.99 L Hgb 7.6 L Hct 22.9 L MCV 115.1 H D MCH 38.2 H MCHC 33.2 RDW 16.8 H Plt Count 198 D MPV 10.1 Immature Gran % (Auto) Cancelled Neut % (Auto) Cancelled Lymph % (Auto) Cancelled [place] % (Auto) Cancelled Eos % (Auto) Cancelled Baso % (Auto) Cancelled Lymph # (Auto) Cancelled [place] # (Auto) Cancelled Eos # (Auto) Cancelled Baso # (Auto) Cancelled Abs Immat Gran (auto) Cancelled Absolute Neuts (auto) Cancelled Absolute Nucleated RBC 0.330 H Nucleated RBC % (auto) 2.4 H Neutrophils % (Manual) 56 Band Neutrophils % 36 H Lymphocytes % (Manual) 2 L Monocytes % (Manual) 1 L Metamyelocytes % 5 Abs Neuts (Manual) 12.7 H Lymphocytes # (Manual) 0.3 L Monocytes # (Manual) 0.1 Metamyelocytes # 0.7 Nucleated RBCs 2 H Smudge Cells PRESENT Toxic Granulation PRESENT Toxic Vacuolation PRESENT Dohle Bodies PRESENT Platelet Estimate NORMAL Plt Morphology Comment NORMAL RBC Morphology NOTED Polychromasia 1+ (0-2) Basophilic Stippling 1+ (0-2) Macrocytosis 3+ (>30) Tear Drop Cells 2+ (3-5) Ovalocytes 1+ (5-14) Stomatocytes 1+ (5-14) VBG pH 7.55 H VBG pCO2 32 VBG pO2 61 VBG HCO3 28 H VBG O2 Saturation 84.0 VBG Base Excess 6.3 Sodium 139 Potassium 4.5 Chloride 100 Carbon Dioxide 23 Anion Gap 21 H BUN 66 H Creatinine 1.53 H Estim Creat Clear Calc 20.7 Estimated GFR 33 Random Glucose 233 H Calcium 7.0 L D Phosphorus 7.6 H Magnesium 1.9 Albumin 2.4 L Urine Color Dark Yellow Urine Appearance Cloudy Urine pH 5.0 Ur Specific [place] 1.020 Urine Protein 30 (1+) H Urine Glucose (UA) Negative Urine Ketones Trace Urine Blood Large (3+) H Urine Nitrite Negative Ur Leukocyte Esterase Trace H Urine RBC >20 H Urine WBC 0-5 Ur Squamous Epith Cells 3-5 Calcium Oxalate Crystal Present Urine Bacteria None Seen Hyaline Casts 11-20 Granular Casts Present Microbiology Microbiology Results: Microbiology 07/04/23 16:38 Blood - Venous Blood Culture - Preliminary No growth after 48 hours. 07/04/23 15:13 Blood - Venous Blood Culture - Preliminary No growth after 48 hours. 07/06/23 11:38 Sputum - Suctioned Gram Stain - Final Progress Note: A&P Assessment and plan (1) Acute hypoxic respiratory failure: Status: Acute (2) Pneumonia due to COVID-19 virus: Status: Acute (3) Asthenia: Status: Acute (4) Bilateral pleural effusion: Status: Acute (5) Encephalopathy due to 2019-nCoV: Status: Acute (6) Sacral decubitus ulcer, stage III: Status: Acute (7) Anemia: Status: Chronic (8) Pleural effusion: Status: Acute (9) Multiple pulmonary nodules: Status: Acute (10) Oxygen dependent: Status: Acute (11) Dyspnea: Status: Acute (12) Community acquired pneumonia: Status: Acute (13) Fever: Status: Acute (14) Pain due to malignant neoplasm metastatic to bone: Status: Acute (15) Malnutrition: Status: Acute (16) 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: Status: Acute (17) Thiamine deficiency: Status: Acute (18) Left hemiplegia: Status: Acute (19) Diverticular disease: Status: Acute (20) Difficulty swallowing: Status: Acute (21) Schatzki's ring: Status: Acute (22) Constipation: Status: Acute (23) Diverticulitis: Status: Acute (24) Mild major depression, single episode: Status: Acute (25) HLA B27 (HLA B27 positive): Status: Acute (26) Effusion, left knee: Status: Acute (27) B12 deficiency: Status: Acute (28) Chronic fatigue: Status: Acute (29) Sore throat, chronic: Status: Acute (30) Dyslipidemia: Status: Acute (31) GERD (gastroesophageal reflux disease): Status: Acute Plan So the plan because of the mild in increasing renal insufficiency is to stop the vancomycin given at least 1 dose of linezolid and possibly 1 or 2 doses of Unasyn until we qualify the bacteria and I am going to check on underlying HIV status given this constellation of findings and diuresis x1 Quality Stroke Does the patient have a stroke diagnosis?: No VTE Prior VTE?: No VTE Risk Level:: Medical - moderate - high VTE Device Contraindication: N/A - Device Ordered VTE Drug Contraindication: Treatment Not Tolerated
[2023-07-07] MEDS: 0.9 % Sodium Chloride Flush 3 ML SYRINGE IVFLUSH (07:56)
[2023-07-07] MEDS: dexAMETHasone sod phosphate 4 MG/ML VIAL 6 MG IVPUSH (07:56)
[2023-07-07] MEDS: Famotidine/PF 20 MG/2 ML VIAL IVPUSH (07:56)
[2023-07-07] MEDS: Chlorhexidine Gluc Oral Rinse 15 ML MOUTHWASH BUCCAL ×3 (07:56→20:15)
[2023-07-07] MEDS: Sennosides 8.6 MG TABLET PO (07:57)
[2023-07-07] MEDS: Furosemide 20 MG/2 ML VIAL IVPUSH (15:23)
[2023-07-07] MEDS: fentaNYL citrate/NS 1,000 MCG/100 ML PLAST..BAG 5 MCG IVCONT (16:20)
[2023-07-07] MEDS: Linezolid/D5W 600 MG/300 ML PIGGYBACK 300 MG IV (18:01)
[2023-07-07] MEDS: Ampicillin Sodium/Sulbactam Na 1.5 GM in 0.9 % Sodium Chloride 100 ML IV (18:39)
[2023-07-07 23:45] LABS: CDiff Gene PCR NEGATIVE (Negative)
[2023-07-08] VITALS (36 sets, daily range): BP systolic 99–143; BP diastolic 45–69; PULSE 77–108; RESP 16–32; TEMP 22.1–36.6; O2SAT 25–100; BMI 16.9
[2023-07-08] MEDS: propofoL 1,000 MG/100 ML VIAL 8.53 MG IVCONT (00:19)
[2023-07-08] MEDS: 0.9 % Sodium Chloride 1,000 ML 50 ML IVCONT ×2 (00:19→22:19)
[2023-07-08] MEDS: Vasopressin 20 UNIT/100 ML INFUS..BTL 12 UNIT IVCONT (02:39)
[2023-07-08] MEDS: Ampicillin Sodium/Sulbactam Na 1.5 GM in 0.9 % Sodium Chloride 100 ML IV ×3 (02:39→18:30)
[2023-07-08 04:56] LABS: VBG Base Excess 8.2 mmol/L; VBG HCO3 28 mmol/L (22-26); VBG pCO2 24 mmHg; VBG pH 7.68 (7.32-7.43); VBG pO2 38 mmHg
[2023-07-08 05:31] LABS: Hematocrit 22.2 % (37.0-47.0); Hemoglobin 7.3 g/dl (12.0-16.0); Mean Corpuscular HGB Conc 32.9 g/dl (31.0-35.0); Mean Corpuscular Hemoglobin 37.6 pg (27.0-33.0); NRBC Pct Auto 0.9 /100WBC (0.0-0.2); Platelet Count 161 X10*3/uL (160-400); Red Blood Count 1.94 X10*6/uL (4.20-5.50); Red Cell Distribution Width 16.7 % (11.0-16.0)
[2023-07-08 05:32] LABS: Mean Corpuscular Volume 114.4 fL (80.0-98.0); WBC ABN SCTR FOR CBC 1
[2023-07-08 05:50] LABS: Albumin Level 2.2 g/dL (3.5-5.0); Anion Gap 22 (12-20); Blood Urea Nitrogen 63 mg/dL (9-16); Calcium 6.3 mg/dL (8.4-10.2); Carbon Dioxide 21 mmol/L (22-29); Chloride 102 mmol/L (96-108); Creatinine Clr Calc Pharmacy 25.8; Estimated Glomerular Filt Rate 42; Glucose Random 145 mg/dL (60-115); Magnesium 1.8 mg/dL (1.6-2.6); Phosphorus 5.8 mg/dL (2.7-4.5); Potassium 3.7 mmol/L (3.3-5.1); Sodium 141 mmol/L (135-145)
[2023-07-08 06:08] LABS: Venous Blood Gas Refer to POC result
[2023-07-08 06:27] LABS: Band Neutrophils Percent 25 % (3-5); Lymphocytes Absolute Manual 1.1 X10*3/uL (1.2-4.9); Lymphocytes Percent Manual 6 % (20-40); Macrocytosis 2+ (15-30) /OIF; Metamyelocytes Absolute 0.8 X10*3/uL; Metamyelocytes Percent 4 %; Monocytes Absolute Manual 0.6 X10*3/uL (0.1-1.2); Monocytes Percent Manual 3 % (2-11); Neutrophils Absolute Manual 16.3 X10*3/uL (2.0-8.3); Neutrophils Percent Manual 61 % (45-73); Ovalocytes 1+ (5-14) /OIF; Platelet Estimate NORMAL (NORMAL); Platelet Morphology Comment NORMAL; Promyelocytes Absolute 0.2 X10*3/uL; Promyelocytes Percent 1 %; RBC Morphology NOTED; Spherocytes 2+ (3-5) /OIF
[2023-07-08 06:28] LABS: Toxic Vacuolation PRESENT
[2023-07-08] MEDS: 0.9 % Sodium Chloride Flush 3 ML SYRINGE IVFLUSH ×2 (07:32→23:36)
[2023-07-08] MEDS: Chlorhexidine Gluc Oral Rinse 15 ML MOUTHWASH BUCCAL ×3 (07:32→20:34)
[2023-07-08] MEDS: dexAMETHasone sod phosphate 4 MG/ML VIAL 6 MG IVPUSH (07:32)
[2023-07-08] MEDS: Famotidine/PF 20 MG/2 ML VIAL IVPUSH (07:32)
[2023-07-08 08:30] LABS: MRSA Nasal PCR NEGATIVE (Negative); SA Nasal PCR POSITIVE (Negative)
--- NOTE | 2023-07-08 11:45 | PM.CCPN ---
Subjective Subjective Date of Service: 07/08/23 Interval History: 77-year-old female was on hospice care for advanced metastatic melanoma presented with acute on chronic hypoxic respiratory failure due to COVID-19 extensive respiratory distress pattern on by chest x-ray along with moderate bilateral pleural effusions and although with trying to explain to the family the gravity of the prognosis and futility of doing advanced care and etc. with not the Borges day insisted on it and she was intubated without complication and sputum has been growing methicillin sensitive Staph aureus as a secondary superinfected aunt and received remdesivir and dexamethasone as treatment for her primary viral illness and the chest x-rays although they do not appear any different clinically she has been resolving actually very nicely with lower lower FiO2 and minute ventilatory requirements and I do think with the with this level of comfort if cognitive function is appropriate off sedation in the morning we might consider pressure support trial and thus far she successfully come off the propofol and fentanyl Critical Care Time (minutes): 35 Physical Exam Vital Signs: Vital Signs: Last Vital Signs Temp 96.1 F L 07/08/23 11:00 Pulse 97 07/08/23 11:00 Resp 20 07/08/23 11:00 BP 134/67 07/08/23 11:00 Pulse Ox 99 07/08/23 11:00 O2 Del Method Mechanical Ventil ation 07/08/23 11:00 O2 Flow Rate 4 07/05/23 19:30 FiO2 25 07/08/23 11:33 Oxygen Flow Rate 2 07/04/23 14:50 BMI result Body Mass Index 16.9 vital signs is stable and she is being weaned from her pressors maintaining pressures currently 120/60 mean of 73 oxygen saturation 99% sinus at [address]-T changes abdomen soft no organomegaly minimal bilateral rales skin intact no acrocyanosis Objective Data Labs 07/08/23 04:44 07/08/23 04:44 Labs: Laboratory Results - last 24 hr 07/07/23 07/07/23 07/08/23 19:01 22:30 04:44 WBC 19.0 H RBC 1.94 L Hgb 7.3 L Hct 22.2 L MCV 114.4 H MCH 37.6 H MCHC 32.9 RDW 16.7 H Plt Count 161 MPV 11.0 Immature Gran % (Auto) Cancelled Neut % (Auto) Cancelled Lymph % (Auto) Cancelled [place] % (Auto) Cancelled Eos % (Auto) Cancelled Baso % (Auto) Cancelled Lymph # (Auto) Cancelled [place] # (Auto) Cancelled Eos # (Auto) Cancelled Baso # (Auto) Cancelled Abs Immat Gran (auto) Cancelled Absolute Neuts (auto) Cancelled Absolute Nucleated RBC 0.170 H Nucleated RBC % (auto) 0.9 H Neutrophils % (Manual) 61 Band Neutrophils % 25 H Lymphocytes % (Manual) 6 L Monocytes % (Manual) 3 Metamyelocytes % 4 Promyelocytes % 1 Abs Neuts (Manual) 16.3 H Lymphocytes # (Manual) 1.1 L Monocytes # (Manual) 0.6 Metamyelocytes # 0.8 Promyelocytes # 0.2 Toxic Vacuolation PRESENT Platelet Estimate NORMAL Plt Morphology Comment NORMAL RBC Morphology NOTED Macrocytosis 2+ (15-30) Spherocytes 2+ (3-5) Ovalocytes 1+ (5-14) VBG pH VBG pCO2 VBG pO2 VBG HCO3 VBG O2 Saturation VBG Base Excess Sodium 141 Potassium 3.7 Chloride 102 Carbon Dioxide 21 L Anion Gap 22 H BUN 63 H Creatinine 1.23 Estim Creat Clear Calc 25.8 Estimated GFR 42 Random Glucose 145 H Calcium 6.3 L D Phosphorus 5.8 H Magnesium 1.8 Albumin 2.2 L Nasal Screen MRSA (PCR) NEGATIVE Nasal S. aureus Screen POSITIVE A Nasal MRSA/S.aureus Interp SEE NOTE C. difficile Tox B Gene NEGATIVE 07/08/23 04:48 WBC RBC Hgb Hct MCV MCH MCHC RDW Plt Count MPV Immature Gran % (Auto) Neut % (Auto) Lymph % (Auto) [place] % (Auto) Eos % (Auto) Baso % (Auto) Lymph # (Auto) [place] # (Auto) Eos # (Auto) Baso # (Auto) Abs Immat Gran (auto) Absolute Neuts (auto) Absolute Nucleated RBC Nucleated RBC % (auto) Neutrophils % (Manual) Band Neutrophils % Lymphocytes % (Manual) Monocytes % (Manual) Metamyelocytes % Promyelocytes % Abs Neuts (Manual) Lymphocytes # (Manual) Monocytes # (Manual) Metamyelocytes # Promyelocytes # Toxic Vacuolation Platelet Estimate Plt Morphology Comment RBC Morphology Macrocytosis Spherocytes Ovalocytes VBG pH 7.68 H* VBG pCO2 24 VBG pO2 38 VBG HCO3 28 H VBG O2 Saturation 58.0 VBG Base Excess 8.2 Sodium Potassium Chloride Carbon Dioxide Anion Gap BUN Creatinine Estim Creat Clear Calc Estimated GFR Random Glucose Calcium Phosphorus Magnesium Albumin Nasal Screen MRSA (PCR) Nasal S. aureus Screen Nasal MRSA/S.aureus Interp C. difficile Tox B Gene Microbiology Microbiology Results: Microbiology 07/06/23 11:38 Sputum - Suctioned Gram Stain - Final 07/06/23 11:38 Sputum - Suctioned Sputum Culture - Preliminary Staphylococcus aureus 07/06/23 10:13 Blood - Central Line Blood Culture - Preliminary No growth after 24 hours. 07/06/23 10:13 Blood - Central Line Blood Culture - Preliminary No growth after 24 hours. 07/04/23 16:38 Blood - Venous Blood Culture - Preliminary No growth after 48 hours. 07/04/23 15:13 Blood - Venous Blood Culture - Preliminary No growth after 48 hours. Progress Note: A&P Assessment and plan (1) Acute hypoxic respiratory failure: Status: Acute (2) Pneumonia due to COVID-19 virus: Status: Acute (3) Acute and chronic respiratory failure: Status: Acute (4) Asthenia: Status: Acute (5) Bilateral pleural effusion: Status: Acute (6) Encephalopathy due to 2019-nCoV: Status: Acute (7) Sacral decubitus ulcer, stage III: Status: Acute (8) Lumbar pain: Status: Acute (9) Neck pain: Status: Acute (10) Urge urinary incontinence: Status: Acute (11) Ulcer of sacral region, stage 1: Status: Acute (12) Anemia: Status: Chronic (13) Chronic respiratory failure with hypoxia: Status: Acute (14) Pleural effusion: Status: Acute (15) Multiple pulmonary nodules: Status: Acute (16) Oxygen dependent: Status: Acute (17) Dyspnea: Status: Acute (18) Community acquired pneumonia: Status: Acute (19) Pneumonia: Status: Acute (20) Fever: Status: Acute (21) Pain due to malignant neoplasm metastatic to bone: Status: Acute (22) Malnutrition: Status: Acute (23) Loss of balance: Status: Acute (24) 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: Status: Acute (25) Thiamine deficiency: Status: Acute (26) Left hemiplegia: Status: Acute (27) Generalized anxiety disorder: Status: Acute (28) Weakness: Status: Acute (29) Constipation: Status: Acute (30) Diverticular disease: Status: Acute (31) Right renal stone: Status: Acute (32) Depression: Status: Acute (33) Osteoarthritis of left knee: Status: Acute (34) Muscle cramps: Status: Acute (35) Leg edema: Status: Acute (36) Difficulty swallowing: Status: Acute (37) Schatzki's ring: Status: Acute (38) Constipation: Status: Acute (39) Diverticulitis: Status: Acute (40) Mild major depression, single episode: Status: Acute (41) HLA B27 (HLA B27 positive): Status: Acute (42) Effusion, left knee: Status: Acute (43) B12 deficiency: Status: Acute (44) Chronic fatigue: Status: Acute (45) Sore throat, chronic: Status: Acute (46) Dyslipidemia: Status: Acute (47) Ophthalmoplegic migraine headache: Status: Acute (48) Neck pain on right side: Status: Acute (49) Insomnia: Status: Acute (50) GERD (gastroesophageal reflux disease): Status: Acute Plan so again if cognitive function is appropriate we will place on pressure support trial with the intent to wean her off if she displays that reserve and we will keep her anti staphylococcal coverage which I think currently now is Unasyn Quality Stroke Does the patient have a stroke diagnosis?: No VTE Prior VTE?: No VTE Risk Level:: Medical - moderate - high VTE Device Contraindication: N/A - Device Ordered VTE Drug Contraindication: Treatment Not Tolerated
[2023-07-08 12:05] LABS: Glucose, Whole Blood 138 mg/dL (60-115)
[2023-07-08] MEDS: Vasopressin 20 UNIT/100 ML INFUS..BTL 6 UNIT IVCONT (12:08)
[2023-07-08 18:35] LABS: Glucose, Whole Blood 146 mg/dL (60-115)
[2023-07-09] VITALS (34 sets, daily range): BP systolic 104–134; BP diastolic 44–70; PULSE 99–122; RESP 18–31; TEMP 34.9–37.8; O2SAT 96–100; BMI 16.7
[2023-07-09 01:01] LABS: Glucose, Whole Blood 109 mg/dL (60-115)
[2023-07-09] MEDS: Ampicillin Sodium/Sulbactam Na 1.5 GM in 0.9 % Sodium Chloride 100 ML IV (02:00)
[2023-07-09 04:04] LABS: HIV AB/AG Nonreactive (Nonreactive); HIV Num 1 0.05 S/CO (0.00-0.99)
[2023-07-09 05:45] LABS: VBG HCO3 25 mmol/L (22-26); VBG pCO2 27 mmHg; VBG pH 7.57 (7.32-7.43); VBG pO2 49 mmHg
[2023-07-09 05:46] LABS: Venous Blood Gas Refer to POC result
[2023-07-09] MEDS: Morphine Sulfate 2 MG/ML CARTRIDGE IVPUSH ×2 (06:11→13:47)
[2023-07-09 06:24] LABS: Hematocrit 21.7 % (37.0-47.0); Mean Corpuscular HGB Conc 31.3 g/dl (31.0-35.0); Mean Corpuscular Hemoglobin 36.2 pg (27.0-33.0); Mean Platelet Volume 11.3 fL (9.4-12.3); Platelet Count 135 X10*3/uL (160-400); Red Blood Count 1.88 X10*6/uL (4.20-5.50); Red Cell Distribution Width 16.5 % (11.0-16.0)
[2023-07-09 06:28] LABS: Albumin Level 2.3 g/dL (3.5-5.0); Anion Gap 18 (12-20); Blood Urea Nitrogen 60 mg/dL (9-16); Calcium 6.2 mg/dL (8.4-10.2); Carbon Dioxide 22 mmol/L (22-29); Chloride 105 mmol/L (96-108); Creatinine Clr Calc Pharmacy 24.1; Estimated Glomerular Filt Rate 40; Glucose Random 98 mg/dL (60-115); Magnesium 1.7 mg/dL (1.6-2.6); Phosphorus 4.2 mg/dL (2.7-4.5); Potassium 3.1 mmol/L (3.3-5.1); Sodium 142 mmol/L (135-145)
--- NOTE | 2023-07-09 06:31 | PC.NURSE ---
ISSUE WITH LOW TO NO URINE OUTPUT LAST NIGHT. CVP 4. FLUIDS RESTARTED AT 50 ML/HR BUT THEN STILL NO OUTPUT. BLADDER SCANNED FOR 384 ML. UNABLE TO IRRIGATE SOW AND SOW REMOVED. NEW SOW INSERTED WITHOUT COMPLICATION AND 360 ML ELIZABETH URINE RETURNED. OF NOTE, PREVIOUS SOW WITH SEDIMENT CLOGGING THE TIP. URINE OUTPUT SINCE HAS BEEN 30-50 ML/HR. FLUIDS LATER D/C'D. NO RESP DIFFICULTY NOTED ON PRESSURE SUPPORT VENT SETTINGS. MONITOR SHOWS SR-ST 90'S-108. SHORT RUN OF ACCELERATED JUNCTIONAL RHYTHM NOTED. PROVIDER AWARE. BP STABLE. VASOPRESSIN D/C'D. AFEBRILE.
[2023-07-09 06:36] LABS: Mean Corpuscular Volume 115.4 fL (80.0-98.0); NRBC Pct Auto 1.3 /100WBC (0.0-0.2); WBC ABN SCTR FOR CBC 1
[2023-07-09 06:37] LABS: Hemoglobin 6.8 g/dl (12.0-16.0); White Blood Count 17.8 X10*3/uL (4.8-10.8)
[2023-07-09] MEDS: Chlorhexidine Gluc Oral Rinse 15 ML MOUTHWASH BUCCAL ×3 (07:49→21:33)
[2023-07-09] MEDS: 0.9 % Sodium Chloride Flush 3 ML SYRINGE IVFLUSH ×3 (07:50→21:33)
[2023-07-09] MEDS: Potassium Chloride Packet 20 MEQ PACKET 40 MEQ OG-TUBE (07:50)
[2023-07-09] MEDS: dexAMETHasone sod phosphate 4 MG/ML VIAL 6 MG IVPUSH (07:50)
[2023-07-09] MEDS: Famotidine/PF 20 MG/2 ML VIAL IVPUSH (07:50)
[2023-07-09 07:56] LABS: Band Neutrophils Percent 2 % (3-5); Large Platelet PRESENT; Lymphocytes Absolute Manual 0.7 X10*3/uL (1.2-4.9); Lymphocytes Percent Manual 4 % (20-40); Macrocytosis 2+ (15-30) /OIF; Monocytes Absolute Manual 0.5 X10*3/uL (0.1-1.2); Monocytes Percent Manual 3 % (2-11); Myelocytes Absolute 0.2 X10*/uL; Myelocytes Percent 1 %; Neutrophils Absolute Manual 16.4 X10*3/uL (2.0-8.3); Neutrophils Percent Manual 90 % (45-73); Nucleated Red Blood Cells 1 /100WBC (0-0); Ovalocytes 1+ (5-14) /OIF; Platelet Estimate SLIGHTLY DECREASED (NORMAL); Platelet Morphology Comment NOTED; RBC Morphology NOTED
[2023-07-09 07:57] LABS: Basophilic Stippling 1+ (0-2) /OIF; Polychromasia 1+ (0-2) /OIF; Tear Drop Cells 1+ (0-2) /OIF; Toxic Vacuolation PRESENT
--- NOTE | 2023-07-09 09:14 | P.PNCC_ITS ---
Subjective Subjective Date of Service: 07/09/23 Interval History: 77-year-old lady with underlying metastatic to the bone melanoma, previously on pembrolizumab and palliative radiation, no longer candidate secondary to poor performance status, previously home on hospice admitted on 07/04/2023 with failure to thrive, hospital course complicated by development of acute respiratory distress secondary to COVID-19 and acute renal failure with acute on chronic anemia (patient is a Orthodoxy) with healthcare proxy changing code status to full code and patient intubated and transferred to intensive care unit on 07/05/2023. No events overnight. Critical Care Time (minutes): 60 Physical Exam 2 Vital Signs: Vital Signs: Last Vital Signs Temp 98.4 F 07/09/23 09:00 Pulse 110 H 07/09/23 09:00 Resp 25 H 07/09/23 09:00 BP 115/52 L 07/09/23 09:00 Pulse Ox 98 07/09/23 09:00 O2 Del Method Mechanical Ventil ation 07/09/23 09:00 O2 Flow Rate 4 07/05/23 19:30 FiO2 25 07/09/23 09:00 Oxygen Flow Rate 2 07/04/23 14:50 BMI result Body Mass Index 16.7 Const: General: no acute distress and other (Sedated on the vent) N utritional Appearance: malnourished Eyes: Sclerae: sclerae normal EOM: EOMs intact bilaterally Neck: Neck: Yes no lymphadenopathy, Yes trachea midline and Yes supple Resp: Auscultation: crackles (Mild bilateral) Cardio: Rate: tachycardic Rhythm: regular rhythm Heart sounds: no gallops, no murmurs and no rubs GI: Palpation (GI): Soft to palpation and Other GI palpation findings present ( Nontender) Auscultation: normal bowel sounds Extrem: General: No clubbing, No cyanosis and Yes edema (Trace bilateral) Objective Data Labs 07/09/23 05:40 07/09/23 05:40 Labs: Laboratory Results - last 24 hr 07/07/23 07/08/23 07/08/23 17:36 12:00 18:06 WBC RBC Hgb Hct MCV MCH MCHC RDW Plt Count MPV Immature Gran % (Auto) Neut % (Auto) Lymph % (Auto) [place] % (Auto) Eos % (Auto) Baso % (Auto) Lymph # (Auto) [place] # (Auto) Eos # (Auto) Baso # (Auto) Abs Immat Gran (auto) Absolute Neuts (auto) Absolute Nucleated RBC Nucleated RBC % (auto) Neutrophils % (Manual) Band Neutrophils % Lymphocytes % (Manual) Monocytes % (Manual) Myelocytes % Abs Neuts (Manual) Lymphocytes # (Manual) Monocytes # (Manual) Myelocytes # Nucleated RBCs Toxic Vacuolation Platelet Estimate Large Platelets Plt Morphology Comment RBC Morphology Polychromasia Basophilic Stippling Macrocytosis Tear Drop Cells Ovalocytes VBG pH VBG pCO2 VBG pO2 VBG HCO3 VBG O2 Saturation VBG Base Excess Sodium Potassium Chloride Carbon Dioxide Anion Gap BUN Creatinine Estim Creat Clear Calc Estimated GFR POC Glucose 138 H 146 H Random Glucose Calcium Phosphorus Magnesium Albumin HIV 1&2 Ab/P24 Ag 4thGn Nonreactive 07/09/23 07/09/23 07/09/23 00:55 05:39 05:40 WBC 17.8 H RBC 1.88 L Hgb 6.8 L* Hct 21.7 L MCV 115.4 H MCH 36.2 H MCHC 31.3 RDW 16.5 H Plt Count 135 L MPV 11.3 Immature Gran % (Auto) Cancelled Neut % (Auto) Cancelled Lymph % (Auto) Cancelled [place] % (Auto) Cancelled Eos % (Auto) Cancelled Baso % (Auto) Cancelled Lymph # (Auto) Cancelled [place] # (Auto) Cancelled Eos # (Auto) Cancelled Baso # (Auto) Cancelled Abs Immat Gran (auto) Cancelled Absolute Neuts (auto) Cancelled Absolute Nucleated RBC 0.230 H Nucleated RBC % (auto) 1.3 H Neutrophils % (Manual) 90 H Band Neutrophils % 2 L Lymphocytes % (Manual) 4 L Monocytes % (Manual) 3 Myelocytes % 1 Abs Neuts (Manual) 16.4 H Lymphocytes # (Manual) 0.7 L Monocytes # (Manual) 0.5 Myelocytes # 0.2 Nucleated RBCs 1 H Toxic Vacuolation PRESENT Platelet Estimate SLIGHTLY DECREASED Large Platelets PRESENT Plt Morphology Comment NOTED RBC Morphology NOTED Polychromasia 1+ (0-2) Basophilic Stippling 1+ (0-2) Macrocytosis 2+ (15-30) Tear Drop Cells 1+ (0-2) Ovalocytes 1+ (5-14) VBG pH 7.57 H VBG pCO2 27 VBG pO2 49 VBG HCO3 25 VBG O2 Saturation 75.0 VBG Base Excess 4.0 Sodium 142 Potassium 3.1 L Chloride 105 Carbon Dioxide 22 Anion Gap 18 BUN 60 H Creatinine 1.30 Estim Creat Clear Calc 24.1 Estimated GFR 40 POC Glucose 109 Random Glucose 98 Calcium 6.2 L Phosphorus 4.2 Magnesium 1.7 Albumin 2.3 L HIV 1&2 Ab/P24 Ag 4thGn Microbiology Microbiology Results: Microbiology 07/06/23 11:38 Sputum - Suctioned Gram Stain - Final 07/06/23 11:38 Sputum - Suctioned Sputum Culture - Final Staphylococcus aureus 07/06/23 10:13 Blood - Central Line Blood Culture - Preliminary No growth after 48 hours. 07/06/23 10:13 Blood - Central Line Blood Culture - Preliminary No growth after 48 hours. 07/04/23 16:38 Blood - Venous Blood Culture - Preliminary No growth after 48 hours. 07/04/23 15:13 Blood - Venous Blood Culture - Preliminary No growth after 48 hours. Progress Note: A&P Assessment and plan (1) Acute hypoxic respiratory failure: Status: Acute (2) Pneumonia due to COVID-19 virus: Status: Acute (3) 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: Status: Acute (4) Schatzki's ring: Status: Acute (5) Difficulty swallowing: Status: Acute (6) Failure to thrive in adult: Status: Acute Plan Assessment: 77-year-old lady with metastatic melanoma no longer able to receive palliative been secondary to poor performance status admitted with failure to thrive and acute hypoxic respiratory failure, now requiring ventilatory support. Plan: Neuro: No acute issues. Cardiac: No acute issues. Pulmonary: Acute on chronic hypoxic respiratory failure secondary to COVID-19, continue to titrate off ventilatory support as tolerated. Renal: Acute renal failure, non oliguric. Continue to monitor renal indices and urine output. Endo: No acute issues. GI: No acute issues. ID: COVID-19 with secondary MSSA pneumonia amoxicillin switched to ceftriaxone. Heme/Onc: Subacute anemia secondary to chronic disease. Patient is Orthodoxy. All start on IV iron. Psych: No acute issues. Miscellaneous: No acute issues. Prophylaxis: Heparin, famotidine Diet: Tube feeds Critical care time spent: 60 minutes Quality Stroke Does the patient have a stroke diagnosis?: No VTE Prior VTE?: No VTE Risk Level:: Medical - moderate - high VTE Device Contraindication: N/A - Device Ordered VTE Drug Contraindication: Treatment Not Tolerated
[2023-07-09] MEDS: cefTRIAXone sodium 1 GM in 0.9 % Sodium Chloride 50 ML IV (09:56)
[2023-07-09] MEDS: Heparin Sodium,Porcine 5,000 UNIT/ML VIAL 5000 UNIT SUBCUT ×2 (09:56→16:41)
[2023-07-09] MEDS: Iron Sucrose Complex 200 MG in 0.9 % Sodium Chloride 100 ML 440 MG IV (10:37)
[2023-07-09 12:14] LABS: Glucose, Whole Blood 114 mg/dL (60-115)
--- NOTE | 2023-07-09 12:49 | MHC.CLN ---
F/U PATIENT IS INTUBATED. NO PROPOFOL. STAGE II PI TO COCCYX. RECEIVING TRICKLE TUBE FEEDING: JEVITY 1.0 AT 10 ML PER HOUR; FLUSH 120 ML WATER Q 6 HOURS. PROVIDES 254 KCAL, 11 G PROTEIN, 680 ML FREE WATER FROM FORMULA AND FLUSH. ADVANCE TUBE FEEDING ABLE. FOLLOW FOR TUBE FEED TOLERANCE AND LYTES.
[2023-07-09 18:29] LABS: Glucose, Whole Blood 125 mg/dL (60-115)
[2023-07-10] VITALS (31 sets, daily range): BP systolic 90–116; BP diastolic 35–66; PULSE 103–121; RESP 10–35; TEMP 34.9–37.8; O2SAT 97–100; BMI 19.3
[2023-07-10] MEDS: Morphine Sulfate 2 MG/ML CARTRIDGE IVPUSH (00:06)
[2023-07-10 00:25] LABS: Glucose, Whole Blood 96 mg/dL (60-115)
[2023-07-10 04:55] LABS: VBG HCO3 23 mmol/L (22-26); VBG pCO2 27 mmHg; VBG pH 7.55 (7.32-7.43); VBG pO2 49 mmHg
[2023-07-10 04:57] LABS: Venous Blood Gas Refer to POC result
[2023-07-10 05:40] LABS: Hematocrit 23.3 % (37.0-47.0); Hemoglobin 7.3 g/dl (12.0-16.0); Mean Corpuscular HGB Conc 31.3 g/dl (31.0-35.0); Mean Platelet Volume 11.4 fL (9.4-12.3); Platelet Count 146 X10*3/uL (160-400); Red Blood Count 2.03 X10*6/uL (4.20-5.50); Red Cell Distribution Width 16.6 % (11.0-16.0); White Blood Count 17.2 X10*3/uL (4.8-10.8)
[2023-07-10 05:47] LABS: Mean Corpuscular Volume 114.8 fL (80.0-98.0); NRBC Pct Auto 3.1 /100WBC (0.0-0.2)
[2023-07-10 05:58] LABS: Albumin Level 2.4 g/dL (3.5-5.0); Anion Gap 19 (12-20); Blood Urea Nitrogen 59 mg/dL (9-16); Calcium 6.6 mg/dL (8.4-10.2); Carbon Dioxide 21 mmol/L (22-29); Chloride 105 mmol/L (96-108); Creatinine Clr Calc Pharmacy 25.8; Estimated Glomerular Filt Rate 37; Glucose Random 87 mg/dL (60-115); Magnesium 1.8 mg/dL (1.6-2.6); Sodium 141 mmol/L (135-145)
[2023-07-10 06:25] LABS: Band Neutrophils Percent 2 % (3-5); Lymphocytes Absolute Manual 0.2 X10*3/uL (1.2-4.9); Lymphocytes Percent Manual 1 % (20-40); Metamyelocytes Absolute 0.3 X10*3/uL; Metamyelocytes Percent 2 %; Monocytes Absolute Manual 0.7 X10*3/uL (0.1-1.2); Monocytes Percent Manual 4 % (2-11); Nucleated Red Blood Cells 2 /100WBC (0-0); Promyelocytes Absolute 0.3 X10*3/uL
[2023-07-10 06:26] LABS: Neutrophils Percent Manual 91 % (45-73)
[2023-07-10 06:27] LABS: Dohle Bodies PRESENT; Macrocytosis 1+ (5-14) /OIF; Ovalocytes 1+ (5-14) /OIF; Polychromasia 1+ (0-2) /OIF; RBC Morphology NOTED; Toxic Vacuolation PRESENT
[2023-07-10] MEDS: Calcium Gluconate/NaCl,Iso-Osm 1 GM/50 ML PLAST..BAG IV (06:27)
[2023-07-10 06:28] LABS: Basophilic Stippling 1+ (0-2) /OIF; Toxic Granulation PRESENT
[2023-07-10 06:29] LABS: Platelet Estimate SLIGHTLY DECREASED (NORMAL); Schistocytes 1+ (0-2) /OIF; Tear Drop Cells 1+ (0-2) /OIF
[2023-07-10 06:30] LABS: Large Platelet PRESENT; Platelet Morphology Comment NOTED
[2023-07-10] MEDS: Furosemide 20 MG/2 ML VIAL IVPUSH (08:05)
[2023-07-10] MEDS: Albumin Human 25 % 100 ML IV ×3 (08:06→19:49)
[2023-07-10] MEDS: Chlorhexidine Gluc Oral Rinse 15 ML MOUTHWASH BUCCAL ×3 (08:06→19:50)
[2023-07-10] MEDS: 0.9 % Sodium Chloride Flush 3 ML SYRINGE IVFLUSH ×3 (08:06→23:00)
[2023-07-10] MEDS: cefTRIAXone sodium 1 GM in 0.9 % Sodium Chloride 50 ML IV (08:06)
[2023-07-10] MEDS: Famotidine/PF 20 MG/2 ML VIAL IVPUSH (08:06)
[2023-07-10 08:44] LABS: Absolute CD3 Count 686 cells/uL (840-3060); Absolute CD4 Count 480 cells/uL (490-1740); Absolute CD8 Count 211 cells/uL (180-1170); Absolute Lymphocytes 1277 cells/uL (850-3900); CD4 CD8 Ratio 2.28 (0.86-5.00); Percent CD3 Cells 54 % (57-85); Percent CD4 Cells 38 % (30-61); Percent CD8 Cells 17 % (12-42)
[2023-07-10] MEDS: Heparin Sodium,Porcine 5,000 UNIT/ML VIAL 5000 UNIT SUBCUT ×2 (10:00→17:44)
--- NOTE | 2023-07-10 10:04 | P.PNCC_ITS ---
Subjective Subjective Date of Service: 07/10/23 Interval History: 77-year-old lady with underlying metastatic to the bone melanoma, previously on pembrolizumab and palliative radiation, no longer candidate secondary to poor performance status, previously home on hospice admitted on 07/04/2023 with failure to thrive, hospital course complicated by development of acute respiratory distress secondary to COVID-19 and acute renal failure with acute on chronic anemia (patient is a Yazidi) with healthcare proxy changing code status to full code and patient intubated and transferred to intensive care unit on 07/05/2023. No events overnight. Tolerating pressure support trials. Critical Care Time (minutes): 60 Physical Exam 2 Vital Signs: Vital Signs: Last Vital Signs Temp 99.5 F 07/10/23 09:00 Pulse 116 H 07/10/23 09:00 Resp 22 H 07/10/23 09:00 BP 97/48 L 07/10/23 09:00 Pulse Ox 98 07/10/23 09:00 O2 Del Method Mechanical Ventil ation 07/10/23 09:00 O2 Flow Rate 4 07/05/23 19:30 FiO2 25 07/10/23 09:42 Oxygen Flow Rate 2 07/04/23 14:50 BMI result Body Mass Index 19.3 Const: General: no acute distress and other ( Sedated on the vent) Eyes: Sclerae: sclerae normal EOM: EOMs intact bilaterally Neck: Neck: Yes no lymphadenopathy, Yes trachea midline and Yes supple Resp: Auscultation: crackles ( mild bilateral) Cardio: Rate: tachycardic Rhythm: regular rhythm Heart sounds: no gallops, no murmurs and no rubs GI: Palpation (GI): Soft to palpation and Other GI palpation findings present ( Nontender) Auscultation: normal bowel sounds Extrem: General: Yes no pedal edema, No clubbing and No cyanosis Objective Data Labs 07/10/23 04:44 07/10/23 04:44 Labs: Laboratory Results - last 24 hr 07/07/23 07/09/23 07/09/23 17:36 12:11 18:18 WBC RBC Hgb Hct MCV MCH MCHC RDW Plt Count MPV Immature Gran % (Auto) Neut % (Auto) Lymph % (Auto) [place] % (Auto) Eos % (Auto) Baso % (Auto) Lymph # (Auto) [place] # (Auto) Eos # (Auto) Baso # (Auto) Abs Immat Gran (auto) Absolute Neuts (auto) Absolute Nucleated RBC Nucleated RBC % (auto) Neutrophils % (Manual) Band Neutrophils % Lymphocytes % (Manual) Monocytes % (Manual) Metamyelocytes % Abs Neuts (Manual) Lymphocytes # (Manual) Monocytes # (Manual) Metamyelocytes # Promyelocytes # Nucleated RBCs Toxic Granulation Toxic Vacuolation Dohle Bodies Platelet Estimate Large Platelets Plt Morphology Comment RBC Morphology Polychromasia Basophilic Stippling Macrocytosis Tear Drop Cells Ovalocytes Schistocytes VBG pH VBG pCO2 VBG pO2 VBG HCO3 VBG O2 Saturation VBG Base Excess Sodium Potassium Chloride Carbon Dioxide Anion Gap BUN Creatinine Estim Creat Clear Calc Estimated GFR POC Glucose 114 125 H Random Glucose Calcium Phosphorus Magnesium Albumin Total Lymphocytes 1277 % CD3 Cells 54 L Absolute CD3 Count 686 L % CD4 Cells 38 Absolute CD4 Count 480 L CD4/CD8 Ratio 2.28 % CD8 Cells 17 Absolute CD8 Count 211 07/10/23 07/10/23 07/10/23 00:13 04:44 04:48 WBC 17.2 H RBC 2.03 L Hgb 7.3 L Hct 23.3 L MCV 114.8 H MCH 36.0 H MCHC 31.3 RDW 16.6 H Plt Count 146 L MPV 11.4 Immature Gran % (Auto) Cancelled Neut % (Auto) Cancelled Lymph % (Auto) Cancelled [place] % (Auto) Cancelled Eos % (Auto) Cancelled Baso % (Auto) Cancelled Lymph # (Auto) Cancelled [place] # (Auto) Cancelled Eos # (Auto) Cancelled Baso # (Auto) Cancelled Abs Immat Gran (auto) Cancelled Absolute Neuts (auto) Cancelled Absolute Nucleated RBC 0.540 H Nucleated RBC % (auto) 3.1 H Neutrophils % (Manual) 91 H Band Neutrophils % 2 L Lymphocytes % (Manual) 1 L Monocytes % (Manual) 4 Metamyelocytes % 2 Abs Neuts (Manual) 16.0 H Lymphocytes # (Manual) 0.2 L Monocytes # (Manual) 0.7 Metamyelocytes # 0.3 Promyelocytes # 0.3 Nucleated RBCs 2 H Toxic Granulation PRESENT Toxic Vacuolation PRESENT Dohle Bodies PRESENT Platelet Estimate SLIGHTLY DECREASED Large Platelets PRESENT Plt Morphology Comment NOTED RBC Morphology NOTED Polychromasia 1+ (0-2) Basophilic Stippling 1+ (0-2) Macrocytosis 1+ (5-14) Tear Drop Cells 1+ (0-2) Ovalocytes 1+ (5-14) Schistocytes 1+ (0-2) VBG pH 7.55 H VBG pCO2 27 VBG pO2 49 VBG HCO3 23 VBG O2 Saturation 77.0 VBG Base Excess 2.0 Sodium 141 Potassium 4.0 D Chloride 105 Carbon Dioxide 21 L Anion Gap 19 BUN 59 H Creatinine 1.40 Estim Creat Clear Calc 25.8 Estimated GFR 37 POC Glucose 96 Random Glucose 87 Calcium 6.6 L D Phosphorus 4.0 Magnesium 1.8 Albumin 2.4 L Total Lymphocytes % CD3 Cells Absolute CD3 Count % CD4 Cells Absolute CD4 Count CD4/CD8 Ratio % CD8 Cells Absolute CD8 Count Microbiology Microbiology Results: Microbiology 07/04/23 16:38 Blood - Venous Blood Culture - Final No growth after 5 days. 07/04/23 15:13 Blood - Venous Blood Culture - Final No growth after 5 days. 07/06/23 11:38 Sputum - Suctioned Gram Stain - Final 07/06/23 11:38 Sputum - Suctioned Sputum Culture - Final Staphylococcus aureus 07/06/23 10:13 Blood - Central Line Blood Culture - Preliminary No growth after 48 hours. 07/06/23 10:13 Blood - Central Line Blood Culture - Preliminary No growth after 48 hours. Progress Note: A&P Assessment and plan (1) Failure to thrive in adult: Status: Acute (2) Acute hypoxic respiratory failure: Status: Acute (3) Pneumonia due to COVID-19 virus: Status: Acute (4) Acute and chronic respiratory failure: Status: Acute (5) 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: Status: Acute (6) Schatzki's ring: Status: Acute (7) Difficulty swallowing: Status: Acute Plan Assessment: 77-year-old lady with metastatic melanoma no longer able to receive palliative been secondary to poor performance status admitted with failure to thrive and acute hypoxic respiratory failure, now requiring ventilatory support. Plan: Neuro: No acute issues. Cardiac: No acute issues. Pulmonary: Acute on chronic hypoxic respiratory failure secondary to COVID- 19/MSSA pneumonia, continue to titrate off ventilatory support as tolerated. Renal: Acute renal failure, non oliguric. Continue to monitor renal indices and urine output. Endo: No acute issues. GI: No acute issues. ID: COVID-19 with secondary MSSA pneumonia continue ceftriaxone. Heme/Onc: Subacute anemia secondary to chronic disease. Patient is Yazidi. IV iron given. Psych: No acute issues. Miscellaneous: No acute issues. Prophylaxis: Heparin, famotidine Diet: Tube feeds Critical care time spent: 60 minutes Quality Stroke Does the patient have a stroke diagnosis?: No VTE Prior VTE?: No VTE Risk Level:: Medical - moderate - high VTE Device Contraindication: N/A - Device Ordered VTE Drug Contraindication: Treatment Not Tolerated
--- NOTE | 2023-07-10 10:20 | P.CDIM_ITS ---
PROVIDER RESPONSE TEXT: To clarify, the appropriate diagnosis supported by the clinical indicators: Moderate QUERY TEXT: PHYSICIAN'S DOCUMENTATION REQUEST Date of Query: 07/10/2023 08:42 AM EST Patient Name: Katya Martin Admit Date: 07/05/2023 Dear Wicho Hunter, A review of the medical record indicates additional documentation may be needed. Please review below and update the documentation accordingly. Documentation includes the diagnosis of malnutrition. Additional clinical indicators from the record include: Per Clinical Nutrition Assessment 07/06/23: Body fat: well nourished Muscle mass: well nourished Increased nutrition needs, increased demand protein, pressure injury Intubated and sedated, increased nutrition risk related to COVID + with diagnosis cancer with metasta sis Per Critical Care Progress Note 07/09/22: Nutritional appearance: malnourished If possible, please provide additional specificity regarding the severity of the malnutrition using t he above information: Mild Moderate Severe Other (explain) Clinically unable to determine (explain) Thank you, Zakiya Bain RN Use of terms such as suspected, likely, concern for, or probable (associated with a specific diagnosi s that is being evaluated, monitored, or treated as if it exists) are acceptable and can be coded in the inpatient se tting, when documented at the time of discharge. Please use your independent medical judgment in providing your response. THIS QUERY IS PART OF THE PERMANENT MEDICAL RECORD
--- NOTE | 2023-07-10 10:27 | MHC.CLN ---
F/U PT REMAINS INTUBATED DISCUSSED AT ROUNDS WITH MD-POOR PROGNOSIS PER MD PT CURRENTLY TOLERATING TF AT TRICKLE FEED JEVITY 1.0 AT 10ML/HR WITH 120ML FREE WATER FLUSHES Q 6 HRS IF TF TO INCREASE; RECOMMEND PROMOTE AT MAX GOAL RATE 55ML/HR WITH 120ML FREE WATER FLUSHES Q 6 HRS TO PROVIDE 1320KCALS (25KCALS/KG), 82.5G PROTEIN (1.6G/KG), 1587ML TOTAL WATER FROM FORMULA AND FLUSHES (30.7ML/KG) START FORMULA AT 20ML/HR AND INCREASE BY 10ML Q 4 HRS UNTIL MAX GOAL IS ACHIEVED MONITOR TOLERANCE, RESIDUALS AND LYTES TF WILL PROMOTE WOUND HEALING
[2023-07-10 11:38] LABS: Glucose, Whole Blood 101 mg/dL (60-115)
--- NOTE | 2023-07-10 15:22 | MHC.CM.PN ---
Pt continues care in ICU: had been on palliative care at home d/t cancer w/mets: now intubated - goals of care today include PSV trials. D/C planning needs not definitively known at this time. CM to follow
[2023-07-10 17:41] LABS: Glucose, Whole Blood 93 mg/dL (60-115)
[2023-07-11] VITALS (39 sets, daily range): BP systolic 89–131; BP diastolic 33–57; PULSE 97–123; RESP 15–50; TEMP 34.6–43.3; O2SAT 91–100
[2023-07-11] MEDS: Midazolam HCl/PF 2 MG/2 ML VIAL 1 MG IVPUSH (00:10)
[2023-07-11 00:26] LABS: Glucose, Whole Blood 87 mg/dL (60-115)
[2023-07-11] MEDS: propofoL 1,000 MG/100 ML VIAL 2.87 MG IVCONT (01:10)
[2023-07-11] MEDS: Heparin Sodium,Porcine 5,000 UNIT/ML VIAL 5000 UNIT SUBCUT ×3 (01:21→17:11)
[2023-07-11] MEDS: Albumin Human 25 % 100 ML IV (01:22)
[2023-07-11] MEDS: Norepinephrine Bitartrate/D5W 8 MG/250 ML PLAST..BAG 4.44 MG IV (02:38)
--- NOTE | 2023-07-11 05:17 | PC.NURSE ---
Assumed care for patient. Patient tachypneic and asynchronous with ventilator. Versed 1 mg IVP ordered/administered without good effect. Propofol ordered, started infusing at 10 mcg/kg. Patient's BP lowered to 80's systolic, map < 50 . Levophed started infusing at 0.05 mcg/kg/hr. Patient ventilating well and BP within normal limits. Resting comfortably , will continue to monitor.
[2023-07-11 05:26] LABS: Mean Corpuscular HGB Conc 30.7 g/dl (31.0-35.0); Mean Corpuscular Hemoglobin 36.2 pg (27.0-33.0); Mean Platelet Volume 11.8 fL (9.4-12.3); NRBC Pct Auto 0.9 /100WBC (0.0-0.2); Red Blood Count 1.41 X10*6/uL (4.20-5.50); Red Cell Distribution Width 16.9 % (11.0-16.0); White Blood Count 10.3 X10*3/uL (4.8-10.8)
[2023-07-11 05:33] LABS: VBG Base Excess 3.2 mmol/L; VBG HCO3 24 mmol/L (22-26); VBG pCO2 25 mmHg; VBG pH 7.59 (7.32-7.43); VBG pO2 45 mmHg
[2023-07-11 05:47] LABS: Albumin Level 3.7 g/dL (3.5-5.0); Anion Gap 15 (12-20); Blood Urea Nitrogen 57 mg/dL (9-16); Calcium 7.3 mg/dL (8.4-10.2); Carbon Dioxide 23 mmol/L (22-29); Chloride 107 mmol/L (96-108); Creatinine Clr Calc Pharmacy 21.6; Estimated Glomerular Filt Rate 30; Glucose Random 85 mg/dL (60-115); Magnesium 1.8 mg/dL (1.6-2.6); Phosphorus 3.4 mg/dL (2.7-4.5); Potassium 3.2 mmol/L (3.3-5.1); Sodium 142 mmol/L (135-145)
[2023-07-11 05:59] LABS: Glucose, Whole Blood 100 mg/dL (60-115)
--- NOTE | 2023-07-11 06:02 | PC.NURSE ---
Assumed care for patient. Patient became tachypneic and asynchronous on ventilator. Versed 1mg IVP ordered/ administered without good effect. Propofol ordered , started infusing at 10mcg/kg/min. Patient's BP lowered to 80's systolic, map<50. Levophed began infusing at 0.05 mcg/kg/min. Patient ventilating well at present. BP within normal limits. Patient resting comfortably, will continue to monitor.
[2023-07-11 06:04] LABS: Venous Blood Gas Refer to POC result
[2023-07-11 06:08] LABS: Mean Corpuscular Volume 117.7 fL (80.0-98.0); Platelet Count 86 X10*3/uL (160-400)
[2023-07-11 06:10] LABS: Hemoglobin 5.1 g/dl (12.0-16.0)
[2023-07-11 06:11] LABS: Hematocrit 16.6 % (37.0-47.0)
[2023-07-11] MEDS: Calcium Gluconate/NaCl,Iso-Osm 2 GM/100 ML PLAST..BAG IV (06:15)
[2023-07-11] MEDS: Potassium Chloride/H20 40 MEQ/100 ML PIGGYBACK 50 MEQ IV (06:15)
[2023-07-11 06:24] LABS: Band Neutrophils Percent 1 % (3-5); Lymphocytes Absolute Manual 0.8 X10*3/uL (1.2-4.9); Lymphocytes Percent Manual 8 % (20-40); Metamyelocytes Absolute 0.1 X10*3/uL; Metamyelocytes Percent 1 %; Monocytes Absolute Manual 0.2 X10*3/uL (0.1-1.2); Monocytes Percent Manual 2 % (2-11); Neutrophils Absolute Manual 9.2 X10*3/uL (2.0-8.3); Neutrophils Percent Manual 88 % (45-73); Nucleated Red Blood Cells 1 /100WBC (0-0); RBC Morphology NOTED
[2023-07-11 06:26] LABS: Macrocytosis 1+ (5-14) /OIF; Microcytosis 1+ (5-14) /OIF; Ovalocytes 1+ (5-14) /OIF
[2023-07-11 06:27] LABS: Basophilic Stippling 1+ (0-2) /OIF; Polychromasia 1+ (0-2) /OIF; Stomatocytes 1+ (5-14) /OIF; Tear Drop Cells 1+ (0-2) /OIF
[2023-07-11 06:28] LABS: Large Platelet PRESENT; Platelet Estimate DECREASED (NORMAL); Platelet Morphology Comment NOTED; Toxic Granulation PRESENT
[2023-07-11] MEDS: 0.9 % Sodium Chloride Flush 3 ML SYRINGE IVFLUSH ×2 (07:27→16:07)
[2023-07-11] MEDS: Chlorhexidine Gluc Oral Rinse 15 ML MOUTHWASH BUCCAL (07:27)
[2023-07-11] MEDS: Famotidine/PF 20 MG/2 ML VIAL IVPUSH (07:27)
[2023-07-11] MEDS: Potassium Chloride/H20 40 MEQ/100 ML PIGGYBACK 100 MEQ IV (08:52)
[2023-07-11] MEDS: cefTRIAXone sodium 1 GM in 0.9 % Sodium Chloride 50 ML IV (08:52)
--- NOTE | 2023-07-11 10:20 | PM.CCPN ---
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 No events overnight. Tolerating pressure support trials. Critical Care Time (minutes): 60 Physical Exam Vital Signs: Vital Signs: Last Vital Signs Temp 99.9 F 07/11/23 10:00 Pulse 113 H 07/11/23 10:00 Resp 39 H 07/11/23 10:00 BP 104/37 L 07/11/23 10:00 Pulse Ox 98 07/11/23 10:00 O2 Del Method Mechanical Ventil ation 07/11/23 10:00 O2 Flow Rate 4 07/05/23 19:30 FiO2 25 07/11/23 10:00 Oxygen Flow Rate 2 07/04/23 14:50 BMI result Body Mass Index 20.0 Const: General: no acute distress and other ( sedated on the vent) Eyes: Sclerae: sclerae normal EOM: EOMs intact bilaterally Neck: Neck: Yes no lymphadenopathy, Yes trachea midline and Yes supple Resp: Effort & Inspection: normal respiratory effort and no respiratory distress Auscultation: clear to auscultation bilaterally Cardio: Rate: tachycardic Rhythm: regular rhythm Heart sounds: no gallops, no murmurs and no rubs GI: Palpation (GI): Soft to palpation and Other GI palpation findings present ( Nontender) Auscultation: normal bowel sounds Extrem: General: Yes no pedal edema, No clubbing and No cyanosis Objective Data Labs 07/11/23 04:30 07/11/23 04:30 Labs: Laboratory Results - last 24 hr 07/07/23 07/10/23 07/10/23 17:36 11:33 17:35 WBC RBC Hgb Hct MCV MCH MCHC RDW Plt Count MPV Immature Gran % (Auto) Neut % (Auto) Lymph % (Auto) [place] % (Auto) Eos % (Auto) Baso % (Auto) Lymph # (Auto) [place] # (Auto) Eos # (Auto) Baso # (Auto) Abs Immat Gran (auto) Absolute Neuts (auto) Absolute Nucleated RBC Nucleated RBC % (auto) Neutrophils % (Manual) Band Neutrophils % Lymphocytes % (Manual) Monocytes % (Manual) Metamyelocytes % Abs Neuts (Manual) Lymphocytes # (Manual) Monocytes # (Manual) Metamyelocytes # Nucleated RBCs Toxic Granulation Platelet Estimate Large Platelets Plt Morphology Comment RBC Morphology Polychromasia Basophilic Stippling Microcytosis Macrocytosis Tear Drop Cells Ovalocytes Stomatocytes VBG pH VBG pCO2 VBG pO2 VBG HCO3 VBG O2 Saturation VBG Base Excess Sodium Potassium Chloride Carbon Dioxide Anion Gap BUN Creatinine Estim Creat Clear Calc Estimated GFR POC Glucose 101 93 Random Glucose Calcium Phosphorus Magnesium Albumin Lymphocyte Subset Cmmnt TNP 07/11/23 07/11/23 07/11/23 00:15 04:30 05:27 WBC 10.3 RBC 1.41 L D Hgb 5.1 L* D Hct 16.6 L* D MCV 117.7 H MCH 36.2 H MCHC 30.7 L RDW 16.9 H Plt Count 86 L D MPV 11.8 Immature Gran % (Auto) Cancelled Neut % (Auto) Cancelled Lymph % (Auto) Cancelled [place] % (Auto) Cancelled Eos % (Auto) Cancelled Baso % (Auto) Cancelled Lymph # (Auto) Cancelled [place] # (Auto) Cancelled Eos # (Auto) Cancelled Baso # (Auto) Cancelled Abs Immat Gran (auto) Cancelled Absolute Neuts (auto) Cancelled Absolute Nucleated RBC 0.090 H Nucleated RBC % (auto) 0.9 H Neutrophils % (Manual) 88 H Band Neutrophils % 1 L Lymphocytes % (Manual) 8 L Monocytes % (Manual) 2 Metamyelocytes % 1 Abs Neuts (Manual) 9.2 H Lymphocytes # (Manual) 0.8 L Monocytes # (Manual) 0.2 Metamyelocytes # 0.1 Nucleated RBCs 1 H Toxic Granulation PRESENT Platelet Estimate DECREASED Large Platelets PRESENT Plt Morphology Comment NOTED RBC Morphology NOTED Polychromasia 1+ (0-2) Basophilic Stippling 1+ (0-2) Microcytosis 1+ (5-14) Macrocytosis 1+ (5-14) Tear Drop Cells 1+ (0-2) Ovalocytes 1+ (5-14) Stomatocytes 1+ (5-14) VBG pH 7.59 H VBG pCO2 25 VBG pO2 45 VBG HCO3 24 VBG O2 Saturation Not Reportable VBG Base Excess 3.2 Sodium 142 Potassium 3.2 L Chloride 107 Carbon Dioxide 23 Anion Gap 15 BUN 57 H Creatinine 1.67 H Estim Creat Clear Calc 21.6 Estimated GFR 30 POC Glucose 87 Random Glucose 85 Calcium 7.3 L D Phosphorus 3.4 Magnesium 1.8 Albumin 3.7 Lymphocyte Subset Cmmnt 07/11/23 07/11/23 05:51 05:58 WBC RBC Hgb Hct MCV MCH MCHC RDW Plt Count MPV Immature Gran % (Auto) Neut % (Auto) Lymph % (Auto) [place] % (Auto) Eos % (Auto) Baso % (Auto) Lymph # (Auto) [place] # (Auto) Eos # (Auto) Baso # (Auto) Abs Immat Gran (auto) Absolute Neuts (auto) Absolute Nucleated RBC Nucleated RBC % (auto) Neutrophils % (Manual) Band Neutrophils % Lymphocytes % (Manual) Monocytes % (Manual) Metamyelocytes % Abs Neuts (Manual) Lymphocytes # (Manual) Monocytes # (Manual) Metamyelocytes # Nucleated RBCs Toxic Granulation Platelet Estimate Large Platelets Plt Morphology Comment RBC Morphology Polychromasia Basophilic Stippling Microcytosis Macrocytosis Tear Drop Cells Ovalocytes Stomatocytes VBG pH Cancelled VBG pCO2 Cancelled VBG pO2 Cancelled VBG HCO3 Cancelled VBG O2 Saturation Cancelled VBG Base Excess Cancelled Sodium Potassium Chloride Carbon Dioxide Anion Gap BUN Creatinine Estim Creat Clear Calc Estimated GFR POC Glucose 100 Random Glucose Calcium Phosphorus Magnesium Albumin Lymphocyte Subset Cmmnt Microbiology Microbiology Results: Microbiology 07/04/23 16:38 Blood - Venous Blood Culture - Final No growth after 5 days. 07/04/23 15:13 Blood - Venous Blood Culture - Final No growth after 5 days. 07/06/23 11:38 Sputum - Suctioned Gram Stain - Final 07/06/23 11:38 Sputum - Suctioned Sputum Culture - Final Staphylococcus aureus 07/06/23 10:13 Blood - Central Line Blood Culture - Preliminary No growth after 48 hours. 07/06/23 10:13 Blood - Central Line Blood Culture - Preliminary No growth after 48 hours. Progress Note: A&P Assessment and plan (1) Failure to thrive in adult: Status: Acute (2) Acute hypoxic respiratory failure: Status: Acute (3) Pneumonia due to COVID-19 virus: Status: Acute (4) Acute and chronic respiratory failure: Status: Acute (5) Pain due to malignant neoplasm metastatic to bone: Status: Acute Plan Assessment: 77-year-old lady with metastatic melanoma no longer able to receive palliative been secondary to poor performance status admitted with failure to thrive and acute hypoxic respiratory failure, now requiring ventilatory support. Plan: Neuro: No acute issues. Cardiac: No acute issues. Pulmonary: Acute on chronic hypoxic respiratory failure secondary to COVID-19/MSSA pneumonia, continue to titrate off ventilatory support as tolerated. Renal: Acute renal failure, non oliguric. Continue to monitor renal indices and urine output. Endo: No acute issues. GI: No acute issues. ID: COVID-19 with secondary MSSA pneumonia continue ceftriaxone. Heme/Onc: Subacute anemia secondary to chronic disease. Patient is Christianity. IV iron given. Psych: No acute issues. Miscellaneous: No acute issues. Prophylaxis: Heparin, famotidine Diet: Tube feeds Critical care time spent: 60 minutes Quality Stroke Does the patient have a stroke diagnosis?: No VTE Prior VTE?: No VTE Risk Level:: Medical - moderate - high VTE Device Contraindication: N/A - Device Ordered VTE Drug Contraindication: Treatment Not Tolerated
--- NOTE | 2023-07-11 10:48 | MHC.CM.PN ---
EMR REVIEWED, PER ICU ROUNDS PT RECEIVED LEVOPHED OVERNIGHT, ANTIC PLAN TO ATTEMPT EXTUBATION TODAY, PT REMAINS FULL CODE, CM WILL CONT TO FOLLOW DC NEEDS.
--- NOTE | 2023-07-11 11:00 | PC.NURSE ---
Addendum entered by Bakari Schreiber RN 07/11/23 11:09: OG tube was also removed at this time Original Note: Propofol drip stopped at 0956 (see MAR). MD switched pt over to PSV at 1003. Pt extubated at 1045 with MD and RT at bedside. Oral suction provided. Pt initally placed on 5L via NC, but was soon placed on HFNC, 40L @ 30%. HR at 120s, SaO2 at 90%, RR at 42-46. MD aware. Pt's cardiac rhythm changed upon extubation, MD aware.
[2023-07-11 19:49] LABS: Albumin Level 3.7 g/dL (3.5-5.0); Anion Gap 19 (12-20); Blood Urea Nitrogen 55 mg/dL (9-16); Calcium 8.4 mg/dL (8.4-10.2); Carbon Dioxide 23 mmol/L (22-29); Chloride 108 mmol/L (96-108); Creatinine Clr Calc Pharmacy 22.6; Estimated Glomerular Filt Rate 30; Glucose Random 80 mg/dL (60-115); Magnesium 1.9 mg/dL (1.6-2.6); Phosphorus 4.1 mg/dL (2.7-4.5); Potassium 5.1 mmol/L (3.3-5.1); Sodium 145 mmol/L (135-145)
--- NOTE | 2023-07-11 23:19 | HO.SKINPHOTO ---
Location: Right cheek Category: MDPI
[2023-07-12] VITALS (30 sets, daily range): BP systolic 97–127; BP diastolic 28–61; PULSE 109–118; RESP 37–55; TEMP 34.5–38.1; O2SAT 93–97; BMI 17.7
[2023-07-12] MEDS: Heparin Sodium,Porcine 5,000 UNIT/ML VIAL 5000 UNIT SUBCUT ×3 (00:38→17:34)
[2023-07-12] MEDS: 0.9 % Sodium Chloride Flush 3 ML SYRINGE IVFLUSH ×2 (00:38→07:29)
[2023-07-12 03:02] LABS: Glucose, Whole Blood 93 mg/dL (60-115)
[2023-07-12 03:02] LABS: Glucose, Whole Blood 74 mg/dL (60-115)
[2023-07-12 03:02] LABS: Glucose, Whole Blood 79 mg/dL (60-115)
[2023-07-12 04:40] LABS: VBG Base Excess -0.6 mmol/L; VBG HCO3 22 mmol/L (22-26); VBG pCO2 31 mmHg; VBG pH 7.46 (7.32-7.43); VBG pO2 47 mmHg
[2023-07-12 04:52] LABS: Hematocrit 24.5 % (37.0-47.0); Hemoglobin 7.4 g/dl (12.0-16.0); Mean Corpuscular HGB Conc 30.2 g/dl (31.0-35.0); Mean Corpuscular Hemoglobin 35.4 pg (27.0-33.0); Mean Platelet Volume 11.6 fL (9.4-12.3); Platelet Count 161 X10*3/uL (160-400); Red Blood Count 2.09 X10*6/uL (4.20-5.50); Red Cell Distribution Width 16.7 % (11.0-16.0); White Blood Count 17.7 X10*3/uL (4.8-10.8)
[2023-07-12 05:01] LABS: Mean Corpuscular Volume 117.2 fL (80.0-98.0); NRBC Pct Auto 1.5 /100WBC (0.0-0.2)
[2023-07-12 05:09] LABS: Alanine Aminotransferase 7 U/L (0-31); Albumin Level 3.5 g/dL (3.5-5.0); Alkaline Phosphatase 85 U/L (39-117); Anion Gap 24 (12-20); Aspartate Amino Transferase 24 U/L (5-31); Bilirubin Total 0.6 mg/dL (0.0-1.0); Blood Urea Nitrogen 59 mg/dL (9-16); Calcium 8.4 mg/dL (8.4-10.2); Carbon Dioxide 20 mmol/L (22-29); Chloride 108 mmol/L (96-108); Creatinine Clr Calc Pharmacy 22.5; Estimated Glomerular Filt Rate 30; Glucose Random 108 mg/dL (60-115); Phosphorus 5.6 mg/dL (2.7-4.5); Potassium 5.2 mmol/L (3.3-5.1); Sodium 147 mmol/L (135-145); Total Protein 5.5 g/dL (6.5-8.0)
[2023-07-12 05:17] LABS: Venous Blood Gas Refer to POC result
[2023-07-12 05:36] LABS: Band Neutrophils Percent 2 % (3-5); Lymphocytes Absolute Manual 0.7 X10*3/uL (1.2-4.9); Lymphocytes Percent Manual 4 % (20-40); Metamyelocytes Absolute 0.4 X10*3/uL; Metamyelocytes Percent 2 %; Monocytes Absolute Manual 0.4 X10*3/uL (0.1-1.2); Monocytes Percent Manual 2 % (2-11); Neutrophils Absolute Manual 16.3 X10*3/uL (2.0-8.3); Neutrophils Percent Manual 90 % (45-73); Nucleated Red Blood Cells 1 /100WBC (0-0); RBC Morphology NOTED
[2023-07-12 05:37] LABS: Macrocytosis 1+ (5-14) /OIF; Ovalocytes 1+ (5-14) /OIF; Schistocytes 1+ (0-2) /OIF
[2023-07-12 05:38] LABS: Basophilic Stippling 1+ (0-2) /OIF; Polychromasia 1+ (0-2) /OIF; Stomatocytes 1+ (5-14) /OIF; Tear Drop Cells 1+ (0-2) /OIF; Toxic Granulation PRESENT; Toxic Vacuolation PRESENT
[2023-07-12 05:39] LABS: Large Platelet PRESENT; Platelet Estimate NORMAL (NORMAL); Platelet Morphology Comment NOTED
[2023-07-12 05:57] LABS: Glucose, Whole Blood 104 mg/dL (60-115)
[2023-07-12] MEDS: Chlorhexidine Gluc Oral Rinse 15 ML MOUTHWASH BUCCAL (08:37)
[2023-07-12] MEDS: Famotidine/PF 20 MG/2 ML VIAL IVPUSH (08:37)
[2023-07-12] MEDS: cefTRIAXone sodium 1 GM in 0.9 % Sodium Chloride 50 ML IV (08:37)
--- NOTE | 2023-07-12 10:05 | MHC.CLN ---
F/U PT EXTUBATED 07/10/23 OG TUBE REMOVED-TF D/C DISCUSSED AT ROUNDS WITH AND ALEX PT IS CURRENTLY NPO INCREASED NUTRITION RISK R/T PRESSURE INJURY IF DIET TO ADVANCE WILL NEED HIGH PROTEIN SUPPLEMENT FOLLOWING WITH TEAM
--- NOTE | 2023-07-12 10:19 | PM.CCPN ---
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 Extubated 07/11/2023. No events overnight. Critical Care Time (minutes): 60 Physical Exam Vital Signs: Vital Signs: Last Vital Signs Temp 99.9 F 07/12/23 09:00 Pulse 109 H 07/12/23 09:00 Resp 47 H 07/12/23 09:00 BP 97/41 L 07/12/23 09:00 Pulse Ox 93 07/12/23 09:00 O2 Del Method High Flow Nasal C annula 07/12/23 09:00 O2 Flow Rate 40 07/12/23 09:00 FiO2 21 07/12/23 09:00 Oxygen Flow Rate 2 07/04/23 14:50 BMI result Body Mass Index 17.7 Const: General: no acute distress and lethargic Orientation/consciousness: lethargic Eyes: Sclerae: sclerae normal EOM: EOMs intact bilaterally Neck: Neck: Yes no lymphadenopathy, Yes trachea midline and Yes supple Resp: Effort & Inspection: tachypneic Auscultation: crackles (Bilateral coarse) Cardio: Rate: tachycardic Rhythm: regular rhythm Heart sounds: no gallops, no murmurs and no rubs GI: Palpation (GI): Soft to palpation and Other GI palpation findings present ( Nontender) Auscultation: normal bowel sounds Extrem: General: Yes no pedal edema, No clubbing and No cyanosis Objective Data Labs 07/12/23 04:32 07/12/23 04:32 Labs: Laboratory Results - last 24 hr 07/11/23 07/11/23 07/11/23 12:36 18:00 19:20 WBC RBC Hgb Hct MCV MCH MCHC RDW Plt Count MPV Immature Gran % (Auto) Neut % (Auto) Lymph % (Auto) [place] % (Auto) Eos % (Auto) Baso % (Auto) Lymph # (Auto) [place] # (Auto) Eos # (Auto) Baso # (Auto) Abs Immat Gran (auto) Absolute Neuts (auto) Absolute Nucleated RBC Nucleated RBC % (auto) Neutrophils % (Manual) Band Neutrophils % Lymphocytes % (Manual) Monocytes % (Manual) Metamyelocytes % Abs Neuts (Manual) Lymphocytes # (Manual) Monocytes # (Manual) Metamyelocytes # Nucleated RBCs Toxic Granulation Toxic Vacuolation Platelet Estimate Large Platelets Plt Morphology Comment RBC Morphology Polychromasia Basophilic Stippling Macrocytosis Tear Drop Cells Ovalocytes Stomatocytes Schistocytes VBG pH VBG pCO2 VBG pO2 VBG HCO3 VBG O2 Saturation VBG Base Excess Sodium 145 Potassium 5.1 D Chloride 108 Carbon Dioxide 23 Anion Gap 19 BUN 55 H Creatinine 1.65 H Estim Creat Clear Calc 22.6 Estimated GFR 30 POC Glucose 120 H 95 Random Glucose 80 Calcium 8.4 D Phosphorus 4.1 Magnesium 1.9 Total Bilirubin AST ALT Alkaline Phosphatase Total Protein Albumin 3.7 COVID-19 (ANDRA) COVID-[employer] 07/12/23 07/12/23 07/12/23 00:47 01:16 02:53 WBC RBC Hgb Hct MCV MCH MCHC RDW Plt Count MPV Immature Gran % (Auto) Neut % (Auto) Lymph % (Auto) [place] % (Auto) Eos % (Auto) Baso % (Auto) Lymph # (Auto) [place] # (Auto) Eos # (Auto) Baso # (Auto) Abs Immat Gran (auto) Absolute Neuts (auto) Absolute Nucleated RBC Nucleated RBC % (auto) Neutrophils % (Manual) Band Neutrophils % Lymphocytes % (Manual) Monocytes % (Manual) Metamyelocytes % Abs Neuts (Manual) Lymphocytes # (Manual) Monocytes # (Manual) Metamyelocytes # Nucleated RBCs Toxic Granulation Toxic Vacuolation Platelet Estimate Large Platelets Plt Morphology Comment RBC Morphology Polychromasia Basophilic Stippling Macrocytosis Tear Drop Cells Ovalocytes Stomatocytes Schistocytes VBG pH VBG pCO2 VBG pO2 VBG HCO3 VBG O2 Saturation VBG Base Excess Sodium Potassium Chloride Carbon Dioxide Anion Gap BUN Creatinine Estim Creat Clear Calc Estimated GFR POC Glucose 79 74 93 Random Glucose Calcium Phosphorus Magnesium Total Bilirubin AST ALT Alkaline Phosphatase Total Protein Albumin COVID-19 (ANDRA) COVID-[employer] 07/12/23 07/12/23 07/12/23 04:32 04:34 05:30 WBC 17.7 H RBC 2.09 L D Hgb 7.4 L D Hct 24.5 L D MCV 117.2 H MCH 35.4 H MCHC 30.2 L RDW 16.7 H Plt Count 161 D MPV 11.6 Immature Gran % (Auto) Cancelled Neut % (Auto) Cancelled Lymph % (Auto) Cancelled [place] % (Auto) Cancelled Eos % (Auto) Cancelled Baso % (Auto) Cancelled Lymph # (Auto) Cancelled [place] # (Auto) Cancelled Eos # (Auto) Cancelled Baso # (Auto) Cancelled Abs Immat Gran (auto) Cancelled Absolute Neuts (auto) Cancelled Absolute Nucleated RBC 0.270 H Nucleated RBC % (auto) 1.5 H Neutrophils % (Manual) 90 H Band Neutrophils % 2 L Lymphocytes % (Manual) 4 L Monocytes % (Manual) 2 Metamyelocytes % 2 Abs Neuts (Manual) 16.3 H Lymphocytes # (Manual) 0.7 L Monocytes # (Manual) 0.4 Metamyelocytes # 0.4 Nucleated RBCs 1 H Toxic Granulation PRESENT Toxic Vacuolation PRESENT Platelet Estimate NORMAL Large Platelets PRESENT Plt Morphology Comment NOTED RBC Morphology NOTED Polychromasia 1+ (0-2) Basophilic Stippling 1+ (0-2) Macrocytosis 1+ (5-14) Tear Drop Cells 1+ (0-2) Ovalocytes 1+ (5-14) Stomatocytes 1+ (5-14) Schistocytes 1+ (0-2) VBG pH 7.46 H VBG pCO2 31 VBG pO2 47 VBG HCO3 22 VBG O2 Saturation 71.0 VBG Base Excess -0.6 Sodium 147 H Potassium 5.2 H Chloride 108 Carbon Dioxide 20 L Anion Gap 24 H BUN 59 H Creatinine 1.66 H Estim Creat Clear Calc 22.5 Estimated GFR 30 POC Glucose 104 Random Glucose 108 Calcium 8.4 Phosphorus 5.6 H Magnesium 2.0 Total Bilirubin 0.6 AST 24 ALT 7 Alkaline Phosphatase 85 Total Protein 5.5 L Albumin 3.5 COVID-19 (ANDRA) COVID-19 Clin Com 07/12/23 08:46 WBC RBC Hgb Hct MCV MCH MCHC RDW Plt Count MPV Immature Gran % (Auto) Neut % (Auto) Lymph % (Auto) [place] % (Auto) Eos % (Auto) Baso % (Auto) Lymph # (Auto) [place] # (Auto) Eos # (Auto) Baso # (Auto) Abs Immat Gran (auto) Absolute Neuts (auto) Absolute Nucleated RBC Nucleated RBC % (auto) Neutrophils % (Manual) Band Neutrophils % Lymphocytes % (Manual) Monocytes % (Manual) Metamyelocytes % Abs Neuts (Manual) Lymphocytes # (Manual) Monocytes # (Manual) Metamyelocytes # Nucleated RBCs Toxic Granulation Toxic Vacuolation Platelet Estimate Large Platelets Plt Morphology Comment RBC Morphology Polychromasia Basophilic Stippling Macrocytosis Tear Drop Cells Ovalocytes Stomatocytes Schistocytes VBG pH VBG pCO2 VBG pO2 VBG HCO3 VBG O2 Saturation VBG Base Excess Sodium Potassium Chloride Carbon Dioxide Anion Gap BUN Creatinine Estim Creat Clear Calc Estimated GFR POC Glucose Random Glucose Calcium Phosphorus Magnesium Total Bilirubin AST ALT Alkaline Phosphatase Total Protein Albumin COVID-19 (ANDRA) Negative COVID-19 Clin Com See Note Microbiology Microbiology Results: Microbiology 07/06/23 10:13 Blood - Central Line Blood Culture - Final No growth after 5 days. 07/06/23 10:13 Blood - Central Line Blood Culture - Final No growth after 5 days. 07/04/23 16:38 Blood - Venous Blood Culture - Final No growth after 5 days. 07/04/23 15:13 Blood - Venous Blood Culture - Final No growth after 5 days. 07/06/23 11:38 Sputum - Suctioned Gram Stain - Final 07/06/23 11:38 Sputum - Suctioned Sputum Culture - Final Staphylococcus aureus Progress Note: A&P Assessment and plan (1) Failure to thrive in adult: Status: Acute (2) Acute hypoxic respiratory failure: Status: Acute (3) Pneumonia due to COVID-19 virus: Status: Acute (4) Acute and chronic respiratory failure: Status: Acute (5) Sacral decubitus ulcer, stage III: Status: Acute (6) Malnutrition: Status: Acute (7) 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: Status: Acute Plan Assessment: 77-year-old lady with metastatic melanoma no longer able to receive palliative been secondary to poor performance status admitted with failure to thrive and acute hypoxic respiratory failure Plan: Neuro: No acute issues. Cardiac: No acute issues. Pulmonary: Acute on chronic hypoxic respiratory failure secondary to COVID-19/MSSA pneumonia. Extubated 07/11/2023. Continue to titrate off supplemental oxygen as tolerated. Renal: Acute renal failure, non oliguric. Continue to monitor renal indices and urine output. Endo: No acute issues. GI: No acute issues. ID: COVID-19 with secondary MSSA pneumonia continue ceftriaxone. Heme/Onc: Subacute anemia secondary to chronic disease. Patient is Mu-ism. IV iron given. Psych: No acute issues. Miscellaneous: Underlying metastatic melanoma with overall very poor/terminal prognosis. Prophylaxis: Heparin Diet: Pending swallow evaluation Critical care time spent: 60 minutes Quality Stroke Does the patient have a stroke diagnosis?: No VTE Prior VTE?: No VTE Risk Level:: Medical - moderate - high VTE Device Contraindication: N/A - Device Ordered VTE Drug Contraindication: Treatment Not Tolerated
--- NOTE | 2023-07-12 13:24 | MHC.CM.PN ---
Pt extubated on 07/11: not communicative per baseline. MD states pt may be at her pre hosptialization level of functioning and will speak w/pt's HCP, Katya, to discuss goals of care/next level of care. Pt had been on Palliative services at home d/t malignancy w/mets. Pt referred back to [facility] where she had services prior to [facility] admission. CM to follow.
--- NOTE | 2023-07-12 14:36 | HO.SKINPHOTO ---
Location:C[place] Category:PI
[2023-07-13] VITALS (40 sets, daily range): BP systolic 76–132; BP diastolic 32–57; PULSE 100–117; RESP 26–56; TEMP 34.6–38.1; O2SAT 88–97; BMI 18.1
[2023-07-13] MEDS: Heparin Sodium,Porcine 5,000 UNIT/ML VIAL 5000 UNIT SUBCUT ×2 (02:02→10:21)
[2023-07-13] MEDS: Norepinephrine Bitartrate/D5W 8 MG/250 ML PLAST..BAG 4.44 MG IV (07:25)
[2023-07-13] MEDS: cefTRIAXone sodium 1 GM in 0.9 % Sodium Chloride 50 ML IV (10:21)
--- NOTE | 2023-07-13 10:34 | MHC.CLN ---
F/U PT IS MODERATELY MALNOURISHED (PREVIOUSLY DX 07/10/23 PER MD) PT WITH MILDLY DEPLETED SUBCUTANEOUS FAT WITH CHRONIC POOR PO INTAKE WITH INCREASED NUTRITION NEEDS AND PRESSURE INJURY PT EXTUBATED 07/10/23 WITH OGT REMOVED DISCUSSED AT ROUNDS WITH MD TODAY PLAN TO PLACE NGT FOR NUTRITION RECOMMEND NEPRO AT MAX GOAL RATE 35ML/HR WITH 120ML FREE WATER FLUSHES Q 4 HRS TO PROVIDE 1512KCALS, 68G PROTEIN, 1330ML TOTAL WATER FROM FORMULA AND FLUSHES (26ML/KG) START FORMULA AT 10ML/HR AND INCREASE BY 10ML Q 4 HRS UNTIL MAX GOAL IS ACHIEVED MONITOR TOLERANCE, RESIDUALS AND LYTES SEE ALSO FULL CLINICAL NUTRITION ASSESSMENT
--- NOTE | 2023-07-13 10:42 | PM.CCPN ---
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 Extubated 07/11/2023. Remains very encephalopathic. Now again requiring pressor support. No events overnight. Critical Care Time (minutes): 60 Physical Exam Vital Signs: Vital Signs: Last Vital Signs Temp 97.3 F 07/13/23 10:00 Pulse 113 H 07/13/23 10:00 Resp 42 H 07/13/23 10:00 BP 107/47 L 07/13/23 10:00 Pulse Ox 94 07/13/23 10:00 O2 Del Method High Flow Nasal C annula 07/13/23 10:00 O2 Flow Rate 30 07/13/23 10:00 FiO2 40 07/13/23 10:00 Oxygen Flow Rate 2 07/04/23 14:50 BMI result Body Mass Index 18.1 Const: General: no acute distress and patient obtunded Orientation/consciousness: patient obtunded Eyes: Sclerae: sclerae normal Neck: Neck: Yes no lymphadenopathy, Yes trachea midline and Yes supple Resp: Effort & Inspection: normal respiratory effort and tachypneic Auscultation: clear to auscultation bilaterally Cardio: Rate: tachycardic Rhythm: regular rhythm Heart sounds: no gallops, no murmurs and no rubs GI: Palpation (GI): Soft to palpation and Other GI palpation findings present ( Nontender) Auscultation: normal bowel sounds Neuro: General: patient obtunded Extrem: General: Yes no pedal edema, No clubbing and No cyanosis Objective Data Labs 07/13/23 04:55 07/13/23 04:55 Labs: Laboratory Results - last 24 hr 07/12/23 07/12/23 07/12/23 12:19 18:09 19:21 WBC RBC Hgb Hct MCV MCH MCHC RDW Plt Count MPV Immature Gran % (Auto) Neut % (Auto) Lymph % (Auto) [place] % (Auto) Eos % (Auto) Baso % (Auto) Lymph # (Auto) [place] # (Auto) Eos # (Auto) Baso # (Auto) Abs Immat Gran (auto) Absolute Neuts (auto) Absolute Nucleated RBC Nucleated RBC % (auto) Smear Tech's Comments VBG pH VBG pCO2 VBG pO2 VBG HCO3 VBG O2 Saturation VBG Base Excess Sodium 147 H Potassium 4.2 Chloride 107 Carbon Dioxide 21 L Anion Gap 23 H BUN 63 H Creatinine 1.62 H Estim Creat Clear Calc 20.5 Estimated GFR 31 POC Glucose 113 129 H Random Glucose 122 H Calcium 8.5 Phosphorus 5.5 H Magnesium 1.9 Total Bilirubin AST ALT Alkaline Phosphatase Total Protein Albumin 3.3 L 07/13/23 07/13/23 07/13/23 00:23 04:55 05:06 WBC 22.6 H RBC 2.11 L Hgb 7.8 L Hct 25.5 L MCV 120.9 H MCH 37.0 H MCHC 30.6 L RDW 17.1 H Plt Count 200 MPV 11.9 Immature Gran % (Auto) 4.0 H Neut % (Auto) 87.5 H Lymph % (Auto) 5.8 L [place] % (Auto) 2.3 Eos % (Auto) 0.0 Baso % (Auto) 0.4 Lymph # (Auto) 1.3 [place] # (Auto) 0.5 Eos # (Auto) 0.0 Baso # (Auto) 0.1 Abs Immat Gran (auto) 0.91 H Absolute Neuts (auto) 19.8 H Absolute Nucleated RBC 0.350 H Nucleated RBC % (auto) 1.5 H Smear Tech's Comments VERIFIED VBG pH 7.39 VBG pCO2 41 VBG pO2 50 VBG HCO3 25 VBG O2 Saturation 70.0 VBG Base Excess 0.5 Sodium 146 H Potassium 4.2 Chloride 107 Carbon Dioxide 22 Anion Gap 21 H BUN 64 H Creatinine 1.67 H Estim Creat Clear Calc 19.9 Estimated GFR 30 POC Glucose 132 H Random Glucose 156 H Calcium 8.3 L Phosphorus 6.5 H Magnesium 2.1 Total Bilirubin 0.5 AST 20 ALT 7 Alkaline Phosphatase 84 Total Protein 5.4 L Albumin 3.3 L Microbiology Microbiology Results: Microbiology 07/06/23 10:13 Blood - Central Line Blood Culture - Final No growth after 5 days. 07/06/23 10:13 Blood - Central Line Blood Culture - Final No growth after 5 days. 07/04/23 16:38 Blood - Venous Blood Culture - Final No growth after 5 days. 07/04/23 15:13 Blood - Venous Blood Culture - Final No growth after 5 days. 07/06/23 11:38 Sputum - Suctioned Gram Stain - Final 07/06/23 11:38 Sputum - Suctioned Sputum Culture - Final Staphylococcus aureus Progress Note: A&P Assessment and plan (1) Failure to thrive in adult: Status: Acute (2) Acute hypoxic respiratory failure: Status: Acute (3) Pneumonia due to COVID-19 virus: Status: Acute (4) Sacral decubitus ulcer, stage III: Status: Acute (5) Chronic respiratory failure with hypoxia: Status: Acute (6) 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: Status: Acute (7) Malnutrition: Status: Acute Plan Assessment: 77-year-old lady with metastatic melanoma no longer able to receive palliative been secondary to poor performance status admitted with failure to thrive and acute hypoxic respiratory failure Plan: Neuro: No acute issues. Cardiac: No acute issues. Pulmonary: Acute on chronic hypoxic respiratory failure secondary to COVID-19/MSSA pneumonia. Extubated 07/11/2023. Continue to titrate off supplemental oxygen as tolerated. Renal: Acute renal failure, non oliguric. Continue to monitor renal indices and urine output. Endo: No acute issues. GI: No acute issues. ID: COVID-19 with secondary MSSA pneumonia continue ceftriaxone. Heme/Onc: Subacute anemia secondary to chronic disease. Patient is Quaker. IV iron given. Psych: No acute issues. Miscellaneous: Underlying metastatic melanoma with overall very poor/terminal prognosis. Prophylaxis: Heparin Diet: Tube feeds Critical care time spent: 60 minutes Quality Stroke Does the patient have a stroke diagnosis?: No VTE Prior VTE?: No VTE Risk Level:: Medical - moderate - high VTE Device Contraindication: N/A - Device Ordered VTE Drug Contraindication: Treatment Not Tolerated
--- NOTE | 2023-07-13 11:59 | MHC.CM.PN ---
Pt continues care in ICU: on pressor support but extubated. Pt had been on palliative care at home with [facility] providing services. CM to follow for finalization of d/c needs: unknown if pt will need transition to [employer] or will be able to return to home.
--- NOTE | 2023-07-13 15:13 | HO.WOUND ---
Wound Consult: Initial 77yr old female admitted to [facility] [place]05/23 06:06? - See progress notes and H&P for detailed history. Wound consult placed for Coccyx and Right Cheek wounds. Arrival to bedside pt was on High Flow Nasal Cannula and nonresponsive to her environment. Detailed assessment below. Right Cheek Etiology: Device related Stage 2 pressure Injury - there likely is a friction component related to this injury given the location and device in use. The device has history of sticking and not gliding across skin leading to friction and blister formation. Suspect was an unroofed blister. Measurements: 0.5cm x 1cm x 0.1cm Wound Bed: pale pink moist clean wound bed Drainage / Odor: None noted Edges: ? well defined Renetta wound: Intact - No Induration, Fluctuance or Warmth noted Goals of Treatment: ? Moist wound healing and lite foam to off load pressure and protect from friction Sacrum Unstageable Pressure injury from chart review 07/05/23 Todays Assessment 07/13/23 Sacrum Etiology: Unstageable Pressure Injury - ?Present on Admission Measurements: 4.5cm x 6.5cm x 0.1cm Wound Bed: Black necrotic tissue lifting at edges slight fluctuance noted Drainage / Odor: serosang mccurdy drainage noted on dressing and bed linen Edges: ? irregular and lifting Renetta wound: red pink slow to slade tissue - ? No Induration, Fluctuance or Warmth noted Goals of Treatment: ?Traid and foam dressing - triad will aid in autolytic debridement and foam will protect from friction and aid in protecting from pressure Recommendations: 1. Turn and Reposition every 2 hours and as needed for patient comfort.? Use pillows or wedges to support off loading positions. Wedges in place at end of consultation. 2. Off Load all bony prominences with use of pillows and heel boots if needed.? Apply Preventative foams where needed. ?Pt has extremely prominent skeletal structure with little tissue for padding - consider padding bony prominence as prevention. 3. Monitor for incontinence and moisture control, use barrier creams when needed for prevention and treatment. 4. Provide adequate and supplemental nutrition. 5. Continue low air loss mattress. 6. Sacrum - Off Load Pressure - Cleanse with PH balance spray or wipes, pat dry. ?Apply thin layer of Triad to wound bed. Do not remove all of paste between applications as this may cause further skin damage.? Cover with foam dressing to aid in off loading and protection from friction. 7. Right cheek - Cleanse with NS moist gauze, pat dry. Apply single layer xeroform cover with Mepilex Lite foam dressing cut to protect from Nasal Cannula. Change every other day. Apply cut to size Mepilex Lite to areas device is touching patient skin. Re-consult wound care Nurse for wound deterioration or wound changes.
--- NOTE | 2023-07-13 21:02 | PC.NURSE ---
Addendum entered by Sera Flores RN 07/14/23 03:59: family called to the bedside by provider d/t increased levo and oxygen requirements, family made the pt DNR and not escalation of care, per [employer] do not go up on Levo or oxygen any further Addendum entered by Sera Flores RN 07/14/23 02:21: MAP goal greater than 50 per [employer] Original Note: assumed care 1900 RR 40's, decreased BP requiring increased levo, see emar, no urine output, pt not responsive to stimuli, [employer] made aware, no new orders at this time.
[2023-07-14] VITALS (18 sets, daily range): BP systolic 0–108; BP diastolic 0–38; PULSE 0–102; RESP 34–42; TEMP 35–37.3; O2SAT 75–93; BMI 18.1
--- NOTE | 2023-07-14 03:49 | HO.HCP ---
Health Care Proxy Invocation Health Care Proxy Health Care Proxy Invocation Form: Patient clinical status worsening. Granddaughter Katya, will like to change code status to DNR with no scalation of care Declaration: I, , on the date cited below, have determined that, , lacks the capacity to make or communicate, informed health care decision. This determination is made in accordance with accepted standards of medical judgment and pursuant to [place] c. 201[place], the [place] Health Care Proxy Law. The cause, nature, extent and probable duration of the patient's inapacity are described below: Cause:Underlying metastatic melanoma Nature:natural Extent:terminal Probable Duration of Patient's Incapacity:
--- NOTE | 2023-07-14 03:50 | PM.EVENT ---
Documented by User: Dulce Guallpa NP 07/14/23 05:25 Event Note Date of Service: 07/14/23 Event Note: Patient with underlying metastatic melanoma, with worsening clinical status. Requiring more vasopressor support and supplemental oxygen oxygenation. No urine output. Goals of care , conversation held in person with granddaughter/ HCP, Katya as well as other family members. HCP understand poor/terminal prognosis. She would like for patient to become DNR with no escalation of care at this time. Code status changed in chart Time Spent With Patient Time: Total time managing care of this patient today ____ minutes. Documented by User: Wicho Hunter MD 07/14/23 09:39 Event Note Date of Service: 07/14/23
--- NOTE | 2023-07-14 10:05 | PM.DDS ---
Discharge Sum: Prov Provider Primary care physician: Angi Bartlett MD Consults: 07/05/23 08:44 Consult to Pulmonology Routine Consulting Provider: Toan Cabrera Reason for consultation: hypoxia covid Has provider been notified: Yes 07/11/23 23:15 Consult to Wound Care Routine Reason for consultation: Coccyx PI and Right cheek MDPI Discharge Sum: Diag Contributing Factors (1) 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: (2) Failure to thrive in adult: (3) Acute hypoxic respiratory failure: (4) Pneumonia due to COVID-19 virus: (5) Sacral decubitus ulcer, stage III: (6) Chronic respiratory failure with hypoxia: (7) Malnutrition: (8) MARY (acute kidney injury): (9) MSSA (methicillin susceptible Staphylococcus aureus) pneumonia: Discharge Sum: Summary Date and Time Date of admission: 07/05/23 06:06 Date of : 07/14/23 Time of : 09:40 Summary Details: 77-year-old lady with 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 Extubated 07/11/2023, but remained very encephalopathic and requiring pressor support. On 07/13/2023 patient with worsening clinical status requiring more vasopressor support and supplemental oxygen, also with development of anuria. Goals of care conversation held with granddaughter/ HCP, Katya as well as other family members. HCP understanding poor/terminal prognosis changed patient's code status to DNR/DNI with no escalation of care. Over the course of the next 12 hours patient with further clinical deterioration when eating in bradycardic asystolic arrest. On my exam no spontaneous respirations, no pulse, no corneal reflexes. Time of 09:40. Family at the bedside. Additional Data Attending physician: Wicho Hunter MD
== END 2023-07-14 09:40 | disposition expired | DRG 207 ==
LOC: HO.ED 21:25 → HO.EDOVER 07-05 06:16 → HO.IMC 07-05 15:05 → HO.ICU 07-05 22:35
PROVIDERS: Hospitalist; Internal Medicine Cardiovascular Disease; Nurse Practitioner Family; Physician Assistant; Registered Nurse Community Health; Admitting Provider Internal Medicine; Emergency Provider Emergency Medicine; PCP Internal Medicine; Visit Provider Internal Medicine Pulmonary Disease
DX: U07.1 COVID-19 (principal); G92.8 Other toxic encephalopathy; J96.21 Acute and chronic respiratory failure with hypoxia; L89.153 Pressure ulcer of sacral region, stage 3; J12.82 Pneumonia due to coronavirus disease 2019; J15.211 Pneumonia due to Methicillin susceptible Staphylococcus aureus; C79.51 Secondary malignant neoplasm of bone; J91.0 Malignant pleural effusion; Z68.1 Body mass index [BMI] 19.9 or less, adult; E87.0 Hyperosmolality and hypernatremia; J98.11 Atelectasis; F32.0 Major depressive disorder, single episode, mild; N17.9 Acute kidney failure, unspecified; E44.0 Moderate protein-calorie malnutrition; Z66 Do not resuscitate; R62.7 Adult failure to thrive; C55 Malignant neoplasm of uterus, part unspecified; G89.3 Neoplasm related pain (acute) (chronic); I27.20 Pulmonary hypertension, unspecified; Z99.81 Dependence on supplemental oxygen; C30.0 Malignant neoplasm of nasal cavity; Z53.1 Procedure and treatment not carried out because of patient's decision for reasons of belief and group pressure; D63.1 Anemia in chronic kidney disease; Z91.040 Latex allergy status; Z79.899 Other long term (current) drug therapy
CPT/HCPCS: 0241U; 36415; 70450; 71045; 71250; 80048; 80053; 80076; 81001; 81003; 82040; 82140; 82803; 82947; 83605; 83690; 83735; 83880; 84100; 84484; 85007; 85025; 85027; 85610; 86359; 86360; 87040; 87070; 87077; 87186; 87205; 87389; 87493; 87635; 87640; 87641; 93005; 93306; 94002; 94003; 94799; 97162; 99285; C1758; J0248; J0295; J0613; J0696; J0885; J1100; J1200; J1644; J1756; J1939; J1940; J2020; J2060; J2250; J2270; J2598; J2704; J2920; J3010; J3371; J3480; P9047

== ENCOUNTER → 2023-07-04 14:52 | Outpatient (BNV) | payer OTHER, SELFPAY | PROVIDERS: Emergency Provider Emergency Medicine; PCP Internal Medicine; Visit Provider Internal Medicine | DX: R41.82 Altered mental status, unspecified (principal) | CPT/HCPCS: 93010 ==

== ENCOUNTER → 2023-07-04 15:13 | Outpatient (BNV) | payer OTHER, SELFPAY | PROVIDERS: Emergency Provider Emergency Medicine; PCP Internal Medicine; Visit Provider Internal Medicine | DX: J96.21 Acute and chronic respiratory failure with hypoxia (principal); J90 Pleural effusion, not elsewhere classified; U07.1 COVID-19; G93.49 Other encephalopathy; L89.153 Pressure ulcer of sacral region, stage 3 | CPT/HCPCS: 99223; 99233; 99499 ==

== ENCOUNTER 2023-07-05 06:06 | Outpatient (BNV) | payer OTHER, SELFPAY | END 2023-07-05 07:00 | PROVIDERS: Admitting Provider Internal Medicine; Emergency Provider Emergency Medicine; PCP Internal Medicine; Visit Provider Internal Medicine | DX: R00.0 Tachycardia, unspecified (principal); R94.31 Abnormal electrocardiogram [ECG] [EKG] | CPT/HCPCS: 93010; 93306 ==

== ENCOUNTER → 2023-07-05 06:06 | Outpatient (BNV) | payer MEDICARE, SELFPAY | PROVIDERS: Admitting Provider Internal Medicine; Emergency Provider Emergency Medicine; PCP Internal Medicine; Visit Provider Internal Medicine Cardiovascular Disease | DX: J96.20 Acute and chronic respiratory failure, unspecified whether with hypoxia or hypercapnia (principal); U07.1 COVID-19; J12.82 Pneumonia due to coronavirus disease 2019; J90 Pleural effusion, not elsewhere classified; R53.1 Weakness; J96.01 Acute respiratory failure with hypoxia; G93.49 Other encephalopathy; L89.153 Pressure ulcer of sacral region, stage 3; M54.50 Low back pain, unspecified; M54.2 Cervicalgia; N39.41 Urge incontinence; L98.429 Non-pressure chronic ulcer of back with unspecified severity | CPT/HCPCS: 99291; 99499 ==

== ENCOUNTER → 2023-07-05 06:06 | Outpatient (BNV) | payer OTHER, SELFPAY | PROVIDERS: Admitting Provider Internal Medicine; Emergency Provider Emergency Medicine; PCP Internal Medicine; Visit Provider Hospitalist | DX: C43.9 Malignant melanoma of skin, unspecified (principal); C79.51 Secondary malignant neoplasm of bone; R62.7 Adult failure to thrive; J96.01 Acute respiratory failure with hypoxia; U07.1 COVID-19; J12.82 Pneumonia due to coronavirus disease 2019; L89.153 Pressure ulcer of sacral region, stage 3; J96.11 Chronic respiratory failure with hypoxia; E46 Unspecified protein-calorie malnutrition; N17.9 Acute kidney failure, unspecified; J15.211 Pneumonia due to Methicillin susceptible Staphylococcus aureus | CPT/HCPCS: 99223; 99239; 99291 ==